=== PATIENT | female | born 1955 | race Caucasian/White ===

== ENCOUNTER → 2017-11-10 12:37 | Outpatient (CLI) | payer BC, SELFPAY ==
[2017-11-10 14:02] LABS: AST(SGOT) 23 U/L (15-37); Alanine Aminotransfer ALT/SGPT 36 U/L (13-56); Albumin, Serum 3.7 g/dL (3.2-5.0); Alkaline Phosphatase 105 U/L (45-117); Bilirubin, Direct 0.11 mg/dL (0.00-0.30); Cholesterol 204 mg/dL (200); High Density Lipoprotein 43 mg/dL; Protein, Total 6.7 g/dL (6.4-8.2); Triglycerides 184 mg/dL; Very Low Density Lipoprotein 37 mg/dL (5-40)
== END ==
PROVIDERS: Family Provider Family Medicine; PCP Family Medicine; Visit Provider Internal Medicine Cardiovascular Disease
DX: E78.5 Hyperlipidemia, unspecified (principal); Z79.899 Other long term (current) drug therapy
CPT/HCPCS: 36415; 80061; 80076

== ENCOUNTER → 2018-06-20 11:03 | Outpatient (CLI) | payer BC, SELFPAY ==
[2018-06-20 12:45] LABS: AST(SGOT) 20 U/L (15-37); Alanine Aminotransfer ALT/SGPT 39 U/L (13-56); Albumin, Serum 4.3 g/dL (3.2-5.0); Alkaline Phosphatase 107 U/L (45-117); Bilirubin, Direct 0.18 mg/dL (0.00-0.30); Cholesterol 190 mg/dL (200); Globulin 3.3 g/dL (2.2-4.2); High Density Lipoprotein 49 mg/dL; Protein, Total 7.6 g/dL (6.4-8.2); Triglycerides 158 mg/dL; Very Low Density Lipoprotein 32 mg/dL (5-40)
== END ==
PROVIDERS: Family Provider Family Medicine; PCP Family Medicine; Referring Provider Internal Medicine Cardiovascular Disease; Visit Provider Internal Medicine Cardiovascular Disease
DX: E78.5 Hyperlipidemia, unspecified (principal); Z79.899 Other long term (current) drug therapy
CPT/HCPCS: 36415; 80061; 80076

== ENCOUNTER → 2018-12-19 10:25 | Outpatient (CLI) | payer BC, SELFPAY ==
[2018-10-27 09:50] VITALS: BMI 36.0
[2018-12-19 11:23] LABS: AST(SGOT) 24 U/L (15-37); Alanine Aminotransfer ALT/SGPT 42 U/L (13-56); Albumin, Serum 3.9 g/dL (3.2-5.0); Alkaline Phosphatase 102 U/L (45-117); Bilirubin, Direct 0.17 mg/dL (0.00-0.30); Cholesterol 206 mg/dL (200); Globulin 3.2 g/dL (2.2-4.2); High Density Lipoprotein 52 mg/dL; Protein, Total 7.1 g/dL (6.4-8.2); Triglycerides 177 mg/dL; Very Low Density Lipoprotein 35 mg/dL (5-40)
== END ==
PROVIDERS: Family Provider Family Medicine; PCP Family Medicine; Referring Provider Physician Assistant Medical; Visit Provider Physician Assistant Medical
DX: E78.5 Hyperlipidemia, unspecified (principal)
CPT/HCPCS: 36415; 80061; 80076

== ENCOUNTER → 2018-12-26 11:20 | Outpatient (CLI) | payer BC, SELFPAY ==
[2018-12-26 10:37] VITALS: BMI 36.3
[2018-12-26 12:03] LABS: Absolute Lymphocyte Count 3.04 X10^3/ul (0.83-4.51); Absolute Neutrophil Count 5.1 X10^3/uL (2.0-7.7); Basophil# 0.05 X10^3/uL; Basophil% 0.6 % (0-1); Eosinophil# 0.24 X10^3/uL; Eosinophils% 2.6 % (0-5); Hemoglobin 14.4 g/dl (12.0-15.0); Lymphocyte # 3.04 X10^3/ul (4.0); Lymphocyte % 33.4 % (19-41); Mean Corp Hgb Conc 32.7 g/gl (32-36); Mean Corpuscular Hgb 30.8 pg (27.0-32.0); Monocyte# 0.61 X10^3/uL; Monocyte% 6.7 % (0-10); Neutrophil # 5.13 X10^3/uL (2.7-7.7); Neutrophil % 56.5 % (47-70); Platelet Count 262 K/mm3 (150-450); RBC Distribution Width SD 47.6 fl (35.1-43.9); Red Blood Count 4.68 M/mm3 (4.2-5.4); White Blood Count 9.1 K/mm3 (4.4-11.0)
[2018-12-26 12:15] LABS: POSITIVE COUNT NO; POSITIVE DIFFERENTIAL NO; POSITIVE MORPHOLOGY NO
[2018-12-26 12:58] LABS: Anion Gap 8 (5-15); BUN 18 mg/dL (7-18); BUN/Creat Ratio 25.9 RATIO (10-20); Calcium,Total 9.6 mg/dL (8.5-10.1); Chloride 104 mmol/L (98-107); EST Glomerular Filtration Rate 90 mL/min (>60); Est Glom Filt Rate - Afr Amer 109 mL/min (>60); Glucose 122 mg/dL (74-106); Potassium 3.7 mmol/L (3.5-5.1); Sodium Level 141 mmol/L (136-145); Thyroid Stim Hormone (TSH) 0.94 uIU/mL (0.358-3.74)
== END ==
PROVIDERS: Family Provider Family Medicine; PCP Family Medicine; Referring Provider Physician Assistant Medical; Visit Provider Physician Assistant Medical
DX: I47.1 Supraventricular tachycardia (principal); I10 Essential (primary) hypertension
CPT/HCPCS: 36415; 80048; 83735; 84443; 85025

== ENCOUNTER → 2019-02-05 08:37 | Outpatient (CLI) | payer BC, SELFPAY ==
[2018-12-26 10:37] VITALS: BMI 36.3
--- NOTE | 2019-02-05 08:40 | BI_ITS ---
MAMMOGRAPHY - BILATERAL SCREENING REASON FOR EXAM: Female, 63 years old. Routine annual screening examination. PERTINENT HISTORY: Aunt with breast cancer. TECHNIQUE: Digital bilateral breast taran (3D mammographic acquisition) in the CC and MLO projections. 2-D mediolateral oblique (MLO) and craniocaudad (CC) views of both breasts were obtained. CAD: Full Field Digital Mammography with Computer Added Detection was performed. COMPARISON: Comparison is made with prior study dated February 03, 2016 and December 03, 2014. FINDINGS: Breast Composition: There are scattered areas of fibroglandular density. There now is evidence of a 1.6 cm x 1.2 cm well-defined nodular density in the central retroareolar areolar region of the right breast. No clustered calcification is seen. No other significant abnormalities are identified. BI/SCREENING MAMM (CAD), BILAT IMPRESSION: New 1.6 cm x 1.2 cm well-defined nodule in the central right or a real region of the right breast as described. Correlation with ultrasound is recommended for further evaluation. ASSESSMENT CATEGORY: BIRADS Category 0: Incomplete. Need additional imaging evaluation. A letter regarding these results will be sent to the patient by the facility within 30 days. Approximately 10% of breast cancers are not detected by mammography. A normal mammogram should not delay biopsy of a clinically suspicious abnormality. [id number] Electronically Signed: Tyler Catalan, at 10:08 EDT , Service support ,
== END ==
PROVIDERS: Family Provider Family Medicine; PCP Family Medicine; Referring Provider Obstetrics & Gynecology; Visit Provider Obstetrics & Gynecology
DX: Z12.31 Encounter for screening mammogram for malignant neoplasm of breast (principal); Z80.3 Family history of malignant neoplasm of breast
CPT/HCPCS: 77063; 77067

== ENCOUNTER → 2019-02-06 15:07 | Outpatient (CLI) | payer BC, SELFPAY ==
[2018-12-26 10:37] VITALS: BMI 36.3
--- NOTE | 2019-02-06 15:10 | US_ITS ---
STUDY: ULTRASOUND BREAST - RIGHT REASON FOR EXAM: Female, 63 years old. Abnormal screening mammogram. TECHNIQUE: Axial and longitudinal images of the RIGHT breast were performed with a high resolution ultrasound transducer. COMPARISON: Comparison is made with prior mammogram dated February 05, 2019. FINDINGS: RIGHT Breast: The mammographic abnormality corresponds to a 1.2 cm x 1.3 cm x 1.1 cm cyst. This is at the 1:00 position of the breast at 1 cm from the nipple. US/Breast Limited Unilateral IMPRESSION: The mammographic abnormality corresponds to a 1.2 cm x 1.3 cm x 1.1 cm cyst. ASSESSMENT CATEGORY: BIRADS Category 2: Benign. A letter regarding these results will be sent to the patient by the facility within 30 days. Electronically Signed: Tyler Catalan, at 15:53 EDT , Service support ,
== END ==
PROVIDERS: Family Provider Family Medicine; PCP Family Medicine; Referring Provider Obstetrics & Gynecology; Visit Provider Obstetrics & Gynecology
DX: N60.01 Solitary cyst of right breast (principal)
CPT/HCPCS: 76642

== ENCOUNTER 2019-03-08 08:55 | Day surgery (SDC) | payer BC, SELFPAY ==
[2018-12-26 10:37] VITALS: BMI 36.3
[2019-02-20 13:43] VITALS: BMI 36.3
--- NOTE | 2019-02-26 20:30 | PCM.HP.STD ---
Problem List (1) Chronic venous insufficiency Status: Chronic (2) Varicose veins with inflammation Status: Chronic (3) Leg swelling Status: Chronic (4) Leg pain Status: Chronic Qualifiers: Laterality: left Qualified Code(s): M79.605 - Pain in left leg (5) History of atrial fibrillation Status: Chronic (6) Hyperlipemia Status: Chronic Qualifiers: (7) HTN (hypertension) Status: Chronic Qualifiers: (8) Obesity Status: Chronic Qualifiers: (9) EMMANUEL (obstructive sleep apnea) Status: Chronic (10) GERD (gastroesophageal reflux disease) Status: Chronic History of Present Illness Date of Admission: 03/08/19 Chief Complaint: Chronic venous insufficiency, varicose veins with inflammation, leg pain, leg swelling?Left lower extremity The patient is a 63 year old F [with a long-standing history of chronic venous insufficiency, varicose veins with inflammation, leg pain, and leg swelling involving her lower extremities. Her left lower extremity is more severely affected. For approximately 10 years, the patient has had pain, aching, discomfort, and heaviness in her lower extremities. Her symptoms have become progressively more severe. This has been associated with lower extremity swelling. The patient denies a history of thrombophlebitis. She is undergone no prior vein procedures in the past. Venous duplex examination has been performed, revealing incompetence of the left great saphenous vein in the left small saphenous vein. The implications of this diagnosis have been discussed with the patient in detail. The options of management have been fully explained. Conservative treatment measures have been implemented, which have included leg elevation, avoidance of idle standing and sitting, graduated compression stockings, weight control measures, active lifestyle, [id number] analgesics, etc. Despite these measures, the patient has remained symptomatic, with symptoms which have adversely affected daily activities, quality of life, and job functions. Patient's medical history is positive for atrial fibrillation, sleep apnea, gastroesophageal reflux disease, hypertension, and hyperlipidemia. Patient's history is negative for myocardial infarction, congestive heart failure, diabetes mellitus, cerebrovascular accident, cancer, renal disease, pulmonary disease, thyroid disease, and peripheral arterial occlusive disease.] Past Medical History Past Medical History (Chronic Problems): Chronic Problems (Last Reviewed 02/20/19 @ 13:41 by Melba Hagen) Chronic venous insufficiency (Chronic) Varicose veins with inflammation (Chronic) Leg swelling (Chronic) Leg pain (Chronic) History of atrial fibrillation (Chronic) SVT (supraventricular tachycardia) (Chronic) slow pathway ablation Paroxysmal atrial fibrillation (Chronic) Abnormal electrocardiogram (Chronic) 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) Hyperlipemia (Chronic) Palpitations (Chronic) HTN (hypertension) (Chronic) Polyarthritis (Chronic) Obesity (Chronic) EMMANUEL (obstructive sleep apnea) (Chronic) IBS (irritable bowel syndrome) (Chronic) Vitamin D deficiency (Chronic) Prediabetes (Chronic) Dermatitis (Chronic) Bradycardia (Chronic) GERD (gastroesophageal reflux disease) (Chronic) Osteoporosis (Chronic) Hammer toe (Chronic) Leg edema (Chronic) Pulmonary HTN (Chronic) Questionable lupus (Chronic) Medical History: Medical History (Last Reviewed 02/20/19 @ 13:41 by Melba Hagen) Cyst of breast, right, solitary (Acute) N60.01 SVT (supraventricular tachycardia) (Chronic) I47.1 slow pathway ablation Hyperlipemia (Chronic) E78.5 Palpitations (Chronic) R00.2 HTN (hypertension) (Chronic) I10 Polyarthritis (Chronic) M13.0 Obesity (Chronic) E66.9 EMMANUEL (obstructive sleep apnea) (Chronic) G47.33 IBS (irritable bowel syndrome) (Chronic) K58.9 Vitamin D deficiency (Chronic) E55.9 Prediabetes (Chronic) R73.03 Gout (Resolved) M10.9 Dermatitis (Chronic) L30.9 Bradycardia (Chronic) R00.1 GERD (gastroesophageal reflux disease) (Chronic) K21.9 Osteoporosis (Chronic) M81.0 Hammer toe (Chronic) M20.40 Leg edema (Chronic) R60.0 Pulmonary HTN (Chronic) I27.20 Constipation (Resolved) K59.00 Hypomagnesemia (Resolved) E83.42 Impingement syndrome of right shoulder (Resolved) M75.41 History of atrial fibrillation (Inactive) Status post ablation Hyperlipidemia (Inactive) Hypertension (Inactive) Allergies No Known Allergies Allergy (Verified 02/20/19 13:42) Home Medications: Ambulatory Orders Medication Instructions Recorded Aspirin [Aspirin, Baby] 81 mg PO DAILY@0800 01/06/15 [place]-3 Fatty Acids [Fish Oil] 1,500 mg PO DAILY 01/06/15 furosemide 40 mg tablet 40 mg PO BID #60 tab 03/27/18 metoprolol succinate ER 50 mg 50 mg PO QDAY #90 tab 05/22/18 tablet,extended release 24 hr lisinopril 20 mg tablet 20 mg PO QDAY #90 tab 06/06/18 pravastatin 20 mg tablet 20 mg PO QHS #90 tab 10/30/18 flecainide 100 mg tablet 100 mg PO BID #180 tab 11/08/18 magnesium 71.5 mg (magnesium 71.5 mg PO DAILY tab 12/26/18 chloride) tablet,delayed release neomycin 3.5 mg/g-polymyxin B 1 applic OPHTHALMIC QHS 12/26/18 10,000 unit/g-dexameth 0.1 % eye oint fluconazole 100 mg tablet 100 mg PO DAILY 02/20/19 Surgical History: Surgical History (Last Reviewed 02/20/19 @ 13:41 by Melba Hagen) History of hysterectomy (Resolved) Z98.890, Z90.710 History of tonsillectomy (Resolved) Z98.890, Z90.89 History of cardiac radiofrequency ablation (RFA) Z98.890 Surgical History: - Psychiatric History: 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: - - The patient is a Ab0 Lives: Spouse/ Significant Other Smoking Status: Never smoker Tobacco Use: Non-smoker Alcohol: None Drugs: None - *Family History Maternal Family History: Family History (Last Reviewed 02/20/19 @ 13:41 by Melba Hagen) Mother CAD (coronary artery disease) Father Aneurysm History Items: No pertinent history Review of Systems Constitutional: Denies: Chills, Fever, Weight Change HEENT: Denies: Head Aches, Sinus Congestion, Sinus Drainage Cardiovascular: Denies: Chest Pain, Palpitations Respiratory: Denies: Cough, Shortness of breath at rest, Sputum production Gastrointestinal: Denies: Abdominal Pain, Nausea, Vomiting Genitourinary: Denies: Dysuria Musculoskeletal: Denies: Joint Pain, Joint Tenderness Skin: Denies: Rash, Wounds Neurological: Denies: Numbness, Tingling, Focal weakness Psychiatric: Denies: Anxiety, Depression, Homicidal Ideations, Suicidal Ideations Hematologic/ Lymphatic: Denies: Easy Bruising, Easy Bleeding VTE Information - Inpt Only VTE Present on Admission: No VTE Mechan Device Prophylaxis: SCD's - Right VTE Pharm Prophylaxis ordered?: Yes - Physical Exam General: Alert, Oriented x3, Cooperative, Well developed, Well nourished HEENT: Atraumatic, PERRLA, EOMI, Normocephalic Oral: Moist Mucosa, No Gingival or Mucosal Lesions/ Ulcerations Neck: Supple, No JVD, Negative Carotid Bruits, No Nodes, No Nuchal Rigidity, Trachea Midline Lungs: Clear to auscultation, Normal air movement, No rhonchi, No wheeze, No rales Cardiovascular: Regular rate, Normal S1, Normal S2, No murmurs Abdomen: Bowel Sounds Present, Soft, Non Tender Extremities: No clubbing, No cyanosis, No edema, Capillary Refill Less than 3 Seconds, No Calf Tenderness, Peripheral Pulses Normal, - - Slight hyperpigmentation is noted in the gaiter areas bilaterally. Peripheral extremities are warm and well-perfused. Scattered varicosities are noted bilaterally. Skin: No rashes, No breakdown Musculoskeletal: No Tenderness to Palpation of Joints or Extremities, No Muscle Wasting Neurological: Cranial nerves II-XII grossly intact, Neuro grossly intact Psych/Mental Status: Normal Affect, Appropriate, Alert and oriented to time, place, person, mood and affect Body Mass Index (BMI) 36.3 Assessment/Plan All Active Problems (Last Reviewed 02/20/19 @ 13:41 by Melba Hagen) Cyst of breast, right, solitary (Acute) History of hysterectomy (Resolved) History of tonsillectomy (Resolved) Gout (Resolved) Constipation (Resolved) Hypomagnesemia (Resolved) Impingement syndrome of right shoulder (Resolved) This is a 63-year-old female with a long-standing history of chronic venous insufficiency, varicose veins with inflammation, leg pain, and leg swelling involving her left lower extremity. Venous duplex examination has revealed incompetence involving the left great saphenous vein in the left small saphenous vein. The implications of this diagnosis have been discussed with the patient in detail. The options of management have been fully explained. Conservative treatment measures have been implemented, which have included leg elevation, avoidance of idle standing and sitting, graduated compression stockings, weight control measures, active lifestyle, pmaw-kyd-yeftuup analgesics, etc. Despite these measures, the patient has remained symptomatic, with symptoms which have adversely affected daily activities, quality of life, and job functions. Indications and risks of endovenous laser ablation of the left great saphenous vein in the left small saphenous vein have been discussed with the patient detail. The indications and risks of the procedure have been thoroughly explained. The proper expectations have been discussed. Patient wishes to proceed. The appropriate preprocedure consent process has been undertaken.
--- NOTE | 2019-02-28 11:27 | EKG12_ITS ---
Test Reason : PRE-OP Blood Pressure : / mmHG Vent. Rate : 060 BPM Atrial Rate : 060 BPM P-R Int : 202 ms QRS Dur : 104 ms QT Int : 452 ms P-R-T Axes : 030 -29 037 degrees QTc Int : 452 ms Normal sinus rhythm Cannot rule out Anterior infarct , age undetermined Abnormal ECG Confirmed by ROBERTH GOMES ([id number]), loan expeditor GRIS STODDARD ([id number]) on 03/02/2019 6:06:32 AM Referred By: Antwan Arambula Confirmed By:ROBERTH GOMES
[2019-02-28 11:49] LABS: Hematocrit 45.8 % (37-47); Hemoglobin 15.3 g/dl (12.0-15.0); Mean Corp Hgb Conc 33.4 g/gl (32-36); Mean Corpuscular Hgb 30.5 pg (27.0-32.0); Mean Corpuscular Volume 91.4 fL (81-99); Mean Platelet Vol. 9.8 fl (6.2-12.0); Platelet Count 273 K/mm3 (150-450); RBC Distribution Width CV 13.8 % (11.6-14.6); RBC Distribution Width SD 45.8 fl (35.1-43.9); Red Blood Count 5.01 M/mm3 (4.2-5.4); White Blood Count 9.2 K/mm3 (4.4-11.0)
[2019-02-28 11:51] LABS: Scan Indicated on CBC? Y/N NO
[2019-02-28 12:46] LABS: Anion Gap 10 (5-15); BUN 15 mg/dL (7-18); BUN/Creat Ratio 19.7 RATIO (10-20); Calcium,Total 9.3 mg/dL (8.5-10.1); Chloride 103 mmol/L (98-107); Creatinine, Serum 0.76 mg/dL (0.55-1.02); EST Glomerular Filtration Rate 81 mL/min (>60); Est Glom Filt Rate - Afr Amer 98 mL/min (>60); Glucose 116 mg/dL (74-106); Potassium 4.1 mmol/L (3.5-5.1); Sodium Level 140 mmol/L (136-145)
[2019-03-08] VITALS (29 sets, daily range): BP systolic 130–160; BP diastolic 57–98; PULSE 57–83; RESP 14–18; TEMP 36.1–37; O2SAT 88–100; BMI 35.5
[2019-03-08] MEDS: Enoxaparin 30 MG/0.3 ML Syringe SC (09:25)
[2019-03-08] MEDS: Cefazolin 2 GM in 0.9% Normal Saline 100 ML IV (10:23)
--- NOTE | 2019-03-08 12:12 | PCM.DCVENO ---
Discharge Diet: No Restrictions Discharge Activity: May Not Drive Weight Bearing Status: Weight bearing as tolerated Lifting Restrictions: 10 pounds Keep extremity elevated above heart level: Left Leg Call your doctor if you observe: Shortness of breath, Fainting spells, Chest pain, Prolonged hiccoughing, Uncontrolled pain Suture Line Care: Avoid Pulling/Pushing Remove Dressing in (days):: 2 - Then rewrap leg daily from base of toes to the upper thigh. Allergies/Adverse Reactions: Allergies No Known Allergies Allergy (Verified 03/01/19 10:27) Medications to take at Discharge Aspirin [Aspirin, Baby] 81 mg PO DAILY@0800 01/06/15 [place]-3 Fatty Acids [Fish Oil] 1,500 mg PO DAILY 01/06/15 furosemide 40 mg tablet 40 mg PO BID #60 tab 03/27/18 metoprolol succinate ER 50 mg tablet,extended release 24 hr 50 mg PO QDAY #90 tab 05/22/18 lisinopril 20 mg tablet 20 mg PO QDAY #90 tab 06/06/18 pravastatin 20 mg tablet 20 mg PO QHS #90 tab 10/30/18 flecainide 100 mg tablet 100 mg PO BID #180 tab 11/08/18 magnesium 71.5 mg (magnesium chloride) tablet,delayed release 71.5 mg PO DAILY tab 12/26/18 neomycin 3.5 mg/g-polymyxin B 10,000 unit/g-dexameth 0.1 % eye oint 1 applic OPHTHALMIC QHS PRN 12/26/18 Primary Care Physician: Awais Kearney DO [Primary Care Provider] - Test Results: Test results from this visit will be discussed in further detail at your follow-up appointment, if applicable. Please Follow Up With: Antwan Arambula MD - Call [phone] to schedule a followup appointment. When: 10-14 days
--- NOTE | 2019-03-08 12:15 | DCINST_ITS ---
Discharge Diet: No Restrictions Discharge Activity: May Not Drive Weight Bearing Status: Weight bearing as tolerated Lifting Restrictions: 10 pounds Keep extremity elevated above heart level: Left Leg Call your doctor if you observe: Shortness of breath, Fainting spells, Chest pain, Prolonged hiccoughing, Uncontrolled pain Suture Line Care: Avoid Pulling/Pushing Remove Dressing in (days):: 2 - Then rewrap leg daily from base of toes to the upper thigh. Allergies/Adverse Reactions: Allergies No Known Allergies Allergy (Verified 03/01/19 10:27) Medications to take at Discharge Aspirin [Aspirin, Baby] 81 mg PO DAILY@0800 01/06/15 [place]-3 Fatty Acids [Fish Oil] 1,500 mg PO DAILY 01/06/15 furosemide 40 mg tablet 40 mg PO BID #60 tab 03/27/18 metoprolol succinate ER 50 mg tablet,extended release 24 hr 50 mg PO QDAY #90 tab 05/22/18 lisinopril 20 mg tablet 20 mg PO QDAY #90 tab 06/06/18 pravastatin 20 mg tablet 20 mg PO QHS #90 tab 10/30/18 flecainide 100 mg tablet 100 mg PO BID #180 tab 11/08/18 magnesium 71.5 mg (magnesium chloride) tablet,delayed release 71.5 mg PO DAILY tab 12/26/18 neomycin 3.5 mg/g-polymyxin B 10,000 unit/g-dexameth 0.1 % eye oint 1 applic OPHTHALMIC QHS PRN 12/26/18 Primary Care Physician: Awais Kearney DO [Primary Care Provider] - Test Results: Test results from this visit will be discussed in further detail at your follow- up appointment, if applicable. Please Follow Up With: Antwan Arambula MD - Call [phone] to schedule a followup appointment. When: 10-14 days
[2019-03-08] MEDS: Ipratropium/Albuterol Sulfate 3 ML AMPUL.NEB INHALATION ×2 (13:09→19:14)
--- NOTE | 2019-03-08 14:45 | RAD_ITS ---
STUDY: X-RAY CHEST REASON FOR EXAM: Female, 63 years old. Postoperative shortness of breath. TECHNIQUE: Single AP portable view of the chest. COMPARISON: Comparison is made with prior study dated January 06, 2015. FINDINGS: EKG electrodes are seen. Stable mild increased markings in the lateral aspect of the left lower lobe with blunting of the left costophrenic angle most likely representing scarring. There is borderline cardiomegaly. Normal mediastinum and polly. Normal visualized pulmonary arteries. There is atherosclerotic calcification of the aortic arch with tortuosity. There are diffuse degenerative changes of the visualized thoracic spine. Normal visualized ribs, clavicles, and shoulders. There is no demonstrated abnormality of the visualized soft tissue structures of the upper abdomen. RAD/Chest 1 View (Portable) IMPRESSION: Findings suggestive of mild scarring at the left lung base with blunting of the left costophrenic angle. Electronically Signed: Tyler Catalan, at 15:19 EDT , Service support ,
--- NOTE | 2019-03-08 17:07 | PN_ITS ---
Subjective: Consult for medical management: 63-year-old female with past medical history of atrial fibrillation status post ablation, history of SVT, SLE, not on medication, IBS, EMMANUEL on CPAP, chronic venous Insufficiency/varicose veins with inflammation, leg pain and swelling. Patient was admitted for elective endovenous laser ablation of the left great saphenous vein as well as the left small saphenous vein. Patient had this procedure successfully in the OR today. In PACU she was found to be hypoxic and saturating in the 80s. She improved to the 90s on nasal cannula oxygen but was unable to be weaned off oxygen. Chest x-ray in PACU showed mild scarring in the left lung base with blunting of the left costophrenic angle. The decision was made to admit the patient overnight, monitor her closely with the hope of weaning the patient off oxygen. Patient denied any pain, denied any shortness of breath or increased work of breathing or chest pain or dizziness or palpitations. 12 point review of systems was negative Vitals/I&O's: Vital Signs Temp Pulse Resp BP Pulse Ox 97.4 F L 64 16 147/98 H 93 03/08/19 16:30 03/08/19 16:30 03/08/19 16:30 03/08/19 16:30 03/08/19 16:30 Oxygen Flow Rate (L/min) 3 Oxygen Delivery Method Nasal Cannula Weight: 93.9 kg Body Mass Index (BMI) 35.5 Intake and Output for Last 24 Hours 03/06/19 03/07/19 03/08/19 23:59 23:59 23:59 Intake Total 1399 / 1400 Balance 1399 / 1399 General: Alert, Oriented x3, Cooperative, No apparent distress, - - On 3 L of oxygen HEENT: Atraumatic, PERRLA, EOMI, Normocephalic Oral: Moist Mucosa Neck: Supple Lungs: Clear to auscultation, Normal air movement Cardiovascular: Regular rate, Regular Rhythm, Normal S1, Normal S2, No murmurs Abdomen: Bowel Sounds Present, Soft, Non Tender, Non-Distended, No Hepato- splenomegaly Extremities: No edema Skin: No rashes, No breakdown Musculoskeletal: No Tenderness to Palpation of Joints or Extremities Lymphatic: No Cervical, Supraclavicular, or Inguinal Adenopathy Neurological: Cranial nerves II-XII grossly intact, Neuro grossly intact Psych/Mental Status: Normal Affect, Appropriate Current Medications Albuterol Sulfate (Ventolin Aerosols) 2.5 mg INHALATION Q2H PRN PRN PRN Reason: SOB &/OR WHEEZING Albuterol/Ipratropium (Duoneb) 3 ml INHALATION Q4HWA.RT CRISTEL Flecainide Acetate (Tambocor) 100 mg PO BID CRISTEL Hydromorphone HCl (Dilaudid Inj) 1 - 2 mg IV Q3H PRN PRN PRN Reason: Pain Lactated Ringer's () 1,000 mls @ 65 mls/hr IV .[id number] CRISTEL Lisinopril (Zestril) 20 mg PO QDAY CRISTEL Metoprolol Succinate (Toprol Xl (Beta Talisha)) 50 mg PO QDAY CRISTEL Non-Formulary Medication (Magnesium Chloride [Slow-Mag]) 71.5 mg PO DAILY CRISTEL Non-Formulary Medication ([place]-3 Fatty Acids) 1,500 mg PO DAILY CRISTEL Oxycodone HCl (Oxyir) 5 - 10 mg PO Q4H PRN PRN PRN Reason: PAIN Pravastatin Sodium (Pravachol) 20 mg PO QHS CRISTEL Medical Necessity - Tobacco Use Smoking Status: Never smoker Tobacco Use: Non-smoker Assessment/Plan All Active Problems (Last Reviewed 02/20/19 @ 13:41 by Melba Hagen) Cyst of breast, right, solitary (Acute) History of hysterectomy (Resolved) History of tonsillectomy (Resolved) Gout (Resolved) Constipation (Resolved) Hypomagnesemia (Resolved) Impingement syndrome of right shoulder (Resolved) 63-year-old female with past medical history of atrial fibrillation status post ablation, history of SVT, SLE, not on medication, IBS, EMMANUEL on CPAP, chronic venous Insufficiency/varicose veins with inflammation, leg pain and swelling. Venous Dopplers exam in the outpatient revealed incompetence of the left great saphenous and small saphenous veins. Patient was managed initially conservatively with no improvement in his symptoms. She was admitted for elective endovenous laser treatment. We are consulted for medical management of hypoxia developed in PACU 1. Acute hypoxia, postoperatively, likely secondary to atelectasis, no history of COPD, History of EMMANUEL, on CPAP, Chest x-ray shows left basilar scarring. Patient is on 3 L of oxygen Plan: Continue on incentive spirometer, continue on oxygen, continue to wean oxygen for SPO2 more than 94%, breathing treatments as needed. 2. POD #0 s/p endovenous laser ablation of the left greater and smaller saphenous veins, pain is fairly controlled, Continue on scheduled Tylenol, as needed oxycodone as well as Dilaudid. 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 History of atrial fibrillation status post ablation, history of SVT, in normal sinus rhythm, on flecainide, metoprolol 3. SLE/IBS not on medication 4. EMMANUEL on CPAP 5. Hypertension, controlled, continue lisinopril, continue to monitor vitals 6. DVT PPx- Heparin SC Code Visit Inpatient E&M: 92064 Init Hosp L3
[2019-03-08] MEDS: Acetaminophen 500 MG Tablet 1000 MG PO (19:06)
[2019-03-08] MEDS: Flecainide 100 MG Tablet PO (21:49)
[2019-03-08] MEDS: Pravastatin 20 MG Tablet PO (21:49)
[2019-03-08] MEDS: Heparin Injection (Vial) 5,000 UNIT/ML VIAL 5000 UNIT SC (21:50)
[2019-03-08] MEDS: oxyCODONE 5 MG Tablet PO (21:50)
[2019-03-08] MEDS: Lactated Ringers 1,000 ML 65 ML IV (21:58)
[2019-03-09] VITALS (9 sets, daily range): BP systolic 110–123; BP diastolic 49–69; PULSE 55–78; RESP 16–20; TEMP 36.9–37.1; O2SAT 92–96
[2019-03-09] MEDS: oxyCODONE 5 MG Tablet PO ×3 (00:24→13:58)
[2019-03-09] MEDS: Acetaminophen 500 MG Tablet 1000 MG PO (05:51)
[2019-03-09] MEDS: Heparin Injection (Vial) 5,000 UNIT/ML VIAL 5000 UNIT SC (05:52)
[2019-03-09 06:43] LABS: Absolute Lymphocyte Count 1.98 X10^3/ul (0.83-4.51); Absolute Neutrophil Count 8.9 X10^3/uL (2.0-7.7); Basophil# 0.01 X10^3/uL; Basophil% 0.1 % (0-1); Eosinophil# 0.01 X10^3/uL; Eosinophils% 0.1 % (0-5); Hematocrit 39.9 % (37-47); Hemoglobin 13.1 g/dl (12.0-15.0); Lymphocyte # 1.98 X10^3/ul (4.0); Lymphocyte % 16.5 % (19-41); Mean Corp Hgb Conc 32.8 g/gl (32-36); Mean Corpuscular Hgb 30.6 pg (27.0-32.0); Mean Corpuscular Volume 93.2 fL (81-99); Monocyte# 1.02 X10^3/uL; Monocyte% 8.5 % (0-10); Neutrophil # 8.92 X10^3/uL (2.7-7.7); Neutrophil % 74.5 % (47-70); Platelet Count 265 K/mm3 (150-450); RBC Distribution Width CV 13.7 % (11.6-14.6); RBC Distribution Width SD 45.6 fl (35.1-43.9); Red Blood Count 4.28 M/mm3 (4.2-5.4)
[2019-03-09 06:54] LABS: Anion Gap 10 (5-15); BUN 24 mg/dL (7-18); Calcium,Total 8.6 mg/dL (8.5-10.1); Chloride 109 mmol/L (98-107); Creatinine, Serum 0.83 mg/dL (0.55-1.02); EST Glomerular Filtration Rate 74 mL/min (>60); Est Glom Filt Rate - Afr Amer 89 mL/min (>60); Estimated Creatinine Clearance 59.13 ml/min; Glucose 154 mg/dL (74-106); Potassium 4.1 mmol/L (3.5-5.1); Sodium Level 143 mmol/L (136-145)
[2019-03-09 06:55] LABS: POSITIVE COUNT NO; POSITIVE DIFFERENTIAL NO; POSITIVE MORPHOLOGY NO
[2019-03-09] MEDS: Ipratropium/Albuterol Sulfate 3 ML AMPUL.NEB INHALATION ×2 (07:06→10:58)
--- NOTE | 2019-03-09 07:55 | OP.PCM_ITS ---
Problem List (1) Chronic venous insufficiency Status: Chronic (2) Varicose veins with inflammation Status: Chronic (3) Leg swelling Status: Chronic (4) Leg pain Status: Chronic Qualifiers: Laterality: left Qualified Code(s): M79.605 - Pain in left leg Report of Operation Date of Procedure: 03/08/19 Pre-Operative Diagnosis: Chronic venous insufficiency, varicose veins with inflamation, leg pain, leg swelling - left lower extremity Post-Operative Diagnosis: Chronic venous insufficiency, varicose veins with inflamation, leg pain, leg swelling - left lower extremity Surgery/Procedure Performed:: 1. Endovenous laser ablation of left great saphenous vein. 2. Endovenous laser ablation of left small saphenous vein Description of Surgical Findings:: As above Type of Anesthesia:: General, Tumescent Anesthesiologist: Jose A Gonzales Specimen's removed: None Drains: None Estimated Blood Loss (mL): Minimal Description of Procedure: This is a 63-year-old female who presented with chronic venous insufficiency, varicose veins with inflammation, leg pain, and leg swelling involving her left lower extremity. Preoperative venous duplex examination revealed valvular incompetence involving the left great saphenous vein and the left small saphenous vein. The implications of this diagnosis were discussed with the patient in detail. The options of management were fully explained. Conservative treatment measures were implemented, which included leg elevation, avoidance of vital standing and sitting, graduated compression stockings, weight control measures, active lifestyle, [id number] analgesics, etc. Despite these measures, the patient remained symptomatic, with symptoms which adversely affect her daily activities and quality of life. The indications and risks of endovenous laser ablation of the left great saphenous vein and the left small saphenous vein were discussed with the patient in detail. The appropriate preprocedure consent process was undertaken. The patient underwent ultrasound marking of the left great saphenous vein and the left small saphenous vein preoperatively. She was then brought to the operating suite, placed supine upon the operating room table, where general anesthesia was administered by the anesthesia staff. The patient's left lower extremity and left groin were prepped and draped in the appropriate sterile manner. The patient was placed in reverse Trendelenburg position. Ultrasonography was used to image the left great saphenous vein in the distal calf. The micropuncture technique was used to access the left great saphenous vein percutaneously in the distal calf. In this manner, a 0.018 inch guidewire was advanced intraluminally into the left great saphenous vein, and was visualized by ultrasonography. A micropuncture sheath was advanced over the guidewire. The 0.018 inch guidewire was exchanged for a 0.035 inch guidewire, which was then advanced intraluminally to a level just distal to the left sapheno?femoral junction, as confirmed by ultrasound imaging. A long 4 Georgian sheath was then advanced over the guidewire, and its tip was positioned approximately 2 cm distal to the left sapheno?femoral junction. Attention was then directed to the incompetent left small saphenous vein. To enhance exposure, the left lower extremity was placed in an externally rotated position with the left knee flexed. Using ultrasound imaging and the micropuncture technique, a micropuncture sheath was introduced intraluminally near the inferior border of the left gastrocnemius muscle, and was left in place, capped, for subsequent access purposes. Attention was then redirected to the long 4 Georgian sheath which had been previously placed intraluminally within the left great saphenous vein. Perivenous tumescent anesthesia was injected from the 4 Georgian sheath exit site up to the tip of the sheath near the left sapheno?femoral junction. This was performed segmentally using ultrasound imaging. The AngioDynamics laser fiber was then introduced into the 4 Georgian sheath and coupled appropriately. Ultrasonography was used to confirm that the tip of the laser fiber was positioned within the left great saphenous vein approximately 2 to 2-1/2 cm distal to the left sapheno?femoral junction. The patient was placed in Trendelenburg position and the laser fiber was activated. The AngioDynamics laser was slowly withdrawn at a constant rate throughout the length of the left great saphenous vein, thereby ablating the left great saphenous vein segmentally. The energy applied was approximately 60 to 80 J/cm. Following the laser ablation, the laser fiber and sheath were removed, and manual pressure was briefly applied to the percutaneous access site to achieve hemostasis. Attention was then directed to the micropuncture sheath which had been previously placed intraluminally within the left small saphenous vein. A 0.035 inch guidewire was introduced intraluminally and its tip was positioned within the proximal portion of the left small saphenous vein. The long 4 Georgian sheath was then advanced over the guidewire and into position intraluminally within the left small saphenous vein. Perivenous tumescent anesthesia was injected from the 4 Georgian sheath exit site up to the tip of the sheath in the proximal portion of the left small saphenous vein. This was performed segmentally using ultrasound imaging. The AngioDynamics laser fiber was then introduced into the 4 Georgian sheath and coupled appropriately. Ultrasonography was used to confirm that the tip of the laser fiber was positioned within the proximal left small saphenous vein, several centimeters distal to its junction with the deep venous system, and remaining within the superficial portion of the left small saphenous vein. The patient was placed into Trendelenburg position, and the laser fiber was activated. The AngioDynamics laser was slowly withdrawn at a constant rate throughout the length of the left small saphenous vein, thereby ablating the left small saphenous vein segmentally. The energy applied was approximately 60 to 80 J/cm. Following the laser ablation, the laser fiber and sheath were removed, and manual pressure was briefly applied to the percutaneous access site to achieve hemostasis. After assuring satisfactory hemostasis, the access sites were approximated using Cavilon and Steri-Strips. Dry sterile gauze dressings were applied over each of the access sites, and the leg was wrapped from the base of the toes to the upper thigh with Kerlix, followed by Dar wrap. The blood loss for the procedure was minimal. The sponge, needle, and instrument counts at the end of the procedure were correct. The patient tolerated the procedure well and was transported from the operating room to the postanesthesia care unit in stable condition. The amount of tumescent anesthesia utilized, number of joules applied, and treatment times were recorded separately. Grafts/Implants Used: None - Complications None - Admit VTE Documentation VTE Present on Admission: No VTE Mechan Device Prophylaxis: SCD's - Right VTE Pharm Prophylaxis ordered?: Yes
--- NOTE | 2019-03-09 09:30 | NURSING ---
Pt standing up in bathroom getting washed up. O2 sats remaining at 93% on RA with activity
[2019-03-09] MEDS: Magnesium Oxide 400 MG Tablet PO (10:13)
[2019-03-09] MEDS: Lisinopril 20 MG Tablet PO (10:13)
[2019-03-09] MEDS: Flecainide 100 MG Tablet PO (10:33)
--- NOTE | 2019-03-09 12:40 | PCM.PROGNOTE ---
<Wilbur Giles - Last Filed: 03/09/19 12:40> Subjective: Pt resting comfortably in chair, off O2. No SOB. Follows Dr. gallego regarding cariology, bradycardia, tikosyn. States her pulse in the 50s is not uncommon for her. No LH/dizziness/Palp - Physical Exam General: Alert, Oriented x3, Cooperative HEENT: Atraumatic, PERRLA, EOMI, Normocephalic Neck: Supple, No JVD, Negative Carotid Bruits Lungs: Clear to auscultation, Normal air movement Cardiovascular: Regular rate, No murmurs Abdomen: Bowel Sounds Present, Soft, Non Tender Extremities: No edema, Capillary Refill Less than 3 Seconds Skin: No rashes, No breakdown Musculoskeletal: No Tenderness to Palpation of Joints or Extremities Neurological: Cranial nerves II-XII grossly intact Psych/Mental Status: Normal Affect, Appropriate, Alert and oriented to time, place, person, mood and affect Vital Signs Temp Pulse Resp BP Pulse Ox 98.8 F 78 16 110/49 L 94 03/09/19 08:00 03/09/19 10:58 03/09/19 10:58 03/09/19 08:00 03/09/19 08:00 Oxygen Flow Rate (L/min) 1 Oxygen Delivery Method Nasal Cannula Weight: 207 lb 0.225 oz Body Mass Index (BMI) 35.5 Intake and Output for Last 24 Hours 03/07/19 03/08/19 03/09/19 23:59 23:59 23:59 Intake Total 1400 / 1400 1385 / 1385 Output Total 750 / 750 Balance 1400 / 1400 635 / 635 Laboratory Tests Past 24 Hrs 03/09/19 03/09/19 06:00 06:00 WBC 12.0 H RBC 4.28 Hgb 13.1 Hct 39.9 MCV 93.2 MCH 30.6 MCHC 32.8 RDW 13.7 RDW Differential 45.6 H Plt Count 265 MPV 10.0 Immature Gran % (Auto) 0.300 Neut % (Auto) 74.5 H Lymph % (Auto) 16.5 L [place] % (Auto) 8.5 Eos % (Auto) 0.1 Baso % (Auto) 0.1 Absolute Neuts (auto) 8.9 H Absolute Lymphs (auto) 1.98 Total Counted Not Reportable Sodium 143 Potassium 4.1 Chloride 109 H Carbon Dioxide 24.0 Anion Gap 10 BUN 24 H Creatinine 0.83 Estim Creat Clear Calc 59.13 Est GFR (MDRD) Af Amer 89 Est GFR (MDRD) Non-Af 74 BUN/Creatinine Ratio 29.0 H Glucose 154 H Calcium 8.6 Medical Necessity - Tobacco Use Smoking Status: Never smoker Tobacco Use: Non-smoker Assessment/Plan All Active Problems (Last Reviewed 02/20/19 @ 13:41 by Melba Hagen) Cyst of breast, right, solitary (Acute) History of hysterectomy (Resolved) History of tonsillectomy (Resolved) Gout (Resolved) Constipation (Resolved) Hypomagnesemia (Resolved) Impingement syndrome of right shoulder (Resolved) 1. Post op hypoxia - resolved. Continue incentive spirometer q hour after DC. 2. Bradycardia - hx Afib. hold metoprolol until tuesday, call Eda's office for follow up and further instructions. Continue tikosyn. 3. Chronic venous insufficiency/varicose veines - care per Dr. Arambula, POD#1 ablation. 4. EMMANUEL - CPAP qhs 5. HTN - stable Patient medically stable for discharge. Thank you for the opportunity to participate in the care of this patient. This patient was seen by Wilbur Giles PA-C under the supervision of Dr. Marques. <Ruben Marques F - Last Filed: 03/09/19 13:08> - Physical Exam Vital Signs Temp Pulse Resp BP Pulse Ox 98.8 F 78 16 110/49 L 94 03/09/19 08:00 03/09/19 10:58 03/09/19 10:58 03/09/19 08:00 03/09/19 08:00 Oxygen Flow Rate (L/min) 1 Oxygen Delivery Method Nasal Cannula Weight: 207 lb 0.225 oz Body Mass Index (BMI) 35.5 Intake and Output for Last 24 Hours 03/07/19 03/08/19 03/09/19 23:59 23:59 23:59 Intake Total 1400 / 1400 1385 / 1385 Output Total 750 / 750 Balance 1400 / 1400 635 / 635 Laboratory Tests Past 24 Hrs 03/09/19 03/09/19 06:00 06:00 WBC 12.0 H RBC 4.28 Hgb 13.1 Hct 39.9 MCV 93.2 MCH 30.6 MCHC 32.8 RDW 13.7 RDW Differential 45.6 H Plt Count 265 MPV 10.0 Immature Gran % (Auto) 0.300 Neut % (Auto) 74.5 H Lymph % (Auto) 16.5 L [place] % (Auto) 8.5 Eos % (Auto) 0.1 Baso % (Auto) 0.1 Absolute Neuts (auto) 8.9 H Absolute Lymphs (auto) 1.98 Total Counted Not Reportable Sodium 143 Potassium 4.1 Chloride 109 H Carbon Dioxide 24.0 Anion Gap 10 BUN 24 H Creatinine 0.83 Estim Creat Clear Calc 59.13 Est GFR (MDRD) Af Amer 89 Est GFR (MDRD) Non-Af 74 BUN/Creatinine Ratio 29.0 H Glucose 154 H Calcium 8.6 Code Visit Addendum: Dr. Marques I personally examined the patient and reviewed the chart. I agree with the above. He is 3-year-old female with history of A. fib status post ablation, history of SVT, SLE, EMMANUEL on CPAP had an endovenous laser ablation of the left great saphenous vein as well as left small saphenous vein. She successfully completed the procedure however she was hypoxic in PACU which is not surprising given her BMI and her obstructive sleep apnea diagnosis with her CPAP. She was admitted overnight and today she is on room air with good oxygen saturation. She is stable from discharge from a respiratory standpoint. Of note her heart rate at times was in the 50s and nursing was nervous about providing her her metoprolol, and therefore since she is currently not allowed to be ambulatory can likely hold until she is allowed to ambulate, or if she notices her heart rate increase over the weekend. From a medical standpoint she is okay to discharge. Inpatient E&M: 82307 Subs Hosp L2
--- NOTE | 2019-03-09 13:16 | PCM.PN.SRG ---
Subjective: The patient is resting comfortably in bed. She is supine, with her left leg elevated above heart level. The patient has no complaints. She denies significant post-procedure discomfort in her left lower extremity. She denies chest pain and shortness of breath. She indicates that she feels as though she is at her baseline in terms of her respiratory status. Objective: Patient appears comfortable. Respirations are unlabored. Oxygen saturations have improved. She is now on room air, with an O2 saturation of 93%. - Physical Exam General: Alert, Oriented x3, Cooperative, No apparent distress, Well developed, Well nourished HEENT: Atraumatic, PERRLA, EOMI, Normocephalic Lungs: Normal air movement Abdomen: Obese Extremities: No Calf Tenderness, - - The left lower extremity remains wrapped with Dar, unchanged from that which was applied postoperatively yesterday following her surgical procedure. The left lower extremity dressings are dry and intact. There is no sign of postoperative bleeding. Neurological: Cranial nerves II-XII grossly intact, Neuro grossly intact Psych/Mental Status: Normal Affect, Appropriate, Alert and oriented to time, place, person, mood and affect Vital Signs Temp Pulse Resp BP Pulse Ox 98.8 F 78 16 110/49 L 94 03/09/19 08:00 03/09/19 10:58 03/09/19 10:58 03/09/19 08:00 03/09/19 08:00 Oxygen Flow Rate (L/min) 1 Oxygen Delivery Method Nasal Cannula Weight: 207 lb 0.225 oz Body Mass Index (BMI) 35.5 Intake and Output for Last 24 Hours 03/07/19 03/08/19 03/09/19 23:59 23:59 23:59 Intake Total 1400 / 1400 1785 / 1785 Output Total 750 / 750 Balance 1400 / 1400 1035 / 1035 Laboratory Tests Past 24 Hrs 03/09/19 03/09/19 06:00 06:00 WBC 12.0 H RBC 4.28 Hgb 13.1 Hct 39.9 MCV 93.2 MCH 30.6 MCHC 32.8 RDW 13.7 RDW Differential 45.6 H Plt Count 265 MPV 10.0 Immature Gran % (Auto) 0.300 Neut % (Auto) 74.5 H Lymph % (Auto) 16.5 L [place] % (Auto) 8.5 Eos % (Auto) 0.1 Baso % (Auto) 0.1 Absolute Neuts (auto) 8.9 H Absolute Lymphs (auto) 1.98 Total Counted Not Reportable Sodium 143 Potassium 4.1 Chloride 109 H Carbon Dioxide 24.0 Anion Gap 10 BUN 24 H Creatinine 0.83 Estim Creat Clear Calc 59.13 Est GFR (MDRD) Af Amer 89 Est GFR (MDRD) Non-Af 74 BUN/Creatinine Ratio 29.0 H Glucose 154 H Calcium 8.6 Medical Necessity - Tobacco Use Smoking Status: Never smoker Tobacco Use: Non-smoker Assessment/Plan All Active Problems (Last Reviewed 02/20/19 @ 13:41 by Melba Hagen) Cyst of breast, right, solitary (Acute) History of hysterectomy (Resolved) History of tonsillectomy (Resolved) Gout (Resolved) Constipation (Resolved) Hypomagnesemia (Resolved) Impingement syndrome of right shoulder (Resolved) The patient appears to be doing well. In terms of her postoperative status, she has no complaints, experiencing very little discomfort in her left lower extremity. Her compression wrap remains intact and undisturbed. The patient's respiratory status appears to be stable. It is felt that her admission, which occurred as a result of hypoxia, was likely due to her chronic obstructive sleep apnea and the somnolent state which was the result of general anesthesia administered for the purpose of surgery yesterday. The patient has now returned to her baseline state, and appears to be doing well, and appropriate for discharge. The patient has been assessed by the Hospitalist service, who has also cleared the patient for discharge. Patient is to follow-up on an outpatient basis and post surgical assessment in approximately 2 weeks. She has been provided the appropriate instructions as to postsurgical care. She is to resume her usual home based treatments and medications as pertains to her medical problems.
== END 2019-03-09 14:41 | disposition home or self-care (01) ==
LOC: SDC 08:55 → AC 08:57 → MS3 16:30
PROVIDERS: Internal Medicine; Family Provider Family Medicine; PCP Family Medicine; Referring Provider Surgery; Visit Provider Family Medicine
PROC: (CPT 36478; principal; 2019-03-08 10:15)
DX: I83.12 Varicose veins of left lower extremity with inflammation (principal); M79.89 Other specified soft tissue disorders; I48.91 Unspecified atrial fibrillation; G47.33 Obstructive sleep apnea (adult) (pediatric); K58.9 Irritable bowel syndrome, unspecified; J98.4 Other disorders of lung; R09.02 Hypoxemia; I10 Essential (primary) hypertension; M32.9 Systemic lupus erythematosus, unspecified; E66.9 Obesity, unspecified; Z68.36 Body mass index [BMI] 36.0-36.9, adult
CPT/HCPCS: 36478; 36479; 36415; 71045; 80048; 85025; 85027; 93005; 93971; 94640; J7040; J7120; J2405

== ENCOUNTER → 2019-04-19 14:31 | Outpatient (CLI) | payer BC, SELFPAY ==
[2019-03-08 17:26] VITALS: BMI 35.5
[2019-04-24 12:59] LABS: HPV Reflexed? NOT INDICATED
== END ==
PROVIDERS: Visit Provider Obstetrics & Gynecology
DX: Z12.4 Encounter for screening for malignant neoplasm of cervix (principal)
CPT/HCPCS: 88175; G0145

== ENCOUNTER → 2019-05-31 08:59 | Outpatient (CLI) | payer BC, SELFPAY ==
[2019-03-08 17:26] VITALS: BMI 35.5
--- NOTE | 2019-05-31 09:00 | VDLE_ITS ---
Reason For Study: pain and swelling RIGHT LEFT GSV is normal. CFV is compressible, spontaneous, phasic, CFV is compressible, spontaneous, phasic, competent, and demonstrates normal competent and demonstrates normal augmentation. augmentation. FV is compressible, spontaneous, phasic, FV is compressible, spontaneous, phasic, competent and demonstrates normal competent and demonstrates normal augmentation. augmentation. POP V is compressible, spontaneous, phasic, POP V is compressible, spontaneous, phasic, competent and demonstrates normal competent and demonstrates normal augmentation. augmentation. T/P Trunk is compressible. T/P Trunk is compressible. PTV is compressible. PTV is compressible. LT PerV is compressible. RT PerV is compressible. GSV and SSV are occluded S/P EVLA. SFJ is competent and measures .81 x 1.01 cm. GSV is competent throughout. GSV proximal thigh measures .43 x .47 cm. GSV at knee measures .37 x .4 cm. SSV proximal calf is competent and measures .18 x .19 cm. ASV at the knee from GSV moving laterally is incompetent for greater than .5 seconds. ASV measures .21 x .25 cm. Second ASV from GSV to SSV is incompetent for greater than .5 seconds. ASV measures .36 x .35 cm. Procedure Exam performed in department. The exam was diagnostic. Interpretation Summary Deep veins of the lower extremities are bilaterally patent and compressible segmentally. There is no evidence of deep vein thrombosis on either side. Valvular competence appears intact within the proximal deep venous systems bilaterally. The right great saphenous vein appears patent and compressible segmentally. The right sapheno-femoral junction is competent . The right great saphenous vein appears segmentally competent. The right small saphenous vein is patent and competent. An incompetent accessory saphenous vein is noted at the level of the right knee. An incompetent accessory saphenous vein from the right great saphenous vein communicates with the small saphenous vein. The left great saphenous vein and small saphenous vein are occluded, consistent with a prior endothermal ablation procedure. Ordering Physician: Antwan Arambula Performed By: Lj Szymanski RVT
== END ==
PROVIDERS: Family Provider Family Medicine; PCP Family Medicine; Referring Provider Surgery; Visit Provider Surgery
DX: M79.89 Other specified soft tissue disorders (principal); M79.605 Pain in left leg; L53.8 Other specified erythematous conditions
CPT/HCPCS: 93970

== ENCOUNTER 2019-06-19 10:00 | Outpatient (RCR) | payer BC, SELFPAY ==
[2019-03-08 17:26] VITALS: BMI 35.5
[2019-06-05 09:51] VITALS: BP 183/84; PULSE 66; RESP 18; TEMP 36.9; BMI 36.0
--- NOTE | 2019-06-05 13:52 | HP.PCM_ITS ---
(1) Cellulitis Status: Acute Current Visit: Yes Qualifiers: Site of cellulitis: extremity Site of cellulitis of extremity: lower extremity Laterality: left Qualified Code(s): L03.116 - Cellulitis of left lower limb Code(s): L03.90 - Cellulitis, unspecified (2) Sleep apnea Status: Chronic Current Visit: No Code(s): G47.30 - Sleep apnea, unspecified (3) Chronic venous insufficiency Status: Chronic Current Visit: Yes Code(s): I87.2 - Venous insufficiency (chronic) (peripheral) (4) Varicose veins with inflammation Status: Chronic Current Visit: Yes Code(s): I83.10 - Varicose veins of unspecified lower extremity with inflammation (5) Leg swelling Status: Chronic Current Visit: Yes Code(s): M79.89 - Other specified soft tissue disorders (6) Leg pain Status: Chronic Current Visit: Yes Qualifiers: Laterality: left Code(s): M79.606 - Pain in leg, unspecified (7) History of atrial fibrillation Status: Chronic Current Visit: No Code(s): Z86.79 - Personal history of other diseases of the circulatory system (8) History of hysterectomy Status: Resolved Current Visit: No Code(s): Z98.890 - Other specified postprocedural states; Z90.710 - Acquired absence of both cervix and uterus (9) History of tonsillectomy Status: Resolved Current Visit: No Code(s): Z98.890 - Other specified postprocedural states; Z90.89 - Acquired absence of other organs (10) HTN (hypertension) Status: Chronic Current Visit: No Qualifiers: Code(s): I10 - Essential (primary) hypertension (11) Obesity Status: Chronic Current Visit: No Qualifiers: Body mass index: BMI 35.0-35.9 Code(s): E66.9 - Obesity, unspecified (12) GERD (gastroesophageal reflux disease) Status: Chronic Current Visit: No Code(s): K21.9 - Gastro-esophageal reflux disease without esophagitis (13) Osteoporosis Status: Chronic Current Visit: No Code(s): M81.0 - Age-related osteoporosis without current pathological fracture (14) Leg edema Status: Chronic Current Visit: Yes Code(s): R60.0 - Localized edema History of Present Illness Date of Service: 06/05/19 Chief Complaint: Cellulitis, left lower extremity, with swelling and edema History of Wound: This is a 63-year-old female with a long-standing history of chronic venous insufficiency, varicose veins with inflammation, and swelling in her lower extremities. On March 08, 2019, the patient underwent endovenous laser ablation of the left great saphenous vein in the left small saphenous vein. The procedure was successful, and the patient recovered uneventfully. However, she presented recently with swelling and edema in her left lower extremity, associated with pain and erythema which was suggestive of cellulitis. The edema in her left lower extremity was pitting. Patient was started on Keflex 500 mg p.o. twice daily, which continues until the current time. Venous duplex examination was obtained, to assure no evidence of unexpected thrombophlebitis. The venous duplex examination performed on May 31, 2019, revealed no evidence of thrombophlebitis in the left lower extremity, and with evidence of successful ablation of the left great and small saphenous veins. The patient was [facility]. She has recently been placed on meloxicam by her orthopedic surgeon, and underwent a cortisone injection in the left knee approximately 2 weeks prior to her current presentation. Incidentally, the patient notes significant improvement in her left lower extremity chronic symptoms as a result of her endothermal ablation procedure. 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) Hyperlipemia (Chronic) Palpitations (Chronic) HTN (hypertension) (Chronic) Polyarthritis (Chronic) Obesity (Chronic) EMMANUEL (obstructive sleep apnea) (Chronic) IBS (irritable bowel syndrome) (Chronic) Vitamin D deficiency (Chronic) Prediabetes (Chronic) Dermatitis (Chronic) Bradycardia (Chronic) GERD (gastroesophageal reflux disease) (Chronic) Osteoporosis (Chronic) Hammer toe (Chronic) Leg edema (Chronic) Pulmonary HTN (Chronic) Questionable lupus (Chronic) Past Medical History: The patient has a history of hypertension, hyperlipidemia, obesity, atrial fibrillation, gastroesophageal reflux disease, and sleep apnea. Her history is negative for myocardial infarction, congestive heart failure, cerebrovascular accident, diabetes mellitus, cancer, renal disease, pulmonary disease, and thyroid disease. Surgical History: hysterectomy, tonsillectomy, - Allergies/Adverse Reactions: Allergies No Known Allergies Allergy (Verified 03/01/19 10:27) Home Medications: Ambulatory Orders Medication Instructions Recorded Aspirin [Aspirin, Baby] 81 mg PO DAILY@0800 01/06/15 [place]-3 Fatty Acids [Fish Oil] 1,500 mg PO DAILY 01/06/15 pravastatin 20 mg tablet 20 mg PO QHS #90 tab 10/30/18 flecainide 100 mg tablet 100 mg PO BID #180 tab 11/08/18 magnesium 71.5 mg (magnesium 71.5 mg PO DAILY tab 12/26/18 chloride) tablet,delayed release neomycin 3.5 mg/g-polymyxin B 1 applic OPHTHALMIC QHS PRN 12/26/18 10,000 unit/g-dexameth 0.1 % eye oint furosemide 40 mg tablet 40 mg PO BID #60 tab 03/08/19 metoprolol succinate ER 50 mg 50 mg PO DAILY #30 tab 05/08/19 tablet,extended release 24 hr lisinopril 20 mg tablet 20 mg PO DAILY #30 tab 05/28/19 Meloxicam 15 mg PO DAILY 06/05/19 - Family History Maternal Family History: Family History (Last Reviewed 02/20/19 @ 13:41 by Melba Hagen) Mother CAD (coronary artery disease) Father Aneurysm No pertinent history Lives: Spouse/ Significant Other Smoking Status: Never smoker Tobacco Use: Non-smoker Alcohol: None Drugs: None Review of Systems Constitutional: Denies: Chills, Fever, Weight Change Eyes: Denies: Pain, Vision Change HEENT: Denies: Difficulty Hearing, Difficulty Swallowing, Sinus Congestion Cardiovascular: Denies: Chest Pain, Palpitations Respiratory: Denies: Cough, Shortness of Breath Gastrointestinal: Denies: Diarrhea, Nausea, Vomiting Genitourinary: Denies: Dysuria, Hematuria Endocrine: Denies: Heat/ Cold Intolerance, Polydipsia, Polyuria Hematologic/ Lymphatic: Denies: Easy Bruising, Easy Bleeding - Physical Exam Vital Signs Temp Pulse Resp BP 98.4 F 66 18 183/84 H 06/05/19 09:51 06/05/19 09:51 06/05/19 09:51 06/05/19 09:51 General: Alert, Oriented x3, Cooperative, No apparent distress, Well developed, Well nourished HEENT: Atraumatic, PERRLA, EOMI, Normocephalic Oral: Moist Mucosa Neck: Supple, No JVD, Negative Carotid Bruits, Negative Hepatojugular Reflux, No Nodes, No Nuchal Rigidity, Trachea Midline Lungs: Clear to auscultation, Normal air movement, No rhonchi, No wheeze, No rales Cardiovascular: Regular rate, Regular Rhythm, Normal S1, Normal S2, No murmurs Abdomen: Soft, Non Tender, Non-Distended, Obese Extremities: No clubbing, No cyanosis, No Calf Tenderness, - - The swelling, edema, and erythema in the left lower extremity, as compared to 1 week ago is markedly improved. The erythema is now nearly resolved. There is still mild pitting edema in the left lower extremity, however. There are no jayy open wounds or ulcerations, though several very small, superficial excoriations on the left anterior tibial surface. Wound Measurements and Assessment WC - Nurse 1 - General Ulcer Measurement Start: 06/05/19 09:51 Freq: Status: Active Protocol: Activity Type Activity Date Activity User E-Sign Co-Sign Detail Recorded Client Recorded Date Recorded By Document 06/05/19 09:51 MW [id number] 06/05/19 10:08 MW 06/05/19 09:51 Wound Center Nurse 1 [Ulcer Assessment] #1 left medial LE cluster -Combined with other wound No -Current Size (cm) - Length 5.0 -Current Size (cm) - Width 4.0 -Current Size (cm) - Depth 0.1 -Total Square Cm 20.00 -Date of Last Picture (Recall this 06/05/19 field) -Photo Taken Yes -Epithelialization None Present -Tunneling No -Undermining/Tunneling No -Circular Undermining No -Exudate Amt Medium -Exudate Type Serosanguineous -Wound Margin Flat & Intact -Granulation Amt Small (1-33%) -Granulation Quality Pale -Slough/Fibrin Yes -Necrosis Amt Small (1-33%) -Necrotic Tissue Type Adherent Slough -Structure Exposed N/A -Texture (Elisha-wound Skin Appearance) Assessed, Localized Edema -Moisture (Elisha-wound Skin Appearance No Abnormality, ) Assessed -Color (Elisha-wound Skin Appearance) Assessed, Hemosiderin Staining -Temperature (Elisha-wound Skin No Abnormality Appearance) (Pt Warm) -Tenderness on Palpation (Elisha-wound No Skin Appearance) -Ulcer Cleansing Rinsed/ Irrigated with Saline -Foul Odor after Cleansing No -Anesthetic Used 5% Lidocaine Gel [Edema Assessment] -Lower Limb Edema Present Yes -Right Calf (cm) 40.0 -Right Ankle (cm) 24.0 -Left Calf (cm) 40.8 -Left Ankle (cm) 24.0 - Nurse 2 - General Ulcer CM Notes Start: 06/05/19 09:51 Freq: Status: Active Protocol: Activity Type Activity Date Activity User E-Sign Co-Sign Detail Recorded Client Recorded Date Recorded By Document 06/05/19 10:34 ANTONIA [id number] 06/05/19 10:55 06/05/19 10:34 Wound Center Nurse 2 [Procedure/Treatment] #1 left medial LE cluster -Time 10:40 -Correct Patient Yes -Correct Side, Site, Position Yes -Correct Procedure Yes -Procedure Performed Yes -Type of Procedure Debridement -Clinical Debridement Subcutaneous -Post Debridement Size (cm) - Length 1.0 -Post Debridement Size (cm) - Width 0.2 -Post Debridement Size (cm) - Depth 0.1 -Total Square Cm 0.20 -Wound/Ulcer Outcome Not Healed -Ulcer Cleansing Rinsed/ Irrigated with Saline -Foul Odor after Cleansing No -Bioengineered Tissue No -Bleeding Controlled with Pressure -Offloading No -Treatment Response Procedure Tolerated Well [See Physician Procedure note for Specifics] Pain Scale: 0-10 Numeric [Pain] -Is Patient Pain Free? Yes Musculoskeletal: No Muscle Wasting Neurological: Cranial nerves II-XII grossly intact, Neuro grossly intact Psych/Mental Status: Normal Affect, Appropriate, Alert and oriented to time, place, person, mood and affect Debridement Note Post-Debridement Measurements/Treatment - Nurse 2 - General Ulcer CM Notes Start: 06/05/19 09:51 Freq: Status: Active Protocol: Activity Type Activity Date Activity User E-Sign Co-Sign Detail Recorded Client Recorded Date Recorded By Document 06/05/19 10:34 [email or web address] [id number] 06/05/19 10:55 06/05/19 10:34 Wound Center Nurse 2 #1 left medial LE cluster -Time 10:40 -Correct Patient Yes -Correct Side, Site, Position Yes -Correct Procedure Yes -Procedure Performed Yes -Type of Procedure Debridement -Clinical Debridement Subcutaneous -Post Debridement Size (cm) - Length 1.0 -Post Debridement Size (cm) - Width 0.2 -Post Debridement Size (cm) - Depth 0.1 -Total Square Cm 0.20 -Wound/Ulcer Outcome Not Healed -Ulcer Cleansing Rinsed/ Irrigated with Saline -Foul Odor after Cleansing No -Bioengineered Tissue No -Bleeding Controlled with Pressure -Offloading No -Treatment Response Procedure Tolerated Well Pain Scale: 0-10 Numeric Is Patient Pain Free? Yes No debridement was completed today - There are no open wounds or ulcerations Assessment/Plan Active Problems (Last Reviewed 02/20/19 @ 13:41 by Melba Hagen) Cellulitis (Acute) Chronic venous insufficiency (Chronic) Varicose veins with inflammation (Chronic) Leg swelling (Chronic) Leg pain (Chronic) Leg edema (Chronic) Assessment: This is a 63-year-old female with a long-standing history of chronic venous insufficiency, varicose veins with inflammation, leg pain, and leg swelling involving her left lower extremity. She underwent endovenous laser ablation of the left great and small saphenous veins in February 2019. The procedure was seen to be successful, and the patient has derived significant symptomatic benefit. However, she presented recently with enhanced swelling and edema in the left lower extremity, associated with erythema in the left lower extremity which was clinically suggestive of cellulitis. She has been treated with oral Keflex, with nearly total resolution of the cellulitis. [facility]. Recommendations were made to elevate the lower extremities, and the patient has been referred to the [facility] for additional resources necessary for her care. Plan: The patient is to elevate her lower extremities as much as possible. The means by which this is to be accomplished have been discussed with the patient thoroughly. Elevation is to be to heart level, or higher. She is to continue sleeping on a flat mattress at night. Avoidance of prolonged idle standing and sitting has been recommended. Activity has been encouraged. Weight loss has been recommended. Compression is to be implemented by means of a 3M 2 layer compression wrap to the left lower extremity, which will be changed twice weekly. Joya is to be applied topically, and will be changed with each change of her compression wraps. Patient is to return in 1 week for reassessment. Patient weighs 210 pounds. She stands 5 feet 4 inches tall. BMI is 36.0. Places her in a class II category. Weight loss has been recommended. Collaboration with her primary care physician in this regard has been advised. Patient is not a smoker. Influenza vaccine was not administered today.
[2019-06-08 08:18] VITALS: BMI 36.0
[2019-06-12 09:33] VITALS: BP 157/81; PULSE 65; RESP 16; TEMP 36.6; BMI 36.0
--- NOTE | 2019-06-12 10:21 | PCM.WC.HP ---
(1) Cellulitis Status: Resolved Current Visit: Yes Qualifiers: Site of cellulitis: extremity Site of cellulitis of extremity: lower extremity Laterality: left Qualified Code(s): L03.116 - Cellulitis of left lower limb Code(s): L03.90 - Cellulitis, unspecified (2) Sleep apnea Status: Chronic Current Visit: No Code(s): G47.30 - Sleep apnea, unspecified (3) Chronic venous insufficiency Status: Chronic Current Visit: Yes Code(s): I87.2 - Venous insufficiency (chronic) (peripheral) (4) Varicose veins with inflammation Status: Chronic Current Visit: Yes Code(s): I83.10 - Varicose veins of unspecified lower extremity with inflammation (5) Leg swelling Status: Chronic Current Visit: Yes Code(s): M79.89 - Other specified soft tissue disorders (6) Leg pain Status: Chronic Current Visit: Yes Qualifiers: Laterality: left Code(s): M79.606 - Pain in leg, unspecified (7) History of atrial fibrillation Status: Chronic Current Visit: No Code(s): Z86.79 - Personal history of other diseases of the circulatory system (8) HTN (hypertension) Status: Chronic Current Visit: No Qualifiers: Code(s): I10 - Essential (primary) hypertension (9) Obesity Status: Chronic Current Visit: No Qualifiers: Body mass index: BMI 35.0-35.9 Code(s): E66.9 - Obesity, unspecified (10) GERD (gastroesophageal reflux disease) Status: Chronic Current Visit: No Code(s): K21.9 - Gastro-esophageal reflux disease without esophagitis (11) Osteoporosis Status: Chronic Current Visit: No Code(s): M81.0 - Age-related osteoporosis without current pathological fracture (12) Leg edema Status: Chronic Current Visit: Yes Code(s): R60.0 - Localized edema History of Present Illness Date of Service: 06/12/19 Chief Complaint: Cellulitis, left lower extremity, with swelling and edema History of Wound: This is a 63-year-old female with a long-standing history of chronic venous insufficiency, varicose veins with inflammation, and swelling in her lower extremities. On March 08, 2019, the patient underwent endovenous laser ablation of the left great saphenous vein in the left small saphenous vein. The procedure was successful, and the patient recovered uneventfully. However, she presented recently with swelling and edema in her left lower extremity, associated with pain and erythema which was suggestive of cellulitis. The edema in her left lower extremity was pitting. Patient was started on Keflex 500 mg p.o. twice daily, which continues until the current time. Venous duplex examination was obtained, to assure no evidence of unexpected thrombophlebitis. The venous duplex examination performed on May 31, 2019, revealed no evidence of thrombophlebitis in the left lower extremity, and with evidence of successful ablation of the left great and small saphenous veins. [facility] She has recently been placed on meloxicam by her orthopedic surgeon, and underwent a cortisone injection in the left knee approximately 2 weeks prior to her current presentation. Incidentally, the patient notes significant improvement in her left lower extremity chronic symptoms as a result of her endothermal ablation procedure. Past Medical History Past Medical History: Chronic Problems (Last Reviewed 02/20/19 @ 13:41 by Melba Hagen) Sleep apnea (Chronic) Chronic venous insufficiency (Chronic) Varicose veins with inflammation (Chronic) Leg swelling (Chronic) Leg pain (Chronic) History of atrial fibrillation (Chronic) SVT (supraventricular tachycardia) (Chronic) slow pathway ablation Paroxysmal atrial fibrillation (Chronic) Abnormal electrocardiogram (Chronic) skilled nursing use of drug (Chronic) Hyperlipemia (Chronic) Palpitations (Chronic) HTN (hypertension) (Chronic) Polyarthritis (Chronic) Obesity (Chronic) EMMANUEL (obstructive sleep apnea) (Chronic) IBS (irritable bowel syndrome) (Chronic) Vitamin D deficiency (Chronic) Prediabetes (Chronic) Dermatitis (Chronic) Bradycardia (Chronic) GERD (gastroesophageal reflux disease) (Chronic) Osteoporosis (Chronic) Hammer toe (Chronic) Leg edema (Chronic) Pulmonary HTN (Chronic) Questionable lupus (Chronic) Surgical History: hysterectomy, tonsillectomy, - Allergies/Adverse Reactions: Allergies No Known Allergies Allergy (Verified 03/01/19 10:27) Home Medications: Ambulatory Orders Medication Instructions Recorded Aspirin [Aspirin, Baby] 81 mg PO DAILY@0800 01/06/15 [place]-3 Fatty Acids [Fish Oil] 1,500 mg PO DAILY 01/06/15 pravastatin 20 mg tablet 20 mg PO QHS #90 tab 10/30/18 flecainide 100 mg tablet 100 mg PO BID #180 tab 11/08/18 magnesium 71.5 mg (magnesium 71.5 mg PO DAILY tab 12/26/18 chloride) tablet,delayed release neomycin 3.5 mg/g-polymyxin B 1 applic OPHTHALMIC QHS PRN 12/26/18 10,000 unit/g-dexameth 0.1 % eye oint furosemide 40 mg tablet 40 mg PO BID #60 tab 03/08/19 metoprolol succinate ER 50 mg 50 mg PO DAILY #30 tab 05/08/19 tablet,extended release 24 hr lisinopril 20 mg tablet 20 mg PO DAILY #30 tab 05/28/19 Meloxicam 15 mg PO DAILY 06/05/19 - Family History Maternal Family History: Family History (Last Reviewed 02/20/19 @ 13:41 by Melba Hagen) Mother CAD (coronary artery disease) Father Aneurysm No pertinent history Lives: Spouse/ Significant Other Smoking Status: Never smoker Tobacco Use: Non-smoker Alcohol: None Drugs: None Review of Systems Constitutional: Denies: Chills, Fever, Weight Change Eyes: Denies: Pain, Vision Change HEENT: Denies: Difficulty Hearing, Difficulty Swallowing, Sinus Congestion Cardiovascular: Denies: Chest Pain, Palpitations Respiratory: Denies: Cough, Shortness of Breath Gastrointestinal: Denies: Diarrhea, Nausea, Vomiting Genitourinary: Denies: Dysuria, Hematuria Endocrine: Denies: Heat/ Cold Intolerance, Polydipsia, Polyuria Hematologic/ Lymphatic: Denies: Easy Bruising, Easy Bleeding - Physical Exam Vital Signs Temp Pulse Resp BP 97.8 F 65 16 157/81 H 06/12/19 09:33 06/12/19 09:33 06/12/19 09:33 06/12/19 09:33 General: Alert, Oriented x3, Cooperative, No apparent distress, Well developed, Well nourished HEENT: Atraumatic, PERRLA, EOMI, Normocephalic Oral: Moist Mucosa Neck: No JVD Lungs: Normal air movement Abdomen: Non-Distended, Obese Extremities: No clubbing, No cyanosis, No edema, No Calf Tenderness, - - There is no swelling or edema in the patient's left lower extremity. The erythema which was previously noted is now completely resolved. There is a small ulceration in the left medial calf. There is no sign of infection or cellulitis. Dimensions are documented elsewhere. Patient of the ulceration is pink and healthy in appearance, with evidence of granulation tissue. There is only a small amount of bioburden. Skin: No rashes Wound Measurements and Assessment WC - Nurse 1 - General Ulcer Measurement Start: 06/05/19 09:51 Freq: Status: Active Protocol: Activity Type Activity Date Activity User E-Sign Co-Sign Detail Recorded Client Recorded Date Recorded By Document 06/12/19 09:33 [facility] [id number] 06/12/19 09:43 BMF 06/12/19 09:33 [facility] Nurse 1 [Ulcer Assessment] #1 left medial LE cluster -Combined with other wound No -Current Size (cm) - Length 0.4 -Current Size (cm) - Width 0.2 -Current Size (cm) - Depth 0.1 -Total Square Cm 0.08 -Photo Taken No -Epithelialization Small 1-33% -Tunneling No -Undermining/Tunneling No -Circular Undermining No -Exudate Amt Small -Exudate Type Serosanguineous -Wound Margin Distinct, Outline Attached -Granulation Amt Medium (34-66%) -Granulation Quality Red -Slough/Fibrin Yes -Necrosis Amt Small (1-33%) -Necrotic Tissue Type Adherent Slough -Texture (Elisha-wound Skin Appearance) Assessed, Scarring -Moisture (Elisha-wound Skin Appearance Assessed,Dry/ ) Scaly -Color (Elisha-wound Skin Appearance) Assessed -Temperature (Elisha-wound Skin No Abnormality Appearance) (Pt Warm) -Tenderness on Palpation (Elisha-wound No Skin Appearance) -Ulcer Cleansing soap and water -Foul Odor after Cleansing No -Anesthetic Used 5% Lidocaine Gel [Edema Assessment] -Lower Limb Edema Present Yes -Left Calf (cm) 36.4 -Left Ankle (cm) 21.9 WC - Nurse 2 - General Ulcer CM Notes Start: 06/05/19 09:51 Freq: Status: Active Protocol: Activity Type Activity Date Activity User E-Sign Co-Sign Detail Recorded Client Recorded Date Recorded By Document 06/12/19 10:17 MW [id number] 06/12/19 10:20 MW 06/12/19 10:17 [facility] Center Nurse 2 [Procedure/Treatment] #1 left medial LE cluster -Time 10:18 -Correct Patient Yes -Correct Side, Site, Position Yes -Correct Procedure Yes -Procedure Performed Yes -Type of Procedure Debridement -Clinical Debridement Subcutaneous -Post Debridement Size (cm) - Length 0.4 -Post Debridement Size (cm) - Width 0.3 -Post Debridement Size (cm) - Depth 0.1 -Total Square Cm 0.12 -Wound/Ulcer Outcome Not Healed -Ulcer Cleansing Rinsed/ Irrigated with Saline -Foul Odor after Cleansing No -Bioengineered Tissue No -Bleeding Controlled with Pressure -Offloading No -Treatment Response Procedure Tolerated Well [See Physician Procedure note for Specifics] Pain Scale: 0-10 Numeric [Pain] -Is Patient Pain Free? Yes Musculoskeletal: No Muscle Wasting Neurological: Cranial nerves II-XII grossly intact, Neuro grossly intact Psych/Mental Status: Normal Affect, Appropriate, Alert and oriented to time, place, person, mood and affect Debridement Note Post-Debridement Measurements/Treatment WC - Nurse 2 - General Ulcer CM Notes Start: 06/05/19 09:51 Freq: Status: Active Protocol: Activity Type Activity Date Activity User E-Sign Co-Sign Detail Recorded Client Recorded Date Recorded By Document 06/05/19 10:34 [id number] 06/05/19 10:55 Document 06/12/19 10:17 [id number] 06/12/19 10:20 MW 06/05/19 06/12/19 10:34 10:17 W[facility] Center Nurse 2 #1 left medial LE cluster -Time 10:40 10:18 -Correct Patient Yes Yes -Correct Side, Site, Position Yes Yes -Correct Procedure Yes Yes -Procedure Performed Yes Yes -Type of Procedure Debridement Debridement -Clinical Debridement Subcutaneous Subcutaneous -Post Debridement Size (cm) - Length 1.0 0.4 -Post Debridement Size (cm) - Width 0.2 0.3 -Post Debridement Size (cm) - Depth 0.1 0.1 -Total Square Cm 0.20 0.12 -Wound/Ulcer Outcome Not Healed Not Healed -Ulcer Cleansing Rinsed/ Rinsed/ Irrigated with Irrigated with Saline Saline -Foul Odor after Cleansing No No -Bioengineered Tissue No No -Bleeding Controlled with Pressure Pressure -Offloading No No -Treatment Response Procedure Procedure Tolerated Well Tolerated Well Pain Scale: 0-10 Numeric Is Patient Pain Free? Yes Yes Laterality: Left - Medial calf Type of Debridement: Excisional debridement Anesthesia Used: 5% Lidocaine Gel Depth: Down to and including healthy tissue, in the subcutaneous layer Percentage of wound debrided: 100 Instrument Used: 3mm curette Tissue Removed: Bioburden and nonviable tissue Severity: Fat Layer Exposed Amount of bleeding with debridement: Mild Bleeding Controlled with: Compression and gauze Patient tolerated procedure well Assessment/Plan Active Problems (Last Reviewed 02/20/19 @ 13:41 by Melba Hagen) Chronic venous insufficiency (Chronic) Varicose veins with inflammation (Chronic) Leg swelling (Chronic) Leg pain (Chronic) Leg edema (Chronic) Assessment: This is a 63-year-old female with a long-standing history of chronic venous insufficiency, varicose veins with inflammation, leg pain, and leg swelling involving her left lower extremity. She underwent endovenous laser ablation of the left great and small saphenous veins in February 2019. The procedure was seen to be successful, and the patient has derived significant symptomatic benefit. However, she presented recently with enhanced swelling and edema in the left lower extremity, associated with erythema in the left lower extremity which was clinically suggestive of cellulitis. She has been treated with oral Keflex, with total resolution of the cellulitis. Recommendations were made to elevate the lower extremities, and compression has been applied to the left lower extremity by means of a 3M, 2 layer compression wrap, applied twice weekly. Joya has been used topically. The patient is doing well, and responding to current measures. Plan: The patient is to elevate her lower extremities as much as possible. The means by which this is to be accomplished have been discussed with the patient thoroughly. Elevation is to be to heart level, or higher. She is to continue sleeping on a flat mattress at night. Avoidance of prolonged idle standing and sitting has been recommended. Activity has been encouraged. Weight loss has been recommended. Compression is to be continued by means of a 3M 2 layer compression wrap to the left lower extremity, which will be changed twice weekly. Joya is to be applied topically, and will be changed with each change of her compression wraps. Patient is to return in 1 week for reassessment. Patient weighs 210 pounds. She stands 5 feet 4 inches tall. BMI is 36.0. Places her in a class II category. Weight loss has been recommended. Collaboration with her primary care physician in this regard has been advised. Patient is not a smoker. Influenza vaccine was not administered today.
[2019-06-15 11:35] VITALS: BP 146/90; PULSE 81; RESP 16; TEMP 37.1; BMI 36.0
[2019-06-19 10:14] VITALS: BP 156/81; PULSE 86; RESP 18; TEMP 36.9; BMI 36.0
--- NOTE | 2019-06-19 10:59 | PCM.WC.HP ---
(1) Cellulitis Status: Resolved Current Visit: Yes Qualifiers: Site of cellulitis: extremity Site of cellulitis of extremity: lower extremity Laterality: left Qualified Code(s): L03.116 - Cellulitis of left lower limb Code(s): L03.90 - Cellulitis, unspecified (2) Sleep apnea Status: Chronic Current Visit: No Code(s): G47.30 - Sleep apnea, unspecified (3) Chronic venous insufficiency Status: Chronic Current Visit: Yes Code(s): I87.2 - Venous insufficiency (chronic) (peripheral) (4) Varicose veins with inflammation Status: Chronic Current Visit: Yes Code(s): I83.10 - Varicose veins of unspecified lower extremity with inflammation (5) Leg swelling Status: Chronic Current Visit: Yes Code(s): M79.89 - Other specified soft tissue disorders (6) Leg pain Status: Chronic Current Visit: Yes Qualifiers: Laterality: left Code(s): M79.606 - Pain in leg, unspecified (7) History of atrial fibrillation Status: Chronic Current Visit: No Code(s): Z86.79 - Personal history of other diseases of the circulatory system (8) HTN (hypertension) Status: Chronic Current Visit: No Qualifiers: Code(s): I10 - Essential (primary) hypertension (9) Obesity Status: Chronic Current Visit: No Qualifiers: Body mass index: BMI 35.0-35.9 Code(s): E66.9 - Obesity, unspecified (10) GERD (gastroesophageal reflux disease) Status: Chronic Current Visit: No Code(s): K21.9 - Gastro-esophageal reflux disease without esophagitis (11) Osteoporosis Status: Chronic Current Visit: No Code(s): M81.0 - Age-related osteoporosis without current pathological fracture (12) Leg edema Status: Chronic Current Visit: Yes Code(s): R60.0 - Localized edema History of Present Illness Date of Service: 06/19/19 Chief Complaint: Cellulitis, left lower extremity, with swelling and edema History of Wound: This is a 63-year-old female with a long-standing history of chronic venous insufficiency, varicose veins with inflammation, and swelling in her lower extremities. On March 08, 2019, the patient underwent endovenous laser ablation of the left great saphenous vein in the left small saphenous vein. The procedure was successful, and the patient recovered uneventfully. However, she presented recently with swelling and edema in her left lower extremity, associated with pain and erythema which was suggestive of cellulitis. The edema in her left lower extremity was pitting. Patient was started on Keflex 500 mg p.o. twice daily, which continues until the current time. Venous duplex examination was obtained, to assure no evidence of unexpected thrombophlebitis. The venous duplex examination performed on May 31, 2019, revealed no evidence of thrombophlebitis in the left lower extremity, and with evidence of successful ablation of the left great and small saphenous veins. The patient [facility] She has recently been placed on meloxicam by her orthopedic surgeon, and underwent a cortisone injection in the left knee approximately 2 weeks prior to her current presentation. Incidentally, the patient notes significant improvement in her left lower extremity chronic symptoms as a result of her endothermal ablation procedure. Past Medical History Past Medical History: Chronic Problems (Last Reviewed 02/20/19 @ 13:41 by Melba Hagen) Sleep apnea (Chronic) Chronic venous insufficiency (Chronic) Varicose veins with inflammation (Chronic) Leg swelling (Chronic) Leg pain (Chronic) History of atrial fibrillation (Chronic) SVT (supraventricular tachycardia) (Chronic) slow pathway ablation Paroxysmal atrial fibrillation (Chronic) Abnormal electrocardiogram (Chronic) penitentiary use of drug (Chronic) Hyperlipemia (Chronic) Palpitations (Chronic) HTN (hypertension) (Chronic) Polyarthritis (Chronic) Obesity (Chronic) EMMANUEL (obstructive sleep apnea) (Chronic) IBS (irritable bowel syndrome) (Chronic) Vitamin D deficiency (Chronic) Prediabetes (Chronic) Dermatitis (Chronic) Bradycardia (Chronic) GERD (gastroesophageal reflux disease) (Chronic) Osteoporosis (Chronic) Hammer toe (Chronic) Leg edema (Chronic) Pulmonary HTN (Chronic) Questionable lupus (Chronic) Surgical History: hysterectomy, tonsillectomy, - Allergies/Adverse Reactions: Allergies No Known Allergies Allergy (Verified 03/01/19 10:27) Home Medications: Ambulatory Orders Medication Instructions Recorded Aspirin [Aspirin, Baby] 81 mg PO DAILY@0800 01/06/15 [place]-3 Fatty Acids [Fish Oil] 1,500 mg PO DAILY 01/06/15 pravastatin 20 mg tablet 20 mg PO QHS #90 tab 10/30/18 flecainide 100 mg tablet 100 mg PO BID #180 tab 11/08/18 magnesium 71.5 mg (magnesium 71.5 mg PO DAILY tab 12/26/18 chloride) tablet,delayed release neomycin 3.5 mg/g-polymyxin B 1 applic OPHTHALMIC QHS PRN 12/26/18 10,000 unit/g-dexameth 0.1 % eye oint furosemide 40 mg tablet 40 mg PO BID #60 tab 03/08/19 metoprolol succinate ER 50 mg 50 mg PO DAILY #30 tab 05/08/19 tablet,extended release 24 hr lisinopril 20 mg tablet 20 mg PO DAILY #30 tab 05/28/19 Meloxicam 15 mg PO DAILY 06/05/19 - Family History Maternal Family History: Family History (Last Reviewed 02/20/19 @ 13:41 by Melba Hagen) Mother CAD (coronary artery disease) Father Aneurysm No pertinent history Lives: Spouse/ Significant Other Smoking Status: Never smoker Tobacco Use: Non-smoker Alcohol: None Drugs: None Review of Systems Constitutional: Denies: Chills, Fever, Weight Change Eyes: Denies: Pain, Vision Change HEENT: Denies: Difficulty Hearing, Difficulty Swallowing, Sinus Congestion Cardiovascular: Denies: Chest Pain, Palpitations Respiratory: Denies: Cough, Shortness of Breath Gastrointestinal: Denies: Diarrhea, Nausea, Vomiting Genitourinary: Denies: Dysuria, Hematuria Endocrine: Denies: Heat/ Cold Intolerance, Polydipsia, Polyuria Hematologic/ Lymphatic: Denies: Easy Bruising, Easy Bleeding - Physical Exam Vital Signs Temp Pulse Resp BP 98.4 F 86 18 156/81 H 06/19/19 10:14 06/19/19 10:14 06/19/19 10:14 06/19/19 10:14 General: Alert, Oriented x3, Cooperative, No apparent distress, Well developed, Well nourished HEENT: Atraumatic, PERRLA, EOMI, Normocephalic Oral: Moist Mucosa Neck: No JVD Lungs: Normal air movement Abdomen: Non-Distended, Obese Extremities: No clubbing, No cyanosis, No edema, No Calf Tenderness, - - The erythema in the left lower extremity is resolved. The wound in the left lower extremity is now completely healed and epithelialized. There is no sign of infection or cellulitis. Chronic changes persist in both lower extremities, namely mild, faint, hyperpigmentation. There are no open wounds or ulcerations. Skin: No breakdown Wound Measurements and Assessment WC - Nurse 1 - General Ulcer Measurement Start: 06/05/19 09:51 Freq: Status: Active Protocol: Activity Type Activity Date Activity User E-Sign Co-Sign Detail Recorded Client Recorded Date Recorded By Document 06/19/19 10:14 [facility] [id number] 06/19/19 10:20 [facility] 06/19/19 10:14 [facility] Nurse 1 [Ulcer Assessment] #1 left medial LE cluster -Combined with other wound No -Current Size (cm) - Length 0.1 -Current Size (cm) - Width 0.1 -Current Size (cm) - Depth 0.1 -Total Square Cm 0.01 -Photo Taken No -Epithelialization Large 67-100% -Tunneling No -Undermining/Tunneling No -Circular Undermining No -Exudate Amt None Present -Slough/Fibrin Yes -Necrosis Amt Small (1-33%) -Necrotic Tissue Type Eschar -Texture (Elisha-wound Skin Appearance) Assessed, Scarring -Moisture (Elisha-wound Skin Appearance Assessed,Dry/ ) Scaly -Color (Elisha-wound Skin Appearance) Assessed, Hemosiderin Staining -Temperature (Elisha-wound Skin No Abnormality Appearance) (Pt Warm) -Tenderness on Palpation (Elisha-wound No Skin Appearance) -Ulcer Cleansing soap and water -Foul Odor after Cleansing No -Anesthetic Used 5% Lidocaine Gel [Edema Assessment] -Lower Limb Edema Present Yes -Left Calf (cm) 36.1 -Left Ankle (cm) 22.7 Musculoskeletal: No Muscle Wasting Neurological: Cranial nerves II-XII grossly intact, Neuro grossly intact Psych/Mental Status: Normal Affect, Appropriate, Alert and oriented to time, place, person, mood and affect Debridement Note Post-Debridement Measurements/Treatment WC - Nurse 2 - General Ulcer CM Notes Start: 06/05/19 09:51 Freq: Status: Active Protocol: Activity Type Activity Date Activity User E-Sign Co-Sign Detail Recorded Client Recorded Date Recorded By Document 06/05/19 10:34 JF [id number] 06/05/19 10:55 JF Document 06/12/19 10:17 MW [id number] 06/12/19 10:20 MW 06/05/19 06/12/19 10:34 10:17 [facility] Nurse 2 #1 left medial LE cluster -Time 10:40 10:18 -Correct Patient Yes Yes -Correct Side, Site, Position Yes Yes -Correct Procedure Yes Yes -Procedure Performed Yes Yes -Type of Procedure Debridement Debridement -Clinical Debridement Subcutaneous Subcutaneous -Post Debridement Size (cm) - Length 1.0 0.4 -Post Debridement Size (cm) - Width 0.2 0.3 -Post Debridement Size (cm) - Depth 0.1 0.1 -Total Square Cm 0.20 0.12 -Wound/Ulcer Outcome Not Healed Not Healed -Ulcer Cleansing Rinsed/ Rinsed/ Irrigated with Irrigated with Saline Saline -Foul Odor after Cleansing No No -Bioengineered Tissue No No -Bleeding Controlled with Pressure Pressure -Offloading No No -Treatment Response Procedure Procedure Tolerated Well Tolerated Well Pain Scale: 0-10 Numeric Is Patient Pain Free? Yes Yes No debridement was completed today - The patient's left lower extremity ulceration is completely healed and epithelialized. Assessment/Plan Active Problems (Last Reviewed 02/20/19 @ 13:41 by Melba Hagen) Chronic venous insufficiency (Chronic) Varicose veins with inflammation (Chronic) Leg swelling (Chronic) Leg pain (Chronic) Leg edema (Chronic) Assessment: This is a 63-year-old female with a long-standing history of chronic venous insufficiency, varicose veins with inflammation, leg pain, and leg swelling involving her left lower extremity. She underwent endovenous laser ablation of the left great and small saphenous veins in February 2019. The procedure was seen to be successful, and the patient has derived significant symptomatic benefit. However, she presented recently with enhanced swelling and edema in the left lower extremity, associated with erythema in the left lower extremity which was clinically suggestive of cellulitis. She had been treated with oral Keflex, with total resolution of the cellulitis. Recommendations were made to elevate the lower extremities, and compression has been applied to the left lower extremity by means of a 3M, 2 layer compression wrap, applied twice weekly. Joya has been used topically. The patient is doing well, responding to current measures, and is now completely healed. Plan: The patient has done well. She presents today now completely healed and epithelialized. The swelling in the left lower extremity has resolved. There is no sign of infection or cellulitis. Erythema has resolved. The patient is doing well. She is to be discharged at this time, with follow-up on an as-needed basis. She has been encouraged to elevate her lower extremities as much as possible. She is to refrain from prolonged idle standing and sitting. Weight loss has been recommended. Active lifestyle has also been advised. She is to continue sleeping on a flat mattress at night. Compression is to be continued by means of graded compression stockings, knee-high length, of 20 to 30 mmHg compression. Patient is to be discharged, with follow-up on an as-needed basis. Patient weighs 210 pounds. She stands 5 feet 4 inches tall. BMI is 36.0. Places her in a class II category. Weight loss has been recommended. Collaboration with her primary care physician in this regard has been advised. Patient is not a smoker. Influenza vaccine was not administered today.
== END 2019-06-25 23:59 ==
LOC: WC 10:00
PROVIDERS: Family Provider Family Medicine; PCP Family Medicine; Visit Provider Surgery
DX: I83.222 Varicose veins of left lower extremity with both ulcer of calf and inflammation (principal); L97.222 Non-pressure chronic ulcer of left calf with fat layer exposed; I83.892 Varicose veins of left lower extremity with other complications; I48.2 Chronic atrial fibrillation; M79.605 Pain in left leg; I10 Essential (primary) hypertension; K21.9 Gastro-esophageal reflux disease without esophagitis; Z68.35 Body mass index [BMI] 35.0-35.9, adult; R60.0 Localized edema; E78.5 Hyperlipidemia, unspecified; G47.33 Obstructive sleep apnea (adult) (pediatric); I48.0 Paroxysmal atrial fibrillation; K58.9 Irritable bowel syndrome, unspecified; I27.20 Pulmonary hypertension, unspecified; Z79.899 Other long term (current) drug therapy; Z79.82 Long term (current) use of aspirin; R73.03 Prediabetes
CPT/HCPCS: 11042; 29581; 99212; G0463

== ENCOUNTER → 2019-08-15 14:07 | Outpatient (CLI) | payer BC, SELFPAY ==
[2019-08-15 14:52] LABS: AST(SGOT) 39 U/L (15-37); Alanine Aminotransfer ALT/SGPT 50 U/L (13-56); Albumin, Serum 3.9 g/dL (3.2-5.0); Alkaline Phosphatase 99 U/L (45-117); Bilirubin, Direct 0.18 mg/dL (0.00-0.30); Cholesterol 223 mg/dL (200); Globulin 2.9 g/dL (2.2-4.2); High Density Lipoprotein 51 mg/dL; Protein, Total 6.8 g/dL (6.4-8.2); Triglycerides 173 mg/dL; Very Low Density Lipoprotein 35 mg/dL (5-40)
== END ==
PROVIDERS: Family Provider Family Medicine; PCP Family Medicine; Referring Provider Physician Assistant Medical; Visit Provider Physician Assistant Medical
DX: E78.5 Hyperlipidemia, unspecified (principal)
CPT/HCPCS: 36415; 80061; 80076

== ENCOUNTER → 2020-06-14 08:13 | Outpatient (CLI) | payer BC, SELFPAY ==
[2019-11-05 14:18] VITALS: BMI 35.5
[2020-06-14 08:50] LABS: Absolute Lymphocyte Count 2.54 X10^3/uL (0.83-4.51); Absolute Neutrophil Count 4.9 X10^3/uL (2.0-7.7); Basophil# 0.07 X10^3/uL; Basophil% 0.8 % (0-1); Eosinophil# 0.29 X10^3/uL; Eosinophils% 3.4 % (0-5); Hematocrit 44.7 % (37-47); Hemoglobin 14.7 g/dL (12.0-15.0); Lymphocyte # 2.54 X10^3/ul (4.0); Lymphocyte % 29.9 % (19-41); Mean Corp Hgb Conc 32.9 g/dL (32-36); Mean Corpuscular Hgb 30.9 pg (27.0-32.0); Mean Corpuscular Volume 94.1 fL (81-99); Mean Platelet Vol. 10.3 fl (6.2-12.0); Monocyte# 0.66 X10^3/uL; Monocyte% 7.8 % (0-10); NRBC Flagged by Analyzer 0 % (0-5); Neutrophil # 4.89 X10^3/uL (2.7-7.7); Neutrophil % 57.6 % (47-70); Platelet Count 259 K/mm3 (150-450); RBC Distribution Width CV 12.9 % (11.6-14.6); RBC Distribution Width SD 44.3 fl (35.1-43.9); Red Blood Count 4.75 M/mm3 (4.2-5.4); White Blood Count 8.5 K/mm3 (4.4-11.0)
[2020-06-14 09:34] LABS: Hemoglobin A1c 11.1 % (3.8-5.6)
[2020-06-14 09:36] LABS: ALB/GLOB Ratio 1.2 RATIO (0.9-2.4); AST(SGOT) 62 U/L (15-37); Alanine Aminotransfer ALT/SGPT 94 U/L (13-56); Albumin, Serum 3.8 g/dL (3.2-5.0); Alkaline Phosphatase 113 U/L (45-117); Anion Gap 10 (5-15); BUN 16 mg/dL (7-18); BUN/Creat Ratio 20.6 RATIO (10-20); Calcium,Total 9.1 mg/dL (8.5-10.1); Chloride 101 mmol/L (98-107); Cholesterol 192 mg/dL (200); Creatinine, Serum 0.78 mg/dL (0.55-1.02); EST Glomerular Filtration Rate 79 mL/min (>60); Est Glom Filt Rate - Afr Amer 96 mL/min (>60); Globulin 3.1 g/dL (2.2-4.2); Glucose 278 mg/dL (74-106); High Density Lipoprotein 38 mg/dL; Potassium 3.9 mmol/L (3.5-5.1); Protein, Total 6.9 g/dL (6.4-8.2); Sodium Level 137 mmol/L (136-145); T4 Free Direct 1.12 ng/dL (0.76-1.46); Thyroid Stim Hormone (TSH) 1.17 uIU/mL (0.358-3.74); Triglycerides 254 mg/dL; Very Low Density Lipoprotein 51 mg/dL (5-40)
[2020-06-16 08:05] LABS: Vitamin D,25 Hydroxy 48.1 ng/mL
== END ==
PROVIDERS: PCP Family Medicine; Referring Provider Family Medicine; Visit Provider Family Medicine
DX: I48.0 Paroxysmal atrial fibrillation (principal); E78.5 Hyperlipidemia, unspecified; I10 Essential (primary) hypertension; E55.9 Vitamin D deficiency, unspecified; R73.01 Impaired fasting glucose; Z51.81 Encounter for therapeutic drug level monitoring
CPT/HCPCS: 36415; 80053; 80061; 82306; 83036; 84439; 84443; 85025

== ENCOUNTER → 2020-07-01 15:50 | Outpatient (CLI) | payer BC, SELFPAY ==
[2019-11-05 14:18] VITALS: BMI 35.5
--- NOTE | 2020-07-01 15:55 | BD_ITS ---
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 COMPARISON: Comparison is made with prior study dated 02/03/2016. FINDINGS: Lumbar Spine (L1-L4): g/cm2 (1.211) / T-score (0.3) / Z-score (1.9) Findings are suggestive of normal bone density with a low fracture risk. Left Femur Total: g/cm2 (0.935) / T-score (-0.6) / Z-score (0.7) Left Femoral Neck: g/cm2 (0.892) / T-score (-1.0) / Z-score (0.5) Right Femur Total: g/cm2 (0.940) / T-score (-0.5) / Z-score (0.7) Right Femoral Neck: g/cm2 (0.748) / T-score (-2.1) / Z-score (-0.6) The T-Scores on the most recent prior examination were: Lumbar Spine (L1-L4): There has been improvement of bone density since the previous examination. Left Femur Total: which represents an improvement of 2.6%. Right Femur Total: which represents a worsening of 3.7%. BD/Dexa Bone Density Study IMPRESSION: The patient is considered osteopenic as outlined below according to World [employer] Organization (WHO) criteria with a moderate fracture risk. There has been improvement of bone density since the previous examination. Reference Information: The T-score is the number of standard deviations above or below the standard which is normal for young adults at their peak bone mineral density. The World Health Organization (WHO) interprets the T-scores as follows: Above -1 Normal bone density Between -1 and -2.5 Osteopenia Equal to / or below -2.5 Osteoporosis As a practical clinical guideline, osteopenia may be graded as follows: Mild -1 through -1.5 Moderate -1.6 through -2.0 Severe -2.1 through -2.4 The Z-score is the number of standard deviations above or below age-matched controls. A Z-score of less than -1.5 would be considered abnormal. References: 1. NIH Osteoporosis and Related Bone Diseases www osteo.org 2. International Society for Clinical Densitometry www iscd.org 3. National Osteoporosis Foundation www nof.org Electronically Signed: Tyler Catalan, at 9:39 EDT , Service support ,
== END ==
PROVIDERS: PCP Family Medicine; Referring Provider Family Medicine; Visit Provider Family Medicine
DX: M85.80 Other specified disorders of bone density and structure, unspecified site (principal); Z13.820 Encounter for screening for osteoporosis
CPT/HCPCS: 77080

== ENCOUNTER → 2020-07-11 08:37 | Outpatient (CLI) | payer BC, SELFPAY ==
[2019-11-05 14:18] VITALS: BMI 35.5
[2020-07-09 11:07] VITALS: BMI 37.5
--- NOTE | 2020-07-11 09:39 | BI_ITS ---
MAMMOGRAPHY - BILATERAL DIAGNOSTIC REASON FOR EXAM: Female, 65 years old. Right breast lump. PERTINENT HISTORY: Aunt with breast cancer. TECHNIQUE: Digital bilateral breast taran (3D mammographic acquisition) in the CC and MLO projections. 2-D mediolateral oblique (MLO) and craniocaudad (CC) views of both breasts were obtained. CAD: Full Field Digital Mammography with Computer Added Detection was performed. COMPARISON: Comparison is made with prior study dated 02/05/2019 and 02/03/2016. FINDINGS: Breast Composition: There are scattered areas of fibroglandular density. Stable 1.4 cm x 1.4 cm well-defined nodular density in the central retroareolar region of the right breast. This was demonstrated to be a small cyst on prior sonogram. No clustered microcalcification or new mass lesion is seen. Stable benign-appearing bilateral axillary lymph nodes. No other significant abnormalities are identified. There has been no significant change since the prior study. BI/DIAG MAMM W/CAD, BILAT IMPRESSION: Stable bilateral diagnostic mammogram. One year follow-up recommended. (A) ASSESSMENT CATEGORY: BIRADS Category 2: Benign. A letter regarding these results will be sent to the patient by the facility within 30 days. Approximately 10% of breast cancers are not detected by mammography. A normal mammogram should not delay biopsy of a clinically suspicious abnormality. Electronically Signed: Tyler Catalan, at 10:47 EDT , Service support ,
--- NOTE | 2020-07-11 09:39 | US_ITS ---
STUDY: ULTRASOUND BREAST - RIGHT REASON FOR EXAM: Female, 65 years old. Palpable lump in the right breast. TECHNIQUE: Axial and longitudinal images of the RIGHT breast were performed with a high resolution ultrasound transducer. # OF IMAGES: 16 COMPARISON: Comparison is made with prior mammogram done earlier in the day as well as prior sonogram of the right breast dated 02/06/2019. FINDINGS: RIGHT Breast: There is a 1.4 cm x 1.2 cm x 1 cm cyst at the 1 o''clock position of the breast at 1 cm from the nipple. This is unchanged. US/Breast Limited Unilateral IMPRESSION: Stable 1.4 cm x 1.2 cm x 1 cm cyst at the 1 o''clock position of the breast at 1 cm from the nipple. ASSESSMENT CATEGORY: BIRADS Category 2: Benign. A letter regarding these results will be sent to the patient by the facility within 30 days. Electronically Signed: Tyler Catalan, at 14:49 EDT , Service support ,
== END ==
PROVIDERS: PCP Family Medicine; Referring Provider Student in an Organized Health Care Education/Training Program; Visit Provider Student in an Organized Health Care Education/Training Program
DX: N63.10 Unspecified lump in the right breast, unspecified quadrant (principal)
CPT/HCPCS: 76642; 77062; 77066; G0279

== ENCOUNTER 2020-07-23 11:30 | Outpatient (RCR) | payer BC, SELFPAY ==
[2019-11-05 14:18] VITALS: BMI 35.5
[2020-07-09 11:07] VITALS: BMI 37.5
== END 2020-07-26 23:59 ==
LOC: DC 11:30
PROVIDERS: PCP Family Medicine; Visit Provider Family Medicine
DX: Z71.3 Dietary counseling and surveillance (principal); E11.9 Type 2 diabetes mellitus without complications
CPT/HCPCS: G0108

== ENCOUNTER 2020-07-31 08:58 | Outpatient (RCR) | payer BC, SELFPAY ==
[2020-07-09 11:07] VITALS: BMI 37.5
== END 2020-07-31 23:59 | disposition home or self-care (01) ==
LOC: DC 08:58
PROVIDERS: PCP Family Medicine; Visit Provider Family Medicine
DX: Z71.3 Dietary counseling and surveillance (principal); E11.9 Type 2 diabetes mellitus without complications
CPT/HCPCS: 97802

== ENCOUNTER → 2020-10-30 11:05 | Outpatient (CLI) | payer BC, SELFPAY ==
[2020-10-23 10:19] VITALS: BMI 35.9
== END ==
PROVIDERS: PCP Family Medicine; Referring Provider Internal Medicine Critical Care Medicine; Visit Provider Internal Medicine Critical Care Medicine
DX: Z46.89 Encounter for fitting and adjustment of other specified devices (principal)
CPT/HCPCS: 98960; G0463

== ENCOUNTER 2020-11-12 12:29 | Emergency (ER) | payer BC, MEDICARE, SELFPAY ==
[2020-10-23 10:19] VITALS: BMI 35.9
[2020-11-12 12:30] VITALS: BP 153/73; PULSE 96; RESP 16; TEMP 35.8; O2SAT 97; BMI 33.3
--- NOTE | 2020-11-12 12:48 | EKG12_ITS ---
Test Reason : Blood Pressure : / mmHG Vent. Rate : 069 BPM Atrial Rate : 069 BPM P-R Int : 184 ms QRS Dur : 112 ms QT Int : 448 ms P-R-T Axes : 033 -44 065 degrees QTc Int : 480 ms Normal sinus rhythm Left axis deviation Abnormal ECG Confirmed by PARMINDER HOLLAND, SHEYLA ([id number]), purchasing expeditor ADEOLA GILBERT ([id number]) on 11/17/2020 10:43:00 AM Referred By: KELLIE Confirmed By:SHEYLA ZURITA MD
--- NOTE | 2020-11-12 12:48 | ED.DCSUM_ITS ---
History of Present Illness Chief Complaint: Nausea/Vomiting/Diarrhea Informant: Patient Onset: Days - 3 days Timing: Waxes and wanes Current Severity: Mild Maximum Severity: Moderate Narrative: Patient presents with nausea, vomiting, and diarrhea for the past 3 days. She states that times developed Tuesday morning including diarrhea and vomiting throughout the day. Yesterday she thought she was slightly better. This morning the diarrhea started again and she became very nauseated. While sitting on the commode today but she became lightheaded and dizzy. She states her ear started ringing and she woke up on the floor next to the commode after passing out. She denies any injury. No fever or chills noted. Patient did eat out the evening before her symptoms started and she is wondering if it may have been something she ate. - Past Medical History (1) Diabetes Status: Chronic (2) GERD (gastroesophageal reflux disease) Status: Chronic (3) Lupus Status: Chronic (4) Chronic venous insufficiency Status: Chronic (5) Essential (primary) hypertension Status: Chronic (6) Hyperlipemia Status: Chronic (7) EMMANUEL (obstructive sleep apnea) Status: Chronic (8) Paroxysmal atrial fibrillation Status: Chronic (9) SVT (supraventricular tachycardia) Status: Chronic Comment: slow pathway ablation 11/20/2010 Past Medical History - Allergies and Home Meds Allergies/Adverse Reactions: Allergies No Known Allergies Allergy (Verified 11/12/20 12:29) elastic wraps Adverse Reaction (Uncoded 11/12/20 12:29) Rash Primary Care Physician: Awais Kearney DO [Primary Care Provider] - Prior records reviewed: Yes Surgical History: hysterectomy, tonsillectomy, - Lives: Spouse/ Significant Other Smoking Status: Never smoker - Family History Maternal Family History: Family History (Last Reviewed 10/23/20 @ 10:20 by Yudy Velasquez) Mother CAD (coronary artery disease) Father Aneurysm Other Heart disease Family History: Reports: No pertinent history Review of Systems General: Denies: Chills, Fever Eyes: Denies: Visual changes - bilaterally ENT: Denies: Bilateral ear pain Cardiovascular: Denies: Chest pain Respiratory: Denies: Dyspnea, Cough Gastrointestinal: Reports: Nausea, Vomiting, Diarrhea Genitourinary: Denies: Dysuria Musculoskeletal: Denies: Swelling, Extremity Pain Skin: Denies: Rash Neurological: Denies: Headache Hematologic: Denies: Easy bruising, Easy bleeding Allergy: Denies: Uticaria Physical Exam Vital Signs/Narrative: Vital Signs Temp Pulse Resp BP Pulse Ox 11/12/20 12:30 96.5 F L 96 16 153/73 H 97 Inital Vital Signs reviewed: Yes General: Well nourished, Well developed Head: Normocephalic ENT: Moist mucous membranes Neck: Supple Cardiovascular: Regular rate, Regular rhythm Respiratory: No distress, CTA bilaterally Abdomen: Soft, Nontender, Hypoactive bowel sounds Extremities: Nontender Skin: Normal color Neurological: Alert, Oriented x3 Psychological: Normal affect Diagnostic/Tx/Re-eval 11/12/20 13:38 Mucosa - Nose SARS-CoV-2 Antigen (Rapid) - Final Laboratory Results 11/12/20 11/12/20 11/12/20 13:12 13:20 13:20 WBC 11.9 H RBC 5.15 Hgb 15.9 H Hct 48.9 H MCV 95.0 MCH 30.9 MCHC 32.5 RDW Std Deviation 46.8 H RDW Coeff of Jana 13.4 Plt Count 304 MPV 9.5 Immature Gran % (Auto) 0.500 Neut % (Auto) 75.5 H Lymph % (Auto) 14.3 L [place] % (Auto) 7.0 Eos % (Auto) 2.4 Baso % (Auto) 0.3 Absolute Neuts (auto) 9.0 H Absolute Lymphs (auto) 1.70 Nucleated RBC % 0 Sodium 139 Potassium 3.5 Chloride 107 Carbon Dioxide 26.0 Anion Gap 6 BUN 20 H Creatinine 0.80 Estim Creat Clear Calc 59.73 Est GFR (MDRD) Af Amer 92 Est GFR (MDRD) Non-Af 76 BUN/Creatinine Ratio 24.9 H Glucose 146 H Calcium 8.9 Total Bilirubin 0.70 Direct Bilirubin 0.14 AST 13 L ALT 27 Alkaline Phosphatase 87 Total Protein 6.7 Albumin 3.4 Globulin 3.3 Urine Color Yellow Urine Clarity Sl. Cloudy Urine pH 6.0 Ur Specific [place] 1.020 Urine Protein 30 H Urine Glucose (UA) Normal Urine Ketones 15 H Urine Occult Blood Negative Urine Nitrite Negative Urine Bilirubin Negative Urine Urobilinogen Normal Ur Leukocyte Esterase Negative Urine RBC 0 SEEN Urine WBC 0 SEEN Ur Squamous Epith Cells 0-5 SEEN Urine Bacteria RARE Urine Mucus 0 SEEN - EKG Initial EKG Interpretation: Sinus Rhythm - Sinus at 69 with no acute ischemia. - Medical Decision Making Patient was given a liter IV fluids along with IV Zofran. On repeat evaluation nausea was improved but not completely resolved. She was given a small dose of Reglan. Blood work is largely unremarkable. White count is minimally elevated and hemoglobin is hemoconcentrated. BUN is slightly elevated. On repeat eval patient still has mild nausea. She is given p.o. Zofran and is able to drink Sprite. She will be discharged with a prescription for Zofran and will follow clear liquid diet tonight and advance as tolerated. Patient's syncopal episode is consistent with vasovagal syncope as she was on the commode with diarrhea and became lightheaded, sweaty, and had ringing in her ears. ED Disposition - Plan for ED Patient: Disposition: Home or Assisted Living Diagnosis: Gastroenteritis, Vasovagal syncope Instructions: ED Food Poison Or Gastroenteritis Prescriptions: Ondansetron [Zofran Odt] 4 mg PO Q8H PRN PRN #10 tab PRN Reason: Nausea Transmission Status: Received by [facility] Referrals: Awais Kearney DO [Primary Care Provider] -
[2020-11-12] MEDS: Ondansetron 4 MG/2 ML Vial IV (13:21)
[2020-11-12] MEDS: 0.9% Normal Saline 1,000 ML 1000 ML IV (13:21)
[2020-11-12 13:34] LABS: Mucous, Urine 0 SEEN /hpf (<or=2+); Red Blood Cells-Urine 0 SEEN /hpf (0-5); White Blood Cells 0 SEEN /hpf (0-5)
[2020-11-12 13:41] LABS: Basophil# 0.03 X10^3/uL; Basophil% 0.3 % (0-1); Eosinophil# 0.29 X10^3/uL; Eosinophils% 2.4 % (0-5); Hematocrit 48.9 % (37-47); Hemoglobin 15.9 g/dL (12.0-15.0); Lymphocyte % 14.3 % (19-41); Mean Corp Hgb Conc 32.5 g/dL (32-36); Mean Corpuscular Hgb 30.9 pg (27.0-32.0); Mean Platelet Vol. 9.5 fl (6.2-12.0); Monocyte# 0.83 X10^3/uL; NRBC Flagged by Analyzer 0 % (0-5); Neutrophil # 8.97 X10^3/uL (2.7-7.7); Neutrophil % 75.5 % (47-70); Platelet Count 304 K/mm3 (150-450); RBC Distribution Width CV 13.4 % (11.6-14.6); RBC Distribution Width SD 46.8 fl (35.1-43.9); Red Blood Count 5.15 M/mm3 (4.2-5.4); White Blood Count 11.9 K/mm3 (4.4-11.0)
[2020-11-12 13:53] LABS: Color, Urine Yellow (Yellow); Glucose, Dipstick Normal (Normal); Ketone-Dipstick 15 mg/dl (Negative); Leukocyte Esterase-Dipstick Negative /ul (Negative); Nitrite-Dipstick Negative (Negative); Occult Blood-Urine Negative /ul (Negative); Protein-Dipstick 30 mg/dl (Negative); Urine Bilirubin Dipstick Negative (Negative); Urine Clarity Sl. Cloudy (Clear); Urine Urobilinogen Normal (Normal)
[2020-11-12 13:59] LABS: AST(SGOT) 13 U/L (15-37); Alanine Aminotransfer ALT/SGPT 27 U/L (13-56); Albumin, Serum 3.4 g/dL (3.2-5.0); Alkaline Phosphatase 87 U/L (45-117); Anion Gap 6 (5-15); BUN 20 mg/dL (7-18); BUN/Creat Ratio 24.9 RATIO (10-20); Bilirubin, Direct 0.14 mg/dL (0.00-0.30); Calcium,Total 8.9 mg/dL (8.5-10.1); Chloride 107 mmol/L (98-107); EST Glomerular Filtration Rate 76 mL/min (>60); Est Glom Filt Rate - Afr Amer 92 mL/min (>60); Estimated Creatinine Clearance 59.73 ml/min; Globulin 3.3 g/dL (2.2-4.2); Glucose 146 mg/dL (74-106); Potassium 3.5 mmol/L (3.5-5.1); Protein, Total 6.7 g/dL (6.4-8.2); Sodium Level 139 mmol/L (136-145)
[2020-11-12 14:08] LABS: Bacteria RARE /hpf (None Seen); Squamous Epithelial Cells - UA 0-5 SEEN /hpf (5-10)
[2020-11-12] MEDS: Metoclopramide 10 MG/2 ML Vial 5 MG IV (14:27)
[2020-11-12] MEDS: Ondansetron ODT 4 MG Tablet PO (15:18)
[2020-11-12 15:27] VITALS: BP 143/71; PULSE 69; RESP 18; O2SAT 96
[2020-11-12 16:10] VITALS: BP 153/63; PULSE 87; RESP 19; O2SAT 96
--- NOTE | 2020-11-12 16:10 | ED.RN ---
IV DC'ED, CATHETER INTACT, SMALL GAUZE DRESSING PLACED. DISCHARGE INSTRUCTIONS GIVEN TO AND REVIEWED WITH PATIENT, PATIENT DENIES QUESTIONS OR CONCERNS AND VOICES UNDERSTANDING OF DISCHARGE INSTRUCTIONS. PT AMBULATES OUT OF ROOM WITHOUT DIFFICULTY.
== END 2020-11-12 16:11 | disposition home or self-care (01) ==
PROVIDERS: Emergency Provider Emergency Medicine; PCP Family Medicine
DX: K52.9 Noninfective gastroenteritis and colitis, unspecified (principal); R55 Syncope and collapse; Z90.710 Acquired absence of both cervix and uterus
CPT/HCPCS: 80048; 80076; 81001; 85025; 87426; 93005; 96361; 96374; 96375; 99285; J7030; A4216; J2405

== ENCOUNTER 2020-11-17 19:18 | Observation (INO) | payer BC, MEDICARE, SELFPAY ==
[2020-11-17 19:19] VITALS: BP 153/62; PULSE 88; RESP 20; TEMP 37; O2SAT 96; BMI 34.7
--- NOTE | 2020-11-17 20:02 | CT_ITS ---
STUDY: CT ABDOMEN AND PELVIS WITH CONTRAST REASON FOR EXAM: Female, 65 years old. N/V/D SINCE LAST WEEK WITH SYNCOPE, S/P ABLATION, HYSTERECTOMY, HEART CATH, VEIN ABLATION, HTN, NE, ABLATION, A-FIB, DIAB, LUPUS RADIATION DOSAGE (If Supplied By Facility): CTDIvol = ( 17.09 ) mGy, DLP = ( 1052.83 ) mGycm TECHNIQUE: Transaxial images were obtained from the dome of the diaphragm to the symphysis pubis without oral contrast. IV 100mL Isovue-300 was administered. Sagittal and coronal images were reconstructed. Individualized dose optimization techniques were used for this CT. COMPARISON: None. FINDINGS: The visualized lung bases are unremarkable. The visualized portions of the heart are within normal limits. Small cyst is noted within the right breast Normal liver. Normal gallbladder and extrahepatic biliary system. Normal spleen. Normal pancreas. Normal bilateral adrenal glands. No evidence for renal obstruction. Tiny cyst in left kidney. There is diffuse gastric distention with air-fluid level. Mild nonspecific ileus pattern. No evidence for small bowel obstruction. No evidence for acute appendicitis Minor atherosclerotic changes of the aorta without evidence for aneurysm.. Normal inferior vena cava. Normal retroperitoneum. Incompletely distended thick-walled bladder likely of no significance. Uterus not visualized secondary to hysterectomy Normal abdominal wall. Lumbar spine demonstrates degenerative change. CT/Abdomen/Pelvis W IV Cont ONLY IMPRESSION: Findings consistent with nonspecific gastritis and diffuse ileus possibly on the basis of gastroenteritis. No evidence for small bowel obstruction or acute appendicitis.. Electronically Signed: Gasper Streeter MD at 21:23 EST , Service support ,
--- NOTE | 2020-11-17 20:03 | EKG12_ITS ---
Test Reason : NAUSA Blood Pressure : / mmHG Vent. Rate : 070 BPM Atrial Rate : 070 BPM P-R Int : 174 ms QRS Dur : 104 ms QT Int : 436 ms P-R-T Axes : 026 -32 057 degrees QTc Int : 470 ms Normal sinus rhythm Left axis deviation Inferior infarct , age undetermined Cannot rule out Anterior infarct , age undetermined Abnormal ECG Confirmed by PARMINDER HOLLAND, SHEYLA ([id number]), assistant production editor ADEOLA GILBERT ([id number]) on 11/19/2020 12:46:44 PM Referred By: GRAHAM Confirmed By:SHEYLA ZURITA MD
[2020-11-17 20:16] LABS: Absolute Lymphocyte Count 1.59 X10^3/uL (0.83-4.51); Absolute Neutrophil Count 11.3 X10^3/uL (2.0-7.7); Basophil# 0.07 X10^3/uL; Basophil% 0.4 % (0-1); Eosinophil# 1.48 X10^3/uL; Eosinophils% 9.4 % (0-5); Hemoglobin 15.9 g/dL (12.0-15.0); Lymphocyte # 1.59 X10^3/ul (4.0); Lymphocyte % 10.1 % (19-41); Mean Corp Hgb Conc 34.6 g/dL (32-36); Mean Corpuscular Hgb 31.2 pg (27.0-32.0); Mean Corpuscular Volume 90.4 fL (81-99); Mean Platelet Vol. 9.9 fl (6.2-12.0); Monocyte# 0.98 X10^3/uL; Monocyte% 6.2 % (0-10); NRBC Flagged by Analyzer 0 % (0-5); Neutrophil # 11.25 X10^3/uL (2.7-7.7); Neutrophil % 71.4 % (47-70); Platelet Count 333 K/mm3 (150-450); RBC Distribution Width CV 13.4 % (11.6-14.6); RBC Distribution Width SD 43.9 fl (35.1-43.9); Red Blood Count 5.09 M/mm3 (4.2-5.4); White Blood Count 15.8 K/mm3 (4.4-11.0)
[2020-11-17] MEDS: Metoclopramide 10 MG/2 ML Vial 5 MG IV ×2 (20:16→23:25)
[2020-11-17] MEDS: 0.9% Normal Saline 1,000 ML 1000 ML IV (20:16)
[2020-11-17 20:32] LABS: AST(SGOT) 14 U/L (15-37); Alanine Aminotransfer ALT/SGPT 25 U/L (13-56); Albumin, Serum 3.2 g/dL (3.2-5.0); Alkaline Phosphatase 81 U/L (45-117); Anion Gap 8 (5-15); BUN 16 mg/dL (7-18); BUN/Creat Ratio 20.9 RATIO (10-20); Bilirubin, Direct 0.19 mg/dL (0.00-0.30); Calcium,Total 8.8 mg/dL (8.5-10.1); Chloride 107 mmol/L (98-107); Creatinine, Serum 0.76 mg/dL (0.55-1.02); EST Glomerular Filtration Rate 80 mL/min (>60); Est Glom Filt Rate - Afr Amer 97 mL/min (>60); Estimated Creatinine Clearance 47.79 ml/min; Globulin 2.9 g/dL (2.2-4.2); Glucose 154 mg/dL (74-106); Lipase 244 U/L (73-393); Protein, Total 6.1 g/dL (6.4-8.2); Sodium Level 142 mmol/L (136-145)
[2020-11-17 20:39] LABS: Bacteria 0 SEEN /hpf (None Seen); Red Blood Cells-Urine 0 SEEN /hpf (0-5)
[2020-11-17 20:50] LABS: Color, Urine Yellow (Yellow); Glucose, Dipstick Normal (Normal); Ketone-Dipstick 15 mg/dl (Negative); Leukocyte Esterase-Dipstick 25 /ul (Negative); Nitrite-Dipstick Negative (Negative); Occult Blood-Urine Negative /ul (Negative); Protein-Dipstick 30 mg/dl (Negative); Urine Clarity Clear (Clear); Urine Urobilinogen 1 mg/dl (Normal)
[2020-11-17 20:52] LABS: Urine Bilirubin Dipstick 1 mg/dL (Negative)
[2020-11-17 21:01] LABS: Mucous, Urine 1+ /hpf (<or=2+); Squamous Epithelial Cells - UA 0-5 SEEN /hpf (5-10)
[2020-11-17 21:02] LABS: White Blood Cells 0-5 SEEN /hpf (0-5)
[2020-11-17 21:24] VITALS: BP 131/61; PULSE 65; RESP 18; O2SAT 89; O2SAT 96
--- NOTE | 2020-11-17 22:47 | ED.VIS.GEN ---
History of Present Illness Chief Complaint: Nausea/Vomiting/Diarrhea Informant: Patient, Family Narrative: Patient is a 65-year-old female with history of SLE (no longer on any medications), atrial fibrillation status post ablation, diabetes mellitus type 2, EMMANUEL and hypertension. She is presenting with recurrent diarrhea, nausea and syncope. Patient was seen 1 week ago for similar symptoms. At a time she was also having vomiting. She was given IV fluids and discharged home with oral Zofran. Patient had improved over the weekend but her symptoms returned today. This morning she started feel nauseous again and she tried to take Zofran at home. She laid down however she then started having diarrhea. She states the diarrhea is quite foul-smelling and has associated mucus. No reported blood in her stool. Patient also had intermittent episodes of vomiting but no blood. Tonight at the dinner table patient felt buzzing in her ears and then had a syncopal episode. Her caught her so she did not injure herself. She went to the bathroom and had another episode of diarrhea. Patient tried to get up, she had a second syncopal episode. EMS was called and patient was then brought to the emergency room. Patient did have a colonoscopy in May which she thinks was normal. She saw Dr. White at that time. Patient know she has a history of sensitive gut. Patient denies any abdominal pain, chest pain or shortness of breath. She denies any history of C. difficile. She denies any recent antibiotics. Past Medical History - Allergies and Home Meds Allergies/Adverse Reactions: Allergies No Known Allergies Allergy (Verified 11/17/20 19:19) elastic wraps Adverse Reaction (Uncoded 11/12/20 12:29) Rash Past Medical History: - - SLE, atrial fibrillation, EMMANUEL, hypertension, DM 2 Surgical History: hysterectomy, tonsillectomy, - Lives: Spouse/ Significant Other Smoking Status: Never smoker - Family History Maternal Family History: Family History (Last Reviewed 10/23/20 @ 10:20 by Yudy Velasquez) Mother CAD (coronary artery disease) Father Aneurysm Other Heart disease Family History: Reports: No pertinent history Review of Systems General: Reports: Malaise, - - lightheaded . Denies: Chills, Fever, Sweats Eyes: Denies: Visual changes - bilaterally, Diplopia ENT: Denies: Rhinorrhea, Sore throat Cardiovascular: Reports: - - syncope . Denies: Chest pain, Palpitations Respiratory: Denies: Dyspnea, Cough, Dyspnea on exertion Gastrointestinal: Reports: Abdominal pain - bloating , Nausea, Vomiting, Diarrhea. Denies: Melena, Hematochezia Genitourinary: Denies: Dysuria, Hematuria, Frequency Musculoskeletal: Denies: Back pain, Extremity Pain Skin: Denies: Rash, Wounds Neurological: Reports: Weakness - generalized . Denies: Headache, Numbness Physical Exam Vital Signs/Narrative: Vital Signs Temp Pulse Resp BP Pulse Ox 11/17/20 21:24 65 18 131/61 H 96 11/17/20 19:19 98.6 F 88 20 H 153/62 H 96 Inital Vital Signs reviewed: Yes General: Well nourished, Well developed, No Acute Distress Head: Normocephalic, Atraumatic Eyes: Perrl, EOMI ENT: Moist mucous membranes, No rhinorrhea Neck: Supple, Nontender Cardiovascular: Regular rate, Regular rhythm, No murmurs Respiratory: No distress, CTA bilaterally, Chest nontender Abdomen: Soft, Nontender, Nondistended, Hyperactive bowel sounds. Negative for: Guarding, Rebound tenderness Back: Nontender, Normal Inspection. Negative for: CVA tenderness Extremities: Nontender, No edema Skin: Normal color, No rash Neurological: Alert, Oriented x3, Cranial nerves II-XII grossly intact, Normal Strength, Normal Sensation Psychological: Normal affect, Normal Mood Diagnostic/Tx/Re-eval Clinical Impression(s) from Imaging Studies Abdomen/Pelvis CT 11/17/20 20:02 IMPRESSION: Findings consistent with nonspecific gastritis and diffuse ileus possibly on the basis of gastroenteritis. No evidence for small bowel obstruction or acute appendicitis.. Electronically Signed: Gasper Streeter MD at 21:23 EST , Service support , Laboratory Data 11/17/20 11/17/20 11/17/20 19:34 19:34 20:30 WBC 15.8 H RBC 5.09 Hgb 15.9 H Hct 46.0 MCV 90.4 MCH 31.2 MCHC 34.6 RDW Std Deviation 43.9 RDW Coeff of Jana 13.4 Plt Count 333 MPV 9.9 Immature Gran % (Auto) 2.500 H Neut % (Auto) 71.4 H Lymph % (Auto) 10.1 L Daniels % (Auto) 6.2 Eos % (Auto) 9.4 H Baso % (Auto) 0.4 Absolute Neuts (auto) 11.3 H Absolute Lymphs (auto) 1.59 Nucleated RBC % 0 Sodium 142 Potassium 3.0 L Chloride 107 Carbon Dioxide 27.0 Anion Gap 8 BUN 16 Creatinine 0.76 Estim Creat Clear Calc 47.79 Est GFR (MDRD) Af Amer 97 Est GFR (MDRD) Non-Af 80 BUN/Creatinine Ratio 20.9 H Glucose 154 H Calcium 8.8 Total Bilirubin 0.60 Direct Bilirubin 0.19 AST 14 L ALT 25 Alkaline Phosphatase 81 Troponin I < 0.015 Total Protein 6.1 L Albumin 3.2 Globulin 2.9 Lipase 244 Urine Color Yellow Urine Clarity Clear Urine pH 6.0 Ur Specific [place] 1.020 Urine Protein 30 H Urine Glucose (UA) Normal Urine Ketones 15 H Urine Occult Blood Negative Urine Nitrite Negative Urine Bilirubin 1 H Urine Urobilinogen 1 H Ur Leukocyte Esterase 25 H Urine RBC 0 SEEN Urine WBC 0-5 SEEN Ur Squamous Epith Cells 0-5 SEEN Urine Bacteria 0 SEEN Urine Mucus 1+ - Rhythm Strip Rhythm Strip: Sinus Rhythm Rate: 70 Ectopy: None - EKG Initial EKG Interpretation: Sinus Rhythm, - - Rate of 70 Normal intervals Left axis deviation Normal ST segments Interpreted by emergency medicine physician - Medical Decision Making Evaluated for 2 episodes of syncope as well as episodes of diarrhea and vomiting. Patient is hemodynamically stable in the ER. She is given IV fluids. She was given Zofran in route but continues to be quite nauseous. Patient is given IV Reglan with improvement of her symptoms. Her abdomen is soft and nontender. I do not suspect an acute surgical abnormalities at this time. Patient does have a new leukocytosis with a left shift. Her glucose is mildly elevated at 154 and her potassium is mildly low at 3.0. She does not have any other significant electrolyte abnormalities. Urinalysis shows some mild ketonuria but is not consistent with infection. CT of the abdomen and pelvis shows nonspecific gastritis with diffuse ileus with no evidence of small bowel obstruction or acute appendicitis. Given her foul-smelling diarrhea and new leukocytosis I did order C. difficile studies for her stool. Patient is initially unable to provide samples but ultimately does. On reevaluation she states she is feeling better and is wanting to drink Sprite. Patient is able to get up to use the bedside commode. Patient will be discharged home with the help of her daughter it is comfortable with this plan. She will be started on Reglan for better symptom control and I did give her a paper prescription for vancomycin and I do have a suspicion that she could have C. difficile. The plan initially was for patient and her daughter to wait till the stool results come back before starting to take the vancomycin. She would follow-up with her PCP. Patient then got up to use the bathroom again and had another episode of near syncope. She was feeling very weak and almost fell again. She did have a significant episode of diarrhea. Because she is so weak and refractory to fluids, patient be admitted for further monitoring and treatment. Patient and daughter are agreeable with this plan. I am concerned that if patient were to go home right now she is to be at increased risk of fall. Patient stable for the general medical floor at time of disposition. ED Disposition - Plan for ED Patient: Disposition: [facility] Diagnosis: Syncope and collapse, Diarrhea, Leukocytosis
[2020-11-17 23:11] VITALS: BP 128/70; PULSE 77; RESP 24; O2SAT 93
--- NOTE | 2020-11-17 23:12 | ED.RN ---
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 PT WITH LARGE AMOUNT OF DIARRHEA. PT BECAME DIAPHORETIC AND DIZZY. REPORTS INCREASED NAUSEA. PT CLEANED WITH WIPES AND ASSISTED INTO WHEELCHAIR. PT ASSISTED BACK INTO ROOM AND INTO BED. COOL CLOTH APPLIED TO FOREHEAD. DR. ROMAN INFORMED OF PT NEAR SYNCOPAL EPISODE. REPORTS SHE WILL SEE PT.
[2020-11-17] MEDS: 0.9% Normal Saline 1,000 ML 999 ML IV (23:25)
[2020-11-17 23:29] VITALS: BP 118/76; PULSE 95; RESP 19; TEMP 37; O2SAT 95
--- NOTE | 2020-11-17 23:44 | HP.PCM_ITS ---
Problem List (1) Diabetes Status: Chronic (2) GERD (gastroesophageal reflux disease) Status: Chronic (3) Lupus Status: Chronic (4) Diarrhea Status: Acute Qualifiers: Diarrhea type: presumed infectious Qualified Code(s): R19.7 - Diarrhea, unspecified (5) Paroxysmal atrial fibrillation Status: Chronic (6) Essential (primary) hypertension Status: Chronic (7) Hyperlipemia Status: Chronic Qualifiers: (8) EMMANUEL (obstructive sleep apnea) Status: Chronic (9) Chronic venous insufficiency Status: Chronic History of Present Illness Date of Admission: 11/17/20 Chief Complaint: diarrhea, lightheaded The patient is a 65 year old patient with a significant past medical history of gastroenteritis over the past week who had partially recovered and then subsequently got worse with significant diarrhea. CT scan shows possible ileus but is negative for obstruction and patient was set to be discharged however upon standing she became lightheaded and nearly passed out. Earlier in the course the patient did respond to hydration therapy. At the time of admission further testing of enteric pathogens including C. difficile are pending. She will be admitted for observation and if deemed necessary treatment for infectious diarrhea. Of note the patient tested negative for COVID-19 on Tuesday. Past Medical History Past Medical History (Chronic Problems): Chronic Problems (Last Reviewed 10/23/20 @ 10:20 by Yudy Velasquez) Diabetes (Chronic) GERD (gastroesophageal reflux disease) (Chronic) Lupus (Chronic) SVT (supraventricular tachycardia) (Chronic) slow pathway ablation 11/20/2010 Paroxysmal atrial fibrillation (Chronic) Essential (primary) hypertension (Chronic) Hyperlipemia (Chronic) EMMANUEL (obstructive sleep apnea) (Chronic) Chronic venous insufficiency (Chronic) Medical History: Medical History (Last Reviewed 10/23/20 @ 10:20 by Yudy Velasquez) SVT (supraventricular tachycardia) (Chronic) I47.1 slow pathway ablation 11/20/2010 Paroxysmal atrial fibrillation (Chronic) I48.0 Essential (primary) hypertension (Chronic) I10 Hyperlipemia (Chronic) E78.5 EMMANUEL (obstructive sleep apnea) (Chronic) G47.33 Chronic venous insufficiency (Chronic) I87.2 Arthritis of left knee M17.12 Cyst of breast, right, solitary N60.01 Dermatitis L30.9 Diabetes E11.9 Difficulty balancing R29.818 GERD (gastroesophageal reflux disease) K21.9 Hammer toe M20.40 Hemorrhoids K64.9 IBS (irritable bowel syndrome) K58.9 Knee pain M25.569 Lupus M32.9 Obesity E66.9 Osteoporosis M81.0 Polyarthritis M13.0 Varicose veins with inflammation I83.10 Vitamin D deficiency E55.9 Constipation (Resolved) K59.00 Gout M10.9 Hypomagnesemia (Resolved) E83.42 Impingement syndrome of right shoulder (Resolved) M75.41 Bradycardia (Inactive) R00.1 Leg edema (Inactive) R60.0 Palpitations (Inactive) R00.2 Allergies No Known Allergies Allergy (Verified 11/17/20 19:19) elastic wraps Adverse Reaction (Uncoded 11/12/20 12:29) Rash Home Medications: Ambulatory Orders Medication Instructions Recorded Aspirin [Aspirin, Baby] 81 mg PO DAILY@0800 01/06/15 [place]-3 Fatty Acids [Fish Oil] 1,500 mg PO DAILY 01/06/15 magnesium chloride 71.5 mg 71.5 mg PO DAILY tab 12/26/18 (magnesium chloride) tablet,delayed release neomycin 3.5 mg/g-polymyxin B 1 applic OPHTHALMIC QHS PRN 12/26/18 10,000 unit/g-dexameth 0.1 % eye oint Meloxicam 15 mg PO DAILY 06/05/19 furosemide 40 mg tablet 40 mg PO BID #180 tab 02/20/20 dulaglutide 0.75 mg/0.5 mL 0.75 mg SC QWEEK 07/09/20 subcutaneous pen injector multivitamin 1 tab PO DAILY 07/09/20 metoprolol succinate 50 mg 50 mg PO DAILY #30 tab 07/16/20 tablet,extended release 24 hr pravastatin 40 mg tablet 40 mg PO QHS #90 tab 07/16/20 flecainide 100 mg tablet 100 mg PO BID #180 tab 08/25/20 lisinopril 20 mg tablet 20 mg PO BID #180 tab 09/12/20 amlodipine 10 mg tablet 10 mg PO DAILY #30 tab 09/29/20 Ondansetron [Zofran Odt] 4 mg PO Q8H PRN PRN #10 tab 11/12/20 Diphenoxylate/Atrop [Lomotil] 2 tab PO 4X/DAY PRN PRN 11/17/20 Metoclopramide [Reglan] 10 mg PO 4X/DAY PRN #20 tab 11/17/20 Vancomycin HCl [Vancocin HCl] 500 mg PO [id number] #40 cap 11/17/20 Surgical History: Surgical History (Last Reviewed 10/23/20 @ 10:20 by Yudy Velasquez) History of cardiac radiofrequency ablation (RFA) Onset Date: 11/20/10 Z98.890 History of hysterectomy Z98.890, Z90.710 History of left heart catheterization Onset Date: 11/20/10 Z98.890 History of tonsillectomy Z98.890, Z90.89 vein ablation Surgical History: hysterectomy, tonsillectomy, - Psychiatric History: No pertinent 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 Denies: Chills, Fever, Weight Change HEENT: Denies: Head Aches, Sinus Congestion, Sinus Drainage Cardiovascular: Denies: Chest Pain, Palpitations Respiratory: Denies: Cough, Shortness of breath at rest, Sputum production Gastrointestinal: Reports: Abdominal Pain, Diarrhea, Nausea, Vomiting. Denies: Hematochezia, Melena Genitourinary: Denies: Dysuria Musculoskeletal: Denies: Joint Pain, Joint Tenderness Skin: Denies: Rash, Wounds Neurological: Denies: Numbness, Tingling, Focal weakness Psychiatric: Denies: Anxiety, Depression, Homicidal Ideations, Suicidal Ideations Hematologic/ Lymphatic: Denies: Easy Bruising, Easy Bleeding VTE Information - Inpt Only VTE Present on Admission: No VTE Mechan Device Prophylaxis: None VTE Pharm Prophylaxis ordered?: Yes Patient Problems: Active and Suspected Problems (Last Reviewed 10/23/20 @ 10:20 by Yudy Velasquez) Syncope and collapse (Acute) Diarrhea (Acute) - Physical Exam Vitals/I&O's: Vital Signs Temp Pulse Resp BP Pulse Ox 98.6 F 95 19 H 118/76 95 11/17/20 23:29 11/17/20 23:29 11/17/20 23:29 11/17/20 23:29 11/17/20 23:29 Oxygen Flow Rate (L/min) 2 Oxygen Delivery Method Room Air Weight: 202 lb 2.622 oz Body Mass Index (BMI) 34.7 Intake and Output for Last 24 Hours 11/15/20 11/16/20 11/17/20 23:59 23:59 23:59 Intake Total 1000 / 1000 Balance 1000 / 1000 General: Alert, Oriented x3, Cooperative HEENT: Atraumatic, Normocephalic Neck: Supple, No JVD, Negative Carotid Bruits Lungs: Clear to auscultation, Normal air movement Cardiovascular: Regular rate, No murmurs Abdomen: Bowel Sounds Present, Soft, Obese, Tender - generalized Extremities: No edema, Capillary Refill Less than 3 Seconds Skin: No rashes Musculoskeletal: No Tenderness to Palpation of Joints or Extremities Neurological: Neuro grossly intact Psych/Mental Status: Normal Affect, Appropriate Microbiology Past 72 Hours 11/17/20 22:00 Stool Stool Lactoferrin - Final Laboratory Results 11/17/20 19:34: WBC 15.8 H, RBC 5.09, Hgb 15.9 H, Hct 46.0, MCV 90.4, MCH 31.2, MCHC 34.6, RDW Std Deviation 43.9, RDW Coeff of Jana 13.4, Plt Count 333, MPV 9.9, Immature Gran % (Auto) 2.500 H, Neut % (Auto) 71.4 H, Lymph % (Auto) 10.1 L , [place] % (Auto) 6.2, Eos % (Auto) 9.4 H, Baso % (Auto) 0.4, Absolute Neuts (auto) 11.3 H, Absolute Lymphs (auto) 1.59, Nucleated RBC % 0 11/17/20 19:34: Sodium 142, Potassium 3.0 L, Chloride 107, Carbon Dioxide 27.0, Anion Gap 8, BUN 16, Creatinine 0.76, Estim Creat Clear Calc 47.79, Est GFR (MDRD) Af Amer 97, Est GFR (MDRD) Non-Af 80, BUN/Creatinine Ratio 20.9 H, Glucose 154 H, Calcium 8.8, Total Bilirubin 0.60, Direct Bilirubin 0.19, AST 14 L, ALT 25, Alkaline Phosphatase 81, Troponin I < 0.015, Total Protein 6.1 L, Albumin 3.2, Globulin 2.9, Lipase 244 11/17/20 20:30: Urine Color Yellow, Urine Clarity Clear, Urine pH 6.0, Ur Specific [place] 1.020, Urine Protein 30 H, Urine Glucose (UA) Normal, Urine Ketones 15 H, Urine Occult Blood Negative, Urine Nitrite Negative, Urine Bilirubin 1 H, Urine Urobilinogen 1 H, Ur Leukocyte Esterase 25 H, Urine RBC 0 SEEN, Urine WBC 0-5 SEEN, Ur Squamous Epith Cells 0-5 SEEN, Urine Bacteria 0 SEEN, Urine Mucus 1+ Current Medications Sodium Chloride () 1,000 mls @ 999 mls/hr IV .Q1H1M ONE Stop: 11/18/20 00:18 Last Admin: 11/17/20 23:25 Dose: 999 mls/hr Documented by: Assessment/Plan All Active Problems (Last Reviewed 10/23/20 @ 10:20 by Yudy Velasquez) Syncope and collapse (Acute) Diarrhea (Acute) Cellulitis (Resolved) Constipation (Resolved) Hypomagnesemia (Resolved) Impingement syndrome of right shoulder (Resolved) Leg pain (Resolved) Leg swelling (Resolved) Chronic Problems (Last Reviewed 10/23/20 @ 10:20 by Yudy Velasquez) Diabetes (Chronic) GERD (gastroesophageal reflux disease) (Chronic) Lupus (Chronic) SVT (supraventricular tachycardia) (Chronic) slow pathway ablation 11/20/2010 Paroxysmal atrial fibrillation (Chronic) Essential (primary) hypertension (Chronic) Hyperlipemia (Chronic) EMMANUEL (obstructive sleep apnea) (Chronic) Chronic venous insufficiency (Chronic) Plan 1. Gastroenteritis/diarrhea?admit patient to medical surgical floor, IV hydration with normal saline, C. difficile and enteric pathogen panel pending, Zofran as needed for nausea, discussed probiotics and potential benefits for diarrhea. BMP in the morning 2. Hypertension?continue home medications 3. Hyperlipidemia?continue statin medication 4. Diabetes?monitor blood sugars continue routine oral medications 5. DVT prophylaxis?low molecular weight heparin if not already anticoagulated OBSV E&M: [id number] Initial observation care L2
[2020-11-18 00:26] VITALS: BP 145/64; PULSE 70; RESP 20; TEMP 37.2; O2SAT 95; BMI 33.4
[2020-11-18] MEDS: 0.9% Normal Saline 1,000 ML 125 ML IV ×3 (01:20→17:12)
[2020-11-18 06:13] LABS: Hematocrit 46.8 % (37-47); Hemoglobin 15.5 g/dL (12.0-15.0); Mean Corp Hgb Conc 33.1 g/dL (32-36); Mean Corpuscular Volume 93.6 fL (81-99); Mean Platelet Vol. 9.8 fl (6.2-12.0); POSITIVE DIFFERENTIAL YES; Platelet Count 339 K/mm3 (150-450); RBC Distribution Width CV 13.8 % (11.6-14.6); White Blood Count 19.5 K/mm3 (4.4-11.0)
[2020-11-18 06:23] VITALS: BP 134/74; PULSE 76; RESP 16; TEMP 36.7; O2SAT 96
[2020-11-18 06:39] LABS: AST(SGOT) 11 U/L (15-37); Alanine Aminotransfer ALT/SGPT 19 U/L (13-56); Albumin, Serum 2.7 g/dL (3.2-5.0); Alkaline Phosphatase 68 U/L (45-117); Anion Gap 7 (5-15); BUN 14 mg/dL (7-18); BUN/Creat Ratio 20.9 RATIO (10-20); Calcium,Total 7.8 mg/dL (8.5-10.1); Chloride 109 mmol/L (98-107); Creatinine, Serum 0.67 mg/dL (0.55-1.02); EST Glomerular Filtration Rate 93 mL/min (>60); Est Glom Filt Rate - Afr Amer 113 mL/min (>60); Estimated Creatinine Clearance 47.79 ml/min; Globulin 2.6 g/dL (2.2-4.2); Glucose 114 mg/dL (74-106); Potassium 2.9 mmol/L (3.5-5.1); Protein, Total 5.3 g/dL (6.4-8.2); Sodium Level 144 mmol/L (136-145)
[2020-11-18 06:49] LABS: Scan Smear per Review Criteria MANUAL DIFF; Total Cells Counted 100 (MANUAL DIFF)
[2020-11-18 06:50] LABS: Differential Indicated MANUAL DIFF
[2020-11-18 06:51] LABS: Platelet Estimate ADEQUATE (ADEQ); Reactive Lymphocyte 1+; Red Cell Morphology NORM C+C NORMAL (NORM C&C); Toxic Granulation 1+
[2020-11-18 09:32] VITALS: BP 152/70; PULSE 61; RESP 18; TEMP 37; O2SAT 95
[2020-11-18 09:34] VITALS: PULSE 61
[2020-11-18] MEDS: amLODIPine 10 MG Tablet PO (09:34)
[2020-11-18] MEDS: Metoprolol(XL)Succ 50 MG Tablet PO (09:34)
[2020-11-18] MEDS: Flecainide 100 MG Tablet PO ×2 (09:34→20:56)
[2020-11-18] MEDS: Potassium Chloride Oral Tablet 20 MEQ 40 MEQ PO (09:34)
[2020-11-18] MEDS: Lisinopril 20 MG Tablet PO ×2 (09:34→20:56)
[2020-11-18] MEDS: Meloxicam 15 MG Tablet PO (09:34)
[2020-11-18] MEDS: Enoxaparin 40 MG/0.4 ML Syringe SC (09:34)
[2020-11-18] MEDS: Multivitamins,Therapeutic Tablet 1 TABLET PO (09:34)
--- NOTE | 2020-11-18 12:05 | NURSING ---
phoned micro- states about an hour or so and enteric panel should be resulting
[2020-11-18] MEDS: 0.9% Saline Lock 10 ML Syringe IV (12:36)
[2020-11-18] MEDS: Metoclopramide 10 MG/2 ML Vial IV (12:36)
--- NOTE | 2020-11-18 13:42 | PCM.PN.HOSP ---
Patient Problems: Active and Suspected Problems (Last Reviewed 10/23/20 @ 10:20 by Yudy Velasquez) Syncope and collapse (Acute) Diarrhea (Acute) Leukocytosis (Acute) Subjective: Patient seen and examined. She was admitted with a complaint of diarrhea and syncope due to dehydration from the diarrhea. She feels better today. She has had 3 episodes of diarrhea today but she is able to taking clear liquid diet so she thinks that all consult pulmonary. She denies any lightheadedness or dizziness and denies any nausea or vomiting. Review of systems otherwise negative. Vitals/I&O's: Vital Signs Temp Pulse Resp BP Pulse Ox 98.6 F 61 18 152/70 H 95 11/18/20 09:32 11/18/20 09:34 11/18/20 09:32 11/18/20 09:32 11/18/20 09:32 Oxygen Flow Rate (L/min) 2 Oxygen Delivery Method Room Air Weight: 194 lb 10.691 oz Body Mass Index (BMI) 33.4 Intake and Output for Last 24 Hours 11/16/20 11/17/20 11/18/20 23:59 23:59 23:59 Intake Total 1000 / 1000 2900 / 2900 Balance 1000 / 1000 2900 / 2900 General: Alert, Oriented x3, Cooperative HEENT: Atraumatic, PERRLA, EOMI, Normocephalic Oral: Moist Mucosa Neck: Supple, No JVD, Negative Carotid Bruits Lungs: Clear to auscultation, Normal air movement Cardiovascular: Regular rate, Regular Rhythm, Normal S1, Normal S2, No murmurs Abdomen: Bowel Sounds Present, Soft, Non Tender Extremities: No edema, Capillary Refill Less than 3 Seconds Skin: No rashes, No breakdown Musculoskeletal: No Tenderness to Palpation of Joints or Extremities Neurological: Cranial nerves II-XII grossly intact Psych/Mental Status: Normal Affect, Appropriate, Alert and oriented to time, place, person, mood and affect Microbiology Past 72 Hours 11/17/20 22:00 Stool Stool Lactoferrin - Final 11/17/20 22:00 Stool Enteric Bacteriology - Final 11/17/20 22:00 Stool C. difficile DNA Amplification - Final 11/17/20 23:40 Mucosa - Nose SARS-CoV-2 Antigen (Rapid) - Final Laboratory Results 11/17/20 19:34: WBC 15.8 H, RBC 5.09, Hgb 15.9 H, Hct 46.0, MCV 90.4, MCH 31.2, MCHC 34.6, RDW Std Deviation 43.9, RDW Coeff of Jana 13.4, Plt Count 333, MPV 9.9, Immature Gran % (Auto) 2.500 H, Neut % (Auto) 71.4 H, Lymph % (Auto) 10.1 L, Owen % (Auto) 6.2, Eos % (Auto) 9.4 H, Baso % (Auto) 0.4, Absolute Neuts (auto) 11.3 H, Absolute Lymphs (auto) 1.59, Nucleated RBC % 0 11/17/20 19:34: Sodium 142, Potassium 3.0 L, Chloride 107, Carbon Dioxide 27.0, Anion Gap 8, BUN 16, Creatinine 0.76, Estim Creat Clear Calc 47.79, Est GFR (MDRD) Af Amer 97, Est GFR (MDRD) Non-Af 80, BUN/Creatinine Ratio 20.9 H, Glucose 154 H, Calcium 8.8, Total Bilirubin 0.60, Direct Bilirubin 0.19, AST 14 L, ALT 25, Alkaline Phosphatase 81, Troponin I < 0.015, Total Protein 6.1 L, Albumin 3.2, Globulin 2.9, Lipase 244 11/17/20 20:30: Urine Color Yellow, Urine Clarity Clear, Urine pH 6.0, Ur Specific [place] 1.020, Urine Protein 30 H, Urine Glucose (UA) Normal, Urine Ketones 15 H, Urine Occult Blood Negative, Urine Nitrite Negative, Urine Bilirubin 1 H, Urine Urobilinogen 1 H, Ur Leukocyte Esterase 25 H, Urine RBC 0 SEEN, Urine WBC 0-5 SEEN, Ur Squamous Epith Cells 0-5 SEEN, Urine Bacteria 0 SEEN, Urine Mucus 1+ 11/18/20 05:38: WBC 19.5 H, RBC 5.00, Hgb 15.5 H, Hct 46.8, MCV 93.6, MCH 31.0, MCHC 33.1, RDW Std Deviation 47.0 H, RDW Coeff of Jana 13.8, Plt Count 339, MPV 9.8, Immature Gran % (Auto) TECHNICAL SPECIALIST CYTOGENETICS, Neut % (Auto) TECHNICAL SPECIALIST CYTOGENET[employer], Lymph % (Auto) TECHNICAL SPECIALIST CYTOGENET[employer], Owen % (Auto) TECHNICAL SPECIALIST CYTOGENETICS, Eos % (Auto) TECHNICAL SPECIALIST CYTOGENETICS, Baso % (Auto) TECHNICAL SPECIALIST CYTOGENET[employer], Absolute Neuts (auto) 14.8 H, Absolute Lymphs (auto) 1.95, Total Counted 100, Neutrophils % (Manual) 72 H, Band Neutrophils % 4, Lymphocytes % (Manual) 10 L, Monocytes % (Manual) 10, Eosinophils % (Manual) 4, Nucleated RBC % TECHNICAL SPECIALIST CYTOGENETICS, Diff Path Review May foll, Reactive Lymphocytes 1+, Toxic Granulation 1+, Platelet Estimate ADEQUATE, RBC Morphology NORM C+C 11/18/20 05:38: Sodium 144, Potassium 2.9 L, Chloride 109 H, Carbon Dioxide 28.0, Anion Gap 7, BUN 14, Creatinine 0.67, Estim Creat Clear Calc 47.79, Est GFR (MDRD) Af Amer 113, Est GFR (MDRD) Non-Af 93, BUN/Creatinine Ratio 20.9 H, Glucose 114 H, Calcium 7.8 L, Total Bilirubin 0.50, AST 11 L, ALT 19, Alkaline Phosphatase 68, Total Protein 5.3 L, Albumin 2.7 L, Globulin 2.6, Albumin/Globulin Ratio 1.0 Current Medications Amlodipine Besylate (Amlodipine 10 Mg Tablet) 10 mg PO DAILY [facility] Last Admin: 11/18/20 09:34 Dose: 10 mg Documented by: Diphenoxylate HCl/Atropine (Diphenoxylate/Atrop 1 Tablet) 1 tablet PO 4X/DAY PRN PRN PRN Reason: Diarrhea Enoxaparin Sodium (Enoxaparin 40 Mg/0.4 Ml Syringe) 40 mg SC DAILY [facility] Last Admin: 11/18/20 09:34 Dose: 40 mg Documented by: Flecainide Acetate (Flecainide 100 Mg Tablet) 100 mg PO BID [facility] Last Admin: 11/18/20 09:34 Dose: 100 mg Documented by: Sodium Chloride () 1,000 mls @ 125 mls/hr IV .Q8H [facility] Last Admin: 11/18/20 09:34 Dose: 125 mls/hr Documented by: Lisinopril (Lisinopril 20 Mg Tablet) 20 mg PO BID [facility] Last Admin: 11/18/20 09:34 Dose: 20 mg Documented by: Meloxicam (Meloxicam 15 Mg Tablet) 15 mg PO DAILY [facility] Last Admin: 11/18/20 09:34 Dose: 15 mg Documented by: Metoclopramide HCl (Metoclopramide 10 Mg/2 Ml Vial) 10 mg IV Q6H PRN PRN PRN Reason: NAUSEA Last Admin: 11/18/20 12:36 Dose: 10 mg Documented by: Metoprolol Succinate (Metoprolol(Xl)Succ 50 Mg Tablet) 50 mg PO DAILY [facility] Last Admin: 11/18/20 09:34 Dose: 50 mg Documented by: Multivitamins ([facility]) [facility] Last Admin: 11/18/20 09:34 Dose: 1 tablet Documented by: Ondansetron HCl (Ondansetron 4 Mg/2 Ml Vial) 4 mg IV Q8H PRN PRN PRN Reason: NAUSEA/VOMITING Pravastatin Sodium (Pravastatin 40 Mg Tablet) 40 mg PO QHS [facility] Sodium Chloride (0.9% Saline Lock 10 Ml Syringe) 10 - 40 ml IV UD PRN PRN Reason: SALINE FLUSH Last Admin: 11/18/20 12:36 Dose: 10 ml Documented by: Medical Necessity - Tobacco Use Smoking Status: Never smoker Assessment/Plan All Active Problems (Last Reviewed 10/23/20 @ 10:20 by Yudy Velasquez) Syncope and collapse (Acute) Diarrhea (Acute) Leukocytosis (Acute) Cellulitis (Resolved) Constipation (Resolved) Hypomagnesemia (Resolved) Impingement syndrome of right shoulder (Resolved) Leg pain (Resolved) Leg swelling (Resolved) #Acute gastroenteritis feels better now on clear liquid diet, advance as tolerated stool for enteric pathogen negative. C. difficile was also negative. Continue gentle hydration with IV fluids. Advance diet as tolerated. on zofran #Hypokalemia: Potassium is 2.9. Will replace aggressively and trend. #Hypertension: On amlodipine and lisinopril as well as metoprolol #Hyperlipidemia: on statins #History of paroxysmal afib: on metoprolol. NOt on beta megan, unclear why #History of SVT s/p ablation: on flecainide #Diabetes mellitus: per previous documentation, is on Dulaglutide 0/75mg sc weekly ISS. ACcuchecks ACHS DVT prophylaxis: lovenox OBSV E&M: [id number] Subsequent observation care L2
[2020-11-18 14:48] VITALS: BP 127/59; PULSE 74; RESP 16; TEMP 36.4; O2SAT 97
[2020-11-18] MEDS: Diphenoxylate/Atrop 1 Tablet PO ×2 (14:50→19:45)
[2020-11-18] MEDS: Potassium Chloride 10mEq/100mL 10 MEQ/100 ML IV.SOLN. 100 MEQ IV BOLUS (14:50)
[2020-11-18] MEDS: Potassium Chloride 10mEq/100mL 10 MEQ/100 ML IV.SOLN. 50 MEQ IV BOLUS ×3 (17:06→21:43)
[2020-11-18 17:15] LABS: Bedside Glucose 95 mg/dL (70-110)
[2020-11-18 20:45] VITALS: BP 130/56; PULSE 60; RESP 18; TEMP 37.2; O2SAT 95
[2020-11-18] MEDS: Pravastatin 40 MG Tablet PO (20:56)
[2020-11-18 21:06] LABS: Bedside Glucose 112 mg/dL (70-110)
[2020-11-19] MEDS: 0.9% Normal Saline 1,000 ML 125 ML IV (00:54)
[2020-11-19] MEDS: Metoclopramide 10 MG/2 ML Vial IV (01:03)
[2020-11-19] MEDS: 0.9% Saline Lock 10 ML Syringe IV ×4 (01:03→15:47)
[2020-11-19 01:16] VITALS: BP 150/69; PULSE 65; RESP 18; TEMP 36.8; O2SAT 96
[2020-11-19] MEDS: Ondansetron 4 MG/2 ML Vial IV (02:31)
[2020-11-19] MEDS: proMETHazine 25 MG/ML Syringe 6.25 MG IV ×2 (03:06→15:47)
[2020-11-19] MEDS: Diphenoxylate/Atrop 1 Tablet PO (03:31)
[2020-11-19 06:15] VITALS: BP 126/58; PULSE 59; RESP 18; TEMP 36.4; O2SAT 95
[2020-11-19 06:31] LABS: Bedside Glucose 102 mg/dL (70-110)
[2020-11-19 06:38] LABS: Hematocrit 44.5 % (37-47); Hemoglobin 14.6 g/dL (12.0-15.0); Mean Corp Hgb Conc 32.8 g/dL (32-36); Mean Corpuscular Hgb 31.3 pg (27.0-32.0); Mean Corpuscular Volume 95.3 fL (81-99); Mean Platelet Vol. 9.3 fl (6.2-12.0); POSITIVE DIFFERENTIAL YES; Platelet Count 297 K/mm3 (150-450); RBC Distribution Width CV 13.9 % (11.6-14.6); RBC Distribution Width SD 48.6 fl (35.1-43.9); Red Blood Count 4.67 M/mm3 (4.2-5.4)
[2020-11-19 06:39] LABS: Differential Indicated MANUAL DIFF; Scan Smear per Review Criteria MANUAL DIFF
[2020-11-19 07:01] LABS: Eosinophil 4 % (0-5); Lymphocyte 14 % (19-41); Monocyte 4 % (0-10); Neutrophil-Band 3 % (0-5); Neutrophil-Segmented 75 % (47-70); Total Cells Counted 100 (MANUAL DIFF)
[2020-11-19 07:02] LABS: Absolute Lymphocyte Count 2.52 X10^3/uL (0.83-4.51); Platelet Estimate ADEQUATE (ADEQ); Red Cell Morphology NORM C+C NORMAL (NORM C&C)
[2020-11-19 07:03] LABS: Anion Gap 6 (5-15); BUN 10 mg/dL (7-18); BUN/Creat Ratio 17.7 RATIO (10-20); Calcium,Total 7.5 mg/dL (8.5-10.1); Chloride 113 mmol/L (98-107); Creatinine, Serum 0.56 mg/dL (0.55-1.02); EST Glomerular Filtration Rate 114 mL/min (>60); Est Glom Filt Rate - Afr Amer 138 mL/min (>60); Estimated Creatinine Clearance 47.79 ml/min; Glucose 114 mg/dL (74-106); Potassium 3.4 mmol/L (3.5-5.1); Sodium Level 142 mmol/L (136-145)
[2020-11-19] MEDS: Potassium Chloride 40 MEQ in 0.9% Normal Saline 1,000 ML 125 MEQ IV ×2 (08:55→17:01)
--- NOTE | 2020-11-19 09:23 | CASEMGMT ---
JAMIE PARDO in to discuss HERNANDEZ form with pt. RN CM explained HERNANDEZ form, pt voiced understanding. Pt signed HERNANDEZ form and filed in chart. Pt provided with copy of signed HERNANDEZ form. Pt had no further questions or concerns at this time.
[2020-11-19 09:34] VITALS: BP 139/70; PULSE 65; RESP 18; TEMP 36.5; O2SAT 99
[2020-11-19 09:38] VITALS: PULSE 65
[2020-11-19] MEDS: Meloxicam 15 MG Tablet PO (09:38)
[2020-11-19] MEDS: Multivitamins,Therapeutic Tablet 1 TABLET PO (09:38)
[2020-11-19] MEDS: Lisinopril 20 MG Tablet PO ×2 (09:38→21:05)
[2020-11-19] MEDS: amLODIPine 10 MG Tablet PO (09:38)
[2020-11-19] MEDS: Metoprolol(XL)Succ 50 MG Tablet PO (09:38)
[2020-11-19] MEDS: Flecainide 100 MG Tablet PO ×2 (09:38→21:05)
[2020-11-19] MEDS: Enoxaparin 40 MG/0.4 ML Syringe SC (09:38)
[2020-11-19 12:00] LABS: Bedside Glucose 128 mg/dL (70-110)
[2020-11-19 12:06] LABS: Lymphocyte 18 % (19-41); Neutrophil-Band 1 % (0-5); Neutrophil-Segmented 54 % (47-70); Promyelocyte 1 (0-0)
[2020-11-19 12:07] LABS: Eosinophil 22 % (0-5); Monocyte 4 % (0-10)
[2020-11-19 12:08] LABS: Absolute Neutrophil Count 10.7 X10^3/uL (2.0-7.7)
[2020-11-19 12:53] LABS: Pathologist Review Reviewed
[2020-11-19 12:57] LABS: Pathologist Review Reviewed
--- NOTE | 2020-11-19 14:39 | PCM.PN.HOSP ---
Patient Problems: Active and Suspected Problems (Last Reviewed 10/23/20 @ 10:20 by Yudy Velasquez) Syncope and collapse (Acute) Diarrhea (Acute) Leukocytosis (Acute) Subjective: Patient seen and examined. She had several bouts of nausea and vomiting as well as diarrhea overnight. She says she was feeling better this morning and was willing to try a full liquid diet. Review of symptoms otherwise negative. She has remained hemodynamically stable. Potassium is 3.4 today. Vitals/I&O's: Vital Signs Temp Pulse Resp BP Pulse Ox 97.7 F L 65 18 139/70 H 99 11/19/20 09:34 11/19/20 09:38 11/19/20 09:34 11/19/20 09:34 11/19/20 09:34 Oxygen Flow Rate (L/min) 2 Oxygen Delivery Method Room Air Weight: 194 lb 10.691 oz Body Mass Index (BMI) 33.4 Intake and Output for Last 24 Hours 11/17/20 11/18/20 11/19/20 23:59 23:59 23:59 Intake Total 1000 / 1000 5154.17 / 5154.17 1962.5 / 1962.5 Output Total 300 / 300 Balance 1000 / 1000 5154.17 / 5154.17 1662.5 / 1662.5 General: Alert, Oriented x3, Cooperative HEENT: Atraumatic, PERRLA, EOMI, Normocephalic Oral: Moist Mucosa Neck: Supple, No JVD, Negative Carotid Bruits Lungs: Clear to auscultation, Normal air movement Cardiovascular: Regular rate, Regular Rhythm, Normal S1, Normal S2, No murmurs Abdomen: Bowel Sounds Present, Soft, Non Tender Extremities: No edema, Capillary Refill Less than 3 Seconds Skin: No rashes, No breakdown Musculoskeletal: No Tenderness to Palpation of Joints or Extremities Neurological: Cranial nerves II-XII grossly intact Psych/Mental Status: Normal Affect, Appropriate, Alert and oriented to time, place, person, mood and affect Microbiology Past 72 Hours 11/17/20 22:00 Stool Stool Lactoferrin - Final 11/17/20 22:00 Stool Enteric Bacteriology - Final 11/17/20 22:00 Stool C. difficile DNA Amplification - Final 11/17/20 23:40 Mucosa - Nose SARS-CoV-2 Antigen (Rapid) - Final Laboratory Results 11/18/20 05:38: Absolute Neuts (auto) 10.7 H, Absolute Lymphs (auto) 3.50, Neutrophils % (Manual) 54, Band Neutrophils % 1, Lymphocytes % (Manual) 18 L, Monocytes % (Manual) 4, Eosinophils % (Manual) 22 H, Promyelocytes % 1 H, Diff Path Review Reviewed 11/18/20 17:10: POC Glucose 95 11/18/20 20:52: POC Glucose 112 H 11/19/20 06:10: WBC 18.0 H, RBC 4.67, Hgb 14.6, Hct 44.5, MCV 95.3, MCH 31.3, MCHC 32.8, RDW Std Deviation 48.6 H, RDW Coeff of Jana 13.9, Plt Count 297, MPV 9.3, Immature Gran % (Auto) DROP WIRE OPERATOR, Neut % (Auto) DROP WIRE OPERATOR, Lymph % (Auto) DROP WIRE OPERATOR, [place] % (Auto) DROP WIRE OPERATOR, Eos % (Auto) DROP WIRE OPERATOR, Baso % (Auto) DROP WIRE OPERATOR, Absolute Neuts (auto) 14.0 H, Absolute Lymphs (auto) 2.52, Total Counted 100, Neutrophils % (Manual) 75 H, Band Neutrophils % 3, Lymphocytes % (Manual) 14 L, Monocytes % (Manual) 4, Eosinophils % (Manual) 4, Nucleated RBC % DROP WIRE OPERATOR, Diff Path Review Reviewed, Platelet Estimate ADEQUATE, RBC Morphology NORM C+C 11/19/20 06:10: Sodium 142, Potassium 3.4 L, Chloride 113 H, Carbon Dioxide 23.0, Anion Gap 6, BUN 10, Creatinine 0.56, Estim Creat Clear Calc 47.79, Est GFR (MDRD) Af Amer 138, Est GFR (MDRD) Non-Af 114, BUN/Creatinine Ratio 17.7, Glucose 114 H, Calcium 7.5 L 11/19/20 06:20: POC Glucose 102 11/19/20 11:34: POC Glucose 128 H Diagnostic Data Abdomen/Pelvis CT 11/17/20 20:02 IMPRESSION: Findings consistent with nonspecific gastritis and diffuse ileus possibly on the basis of gastroenteritis. No evidence for small bowel obstruction or acute appendicitis.. Electronically Signed: Gasper Streeter MD at 21:23 EST , Service support , Current Medications Amlodipine Besylate (Amlodipine 10 Mg Tablet) 10 mg PO DAILY [facility] Last Admin: 11/19/20 09:38 Dose: 10 mg Documented by: Dextrose (Dextrose 50%-Water 25 Gm/50 Ml Disp.Syrin) 0 gm IV X1 PRN; Protocol PRN Reason: Hypoglycemia Diphenoxylate HCl/Atropine (Diphenoxylate/Atrop 1 Tablet) 1 tablet PO 4X/DAY PRN PRN PRN Reason: Diarrhea Last Admin: 11/19/20 03:31 Dose: 1 tablet Documented by: Enoxaparin Sodium (Enoxaparin 40 Mg/0.4 Ml Syringe) 40 mg SC DAILY [facility] Last Admin: 11/19/20 09:38 Dose: 40 mg Documented by: Flecainide Acetate (Flecainide 100 Mg Tablet) 100 mg PO BID [facility] Last Admin: 11/19/20 09:38 Dose: 100 mg Documented by: Glucagon (Glucagon 1 Mg/Ml Syringe) 1 mg IM .X1 PRN PRN Reason: Hypoglycemia Sodium Chloride () 250 mls @ 15 mls/hr IV .[id number] PRN PRN Reason: Saline Flush Sodium Chloride () 250 mls @ 15 mls/hr IV .[id number] PRN PRN Reason: Additional IVPB Infusion Potassium Chloride 40 meq/ (Sodium Chloride) 1,020 mls @ 125 mls/hr IV .Q8H10M [facility] Last Admin: 11/19/20 08:55 Dose: 125 mls/hr Documented by: Insulin Human Lispro (Insulin Lispro 100 Unit/Ml Insuln.Pen) 0 unit SC ACHS [facility]; Protocol Last Admin: 11/19/20 11:53 Dose: Not Given Documented by: Lisinopril (Lisinopril 20 Mg Tablet) 20 mg PO BID [facility] Last Admin: 11/19/20 09:38 Dose: 20 mg Documented by: Meloxicam (Meloxicam 15 Mg Tablet) 15 mg PO DAILY [facility] Last Admin: 11/19/20 09:38 Dose: 15 mg Documented by: Metoclopramide HCl (Metoclopramide 10 Mg/2 Ml Vial) 10 mg IV Q6H PRN PRN PRN Reason: NAUSEA Last Admin: 11/19/20 01:03 Dose: 10 mg Documented by: Metoprolol Succinate (Metoprolol(Xl)Succ 50 Mg Tablet) 50 mg PO DAILY [facility] Last Admin: 11/19/20 09:38 Dose: 50 mg Documented by: Multivitamins ([facility]ivitamins,Therapeutic Tablet) [address] [facility] Last Admin: 11/19/20 09:38 Dose: 1 tablet Documented by: Ondansetron HCl (Ondansetron 4 Mg/2 Ml Vial) 4 mg IV Q8H PRN PRN PRN Reason: NAUSEA/VOMITING Last Admin: 11/19/20 02:31 Dose: 4 mg Documented by: Pravastatin Sodium (Pravastatin 40 Mg Tablet) 40 mg PO QHS [facility] Last Admin: 11/18/20 20:56 Dose: 40 mg Documented by: Promethazine HCl (Promethazine 25 Mg/Ml Syringe) 6.25 mg IV Q4H PRN PRN PRN Reason: NAUSEA/VOMITING Last Admin: 11/19/20 03:06 Dose: 6.25 mg Documented by: Sodium Chloride (0.9% Saline Lock 10 Ml Syringe) 10 - 40 ml IV UD PRN PRN Reason: SALINE FLUSH Last Admin: 11/19/20 03:07 Dose: 10 ml Documented by: Medical Necessity - Tobacco Use Smoking Status: Never smoker Assessment/Plan All Active Problems (Last Reviewed 10/23/20 @ 10:20 by Yudy Velasquez) Syncope and collapse (Acute) Diarrhea (Acute) Leukocytosis (Acute) Cellulitis (Resolved) Constipation (Resolved) Hypomagnesemia (Resolved) Impingement syndrome of right shoulder (Resolved) Leg pain (Resolved) Leg swelling (Resolved) #Acute gastroenteritis did have diarrhea and vomiting again overnight feels better this morning. Will advance to full liquid, and further advance as tolerated stool for enteric pathogen negative. C. difficile was also negative. Continue gentle hydration with IV fluids. on zofran general surgery consulted per family request #Hypokalemia: Potassium is 3.4. Will replace and trend #Hypertension: On amlodipine and lisinopril as well as metoprolol #Hyperlipidemia: on statins #History of paroxysmal afib: on metoprolol. NOt on beta megan, unclear why #History of SVT s/p ablation: on flecainide #Diabetes mellitus: per previous documentation, is on Dulaglutide 0/75mg sc weekly ISS. ACcuchecks ACHS DVT prophylaxis: lovenox OBSV E&M: [id number] Subsequent observation care L2
--- NOTE | 2020-11-19 14:58 | CT_ITS ---
STUDY: CT ABDOMEN AND PELVIS WITH CONTRAST REASON FOR EXAM: Female, 65 years old. Nausea, diarrhea, leukocytosis, + wbc in stool RADIATION DOSAGE (If Supplied By Facility): CTDIvol = ( 18.35 ) mGy, DLP = ( 1249.63 ) mGycm TECHNIQUE: Transaxial images were obtained from the dome of the diaphragm to the symphysis pubis without oral contrast. Oral and IV Gastrografin and 100mL Isovue-370 was administered. Sagittal and coronal images were reconstructed. Individualized dose optimization techniques were used for this CT. COMPARISON: None. FINDINGS: The visualized lung bases are unremarkable. The visualized portions of the heart are within normal limits. Normal liver. Normal gallbladder and extrahepatic biliary system. Normal spleen. Normal pancreas. Normal bilateral adrenal glands. Normal right kidney. Normal left kidney. Mild gastric wall thickening especially at the gastric outlet. Prominent appearance of the proximal small bowel. Normal colon. There is a calcified appendicolith. The appendix is otherwise unremarkable Normal abdominal aorta. Normal inferior vena cava. Normal retroperitoneum. Decompressed urinary bladder. There is absence of the uterus consistent with a prior hysterectomy. Normal abdominal wall. There are diffuse degenerative changes of the visualized lumbar spine. CT/Abdomen/Pelvis WITH Contrast IMPRESSION: Prominent wall thickening at the gastric outlet and proximal small bowel is nonspecific correlate for gastritis/enteritis. Otherwise no acute intra-abdominal process is identified Electronically Signed: Ronaldo Lamb MD at 18:32 EST Tel , Service support ,
--- NOTE | 2020-11-19 15:08 | CON.PCM_ITS ---
Problem List (1) Nausea & vomiting Status: Acute Qualifiers: Vomiting type: unspecified Vomiting Intractability: intractable Qualified Code(s): R11.2 - Nausea with vomiting, unspecified (2) Diarrhea Status: Acute Qualifiers: Diarrhea type: presumed infectious Qualified Code(s): R19.7 - Diarrhea, unspecified Reason for Consult Date of Consultation: 11/19/20 History of Present Illness: The patient is a 65 year old patient with a significant past medical history of gastroenteritis over the past week who had partially recovered and then subsequently got worse with significant diarrhea. CT scan shows possible ileus but is negative for obstruction and patient was set to be discharged however upon standing she became lightheaded and nearly passed out. Earlier in the course the patient did respond to hydration therapy. Patient states she did eat at [employer] and had pork and started to feel ill after this. Of note the patient tested negative for COVID-19 on Tuesday. Her testing for enteric pathogens so far has been negative for C. difficile is also been negative. She however is still having significant nausea and significant diarrhea. The symptoms have been ongoing for better than a week now. She has generalized tenderness without localization. She has not shown any signs of fever and she is not tachycardic. Past Medical History Past Medical History (Chronic Problems): Chronic Problems (Last Reviewed 11/19/20 @ 15:[address] Eduardo Burnham MD) Diabetes (Chronic) GERD (gastroesophageal reflux disease) (Chronic) Lupus (Chronic) SVT (supraventricular tachycardia) (Chronic) slow pathway ablation 11/20/2010 Paroxysmal atrial fibrillation (Chronic) Essential (primary) hypertension (Chronic) Hyperlipemia (Chronic) EMMANUEL (obstructive sleep apnea) (Chronic) Chronic venous insufficiency (Chronic) Medical History: Medical History (Last Reviewed 11/19/20 @ 15:[address] Eduardo Burnham MD) SVT (supraventricular tachycardia) (Chronic) I47.1 slow pathway ablation 11/20/2010 Paroxysmal atrial fibrillation (Chronic) I48.0 Essential (primary) hypertension (Chronic) I10 Hyperlipemia (Chronic) E78.5 EMMANUEL (obstructive sleep apnea) (Chronic) G47.33 Chronic venous insufficiency (Chronic) I87.2 Arthritis of left knee M17.12 Cyst of breast, right, solitary N60.01 Dermatitis L30.9 Diabetes E11.9 Difficulty balancing R29.818 GERD (gastroesophageal reflux disease) K21.9 Hammer toe M20.40 Hemorrhoids K64.9 IBS (irritable bowel syndrome) K58.9 Knee pain M25.569 Lupus M32.9 Obesity E66.9 Osteoporosis M81.0 Polyarthritis M13.0 Varicose veins with inflammation I83.10 Vitamin D deficiency E55.9 Constipation (Resolved) K59.00 Gout M10.9 Hypomagnesemia (Resolved) E83.42 Impingement syndrome of right shoulder (Resolved) M75.41 Bradycardia (Inactive) R00.1 Leg edema (Inactive) R60.0 Palpitations (Inactive) R00.2 Allergies dairy Adverse Reaction (Uncoded 11/18/20 00:30) Diarrhea elastic wraps Adverse Reaction (Uncoded 11/12/20 12:29) Rash Home Medications: Ambulatory Orders Medication Instructions Recorded Aspirin [Aspirin, Baby] 81 mg PO DAILY@0800 01/06/15 [place]-3 Fatty Acids [Fish Oil] 1,500 mg PO DAILY 01/06/15 magnesium chloride 71.5 mg 71.5 mg PO DAILY tab 12/26/18 (magnesium chloride) tablet,delayed release neomycin 3.5 mg/g-polymyxin B 1 applic OPHTHALMIC QHS PRN 12/26/18 10,000 unit/g-dexameth 0.1 % eye oint Meloxicam 15 mg PO DAILY 06/05/19 furosemide 40 mg tablet 40 mg PO BID #180 tab 02/20/20 dulaglutide 0.75 mg/0.5 mL 0.75 mg SC SA 07/09/20 subcutaneous pen injector multivitamin 1 tab PO DAILY 07/09/20 metoprolol succinate 50 mg 50 mg PO DAILY #30 tab 07/16/20 tablet,extended release 24 hr pravastatin 40 mg tablet 40 mg PO QHS #90 tab 07/16/20 flecainide 100 mg tablet 100 mg PO BID #180 tab 08/25/20 lisinopril 20 mg tablet 20 mg PO BID #180 tab 09/12/20 amlodipine 10 mg tablet 10 mg PO DAILY #30 tab 09/29/20 Ondansetron [Zofran Odt] 4 mg PO Q8H PRN PRN #10 tab 11/12/20 Diphenoxylate/Atrop [Lomotil] 2 tab PO 4X/DAY PRN PRN 11/17/20 Potassium Chloride Oral Tablet 20 meq PO DAILY #10 tab 11/20/20 [K-Dur] proMETHazine tablet [Phenergan 25 mg PO Q6H PRN PRN #30 tab 11/20/20 tablet] Surgical History: Surgical History (Last Reviewed 11/19/20 @ 15:[address] 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: - - The patient is a Ab0 Lives: Spouse/ Significant Other Smoking Status: Never smoker - *Family History Maternal Family History: Family History (Last Reviewed 10/23/20 @ 10:20 by Yudy Velasquez) Mother CAD (coronary artery disease) Father Aneurysm Other Heart disease History Items: No pertinent history Review of Systems Constitutional: Reports: Weakness Cardiovascular: Denies: Chest Pain, Chest Pressure, Chest Tightness, Palpitations Respiratory: Denies: Cough, Hemoptysis, Shortness of breath at rest, Shortness of breath upon exertion, Wheezing Gastrointestinal: Reports: Diarrhea, Nausea, Vomiting Patient Problems: Active and Suspected Problems (Last Reviewed 11/19/20 @ 15:[address] Eduardo Burnham MD) Syncope and collapse (Acute) Diarrhea (Acute) Leukocytosis (Acute) Nausea & vomiting (Acute) - Physical Exam Vitals/I&O's: Vital Signs Temp Pulse Resp BP Pulse Ox 97.7 F L 65 18 139/70 H 99 11/19/20 09:34 11/19/20 09:38 11/19/20 09:34 11/19/20 09:34 11/19/20 09:34 Oxygen Flow Rate (L/min) 2 Oxygen Delivery Method Room Air Weight: 194 lb 10.691 oz Body Mass Index (BMI) 33.4 Intake and Output for Last 24 Hours 11/17/20 11/18/20 11/19/20 23:59 23:59 23:59 Intake Total 1000 / 1000 5154.17 / 5154.17 1962.5 / 1962.5 Output Total 300 / 300 Balance 1000 / 1000 5154.17 / 5154.17 1662.5 / 1662.5 General: Alert, Oriented x3 Lungs: Clear to auscultation Cardiovascular: Regular rate, Regular Rhythm, No murmurs Abdomen: Tender - Patient has minimal tenderness and it appears to be more musculoskeletal more likely related to her vomiting. There are no rebound guarding or peritoneal signs identified. And her abdomen is soft. Microbiology Past 72 Hours 11/17/20 22:00 Stool Stool Lactoferrin - Final 11/17/20 22:00 Stool Enteric Bacteriology - Final 11/17/20 22:00 Stool C. difficile DNA Amplification - Final 11/17/20 23:40 Mucosa - Nose SARS-CoV-2 Antigen (Rapid) - Final Laboratory Results 11/18/20 05:38: Absolute Neuts (auto) 10.7 H, Absolute Lymphs (auto) 3.50, Neutrophils % (Manual) 54, Band Neutrophils % 1, Lymphocytes % (Manual) 18 L, Monocytes % (Manual) 4, Eosinophils % (Manual) 22 H, Promyelocytes % 1 H, Diff Path Review Reviewed 11/18/20 17:10: POC Glucose 95 11/18/20 20:52: POC Glucose 112 H 11/19/20 06:10: WBC 18.0 H, RBC 4.67, Hgb 14.6, Hct 44.5, MCV 95.3, MCH 31.3, MCHC 32.8, RDW Std Deviation 48.6 H, RDW Coeff of Jana 13.9, Plt Count 297, MPV 9.3, Immature Gran % (Auto) [employer], Neut % (Auto) [employer], Lymph % (Auto) [employer]ER, [place] % (Auto) [employer]ER, Eos % (Auto) [employer] TE[employer]ER, Baso % (Auto) [employer]ER, Absolute Neuts (auto) 14.0 H, Absolute Lymphs (auto) 2.52, Total Counted 100, Neutrophils % (Manual) 75 H, Band Neutrophils % 3, Lymphocytes % (Manual) 14 L, Monocytes % (Manual) 4, Eosinophils % (Manual) 4, Nucleated RBC % [employer], Diff Path Review Reviewed, Platelet Estimate ADEQUATE, RBC Morphology NORM C+C 11/19/20 06:10: Sodium 142, Potassium 3.4 L, Chloride 113 H, Carbon Dioxide 23.0, Anion Gap 6, BUN 10, Creatinine 0.56, Estim Creat Clear Calc 47.79, Est GFR (MDRD) Af Amer 138, Est GFR (MDRD) Non-Af 114, BUN/Creatinine Ratio 17.7, Glucose 114 H, Calcium 7.5 L 11/19/20 06:20: POC Glucose 102 11/19/20 11:34: POC Glucose 128 H Current Medications Amlodipine Besylate (Amlodipine 10 Mg Tablet) 10 mg PO DAILY [facility] Last Admin: 11/19/20 09:38 Dose: 10 mg Documented by: Dextrose (Dextrose 50%-Water 25 Gm/50 Ml Disp.Syrin) 0 gm IV X1 PRN; Protocol PRN Reason: Hypoglycemia Diphenoxylate HCl/Atropine (Diphenoxylate/Atrop 1 Tablet) 1 tablet PO 4X/DAY PRN PRN PRN Reason: Diarrhea Last Admin: 11/19/20 03:31 Dose: 1 tablet Documented by: Enoxaparin Sodium (Enoxaparin 40 Mg/0.4 Ml Syringe) 40 mg SC DAILY [facility] Last Admin: 11/19/20 09:38 Dose: 40 mg Documented by: Flecainide Acetate (Flecainide 100 Mg Tablet) 100 mg PO BID [facility] Last Admin: 11/19/20 09:38 Dose: 100 mg Documented by: Glucagon (Glucagon 1 Mg/Ml Syringe) 1 mg IM .X1 PRN PRN Reason: Hypoglycemia Sodium Chloride () 250 mls @ 15 mls/hr IV .[id number] PRN PRN Reason: Saline Flush Sodium Chloride () 250 mls @ 15 mls/hr IV .[id number] PRN PRN Reason: Additional IVPB Infusion Potassium Chloride 40 meq/ (Sodium Chloride) 1,020 mls @ 125 mls/hr IV .Q8H10M [facility] Last Admin: 11/19/20 08:55 Dose: 125 mls/hr Documented by: Insulin Human Lispro (Insulin Lispro 100 Unit/Ml Insuln.Pen) 0 unit SC ACHS [facility]; Protocol Last Admin: 11/19/20 11:53 Dose: Not Given Documented by: Lisinopril (Lisinopril 20 Mg Tablet) 20 mg PO BID [facility] Last Admin: 02/24/21 09:38 Dose: 20 mg Documented by: Meloxicam (Meloxicam 15 Mg Tablet) 15 mg PO DAILY [facility] Last Admin: 11/19/20 09:38 Dose: 15 mg Documented by: Metoclopramide HCl (Metoclopramide 10 Mg/2 Ml Vial) 10 mg IV Q6H PRN PRN PRN Reason: NAUSEA Last Admin: 11/19/20 01:03 Dose: 10 mg Documented by: Metoprolol Succinate (Metoprolol(Xl)Succ 50 Mg Tablet) 50 mg PO DAILY [facility] Last Admin: 11/19/20 09:38 Dose: 50 mg Documented by: Multivitamins ([facility]ivit[facility],Therapeutic Tablet) [facility] Last Admin: 11/19/20 09:38 Dose: 1 tablet Documented by: Ondansetron HCl (Ondansetron 4 Mg/2 Ml Vial) 4 mg IV Q8H PRN PRN PRN Reason: NAUSEA/VOMITING Last Admin: 11/19/20 02:31 Dose: 4 mg Documented by: Pravastatin Sodium (Pravastatin 40 Mg Tablet) 40 mg PO QHS [facility] Last Admin: 11/18/20 20:56 Dose: 40 mg Documented by: Promethazine HCl (Promethazine 25 Mg/Ml Syringe) 6.25 mg IV Q4H PRN PRN PRN Reason: NAUSEA/VOMITING Last Admin: 11/19/20 03:06 Dose: 6.25 mg Documented by: Sodium Chloride (0.9% Saline Lock 10 Ml Syringe) 10 - 40 ml IV UD PRN PRN Reason: SALINE FLUSH Last Admin: 11/19/20 03:07 Dose: 10 ml Documented by: Assessment/Plan All Active Problems (Last Reviewed 11/19/20 @ 15:[address] Eduardo Burnham MD) Syncope and collapse (Acute) Diarrhea (Acute) Leukocytosis (Acute) Nausea & vomiting (Acute) Cellulitis (Resolved) Constipation (Resolved) Hypomagnesemia (Resolved) Impingement syndrome of right shoulder (Resolved) Leg pain (Resolved) Leg swelling (Resolved) We are going to repeat some stool studies on her. And also repeat a CAT scan.
[2020-11-19 15:41] VITALS: BP 151/71; PULSE 62; RESP 18; TEMP 36.7; O2SAT 98
[2020-11-19 17:21] LABS: Bedside Glucose 112 mg/dL (70-110)
[2020-11-19 20:57] VITALS: BP 138/67; PULSE 58; RESP 16; TEMP 36.6; O2SAT 97
[2020-11-19] MEDS: Pravastatin 40 MG Tablet PO (21:05)
[2020-11-19 21:11] LABS: Bedside Glucose 98 mg/dL (70-110)
[2020-11-20 02:10] VITALS: BP 108/57; PULSE 55; RESP 16; TEMP 36.3; O2SAT 97
[2020-11-20] MEDS: Potassium Chloride 40 MEQ in 0.9% Normal Saline 1,000 ML 125 MEQ IV (02:18)
[2020-11-20 06:23] LABS: Differential Indicated MANUAL DIFF; Hematocrit 43.6 % (37-47); Hemoglobin 14.5 g/dL (12.0-15.0); Mean Corp Hgb Conc 33.3 g/dL (32-36); Mean Corpuscular Hgb 31.8 pg (27.0-32.0); Mean Corpuscular Volume 95.6 fL (81-99); Mean Platelet Vol. 9.3 fl (6.2-12.0); POSITIVE DIFFERENTIAL YES; Platelet Count 314 K/mm3 (150-450); RBC Distribution Width CV 14.3 % (11.6-14.6); RBC Distribution Width SD 49.9 fl (35.1-43.9); Red Blood Count 4.56 M/mm3 (4.2-5.4); White Blood Count 17.1 K/mm3 (4.4-11.0)
[2020-11-20 06:35] LABS: Bedside Glucose 86 mg/dL (70-110)
[2020-11-20 06:43] LABS: Absolute Neutrophil Count 11.5 X10^3/uL (2.0-7.7); Total Cells Counted 100 (MANUAL DIFF)
[2020-11-20 06:44] LABS: Absolute Lymphocyte Count 3.42 X10^3/uL (0.83-4.51); Platelet Estimate ADEQUATE (ADEQ); Red Cell Morphology NORM C+C NORMAL (NORM C&C)
[2020-11-20 06:48] LABS: Anion Gap 4 (5-15); BUN 7 mg/dL (7-18); BUN/Creat Ratio 11.7 RATIO (10-20); Calcium,Total 8.3 mg/dL (8.5-10.1); Chloride 116 mmol/L (98-107); EST Glomerular Filtration Rate 107 mL/min (>60); Est Glom Filt Rate - Afr Amer 129 mL/min (>60); Estimated Creatinine Clearance 47.79 ml/min; Glucose 91 mg/dL (74-106); Potassium 3.4 mmol/L (3.5-5.1); Sodium Level 142 mmol/L (136-145)
--- NOTE | 2020-11-20 07:00 | NM_ITS ---
STUDY: GASTRIC EMPTYING STUDY REASON FOR EXAM: Female, 65 years old. Nausea, diarrhea, leukocytosis, + wbc in stool RADIATION DOSAGE (If Supplied By Facility): CTDIvol = ( ) mGy, DLP = ( ) mGycm. Individualized dose optimization techniques were used for this CT.? TECHNIQUE: Patient ingested 1.1 mCi of TECHNETIUM 99M sulfur colloid in oatmeal COMPARISON: None. FINDINGS: There is prompt uptake of radiotracer within the stomach after ingestion of the oatmeal. However, the activity remains constant within the stomach without significant emptying into the duodenum or other part of the small bowel. T1/2 emptying time estimated at 335 minutes with percentage emptying of 0.15% per minute This is abnormal and suggestive of gastroparesis. NM/Gastric Emptying Study IMPRESSION: Abnormal study, findings are suggestive of abnormal gastric emptying and likely gastroparesis Electronically Signed: Javan Leyva MD at 11:27 EST , Service support ,
[2020-11-20 08:10] VITALS: BP 136/65; PULSE 56; RESP 16; TEMP 36.5; O2SAT 99
--- NOTE | 2020-11-20 11:01 | PCM.PN.SRG ---
Patient Problems: Active and Suspected Problems (Last Reviewed 11/19/20 @ 15:[address] Eduardo Burnham MD) Syncope and collapse (Acute) Diarrhea (Acute) Leukocytosis (Acute) Nausea & vomiting (Acute) Subjective: Patient had a good p.m. No nausea or vomiting. One small bowel movement. Patient currently is getting her gastric emptying study. Objective: Abdomen is soft nontender - Physical Exam Vitals/I&O's: Vital Signs Temp Pulse Resp BP Pulse Ox 97.7 F L 56 L 16 136/65 H 99 11/20/20 08:10 11/20/20 08:10 11/20/20 08:10 11/20/20 08:10 11/20/20 08:10 Oxygen Flow Rate (L/min) 2 Oxygen Delivery Method Room Air Weight: 194 lb 10.691 oz Body Mass Index (BMI) 33.4 Intake and Output for Last 24 Hours 11/18/20 11/19/20 11/20/20 23:59 23:59 23:59 Intake Total 5154.17 / 5154.17 3164.58 / 3164.58 1236.67 / 1236.67 Output Total 300 / 300 Balance 5154.17 / 5154.17 2864.58 / 2864.58 1236.67 / 1236.67 Microbiology Past 72 Hours 11/19/20 15:22 Stool Enteric Bacteriology - Final 11/19/20 15:22 Stool C. difficile DNA Amplification - Final 11/17/20 22:00 Stool Stool Lactoferrin - Final 11/17/20 22:00 Stool Enteric Bacteriology - Final 11/17/20 22:00 Stool C. difficile DNA Amplification - Final 11/17/20 23:40 Mucosa - Nose SARS-CoV-2 Antigen (Rapid) - Final Laboratory Results 11/18/20 05:38: Absolute Neuts (auto) 10.7 H, Absolute Lymphs (auto) 3.50, Neutrophils % (Manual) 54, Band Neutrophils % 1, Lymphocytes % (Manual) 18 L, Monocytes % (Manual) 4, Eosinophils % (Manual) 22 H, Promyelocytes % 1 H, Diff Path Review Reviewed 11/19/20 06:10: Diff Path Review Reviewed 11/19/20 11:34: POC Glucose 128 H 11/19/20 16:59: POC Glucose 112 H 11/19/20 21:02: POC Glucose 98 11/20/20 06:04: WBC 17.1 H, RBC 4.56, Hgb 14.5, Hct 43.6, MCV 95.6, MCH 31.8, MCHC 33.3, RDW Std Deviation 49.9 H, RDW Coeff of Jana 14.3, Plt Count 314, MPV 9.3, Neut % (Auto) Not Reportable, Absolute Neuts (auto) 11.5 H, Absolute Lymphs (auto) 3.42, Total Counted 100, Neutrophils % (Manual) 64, Band Neutrophils % 3, Lymphocytes % (Manual) 20, Monocytes % (Manual) 8, Eosinophils % (Manual) 4, Diff Path Review January, Platelet Estimate ADEQUATE, RBC Morphology NORM C+C 11/20/20 06:04: Sodium 142, Potassium 3.4 L, Chloride 116 H, Carbon Dioxide 22.0, Anion Gap 4 L, BUN 7, Creatinine 0.60, Estim Creat Clear Calc 47.79, Est GFR (MDRD) Af Amer 129, Est GFR (MDRD) Non-Af 107, BUN/Creatinine Ratio 11.7, Glucose 91, Calcium 8.3 L 11/20/20 06:29: POC Glucose 86 Current Medications Amlodipine Besylate (Amlodipine 10 Mg Tablet) 10 mg PO DAILY [facility] Last Admin: 11/19/20 09:38 Dose: 10 mg Documented by: Dextrose (Dextrose 50%-Water 25 Gm/50 Ml Disp.Syrin) 0 gm IV X1 PRN; Protocol PRN Reason: Hypoglycemia Diphenoxylate HCl/Atropine (Diphenoxylate/Atrop 1 Tablet) 1 tablet PO 4X/DAY PRN PRN PRN Reason: Diarrhea Last Admin: 11/19/20 03:31 Dose: 1 tablet Documented by: Enoxaparin Sodium (Enoxaparin 40 Mg/0.4 Ml Syringe) 40 mg SC DAILY [facility] Last Admin: 11/19/20 09:38 Dose: 40 mg Documented by: Flecainide Acetate (Flecainide 100 Mg Tablet) 100 mg PO BID [facility] Last Admin: 11/19/20 21:05 Dose: 100 mg Documented by: Glucagon (Glucagon 1 Mg/Ml Syringe) 1 mg IM .X1 PRN PRN Reason: Hypoglycemia Sodium Chloride () 250 mls @ 15 mls/hr IV .[id number] PRN PRN Reason: Saline Flush Sodium Chloride () 250 mls @ 15 mls/hr IV .[id number] PRN PRN Reason: Additional IVPB Infusion Potassium Chloride 40 meq/ (Sodium Chloride) 1,020 mls @ 125 mls/hr IV .Q8H10M [facility] Last Admin: 11/20/20 02:18 Dose: 125 mls/hr Documented by: Insulin Human Lispro (Insulin Lispro 100 Unit/Ml Insuln.Pen) [facility]; Protocol Last Admin: 11/20/20 06:45 Dose: Not Given Documented by: Lisinopril (Lisinopril 20 Mg Tablet) 20 mg PO BID [facility] Last Admin: 11/19/20 21:05 Dose: 20 mg Documented by: Meloxicam (Meloxicam 15 Mg Tablet) 15 mg PO DAILY [facility] Last Admin: 11/19/20 09:38 Dose: 15 mg Documented by: Metoclopramide HCl (Metoclopramide 10 Mg/2 Ml Vial) 10 mg IV Q6H PRN PRN PRN Reason: NAUSEA Last Admin: 11/19/20 01:03 Dose: 10 mg Documented by: Metoprolol Succinate (Metoprolol(Xl)Succ 50 Mg Tablet) 50 mg PO DAILY [facility] Last Admin: 11/19/20 09:38 Dose: 50 mg Documented by: Multivitamins ([facility]it[facility],Therapeutic Tablet) [facility] Last Admin: 11/19/20 09:38 Dose: 1 tablet Documented by: Ondansetron HCl (Ondansetron 4 Mg/2 Ml Vial) 4 mg IV Q8H PRN PRN PRN Reason: NAUSEA/VOMITING Last Admin: 11/19/20 02:31 Dose: 4 mg Documented by: Pravastatin Sodium (Pravastatin 40 Mg Tablet) 40 mg PO QHS [facility] Last Admin: 11/19/20 21:05 Dose: 40 mg Documented by: Promethazine HCl (Promethazine 25 Mg/Ml Syringe) 6.25 mg IV Q4H PRN PRN PRN Reason: NAUSEA/VOMITING Last Admin: 11/19/20 15:47 Dose: 6.25 mg Documented by: Sodium Chloride (0.9% Saline Lock 10 Ml Syringe) 10 - 40 ml IV UD PRN PRN Reason: SALINE FLUSH Last Admin: 11/19/20 15:47 Dose: 10 ml Documented by: Medical Necessity - Tobacco Use Smoking Status: Never smoker Assessment/Plan All Active Problems (Last Reviewed 11/19/20 @ 15:[address] Eduardo Burnham MD) Syncope and collapse (Acute) Diarrhea (Acute) Leukocytosis (Acute) Nausea & vomiting (Acute) Cellulitis (Resolved) Constipation (Resolved) Hypomagnesemia (Resolved) Impingement syndrome of right shoulder (Resolved) Leg pain (Resolved) Leg swelling (Resolved) Initial reading does not really show much activity within the stomach and will more likely have significant gastric emptying problems. Attempted to do an upper scope on her however she has been having significant amounts of diarrhea and I think at this point the best thing to do is just keep her on full liquids and allow this virus to pass. At some point she will need to have an EGD. At some point she is going need to have her gastric emptying delay worked up better. But I think once she gets over this initial viral episode she may return to somewhat normal eating and bowel movement habits. I would like to see her in the office early next week and get her scheduled for an EGD probably within 7 to 10 days.
[2020-11-20 11:31] LABS: Bedside Glucose 83 mg/dL (70-110)
[2020-11-20 11:40] VITALS: BP 136/65; PULSE 56
[2020-11-20] MEDS: amLODIPine 10 MG Tablet PO (11:40)
[2020-11-20] MEDS: Multivitamins,Therapeutic Tablet 1 TABLET PO (11:40)
[2020-11-20] MEDS: Flecainide 100 MG Tablet PO (11:40)
[2020-11-20] MEDS: Metoprolol(XL)Succ 50 MG Tablet PO (11:40)
[2020-11-20] MEDS: Potassium Chloride Oral Tablet 20 MEQ 40 MEQ PO (11:41)
[2020-11-20] MEDS: Meloxicam 15 MG Tablet PO (11:41)
[2020-11-20] MEDS: Lisinopril 20 MG Tablet PO (11:41)
--- NOTE | 2020-11-20 11:55 | PCM.DC ---
- Discharge Diagnoses Current Active Problems: Current Active and Chronic Problems (Last Reviewed 11/19/20 @ 15:[address] Eduardo Burnham MD) Diabetes (Chronic) GERD (gastroesophageal reflux disease) (Chronic) Lupus (Chronic) Syncope and collapse (Acute) Diarrhea (Acute) Leukocytosis (Acute) Nausea & vomiting (Acute) Paroxysmal atrial fibrillation (Chronic) Essential (primary) hypertension (Chronic) Hyperlipemia (Chronic) EMMANUEL (obstructive sleep apnea) (Chronic) Chronic venous insufficiency (Chronic) You will use the following diet at home:: Full liquid Your food should be the consistency of: Regular Your liquids should be the consistency of: Regular/Thin Discharge Activity: Return to Normal Activity Weight Bearing Status: Weight bearing as tolerated Call your doctor if you observe: Fever of 101 or Higher, Shortness of breath, Dizziness, Swelling in the ankles, - - diarrhea Instructions: ED Diarrhea, Unknown Cause, ED Diet for Vomiting or Diarrhea Adult, ED Vomiting and Diarrhea ... Allergies/Adverse Reactions: Allergies dairy Adverse Reaction (Uncoded 11/18/20 00:30) Diarrhea elastic wraps Adverse Reaction (Uncoded 11/12/20 12:29) Rash Medications to take at Discharge Aspirin [Aspirin, Baby] 81 mg PO DAILY@0800 01/06/15 [place]-3 Fatty Acids [Fish Oil] 1,500 mg PO DAILY 01/06/15 magnesium chloride 71.5 mg (magnesium chloride) tablet,delayed release 71.5 mg PO DAILY tab 12/26/18 neomycin 3.5 mg/g-polymyxin B 10,000 unit/g-dexameth 0.1 % eye oint 1 applic OPHTHALMIC QHS PRN 12/26/18 Meloxicam 15 mg PO DAILY 06/05/19 furosemide 40 mg tablet 40 mg PO BID #180 tab 02/20/20 dulaglutide 0.75 mg/0.5 mL subcutaneous pen injector 0.75 mg SC SA 07/09/20 multivitamin 1 tab PO DAILY 07/09/20 metoprolol succinate 50 mg tablet,extended release 24 hr 50 mg PO DAILY #30 tab 07/16/20 pravastatin 40 mg tablet 40 mg PO QHS #90 tab 07/16/20 flecainide 100 mg tablet 100 mg PO BID #180 tab 08/25/20 lisinopril 20 mg tablet 20 mg PO BID #180 tab 09/12/20 amlodipine 10 mg tablet 10 mg PO DAILY #30 tab 09/29/20 Ondansetron [Zofran Odt] 4 mg PO Q8H PRN PRN #10 tab 11/12/20 Diphenoxylate/Atrop [Lomotil] 2 tab PO 4X/DAY PRN PRN 11/17/20 Potassium Chloride Oral Tablet [K-Dur] 20 meq PO DAILY #10 tab 11/20/20 The following prescriptions were given: Potassium Chloride Oral Tablet [K-Dur] 20 meq PO DAILY #10 tab Transmission Status: Pending to [facility] Primary Care Physician: Awais Kearney DO [Primary Care Provider] - Please follow up with your Primary Care Physician in: 1-2 weeks Test Results: Test results from this visit will be discussed in further detail at your follow-up appointment, if applicable. Please Follow Up With: Eduardo Burnham MD When: 1 week Proposed Discharge Date: 11/20/20
--- NOTE | 2020-11-20 11:58 | PCM.DC.SUM ---
Discharge Date and Diagnosis - Problem List Patient Problems: Active and Suspected Problems (Last Reviewed 11/19/20 @ 15:[address] Eduardo Burnham MD) Syncope and collapse (Acute) Diarrhea (Acute) Leukocytosis (Acute) Nausea & vomiting (Acute) Date of Admission: 11/17/20 Date of Discharge: 11/20/20 - Primary Discharge Diagnosis Acute Problems: Active Problems (Last Reviewed 11/19/20 @ 15:[address] Eduardo Burnham MD) Syncope and collapse (Acute) Diarrhea (Acute) Leukocytosis (Acute) Nausea & vomiting (Acute) gastroenteritis - Secondary Discharge Diagnosis Chronic Problems: Chronic Problems (Last Reviewed 11/19/20 @ 15:[address] Eduardo Burnham MD) Diabetes (Chronic) GERD (gastroesophageal reflux disease) (Chronic) Lupus (Chronic) SVT (supraventricular tachycardia) (Chronic) slow pathway ablation 11/20/2010 Paroxysmal atrial fibrillation (Chronic) Essential (primary) hypertension (Chronic) Hyperlipemia (Chronic) EMMANUEL (obstructive sleep apnea) (Chronic) Chronic venous insufficiency (Chronic) Hospital Course and Treatment Imaging Results: 11/20/20 07:00 Gastric Emptying Study [NM] Urgent general surgery- Dr Burnham Operations: None Procedures: None Summary of Care Provided: The patient is a 65 year old F with a past medical history as outlined was admitted through the ED on 11/17/2019 with a complaint of recurrent diarrhea and vomiting and syncope. She had been seen a week prior in the ED for similar symptoms and was hydrated with IV fluids and discharged home. However his symptoms recurred so she came into the ED. She had no blood in his stool and also had intermittent vomiting. Was at the dinner table on the day of admission, she felt lightheaded and passed out. Her abdomen however caught her so she did not hit her head and get injured. After going to the bathroom, she had a second syncopal episode so the EMS was called. She was admitted and managed for syncope due to dehydration from gastroenteritis. CT of the abdomen and pelvis done on admission showed nonspecific gastritis and diffuse ileus possibly on the basis of gastroenteritis with no evidence of small bowel obstruction or acute appendicitis. She was hydrated with IV fluids and treated with IV Zofran. Stool enteric pathogen and C. difficile was negative. Blood cultures were also negative. Patient however kept complaining of abdominal pain and the nausea and diarrhea so general surgery was consulted. Surgery had initially planned on doing an upper scope but due to her frequent diarrhea, general surgery just thought it was likely a viral infection and so deferred the EGD to be done on outpatient basis. General surgery requested a gastric emptying study which showed abnormal gastric emptying and likely gastroparesis. Patient symptoms improved and she did well. He was discharged on 11/20/2020 and is to follow-up with general surgery on outpatient basis for EGD to be done as needed. Patient seen and examined prior to discharge. She had no complaints and abdomen able to tolerate an oral diet. Review of systems otherwise negative. Labs and vitals reviewed. Home medication reviewed and reconciled. O/E: Vital Signs Temp Pulse Resp BP Pulse Ox 97.7 F L 56 L 16 136/65 H 99 11/20/20 08:10 11/20/20 11:40 11/20/20 08:10 11/20/20 11:40 11/20/20 08:10 [] General: Alert, Oriented x3, Cooperative HEENT: Atraumatic, PERRLA, EOMI, Normocephalic Oral: Moist Mucosa Neck: Supple, No JVD, Negative Carotid Bruits Lungs: Clear to auscultation, Normal air movement Cardiovascular: Regular rate, Regular Rhythm, Normal S1, Normal S2, No murmurs Abdomen: Bowel Sounds Present, Soft, Non Tender Extremities: No edema, Capillary Refill Less than 3 Seconds Skin: No rashes, No breakdown Musculoskeletal: No Tenderness to Palpation of Joints or Extremities Neurological: Cranial nerves II-XII grossly intact Psych/Mental Status: Normal Affect, Appropriate, Alert and oriented to time, place, person, mood and affect Plan Is for discharge home. Patient Problems: Active and Suspected Problems (Last Reviewed 11/19/20 @ 15:[address] Eduardo Burnham MD) Syncope and collapse (Acute) Diarrhea (Acute) Leukocytosis (Acute) Nausea & vomiting (Acute) - Physical Exam Vitals/I&O's: Vital Signs Temp Pulse Resp BP Pulse Ox 97.7 F L 56 L 16 136/65 H 99 11/20/20 08:10 11/20/20 11:40 11/20/20 08:10 11/20/20 11:40 11/20/20 08:10 Oxygen Flow Rate (L/min) 2 Oxygen Delivery Method Room Air Weight: 194 lb 10.691 oz Body Mass Index (BMI) 33.4 Intake and Output for Last 24 Hours 11/18/20 11/19/20 11/20/20 23:59 23:59 23:59 Intake Total 5154.17 / 5154.17 3164.58 / 3164.58 1236.67 / 1236.67 Output Total 300 / 300 Balance 5154.17 / 5154.17 2864.58 / 2864.58 1236.67 / 1236.67 Microbiology Past 72 Hours 11/19/20 15:22 Stool Enteric Bacteriology - Final 11/19/20 15:22 Stool C. difficile DNA Amplification - Final 11/17/20 22:00 Stool Stool Lactoferrin - Final 11/17/20 22:00 Stool Enteric Bacteriology - Final 11/17/20 22:00 Stool C. difficile DNA Amplification - Final 11/17/20 23:40 Mucosa - Nose SARS-CoV-2 Antigen (Rapid) - Final Laboratory Results 11/18/20 05:38: Absolute Neuts (auto) 10.7 H, Absolute Lymphs (auto) 3.50, Neutrophils % (Manual) 54, Band Neutrophils % 1, Lymphocytes % (Manual) 18 L, Monocytes % (Manual) 4, Eosinophils % (Manual) 22 H, Promyelocytes % 1 H, Diff Path Review Reviewed 11/19/20 06:10: Diff Path Review Reviewed 11/19/20 11:34: POC Glucose 128 H 11/19/20 16:59: POC Glucose 112 H 11/19/20 21:02: POC Glucose 98 11/20/20 06:04: WBC 17.1 H, RBC 4.56, Hgb 14.5, Hct 43.6, MCV 95.6, MCH 31.8, MCHC 33.3, RDW Std Deviation 49.9 H, RDW Coeff of Jana 14.3, Plt Count 314, MPV 9.3, Neut % (Auto) Not Reportable, Absolute Neuts (auto) 11.5 H, Absolute Lymphs (auto) 3.42, Total Counted 100, Neutrophils % (Manual) 64, Band Neutrophils % 3, Lymphocytes % (Manual) 20, Monocytes % (Manual) 8, Eosinophils % (Manual) 4, Diff Path Review May foll, Platelet Estimate ADEQUATE, RBC Morphology NORM C+C 11/20/20 06:04: Sodium 142, Potassium 3.4 L, Chloride 116 H, Carbon Dioxide 22.0, Anion Gap 4 L, BUN 7, Creatinine 0.60, Estim Creat Clear Calc 47.79, Est GFR (MDRD) Af Amer 129, Est GFR (MDRD) Non-Af 107, BUN/Creatinine Ratio 11.7, Glucose 91, Calcium 8.3 L 11/20/20 06:29: POC Glucose 86 11/20/20 11:20: POC Glucose 83 Current Medications Amlodipine Besylate (Amlodipine 10 Mg Tablet) 10 mg PO DAILY [facility] Last Admin: 11/20/20 11:40 Dose: 10 mg Documented by: Dextrose (Dextrose 50%-Water 25 Gm/50 Ml Disp.Syrin) 0 gm IV X1 PRN; Protocol PRN Reason: Hypoglycemia Diphenoxylate HCl/Atropine (Diphenoxylate/Atrop 1 Tablet) 1 tablet PO 4X/DAY PRN PRN PRN Reason: Diarrhea Last Admin: 11/19/20 03:31 Dose: 1 tablet Documented by: Enoxaparin Sodium (Enoxaparin 40 Mg/0.4 Ml Syringe) 40 mg SC DAILY [facility] Last Admin: 11/20/20 11:41 Dose: 40 mg Documented by: Flecainide Acetate (Flecainide 100 Mg Tablet) 100 mg PO BID [facility] Last Admin: 11/20/20 11:40 Dose: 100 mg Documented by: Glucagon (Glucagon 1 Mg/Ml Syringe) 1 mg IM .X1 PRN PRN Reason: Hypoglycemia Sodium Chloride () 250 mls @ 15 mls/hr IV .[id number] PRN PRN Reason: Saline Flush Sodium Chloride () 250 mls @ 15 mls/hr IV .[id number] PRN PRN Reason: Additional IVPB Infusion Potassium Chloride 40 meq/ (Sodium Chloride) 1,020 mls @ 125 mls/hr IV .Q8H10M [facility] Last Admin: 11/20/20 02:18 Dose: 125 mls/hr Documented by: Insulin Human Lispro (Insulin Lispro 100 Unit/Ml Insuln.Pen) 0 unit SC ACHS [facility]; Protocol Last Admin: 11/20/20 11:43 Dose: Not Given Documented by: Lisinopril (Lisinopril 20 Mg Tablet) 20 mg PO BID [facility] Last Admin: 11/20/20 11:41 Dose: 20 mg Documented by: Meloxicam (Meloxicam 15 Mg Tablet) 15 mg PO DAILY [facility] Last Admin: 11/20/20 11:41 Dose: 15 mg Documented by: Metoclopramide HCl (Metoclopramide 10 Mg/2 Ml Vial) 10 mg IV Q6H PRN PRN PRN Reason: NAUSEA Last Admin: 11/19/20 01:03 Dose: 10 mg Documented by: Metoprolol Succinate (Metoprolol(Xl)Succ 50 Mg Tablet) 50 mg PO DAILY [facility] Last Admin: 11/20/20 11:40 Dose: 50 mg Documented by: Multivitamins (Multivitamins,Therapeutic Tablet) 1 tablet PO DAILYCM [facility] Last Admin: 11/20/20 11:40 Dose: 1 tablet Documented by: Ondansetron HCl (Ondansetron 4 Mg/2 Ml Vial) 4 mg IV Q8H PRN PRN PRN Reason: NAUSEA/VOMITING Last Admin: 11/19/20 02:31 Dose: 4 mg Documented by: Pravastatin Sodium (Pravastatin 40 Mg Tablet) 40 mg PO QHS [facility] Last Admin: 11/19/20 21:05 Dose: 40 mg Documented by: Promethazine HCl (Promethazine 25 Mg/Ml Syringe) 6.25 mg IV Q4H PRN PRN PRN Reason: NAUSEA/VOMITING Last Admin: 11/19/20 15:47 Dose: 6.25 mg Documented by: Sodium Chloride (0.9% Saline Lock 10 Ml Syringe) 10 - 40 ml IV UD PRN PRN Reason: SALINE FLUSH Last Admin: 11/19/20 15:47 Dose: 10 ml Documented by: Discharge Activity: Return to Normal Activity Weight Bearing Status: Weight bearing as tolerated Call your doctor if you observe: Fever of 101 or Higher, Shortness of breath, Dizziness, Swelling in the ankles, - - diarrhea Home Medications: Medications to take at Discharge Aspirin [Aspirin, Baby] 81 mg PO DAILY@0800 01/06/15 [place]-3 Fatty Acids [Fish Oil] 1,500 mg PO DAILY 01/06/15 magnesium chloride 71.5 mg (magnesium chloride) tablet,delayed release 71.5 mg PO DAILY tab 12/26/18 neomycin 3.5 mg/g-polymyxin B 10,000 unit/g-dexameth 0.1 % eye oint 1 applic OPHTHALMIC QHS PRN 12/26/18 Meloxicam 15 mg PO DAILY 06/05/19 furosemide 40 mg tablet 40 mg PO BID #180 tab 02/20/20 dulaglutide 0.75 mg/0.5 mL subcutaneous pen injector 0.75 mg SC SA 07/09/20 multivitamin 1 tab PO DAILY 07/09/20 metoprolol succinate 50 mg tablet,extended release 24 hr 50 mg PO DAILY #30 tab 07/16/20 pravastatin 40 mg tablet 40 mg PO QHS #90 tab 07/16/20 flecainide 100 mg tablet 100 mg PO BID #180 tab 08/25/20 lisinopril 20 mg tablet 20 mg PO BID #180 tab 09/12/20 amlodipine 10 mg tablet 10 mg PO DAILY #30 tab 09/29/20 Ondansetron [Zofran Odt] 4 mg PO Q8H PRN PRN #10 tab 11/12/20 Diphenoxylate/Atrop [Lomotil] 2 tab PO 4X/DAY PRN PRN 11/17/20 Potassium Chloride Oral Tablet [K-Dur] 20 meq PO DAILY #10 tab 11/20/20 proMETHazine tablet [Phenergan tablet] 25 mg PO Q6H PRN PRN #30 tab 11/20/20 Following Prescriptions Were Given to Patient: Potassium Chloride Oral Tablet [K-Dur] 20 meq PO DAILY #10 tab Transmission Status: Received by [facility] proMETHazine tablet [Phenergan tablet] 25 mg PO Q6H PRN PRN #30 tab PRN Reason: Nausea/Emesis Transmission Status: Received by [facility] Primary Care Physician: Awais Kearney DO [Primary Care Provider] - Please follow up with your Primary Care Physician in: 1-2 weeks Please Follow Up With: Eduardo Burnham MD When: 1 week Patient Instructions: ED Diarrhea, Unknown Cause, ED Diet for Vomiting or Diarrhea Adult, ED Vomiting and Diarrhea ... Medical Necessity - Tobacco Use Smoking Status: Never smoker Meaningful Use Info Meaningful Use Diagnoses (Choose all that apply): None applicable
[2020-11-20 12:57] LABS: Lymphocyte 27 % (19-41); Monocyte 10 % (0-10); Neutrophil-Band 2 % (0-5); Neutrophil-Segmented 45 % (47-70)
[2020-11-20 12:58] LABS: Basophil 1 % (0-1); Eosinophil 15 % (0-5)
[2020-11-20 13:16] LABS: Pathologist Review Reviewed
--- NOTE | 2020-11-20 13:40 | CASEMGMT ---
RN CM in to discuss dc planning with patient. She denied needs.
--- NOTE | 2020-11-20 16:07 | PHA.DC.MC ---
Pharmacy Service has performed discharge medication reconciliation and counseling for this patient. The patient was counseled on the following discharge medications and changes in medications for homegoing were reviewed. 1. PHENERGAN 2. K-DUR The Reason for Use, instructions for use, and potential side effects were reviewed for all new medications. The patient's questions regarding all of their medications were answered. The patient was able to verbally demonstrate an understanding of their discharge medications. Home Medications Aspirin [Aspirin, Baby] 81 mg PO DAILY@0800 01/06/15 [place]-3 Fatty Acids [Fish Oil] 1,500 mg PO DAILY 01/06/15 magnesium chloride 71.5 mg (magnesium chloride) tablet,delayed release 71.5 mg PO DAILY tab 12/26/18 neomycin 3.5 mg/g-polymyxin B 10,000 unit/g-dexameth 0.1 % eye oint 1 applic OPHTHALMIC QHS PRN 12/26/18 Meloxicam 15 mg PO DAILY 06/05/19 furosemide 40 mg tablet 40 mg PO BID #180 tab 02/20/20 dulaglutide 0.75 mg/0.5 mL subcutaneous pen injector 0.75 mg SC SA 07/09/20 multivitamin 1 tab PO DAILY 07/09/20 metoprolol succinate 50 mg tablet,extended release 24 hr 50 mg PO DAILY #30 tab 07/16/20 pravastatin 40 mg tablet 40 mg PO QHS #90 tab 07/16/20 flecainide 100 mg tablet 100 mg PO BID #180 tab 08/25/20 lisinopril 20 mg tablet 20 mg PO BID #180 tab 09/12/20 amlodipine 10 mg tablet 10 mg PO DAILY #30 tab 09/29/20 Ondansetron [Zofran Odt] 4 mg PO Q8H PRN PRN #10 tab 11/12/20 Diphenoxylate/Atrop [Lomotil] 2 tab PO 4X/DAY PRN PRN 11/17/20 Potassium Chloride Oral Tablet [K-Dur] 20 meq PO DAILY #10 tab 11/20/20 proMETHazine tablet [Phenergan tablet] 25 mg PO Q6H PRN PRN #30 tab 11/20/20 The patient's discharge medication list was reviewed for discrepancies and discrepancies were resolved.
== END 2020-11-20 15:43 | disposition home or self-care (01) ==
LOC: ED 22:52 → MS3 11-18
PROVIDERS: Admitting Provider Family Medicine; Emergency Provider Emergency Medicine; PCP Family Medicine; Visit Provider Student in an Organized Health Care Education/Training Program
DX: R55 Syncope and collapse (principal); E86.0 Dehydration; K52.9 Noninfective gastroenteritis and colitis, unspecified; I48.0 Paroxysmal atrial fibrillation; E11.9 Type 2 diabetes mellitus without complications; G47.33 Obstructive sleep apnea (adult) (pediatric); I10 Essential (primary) hypertension; M32.9 Systemic lupus erythematosus, unspecified; K21.9 Gastro-esophageal reflux disease without esophagitis; E78.5 Hyperlipidemia, unspecified; I87.2 Venous insufficiency (chronic) (peripheral); I47.1 Supraventricular tachycardia; E66.9 Obesity, unspecified; Z79.899 Other long term (current) drug therapy; Z79.82 Long term (current) use of aspirin; E87.6 Hypokalemia
CPT/HCPCS: 36415; 74177; 78264; 80048; 80053; 80076; 81001; 82962; 83630; 83690; 84484; 85025; 87040; 87070; 87205; 87426; 87493; 87506; 93005; 96361; 96372; 96374; 96375; 96376; 97802; 99218; 99285; A9541; J7030; Q9967; A4216; G0378; J2405

== ENCOUNTER 2020-12-02 09:26 | Outpatient (RCR) | payer BC, SELFPAY ==
[2020-11-18 00:26] VITALS: BMI 33.4
[2020-12-02] MEDS: COVID-19 VACC, MRNA(PFIZER)/PF 30 MCG/0.3 ML SYRINGE IM (16:21)
[2020-12-23] MEDS: COVID-19 VACC, MRNA(PFIZER)/PF 30 MCG/0.3 ML SYRINGE IM (16:12)
== END 2021-03-03 23:59 ==
LOC: IMMUN 09:26
PROVIDERS: PCP Family Medicine; Referring Provider Family Medicine; Visit Provider Family Medicine
DX: Z23 Encounter for immunization (principal)
CPT/HCPCS: 0001A; 0002A; 91300

== ENCOUNTER → 2021-06-09 06:50 | Outpatient (CLI) | payer BC, SELFPAY ==
--- NOTE | 2021-06-09 06:57 | CT_ITS ---
STUDY: CT SCAN LOWER EXTREMITY LEFT.[facility] protocol. REASON FOR EXAM: Female, 65 years old. PRE OP -- HAVING CXR WELL RADIATION DOSAGE (If Supplied By Facility): CTDIvol = ( 20.10 ) mGy, DLP = ( 1020.75 ) mGycm. Individualized dose optimization techniques were used for this CT.? TECHNIQUE: Multiple axial tomographic images of the left lower extremity were obtained without intravenous contrast administration. Coronal and sagittal reconstruction was obtained as well. COMPARISON: None. FINDINGS: Imaging of the hip joint was obtained. Minimal joint space narrowing is seen. No bony abnormality is present. Marked degree of joint space narrowing of the medial compartment of knee joint with degenerative spur formation of the medial femoral condyle and the medial tibial plateau. Moderate degree of joint space narrowing of the patellofemoral joint with a degenerative spur formation along the anterior distal portion of the femur. There is a 9.2 mm x 7.8 mm well-corticated bony fragment in the intercondylar notch suggestive of a possible loose body within the joint space. Imaging of the ankle joint was performed. No adenopathy is seen. CT/Extremity Lower without Contra IMPRESSION: Moderate degree of joint space narrowing of the medial compartment of knee joint with degenerative spur formation and small loose intra-articular body. Electronically Signed: Tyler Catalan MD at 10:30 EDT , Service support ,
--- NOTE | 2021-06-09 07:10 | RAD_ITS ---
STUDY: X-RAY CHEST REASON FOR EXAM: Female, 65 years old. PREOP TECHNIQUE: PA and lateral views of the chest. COMPARISON: Comparison is made with prior study of 03/08/2019. FINDINGS: Mild elevation of the right hemidiaphragm. There is no demonstrated pleural abnormality. Normal size heart. Normal mediastinum and polly. Normal visualized pulmonary arteries. There is atherosclerotic calcification of the aortic arch with tortuosity. There are diffuse degenerative changes of the visualized thoracic spine. Increased kyphosis. Normal visualized ribs, clavicles, and shoulders. There is no demonstrated abnormality of the visualized soft tissue structures of the upper abdomen. RAD/Chest PA and Lateral IMPRESSION: No acute abnormality is seen. Electronically Signed: Tyler Catalan MD at 9:01 EDT , Service support ,
== END ==
PROVIDERS: PCP Family Medicine; Referring Provider Orthopaedic Surgery; Visit Provider Orthopaedic Surgery
DX: Z01.818 Encounter for other preprocedural examination (principal)
CPT/HCPCS: 71046; 73700

== ENCOUNTER → 2021-06-09 10:24 | Outpatient (CLI) | payer BC, SELFPAY ==
--- NOTE | 2021-06-09 07:14 | EKG12_ITS ---
Test Reason : PRE OP Blood Pressure : / mmHG Vent. Rate : 070 BPM Atrial Rate : 081 BPM P-R Int : 212 ms QRS Dur : 106 ms QT Int : 444 ms P-R-T Axes : 034 -35 040 degrees QTc Int : 479 ms Sinus rhythm with marked sinus arrhythmia with 1st degree A-V block Left axis deviation Low voltage QRS Poor R wave progression Anterior AK, age undetermined, cannot be excluded Abnormal ECG Confirmed by DERIC HOLLAND, GHAZAL ([id number]), senior editor ADEOLA GILBERT ([id number]) on 06/10/2021 10:41:58 AM Referred By: Aly Pillai Confirmed By:GHAZAL LEOS MD
[2021-06-09 08:16] LABS: Absolute Lymphocyte Count 3.37 X10^3/uL (0.83-4.51); Basophil# 0.07 X10^3/uL; Basophil% 0.7 % (0-1); Eosinophil# 0.29 X10^3/uL; Hematocrit 43.3 % (37-47); Lymphocyte # 3.37 X10^3/ul (0.83-4.51); Mean Corp Hgb Conc 32.3 g/dL (32-36); Mean Corpuscular Hgb 30.9 pg (27.0-32.0); Mean Corpuscular Volume 95.6 fL (81-99); Monocyte# 0.88 X10^3/uL; Monocyte% 9.1 % (0-10); NRBC Flagged by Analyzer 0 % (0-5); Neutrophil # 4.98 X10^3/uL (2.7-7.7); Neutrophil % 51.8 % (47-70); Platelet Count 280 K/mm3 (150-450); RBC Distribution Width CV 13.3 % (11.6-14.6); RBC Distribution Width SD 47.2 fl (35.1-43.9); Red Blood Count 4.53 M/mm3 (4.2-5.4); White Blood Count 9.6 K/mm3 (4.4-11.0)
[2021-06-09 08:35] LABS: Magnesium 2.2 mg/dL (1.6-2.6)
[2021-06-09 08:43] LABS: Anion Gap 11 (5-15); BUN 17 mg/dL (7-18); BUN/Creat Ratio 20.6 RATIO (10-20); Calcium,Total 9.6 mg/dL (8.5-10.1); Chloride 106 mmol/L (98-107); Creatinine, Serum 0.82 mg/dL (0.55-1.02); EST Glomerular Filtration Rate 74 mL/min (>60); Est Glom Filt Rate - Afr Amer 89 mL/min (>60); Glucose 185 mg/dL (74-106); Potassium 3.8 mmol/L (3.5-5.1); Sodium Level 142 mmol/L (136-145)
== END ==
PROVIDERS: Anesthesiology; PCP Family Medicine; Referring Provider Orthopaedic Surgery; Visit Provider Orthopaedic Surgery
DX: Z01.810 Encounter for preprocedural cardiovascular examination (principal); Z01.812 Encounter for preprocedural laboratory examination; R94.31 Abnormal electrocardiogram [ECG] [EKG]; I44.0 Atrioventricular block, first degree
CPT/HCPCS: 36415; 80048; 83036; 83735; 85025; 87081; 93005

== ENCOUNTER → 2021-07-21 14:05 | Outpatient (CLI) | payer BC, SELFPAY ==
--- NOTE | 2021-07-21 14:08 | BI_ITS ---
MAMMOGRAPHY - BILATERAL SCREENING REASON FOR EXAM: Female, 66 years old. Routine annual screening examination. PERTINENT HISTORY: Aunt with breast cancer. TECHNIQUE: Digital bilateral breast eleazar (3D mammographic acquisition) in the CC and MLO projections. 2-D mediolateral oblique (MLO) and craniocaudad (CC) views of both breasts were obtained. CAD: Full Field Digital Mammography with Computer Added Detection was performed. COMPARISON: Comparison is made with prior study dated 07/11/2020 and 02/05/2019. FINDINGS: Breast Composition: There are scattered areas of fibroglandular density. The previously seen 1.4 cm x 1.4 cm well-defined nodule in the central retroareolar region of the rest as decreased in size. It presently measures 1.1 cm. No costophrenic calcification is seen. Stable small benign-appearing bilateral axillary. No other significant abnormalities are identified. BI/SCRN MAMM (CAD)W/ELEAZAR BILAT IMPRESSION: Interval decrease in size of the right breast nodule with a cyst. Yearly follow-up mammogram recommended. (A) ASSESSMENT CATEGORY: BIRADS Category 2: Benign. A letter regarding these results will be sent to the patient by the facility within 30 days. Approximately 10% of breast cancers are not detected by mammography. A normal mammogram should not delay biopsy of a clinically suspicious abnormality. [id number] Electronically Signed: Tyler Catalan MD at 11:13 EDT , Service support ,
== END ==
PROVIDERS: PCP Family Medicine; Referring Provider Student in an Organized Health Care Education/Training Program; Visit Provider Student in an Organized Health Care Education/Training Program
DX: Z12.31 Encounter for screening mammogram for malignant neoplasm of breast (principal)
CPT/HCPCS: 77063; 77067

== ENCOUNTER 2022-01-14 15:00 | Outpatient (RCR) | payer BC, SELFPAY | END 2022-01-23 23:59 | LOC: DC 15:00 | PROVIDERS: PCP Family Medicine; Referring Provider Family Medicine; Visit Provider Family Medicine | DX: E66.9 Obesity, unspecified (principal); Z68.34 Body mass index [BMI] 34.0-34.9, adult; E11.9 Type 2 diabetes mellitus without complications | CPT/HCPCS: 97802; 97803; G0108 ==

== ENCOUNTER 2022-02-15 09:00 | Outpatient (RCR) | payer BC, SELFPAY | END 2022-02-23 23:59 | LOC: DC 09:00 | PROVIDERS: PCP Family Medicine; Referring Provider Family Medicine; Visit Provider Family Medicine | DX: E66.9 Obesity, unspecified (principal); Z68.34 Body mass index [BMI] 34.0-34.9, adult; E11.9 Type 2 diabetes mellitus without complications | CPT/HCPCS: 97803 ==

== ENCOUNTER → 2022-03-09 | Outpatient (CLI) | payer MEDICARE, OTHER, SELFPAY | END | disposition home or self-care (01) | LOC: PSN 11:20 | PROVIDERS: PCP Family Medicine; Referring Provider Physician Assistant; Visit Provider Physician Assistant | DX: Z00.00 Encounter for general adult medical examination without abnormal findings (principal) ==

== ENCOUNTER 2022-03-15 12:44 | Observation (INO) | payer MEDICARE, OTHER, SELFPAY ==
[2022-02-15 13:03] LABS: Absolute Lymphocyte Count 2.84 X10^3/uL (0.83-4.51); Absolute Neutrophil Count 5.9 X10^3/uL (2.0-7.7); Basophil# 0.06 X10^3/uL; Basophil% 0.6 % (0-1); Eosinophil# 0.24 X10^3/uL; Eosinophils% 2.5 % (0-5); Hematocrit 42.7 % (37-47); Hemoglobin 14.4 g/dL (12.0-15.0); Lymphocyte # 2.84 X10^3/ul (0.83-4.51); Lymphocyte % 29.5 % (19-41); Mean Corp Hgb Conc 33.7 g/dL (32-36); Mean Corpuscular Hgb 32.1 pg (27.0-32.0); Mean Corpuscular Volume 95.3 fL (81-99); Mean Platelet Vol. 9.7 fl (6.2-12.0); Monocyte# 0.58 X10^3/uL; NRBC Flagged by Analyzer 0 % (0-5); Neutrophil # 5.87 X10^3/uL (2.7-7.7); Neutrophil % 61.1 % (47-70); Platelet Count 307 K/mm3 (150-450); RBC Distribution Width CV 13.3 % (11.6-14.6); RBC Distribution Width SD 46.5 fl (35.1-43.9); Red Blood Count 4.48 M/mm3 (4.2-5.4); White Blood Count 9.6 K/mm3 (4.4-11.0)
[2022-02-15 13:37] LABS: ALB/GLOB Ratio 1.2 RATIO (0.9-2.4); AST(SGOT) 19 U/L (15-37); Alanine Aminotransfer ALT/SGPT 38 U/L (13-56); Albumin, Serum 3.9 g/dL (3.2-5.0); Alkaline Phosphatase 77 U/L (45-117); Anion Gap 5 (5-15); BUN 24 mg/dL (7-18); BUN/Creat Ratio 27.4 RATIO (10-20); Calcium,Total 9.9 mg/dL (8.5-10.1); Chloride 105 mmol/L (98-107); Creatinine, Serum 0.88 mg/dL (0.55-1.02); EST Glomerular Filtration Rate 68 mL/min (>60); Est Glom Filt Rate - Afr Amer 83 mL/min (>60); Globulin 3.2 g/dL (2.2-4.2); Glucose 128 mg/dL (74-106); Potassium 3.9 mmol/L (3.5-5.1); Protein, Total 7.1 g/dL (6.4-8.2); Sodium Level 141 mmol/L (136-145)
[2022-02-15 13:40] LABS: Hemoglobin A1c 7.3 % (3.8-5.6)
[2022-03-02 11:56] LABS: Magnesium 2.4 mg/dL (1.6-2.6)
--- NOTE | 2022-03-09 11:38 | EKG12_ITS ---
Test Reason : PRE-OP Blood Pressure : / mmHG Vent. Rate : 053 BPM Atrial Rate : 053 BPM P-R Int : 206 ms QRS Dur : 104 ms QT Int : 468 ms P-R-T Axes : 104 -40 027 degrees QTc Int : 439 ms Sinus bradycardia with sinus arrhythmia Left axis deviation Low voltage QRS Poor R wave progression Abnormal ECG Confirmed by DERIC HOLLAND, GHAZAL ([id number]), multimedia editor ADEOLA GILBERT ([id number]) on 03/10/2022 10:02:56 AM Referred By: Aly Pillai Confirmed By:GHAZAL LEOS MD
[2022-03-15] VITALS (13 sets, daily range): BP systolic 127–157; BP diastolic 53–72; PULSE 55–78; RESP 16–18; TEMP 36.1–36.8; O2SAT 90–98; BMI 33.5
[2022-03-15] MEDS: Gabapentin 600 MG Tablet PO (06:17)
[2022-03-15] MEDS: Acetaminophen 500 MG Tablet 1000 MG PO ×3 (06:18→21:12)
[2022-03-15] MEDS: Lactated Ringers 1,000 ML 15 ML IV (06:20)
[2022-03-15 06:35] LABS: Bedside Glucose 90 mg/dL (74-106)
--- NOTE | 2022-03-15 07:30 | KNEE_PTH ---
PATIENT: ARMANDO GONZALEZ LOC: MS3 U#:[id number] AGE/SX: 66/F ROOM: SC315 RE03/15/[address]: Dr. Aly Pillai DO : 1955 BED: 1 DIS: 03/16/2022 SPEC #: [id number] RECD: 03/15/22 11:10 STATUS: JD ADALBERTO #: [id number] JORDEN: 03/15/22 07:[address]: Aly Pillai DEPT: SURGICAL PATHOLOGY RECD BY: Zamzam Mohan ENTERED: 03/15/22 12:13 SP TYPE: TOTAL KNEE OTHR DR: MD Dr. Awais Worrell, DO Tissues: Knee, NOS Procedures: Decalcification bone/plaque Surgery Specimen Level IV HEADER OPERATION: ERAS, total knee replacement robotic arm assist PRE-OP DIAGNOSIS: Primary osteoarthritis left knee TISSUE SUBMITTED: Left knee bone and tissue MICROSCOPIC DIAGNOSIS Bone and soft tissue, left knee, total knee replacement/resection: Pieces of bone with degenerative osteoarthritic changes. KAYLEEN:jenny 03/18/2022 MICROSCOPIC DESCRIPTION Slides are reviewed. GROSS DESCRIPTION Received is one container designated bone and soft tissue left knee. The specimen consists of multiple fragments of fernandes-yellow bone measuring in aggregate 9 x 10 x 4 cm. No soft tissue is identified. A number of bony fragments contain articular surfaces consistent with tibial plateau and femoral condyle and displaying prominent osteophyte formation, eburnation, and bone erosion. Oil Burner Repairer sections are submitted in one cassette after decalcification. / KAYLEEN:jenny 03/15/2022 TC:5 CPT: 83537, 70784
[2022-03-15] MEDS: Cefazolin 2 GM in 0.9% Normal Saline 100 ML IV (07:33)
[2022-03-15] MEDS: TXA 1000mg in NS100 100ml (IVPB at Closure) 660 MG IV (07:43)
[2022-03-15] MEDS: TXA 1000mg in NS100 100ml (IVPB at Incision) 660 MG IV (08:58)
--- NOTE | 2022-03-15 09:07 | OP.PCM_ITS ---
Report of Operation Date of Procedure: 03/15/22 Pre-Operative Diagnosis: OA left knee Post-Operative Diagnosis: same Surgery/Procedure Performed:: Left TKR Description of Surgical Findings:: Report of Operation 03/15/2022 Date of Procedure: Preoperative Diagnosis: [left ] knee primary osteoarthritis Postoperative Diagnosis: [left ] knee primary osteoarthritis Operation: Robotic Assisted Knee Total Arthroplasty, [left ] knee Surgeon: Dr Aly Pillai DO Field Gauger: Arnoldo Jones PA-C Anesthesia: general Anesthesiologist: Claudio Munguia M.D. Findings: Stable knee with good patella tracking Specimen(s): Bony cuts Complications: No intraoperative complications Estimated Blood Loss: 20 cc IV Fluids: 1000 cc crystalloid Implants Used: 1. Freedom Triathlon press-fir size 4 CR femur 2. [employer] Triathlon size 4 tibia 3. 29 mm patella 4. 9 mm CS polyethylene Brief History Operative Indications: [ (66 y/o femal) ] with history of [left ] knee osteoarthrosis with radiographic findings with loss of joint space, osteophyte formation and subchondral sclerosis. Failed conservative measures as mentioned in the H&P. Discussion of total knee arthroplasty as well as risk and benefits were discussed with the patient including but not limited to blood loss, DVTs, PEs, neurovascular damage, general risk of anesthesia including loss of life, and stiffness or instability were also discussed with the patient. Patient demonstrated understanding and was able to sign informed consent. Procedure: On the date of procedure, patient's [left] lower extremity was marked in the preoperative area. The patient was then taken back to the operating room where that patient was placed on the table in the supine position. All bony prominences were identified and well-padded. Anesthesia assumed control of the C-spine and airway throughout the remainder of the procedure. A tourniquet was placed on the [left ] upper thigh and the leg was prepped in a sterile fashion. The surgeon then scrubbed at this time. Upon reentering the room, the [left ] lower extremity was draped in a standard orthopedic fashion. A timeout was then called and everyone agreed upon the side, the site, the proce dure to be performed, patient's identity and antibiotics given. Esmarch bandage was used to exsanguinate the extremity and the tourniquet was placed up to 250 mmHg with the knee in flexion. A midline skin incision was made and a sharp dissection was taken down through skin, subcutaneous tissue and fat. The standard medial parapatellar incision was made and the patella was subluxed laterally. An appropriate deep MCL release was done and the fat pad was resected. Our attention was then directed to the patella. The patella was everted and a flat resection was made. The knee was then flexed up and 2 femoral pins were placed inside the incision and 2 tibial pins were placed outside the incision in the medial tibia bicortically. Once this was completed, the 2 checkpoints in the femur and tibia were placed. Knee was then flexed up and the bony landmarks were registered. Once the was completed, the knee taken through range of motion and manually stressed allowing us to plan for an appropriate tibial cut. The robotic arm was brought into the field sterilely and checkpoint and saw were registered. Based on the patient's deformity, the tibial cut was made in [ 2 degrees varus ]. At this time, the tensioner was then placed in the joint and ligament tension was checked at 90 degrees and full extension. Based on the patient's ligamentous tension, appropriate adjustments were made to the operative plan and ligament releases were done. Once we were happy with our operative plan with balanced flexion and extension gaps, our attention was directed to the femur. The robot was brought into the field sterilely and registered. Posterior condylar cuts, anterior chamfer cuts and anterior cuts were appropriately made for a [size 4 ] femur. When these were completed, the saws were switched out in the distal femoral and posterior chamfer cuts were made. Protecting the soft tissue throughout this time. A [size 4 ] base plate was selected. The knee was flexed to 90 degrees and soft tissues and posterior osteophytes were removed from the joint. 40 cc of the periarticular injection was injected into the posterior medial corner of the joint. The appropriate trials were then placed on the femur and tibia. A trial polyethylene was trialed to ensure proper balancing and stability of the knee. The appropriate tibial internal rotation was then marked with a bovie. Our attention was then directed to the patella. The lug holes were drilled and the patella trial was placed. Patellar tracking was checked and deemed appropriate. Once we were happy, lug holes were drilled for the femur and trial components were removed. The tibia was subluxed and pinned into place and the keel was punched and drilled appropriately. Final components were verified and opened. The wound was copiously irrigated with normal saline. The components were impacted into place with the tibia, femur and finally the patella. The trial poly component was placed and the knee was placed in full extension. The tracking, alignment and balance were verified and a [9 mm CS ] polyethylene component was placed. Once the final components were placed an Irrisept lavage was performed and the wound was copiously irrigated with normal saline solution and the periarticular injection was given. the wound was closed in a layer-russo fashion using #1 vicryl interrupted sutures for the arthrotomy, 2-0 interrupted vicryl suture for the subcuticular layer and mary jane for final skin closure. A sterile compressive dressing was then placed. The patient was then awakened from anesthesia, transferred to the [facility] and transferred to the PACU for recovery. My physician multimedia production assistant was a vital part of this case. He was important in appropriate retraction during the case, and protection of soft tissues during bony cuts. His intimate knowledge of the case and my steps aided in safe and expedient completion of the procedure as well as appropriate position of the leg during the case. He was also vital in assisting with closure under my direct supervision. Due to the complexity of this case, robotic arm was used to assist in the surgery to improve accuracy and clinical outcomes. Post-op Plan: DVT ppx; ASA 81 mg BID, thigh high compression stockings Follow up: in office in 2 weeks for wound check PT: to start POD #0 at hospital, outpatient PT should be arranged. Preoperative antibiotic: Ancef 2 grams IV Aly Pillai DO Surgeon: Aly Pillai automatic steel tie adjuster: Arnoldo Jones Type of Anesthesia: General Anesthesiologist: Claudio Munguia Estimated Blood Loss (mL): 20 cc Fluids Replaced: 1000 cc crystalloid Admit VTE Documentation VTE Present on Admission: No VTE Mechan Device Prophylaxis: SCD's and Thigh High CHERELLE Hose VTE Pharm Prophylaxis ordered?: Yes
[2022-03-15] MEDS: Lactated Ringers 1,000 ML 999 ML IV (09:57)
--- NOTE | 2022-03-15 10:00 | RAD_ITS ---
EXAM: XR LEFT KNEE, 1 OR 2 VIEWS CLINICAL INDICATION: post op -- AP and Lateral xray of operative knee in PACU TECHNIQUE: Frontal and/or lateral views of the left knee. This report was created using [employer] report generation technology. COMPARISON: None. FINDINGS: Knee prosthesis in place in satisfactory position. Soft tissue gas within the joint related to recent surgery. Anterior skin mary jane in place. No soft tissue swelling or gas. No radiopaque foreign body. RAD/Knee 1 or 2 Views IMPRESSION: Satisfactory postoperative changes. Electronically Signed: Luis Mansfield MD at 10:54 EDT ,
[2022-03-15 10:56] LABS: Bedside Glucose 213 mg/dL (74-106)
[2022-03-15] MEDS: Insulin Lispro 100 UNIT/ML INSULN.PEN SC (11:09)
[2022-03-15] MEDS: Lactated Ringers 1,000 ML 125 ML IV (11:55)
[2022-03-15] MEDS: Cefazolin 1 GM/50 ML BAG IV ×2 (15:31→23:12)
[2022-03-15] MEDS: Furosemide 40 MG Tablet PO (17:30)
[2022-03-15] MEDS: Aspirin 81 MG TAB.CHEW PO (17:30)
[2022-03-15] MEDS: Lisinopril 20 MG Tablet PO (21:12)
[2022-03-15] MEDS: Flecainide 100 MG Tablet PO (21:12)
[2022-03-15] MEDS: Pravastatin 40 MG Tablet PO (21:12)
[2022-03-15] MEDS: Senna/Docusate Sodium 1 Tablet 2 TABLET PO (21:12)
[2022-03-15] MEDS: oxyCODONE 5 MG Tablet PO (21:43)
[2022-03-16 03:23] VITALS: BMI 33.5
[2022-03-16 03:56] VITALS: BP 124/56; PULSE 61; RESP 18; TEMP 36.6; O2SAT 97
[2022-03-16] MEDS: Acetaminophen 500 MG Tablet 1000 MG PO ×2 (04:34→13:16)
[2022-03-16] MEDS: oxyCODONE 5 MG Tablet PO ×3 (04:34→13:17)
[2022-03-16 06:13] LABS: Hematocrit 36.8 % (37-47); Mean Corp Hgb Conc 32.6 g/dL (32-36); Mean Corpuscular Hgb 31.3 pg (27.0-32.0); Mean Corpuscular Volume 96.1 fL (81-99); Mean Platelet Vol. 9.8 fl (6.2-12.0); Platelet Count 227 K/mm3 (150-450); RBC Distribution Width CV 13.7 % (11.6-14.6); RBC Distribution Width SD 47.8 fl (35.1-43.9); Red Blood Count 3.83 M/mm3 (4.2-5.4); White Blood Count 11.8 K/mm3 (4.4-11.0)
[2022-03-16 06:42] LABS: Anion Gap 4 (5-15); BUN 16 mg/dL (7-18); BUN/Creat Ratio 21.5 RATIO (10-20); Calcium,Total 8.8 mg/dL (8.5-10.1); Chloride 105 mmol/L (98-107); Creatinine, Serum 0.74 mg/dL (0.55-1.02); EST Glomerular Filtration Rate 82 mL/min (>60); Est Glom Filt Rate - Afr Amer 100 mL/min (>60); Estimated Creatinine Clearance 45.16 ml/min; Glucose 119 mg/dL (74-106); Potassium 3.8 mmol/L (3.5-5.1); Sodium Level 138 mmol/L (136-145)
[2022-03-16 07:30] VITALS: BMI 33.5
--- NOTE | 2022-03-16 07:51 | PCM.PN.ORT ---
Subjective Subjective Patient sitting at bedside, patient reports her pain has been well managed. Patient denies chest pain, shortness of breath, calf pain, nausea vomiting. No other complaints at this time. Patient states she is ready for discharge home today. Objective Data Objective Data Vital Signs: Vital Signs Temp Pulse Resp BP Pulse Ox 98 F 61 18 124/56 H 97 03/16/22 03:56 03/16/22 03:56 03/16/22 03:56 03/16/22 03:56 03/16/22 03:56 Oxygen Flow Rate (L/min) 2 Oxygen Delivery Method Room Air Weight: 85.729 kg Body Mass Index (BMI) 33.5 Intake & Output: Intake and Output for Last 24 Hours 03/14/22 03/15/22 03/16/22 23:59 23:59 23:59 Intake Total 3532 / 3532 Output Total 450 / 450 Balance 3082 / 3082 Lab / Micro Data Result Diagrams: 03/16/22 05:18 03/16/22 05:18 Labs: Laboratory Results - last 24 hr 03/15/22 10:49: POC Glucose 213 H 03/16/22 05:18: WBC 11.8 H, RBC 3.83 L, Hgb 12.0, Hct 36.8 L, MCV 96.1, MCH 31.3, MCHC 32.6, RDW Std Deviation 47.8 H, RDW Coeff of Jana 13.7, Plt Count 227, MPV 9.8 03/16/22 05:18: Sodium 138, Potassium 3.8, Chloride 105, Carbon Dioxide 29.0, Anion Gap 4 L, BUN 16, Creatinine 0.74, Estim Creat Clear Calc 45.16, Est GFR (MDRD) Af Amer 100, Est GFR (MDRD) Non-Af 82, BUN/Creatinine Ratio 21.5 H, Glucose 119 H, Calcium 8.8 Micro: Microbiology 03/02/22 11:02 Swab (Method) Nasal Screen MRSA/MSSA - Final Radiography Diagnostic Testing: Radiology Impression Knee X-Ray 03/15/22 10:00 IMPRESSION: Satisfactory postoperative changes. Electronically Signed: Luis Mansfield MD at 10:54 EDT , Physical Exam Narrative Patient sitting comfortably at bedside. Patient is in no respiratory distress. Patient speaking in full sentences. Patient demotion the upper extremities with good muscle tone and strength. The dressing was clean dry intact. Patient no calf tenderness. Neurovascular is otherwise intact. No signs of DVT. Vital signs and labs are all reviewed and noted in the medical record. Const alert and oriented x3 General Appearance: cooperative HEENT normocephalic Eyes PERRL Resp normal respiratory effort Effort and Inspection: able to speak in complete sentences Extremity normal capillary refill Neuro CN's II-XII intact bilaterally Psych mental status grossly normal Assessment & Plan Assessment/Plan (1) Status post total left knee replacement not using cement: PLAN: 1. Continue all pain medications as prescribed 2. Aspirin 81 mg 1 p.o. every 12 hours x30 days for postop DVT prophylaxis 3. Encourage incentive spirometry 4. Continue ice to knee 30 minutes each hour while awake 5. Continue physical therapy, weight-bear as tolerated with walker 6. DC home today after p.m. therapy 7. Follow-up as scheduled with Arnoldo Jones PA-C
--- NOTE | 2022-03-16 07:55 | DCINST_ITS ---
Discharge Instructions Diet Discharge Diet: No restrictions Activity Discharge Activity: Return to Normal Activity, May Not Drive and May Shower May shower in (days): 3 May resume sexual activity in: No Restrictions Ice area for (Minutes): 30 Weight Bearing Status: Weight bearing as tolerated Keep extremity elevated above heart level: Operative Extremity Dressing / Incision Call your doctor if your incision/area has: Continuous Slow Oozing, Sudden Increased Bleeding, Increased Pain/ Swelling, Increased Redness, Foul Smelling Discharge and Swelling at the incision site Call your doctor if you observe: Fever of 101 or Higher and Coldness, Increased Pain Remove Dressing in: 1 week Cleanse incision/area with: Soap & Water Follow Up Care Please Follow Up With: Arnoldo Jones PA-C When: As scheduled see pink sheet Test Results: Test results from this visit will be discussed in further detail at your follow- up appointment, if applicable. Discharge Plan Admission Admit Date/Time: 03/15/22 12:44 Primary Reason for Your Visit: Left total knee replacement Attending Provider: Aly Pillai Primary Care Provider: Awais Kearney Consulting Providers: Claudio Munguia Discharge Orders/Prescriptions Prescriptions: New acetaminophen 500 mg Tablet 1,000 mg PO Q8 30 Days Qty: 180 0RF aspirin 81 mg Tablet,Chewable 81 mg PO BIDCM 30 Days Qty: 60 0RF oxycodone 5 mg Tablet 5 - 10 mg PO Q4H PRN PRN (Reason: Pain Score 4-10) 7 Days Qty: 84 0RF Continued multivitamin [Daily Multi-Vitamin] Tablet 1 tab PO DAILY Trulicity 0.75 mg/0.5 mL pen injector 3 mg SC SA flecainide 100 mg tablet 100 mg PO BID Qty: 180 3RF Rx Instructions: heart furosemide [Lasix] 40 mg tablet 40 mg PO BID Qty: 180 3RF Rx Instructions: water pill metoprolol succinate 50 mg tablet extended release 24 hr 50 mg PO DAILY Qty: 90 3RF Rx Instructions: bp pravastatin 40 mg tablet 40 mg PO QHS Qty: 90 3RF Rx Instructions: cholesterol omega 9-hth-scl-fish oil 500 MG capsule,delayed release(DR/EC) 1,500 mg PO DAILY Label Comments: supplement meloxicam 15 MG tablet 15 mg PO QHS glipizide 5 mg Tablet 5 mg PO DAILY lisinopril 20 mg tablet 20 mg PO BID Qty: 180 3RF Rx Instructions: BP Discontinued aspirin 81 MG tablet,chewable 81 mg PO DAILY@0800 Label Comments: heart health Referrals / Follow Up: Awais Kearney DO [Primary Care Provider] - Disposition Disposition (needs filled in before D/C Order can be placed): Home, Self Care
[2022-03-16] MEDS: Senna/Docusate Sodium 1 Tablet 2 TABLET PO (09:04)
[2022-03-16] MEDS: Lisinopril 20 MG Tablet PO (09:04)
[2022-03-16] MEDS: Aspirin 81 MG TAB.CHEW PO (09:04)
[2022-03-16] MEDS: Furosemide 40 MG Tablet PO (09:04)
[2022-03-16] MEDS: Multivitamins,Therapeutic Tablet 1 TABLET PO (09:04)
[2022-03-16] MEDS: Flecainide 100 MG Tablet PO (09:04)
[2022-03-16] MEDS: glipiZIDE 5 MG Tablet PO (09:04)
[2022-03-16 09:05] VITALS: PULSE 66
[2022-03-16] MEDS: Metoprolol(XL)Succ 50 MG Tablet PO (09:05)
[2022-03-16 10:00] VITALS: BP 120/64; PULSE 66; RESP 18; TEMP 36.6; O2SAT 95
--- NOTE | 2022-03-16 10:40 | CASEMGMT ---
JAMIE PARDO Face to Face with patient for initial transition planning/care coordination assessment. RN CHAR introduced self and role at [facility]. Patient lying in bed, alert and oriented. Patient willing to participate in assessment and is able to answer all questions appropriately. Care providers, pharmacy, and demographics verified. Patient wishes to discharge home and is setup with [facility] for outpatient therapy. Patient states she has no further needs or concerns at this time. CM to follow for discharge planning needs that may arise. PCP: Christel Specialists: Eda, check cashier; [place]on, clinical support nurse; roselyn Pillai Preferred Pharmacy: [facility] retail Insurance: [employer] Prescription Benefit: yes Living Will/HPOA: yes, Sony Jerez LNOK: , daughter Living Arrangements: Patient with in a 2 story home with bed and bath on first floor, 3 steps to enter the home. Patient states she was independent at home prior to surgery Transportation: DME/HHC: Patient states she has raised toilet, cane, walker, grab bars, cpap, and polar care at home. Patient is scheduled for outpatient therapy at [facility] for Tuesday. Disposition Plan: Patient to discharge home with family support, outpatient therapy, and follow-up plans in place. Radha PRIEST, RN, CM
[2022-03-16 11:23] VITALS: BMI 33.5
[2022-03-16 13:26] VITALS: BP 141/54; PULSE 74; RESP 18; TEMP 37.2; O2SAT 94
== END 2022-03-16 14:43 | disposition home or self-care (01) ==
LOC: SDC 14:50 → MS3 19:40
PROVIDERS: Anesthesiology; Admitting Provider Orthopaedic Surgery; PCP Family Medicine; Referring Provider Orthopaedic Surgery; Visit Provider Orthopaedic Surgery
PROC: 0SRD0JZ Replacement of Left Knee Joint with Synthetic Substitute, Open Approach (ICD-10-PCS; CPT 27447; principal; 2022-03-15 07:00)
DX: M17.12 Unilateral primary osteoarthritis, left knee (principal); M32.9 Systemic lupus erythematosus, unspecified; I48.0 Paroxysmal atrial fibrillation; I47.1 Supraventricular tachycardia; E11.9 Type 2 diabetes mellitus without complications; I10 Essential (primary) hypertension; Z79.899 Other long term (current) drug therapy; Z79.82 Long term (current) use of aspirin; M72.2 Plantar fascial fibromatosis; G47.33 Obstructive sleep apnea (adult) (pediatric); Z79.84 Long term (current) use of oral hypoglycemic drugs; E78.5 Hyperlipidemia, unspecified; K21.9 Gastro-esophageal reflux disease without esophagitis; E66.9 Obesity, unspecified; Z68.33 Body mass index [BMI] 33.0-33.9, adult
CPT/HCPCS: 27447; 01402; S2900; 64447; 36415; 73560; 80048; 80053; 82962; 83036; 83735; 85025; 85027; 87077; 87081; 88305; 88311; 93005; 96361; 96365; 96366; 97110; 97116; 97162; 97166; 97530; 97535; 99218; C1776; J7120; G0378; J2405; J3475

== ENCOUNTER → 2022-07-02 | Outpatient (CLI) | payer MEDICARE, OTHER, SELFPAY ==
--- NOTE | 2022-07-02 17:09 | STRESSREP ---
Stress Test Report Exercise myocardial perfusion stress test. 67-year-old lady with a history of paroxysmal atrial fibrillation. Stress protocol: Resting KG demonstrates normal sinus rhythm with a rate of 62 bpm normal intervals are noted resting blood pressure is 150/72 mmHg. The patient exercised according to the regular Kurtis protocol for total duration of 6 minutes the maximum heart rate attained was 141 bpm which was 92% of max impacted heart rate the maximum workload was 7 metabolic equivalents. At rest there were no ST or T wave changes noted suggest ischemia and at peak exercise upsloping ST changes did not demonstrate any evidence of ischemia. No clinical angina was noted. Myocardial perfusion protocol. 15.0 mCi of technetium 99m sestamibi was injected at rest. The patient exercised according to regular Kurtis protocol and at peak exercise 45.0 mCi of technetium 99m sestamibi was injected stress images were obtained stress and rest images were reconstructed in comparing the short axis vertical long and horizontal long axis. Gated images were also obtained Perfusion SPECT analysis: Review of the stress images demonstrate normal uptake of tracer noted in all areas of the myocardium. The resting images similar demonstrate normal uptake of tracer noted in all areas of the myocardium. No areas of reversibility are noted suggest ischemia and no previous infarct is noted. Gated SPECT analysis: The gated ejection fraction is 69%. Conclusion: Normal exercise myocardial perfusion stress test at a moderate workload. Preserved ejection fraction.
== END | disposition home or self-care (01) ==
PROVIDERS: PCP Family Medicine; Referring Provider Physician Assistant Medical; Visit Provider Physician Assistant Medical
DX: I48.0 Paroxysmal atrial fibrillation (principal); R94.31 Abnormal electrocardiogram [ECG] [EKG]
CPT/HCPCS: 78452; 93017; A9500; A4216

== ENCOUNTER → 2022-10-13 | Outpatient (CLI) | payer MEDICARE, OTHER, SELFPAY ==
[2022-10-13 11:25] LABS: Hemoglobin A1c 6.9 % (3.8-5.6)
== END | disposition home or self-care (01) ==
LOC: LAB 10:30
PROVIDERS: PCP Family Medicine; Visit Provider Family Medicine
DX: E11.9 Type 2 diabetes mellitus without complications (principal)
CPT/HCPCS: 36415; 83036

== ENCOUNTER → 2022-10-21 | Outpatient (CLI) | payer MEDICARE, OTHER, SELFPAY ==
--- NOTE | 2022-10-21 12:01 | BI_ITS ---
MAMMOGRAPHY - BILATERAL SCREENING REASON FOR EXAM: Female, 67 years old. Routine annual screening examination. PERTINENT HISTORY: Aunt with breast cancer. TECHNIQUE: Digital bilateral breast eleazar (3D mammographic acquisition) in the CC and MLO projections. 2-D mediolateral oblique (MLO) and craniocaudad (CC) views of both breasts were obtained. CAD: Full Field Digital Mammography with Computer Added Detection was performed. COMPARISON: Comparison is made with prior study dated 07/21/2021 and 07/11/2020. FINDINGS: Breast Composition: There are scattered areas of fibroglandular density. There are no dominant masses or suspicious calcifications. The previously seen nodule in the central retroareolar region of the right breast has decreased further in size. It presently measures 8.3 mm x 9.5 mm. No other significant abnormalities are identified. There has been no significant change since the prior study. BI/SCRN MAMM (CAD)W/ELEAZAR BILAT IMPRESSION: Stable bilateral screening mammogram. Yearly follow-up mammogram recommended. (A) ASSESSMENT CATEGORY: BIRADS Category 2: Benign. A letter regarding these results will be sent to the patient by the facility within 30 days. Approximately 10% of breast cancers are not detected by mammography. A normal mammogram should not delay biopsy of a clinically suspicious abnormality. [id number] Electronically Signed: Tyler Catalan MD at 13:13 EST ,
== END | disposition home or self-care (01) ==
LOC: OPBI 11:59
PROVIDERS: PCP Family Medicine; Visit Provider Family Medicine
DX: Z12.31 Encounter for screening mammogram for malignant neoplasm of breast (principal)
CPT/HCPCS: 77063; 77067

== ENCOUNTER → 2023-09-05 | Outpatient (CLI) | payer MEDICARE, OTHER, SELFPAY ==
[2023-09-05 10:32] LABS: Absolute Lymphocyte Count 2.88 X10^3/uL (0.83-4.51); Absolute Neutrophil Count 5.5 X10^3/uL (2.0-7.7); Basophil# 0.07 X10^3/uL; Basophil% 0.7 % (0-1); Eosinophil# 0.25 X10^3/uL; Eosinophils% 2.6 % (0-5); Hematocrit 43.9 % (37-47); Hemoglobin 14.1 g/dL (12.0-15.0); Lymphocyte # 2.88 X10^3/ul (0.83-4.51); Lymphocyte % 30.5 % (19-41); Mean Corp Hgb Conc 32.1 g/dL (32-36); Mean Corpuscular Hgb 31.1 pg (27.0-32.0); Mean Corpuscular Volume 96.9 fL (81-99); Mean Platelet Vol. 9.5 fl (6.2-12.0); Monocyte# 0.74 X10^3/uL; Monocyte% 7.8 % (0-10); NRBC Flagged by Analyzer 0 % (0-5); Neutrophil # 5.46 X10^3/uL (2.7-7.7); Platelet Count 279 K/mm3 (150-450); RBC Distribution Width CV 13.7 % (11.6-14.6); RBC Distribution Width SD 48.9 fl (35.1-43.9); Red Blood Count 4.53 M/mm3 (4.2-5.4); White Blood Count 9.4 K/mm3 (4.4-11.0)
[2023-09-05 10:46] LABS: Hemoglobin A1c 6.8 % (3.8-5.6)
[2023-09-05 11:23] LABS: Microalbumin,Random Urine 9.6 mg/L (NO RANGE EST.); Microalbumin:Creatinine Ratio 7.1 mg/g CRE (<30 mg/g CRE)
[2023-09-05 11:28] LABS: ALB/GLOB Ratio 1.2 RATIO (0.9-2.4); AST(SGOT) 19 U/L (15-37); Alanine Aminotransfer ALT/SGPT 42 U/L (13-56); Albumin, Serum 3.7 g/dL (3.2-5.0); Alkaline Phosphatase 88 U/L (45-117); Anion Gap 7 (5-15); BUN 20 mg/dL (7-18); BUN/Creat Ratio 28.6 RATIO (10-20); Bilirubin, Direct 0.13 mg/dL (0.00-0.30); Calcium,Total 9.1 mg/dL (8.5-10.1); Chloride 107 mmol/L (98-107); Cholesterol 207 mg/dL (200); EST Glomerular Filtration Rate 88 mL/min (>60); Est Glom Filt Rate - Afr Amer 107 mL/min (>60); Globulin 3.2 g/dL (2.2-4.2); Glucose 127 mg/dL (74-106); High Density Lipoprotein 49 mg/dL; Protein, Total 6.9 g/dL (6.4-8.2); Sodium Level 141 mmol/L (136-145); Thyroid Stim Hormone (TSH) 1.04 uIU/mL (0.358-3.74); Triglycerides 223 mg/dL; Very Low Density Lipoprotein 45 mg/dL (5-40)
== END | disposition home or self-care (01) ==
LOC: LAB.FUTURE 09:50 → LAB 09:57
PROVIDERS: Internal Medicine Cardiovascular Disease; PCP Family Medicine; Referring Provider Family Medicine; Visit Provider Family Medicine
DX: E11.9 Type 2 diabetes mellitus without complications (principal); I10 Essential (primary) hypertension; E78.5 Hyperlipidemia, unspecified
CPT/HCPCS: 36415; 80053; 80061; 82043; 82248; 82570; 83036; 84443; 85025

== ENCOUNTER → 2024-01-11 | Outpatient (CLI) | payer MEDICARE, OTHER, SELFPAY ==
--- NOTE | 2024-01-11 10:08 | BI_ITS ---
MAMMOGRAPHY - BILATERAL SCREENING REASON FOR EXAM: Female, 68 years old. Routine annual screening examination. PERTINENT HISTORY: Aunt with breast cancer. TECHNIQUE: Digital bilateral breast eleazar (3D mammographic acquisition) in the CC and MLO projections. 2-D mediolateral oblique (MLO) and craniocaudad (CC) views of both breasts were obtained. CAD: Full Field Digital Mammography with Computer Added Detection was performed. COMPARISON: Comparison is made with prior study dated April 20, 2023 and July 21, 2021. FINDINGS: Breast Composition: There are scattered areas of fibroglandular density. There are no dominant masses or suspicious calcifications. Stable 8 mm x 9 mm nodular density in the central retroareolar region of the right breast. Stable well-defined subcentimeter nodules in the upper outer quadrant of the left breast. No other significant abnormalities are identified. There has been no significant change since the prior study. BI/SCRN MAMM (CAD)W/ELEAZAR BILAT IMPRESSION: Stable bilateral screening mammogram. Yearly follow-up mammogram recommended. (A) ASSESSMENT CATEGORY: BIRADS Category 2: Benign. A letter regarding these results will be sent to the patient by the facility within 30 days. Approximately 10% of breast cancers are not detected by mammography. A normal mammogram should not delay biopsy of a clinically suspicious abnormality. [id number] Electronically Signed: Tyler Catalan MD at 12:51 EDT ,
== END | disposition home or self-care (01) ==
LOC: OPBI 10:06
PROVIDERS: PCP Family Medicine; Referring Provider Family Medicine; Visit Provider Family Medicine
DX: Z12.31 Encounter for screening mammogram for malignant neoplasm of breast (principal)
CPT/HCPCS: 77063; 77067

== ENCOUNTER 2024-04-25 17:30 | Outpatient (RCR) | payer SELFPAY | END 2024-04-25 23:59 | LOC: NS 17:30 | PROVIDERS: PCP Family Medicine | DX: Z71.3 Dietary counseling and surveillance (principal) ==

== ENCOUNTER 2024-10-30 00:51 | Emergency (ER) | payer MEDICARE, OTHER, SELFPAY ==
[2024-10-30 00:52] VITALS: BP 189/67; PULSE 71; RESP 16; TEMP 36.9; O2SAT 99; BMI 34.7
[2024-10-30 01:52] VITALS: BP 137/72; PULSE 68; RESP 16; O2SAT 95
[2024-10-30 02:00] VITALS: BP 119/68; PULSE 65; RESP 23; O2SAT 95
--- NOTE | 2024-10-30 02:32 | EKG12_ITS ---
Test Reason : CP Blood Pressure : */* mmHG Vent. Rate : 62 BPM Atrial Rate : 62 BPM P-R Int : 206 ms QRS Dur : 106 ms QT Int : 438 ms P-R-T Axes : 24 -33 45 degrees QTcB Int : 444 ms Sinus rhythm with marked sinus arrhythmia Left axis deviation Low voltage QRS Inferior infarct , age undetermined Cannot rule out Anterior infarct , age undetermined Abnormal ECG Confirmed by PARMINDER HOLLAND, SHEYLA ([id number]), magazine editor ADEOLA GILBERT ([id number]) on 11/01/2024 6:58:26 AM Referred By: ROBERTO Confirmed By: SHEYLA ZURITA MD
[2024-10-30 02:42] LABS: Absolute Lymphocyte Count 4.52 X10^3/uL (0.83-4.51); Absolute Neutrophil Count 6.2 X10^3/uL (2.0-7.7); Basophil% 0.8 % (0-1); Eosinophil# 0.26 X10^3/uL; Eosinophils% 2.1 % (0-5); Hematocrit 44.4 % (37-47); Hemoglobin 14.8 g/dL (12.0-15.0); Lymphocyte # 4.52 X10^3/ul (0.83-4.51); Lymphocyte % 37.2 % (19-41); Mean Corp Hgb Conc 33.3 g/dL (32-36); Mean Corpuscular Hgb 31.2 pg (27.0-32.0); Mean Corpuscular Volume 93.5 fL (81-99); Mean Platelet Vol. 10.9 fl (6.2-12.0); Monocyte% 8.2 % (0-10); NRBC Flagged by Analyzer 0 % (0-5); Neutrophil # 6.17 X10^3/uL (2.7-7.7); Neutrophil % 50.9 % (47-70); Platelet Count 306 K/mm3 (150-450); RBC Distribution Width CV 13.2 % (11.6-14.6); Red Blood Count 4.75 M/mm3 (4.2-5.4); White Blood Count 12.2 K/mm3 (4.4-11.0)
[2024-10-30] MEDS: diazePAM 2 MG Tablet PO (02:43)
[2024-10-30] MEDS: 0.9% Normal Saline (1000mL) 1,000 ML 999 ML IV (02:43)
[2024-10-30 02:44] VITALS: BP 168/62; PULSE 63; RESP 21; O2SAT 94
[2024-10-30 03:06] LABS: Anion Gap 13 (5-15); BUN 27 mg/dL (7-18); BUN/Creat Ratio 23.9 RATIO (10-20); Calcium,Total 9.9 mg/dL (8.5-10.1); Chloride 97 mmol/L (98-107); Creatinine, Serum 1.13 mg/dL (0.55-1.02); EST Glomerular Filtration Rate 51 mL/min (>60); Est Glom Filt Rate - Afr Amer 61 mL/min (>60); Glucose 367 mg/dL (74-106); Magnesium 2.3 mg/dL (1.6-2.6); Potassium 3.5 mmol/L (3.5-5.1); Sodium Level 135 mmol/L (136-145); Troponin-I HS 11 pg/mL (3.0-54.0)
--- NOTE | 2024-10-30 03:58 | EX.ED.DYSGE1 ---
HPI History of Present Illness Chief Complaint: Hypertension Informant: patient and spouse/S.O. Narrative Narrative: Patient is a 69-year-old female with past medical history of hypertension and diabetes as well as remote atrial fibrillation. She states she has been taking her medications as directed but this evening just felt off. She states that she used her home heart monitor and it showed changes concerning for atrial fibrillation. With this she is also had increased to her blood pressure and states she has felt dizzy. She describes the dizziness as a sense of motion and states it seems to improve at rest. She reports nausea associate with the dizziness but denies any recent fevers chills or sick symptoms. However because of concern for return of atrial fibrillation as well as the fact she has been dizzy with elevated blood pressure she presents to the hospital for evaluation [facility] Medical History Wears glasses Post-menopausal Wears dentures Depression Anxiety High cholesterol Dietary restriction Heartburn Non-smoker CPAP (continuous positive airway pressure) dependence Leg cramps History of pain when walking History of edema History of echocardiogram History of stress test Hypertension Cardiology follow-up encounter History of atrial fibrillation History of irregular heartbeat Preop cardiovascular exam Arthritis of left knee Lupus Diabetes Hemorrhoids Essential (primary) hypertension Varicose veins with inflammation Chronic venous insufficiency Cyst of breast, right, solitary SVT (supraventricular tachycardia) Paroxysmal atrial fibrillation Hyperlipemia Palpitations Polyarthritis Impingement syndrome of right shoulder Obesity EMMANUEL (obstructive sleep apnea) Hypomagnesemia IBS (irritable bowel syndrome) Vitamin D deficiency Gout Dermatitis Bradycardia Constipation GERD (gastroesophageal reflux disease) Osteoporosis Hammer toe Leg edema Home Medications ?Medication ?Instructions ?Recorded ?Last Taken ?Type meloxicam 15 mg tablet 15 mg PO QHS inflammation 06/05/19 11/16/20 21:00 History multivitamin (Daily Multi-Vitamin 1 tab PO DAILY supplement 07/09/20 03/01/22 History tablet) glipizide 5 mg tablet 5 mg PO DAILY 03/01/22 Unknown History aspirin 81 mg chewable tablet 81 mg PO BIDCM Postop DVT 03/16/22 Unknown Rx prophylaxis 30 days #60 tabs furosemide 40 mg tablet (Lasix) 40 mg PO BID #180 tabs 09/04/24 Unknown Rx lisinopril 20 mg tablet 20 mg PO BID #180 tabs 09/04/24 Unknown Rx metoprolol succinate 50 mg 50 mg PO DAILY #90 tabs 09/04/24 Unknown Rx tablet,extended release 24 hr pravastatin 40 mg tablet 40 mg PO QHS #90 tabs 09/04/24 Unknown Rx spironolactone 25 mg tablet 25 mg PO DAILY #90 TABLETS 09/04/24 Unknown Rx flecainide 100 mg tablet 100 mg PO BID #180 TABLETS 09/24/24 Unknown Rx blood sugar diagnostic (True 10/30/24 Unknown History Metrix Glucose Test Strip) chlorhexidine gluconate 0.12 % BID 10/30/24 Unknown History mouthwash diazepam 2 mg tablet (Valium) 2 mg PO TID PRN vertigo 5 days #15 10/30/24 Unknown Rx tabs sitagliptin phosphate 100 mg 100 mg PO DAILY 10/30/24 Unknown History tablet (Januvia) sitagliptin phosphate 100 mg 100 mg PO DAILY 10/30/24 Unknown History tablet (Januvia) Allergy/AdvReac Type Severity Reaction Status Date / Time Dressing: Non-Medicated AdvReac Rash Verified 10/30/24 00:54 (wrap) Milk Containing Products AdvReac Diarrhea Verified 10/30/24 00:54 (Dairy) (Milk Containing Products) Family History Mother CAD (coronary artery disease) Father Aneurysm Other Heart disease Surgical History Hx of colonoscopy Status post endovenous radiofrequency ablation of saphenous vein vein ablation History of left heart catheterization (11/20/10) History of cardiac radiofrequency ablation (RFA) (11/20/10) History of hysterectomy History of tonsillectomy Social History Smoking Status: Never smoker alcohol intake: never substance use type: does not use caffeine: Yes Type: carbonated beverages Number of servings: 1 what type of physical activity do you participate in: none seatbelt use: always do you feel safe at home: Yes ROS ROS ED Constitutional Constitutional ED: Denies chills or fever(s) Eyes Eyes: Denies blurry vision or change in vision ENT ENT ED: Denies ear pain or sore throat Cardiovascular Cardiovascular: Reports palpitations and racing heartbeat; Denies chest pain Respiratory/Chest Respiratory/Chest: Denies cough or dyspnea Gastrointestinal Gastrointestinal: Reports nausea; Denies abdominal pain, diarrhea or vomiting Genitourinary Genitourinary ED: Denies dysuria Musculoskeletal Musculoskeletal: Denies myalgias Integumentary Denies rash Neurologic Neurologic: Reports other Details: Positive dizziness ; Denies headache(s) Hematologic/Lymphatic Hematologic/Lymphatic: Denies easy bleeding or easy bruising EXAM Physical Exam Const Vital Signs: 10/30/24 00:52 10/30/24 01:52 10/30/24 02:00 Temperature 98.4 F Temperature Source Oral Pulse Rate 71 68 65 Respiratory Rate 16 16 23 H Blood Pressure 189/67 H 137/72 H 119/68 Blood Pressure Mean 107 93 85 Pulse Ox 99 95 95 Oxygen Delivery Method Room Air Room Air Room Air 10/30/24 02:44 Temperature Temperature Source Pulse Rate 63 Respiratory Rate 21 H Blood Pressure 168/62 H Blood Pressure Mean 97 Pulse Ox 94 Oxygen Delivery Method Room Air Positive well nourished and well developed General Appearance ED: well developed; Negative for pallor HEENT HEENT Narrative: Bilateral TMs are retracted but show no secondary changes to suggest infection Eyes PERRL and EOMs intact bilaterally General Eye ED: Negative for scleral icterus Neck supple Neck Narrative: No nuchal rigidity or meningeal signs Resp normal respiratory effort and clear to auscultation bilaterally Cardio regular rate and regular rhythm Rate: other Other Details: Heart is regular rate and rhythm Radial and carotid pulses are equal and symmetric GI normal to inspection, nondistended, normoactive bowel sounds, non-tender, non-distended and no masses Auscultation: normoactive bowel sounds Palpation: soft Extremity normal to inspection Neuro oriented x3, CN's II-XII intact bilaterally and no sensory deficits noted Neuro Narrative: GCS of 15 Cranial nerves II through XII are grossly intact there are no focal neurologic deficits No pronator drift no dysmetria no truncal ataxia There is horizontal nystagmus noted with positive Hallpike [place] exam on left NIH stroke scale score of 0 Sensorium / Orientation: alert Motor Exam: strength 5/5 throughout Psych Mood & Affect: anxious Skin no rashes or lesions noted General Skin Exam: Negative for jaundice or pallor MDM MDM MDM Narrative Medical decision making narrative: Patient presented to the ER hypertensive but otherwise with stable vitals. She reported potential A-fib at home but monitor and EKG in the ER showed normal sinus rhythm. She reported dizziness but has horizontal nystagmus and a positive Hallpike Am[place] exam on left indicating that this is peripheral vertigo. With hypertension there is concern for endorgan damage such as acute kidney injury or acute coronary syndrome so therefore basic labs will be obtained as well as troponin and EKG. EKG confirms sinus rhythm without ischemic changes and there is no ectopy or dysrhythmia noted while on the cma or lpn. Her troponin is 11 going against ACS. She has no truncal ataxia going against a posterior circulation occlusion and as she does not have headache or change in mental status I have no need for head CT. After receiving value and medication her blood pressure reduced to an acceptable value her neurologic and remain normal her dizziness resolved and therefore there is no need for further workup and she is otherwise safe for discharge History & Record Review Discussion w/independent historian: Patient and Family Lab Data Attestation: I reviewed the patient's lab results. Labs: Laboratory Results - last 24 hr 10/30/24 00:58 WBC 12.2 H RBC 4.75 Hgb 14.8 Hct 44.4 MCV 93.5 MCH 31.2 MCHC 33.3 RDW Std Deviation 45.0 H RDW Coeff of Jana 13.2 Plt Count 306 MPV 10.9 Immature Gran % (Auto) 0.800 Neut % (Auto) 50.9 Lymph % (Auto) 37.2 [place] % (Auto) 8.2 Eos % (Auto) 2.1 Baso % (Auto) 0.8 Absolute Neuts (auto) 6.2 Absolute Lymphs (auto) 4.52 H Nucleated RBC % 0 Sodium 135 L Potassium 3.5 Chloride 97 L Carbon Dioxide 25.0 Anion Gap 13 BUN 27 H Creatinine 1.13 H Estim Creat Clear Calc 49.00 Est GFR (MDRD) Af Amer 61 Est GFR (MDRD) Non-Af 51 L BUN/Creatinine Ratio 23.9 H Glucose 367 H Calcium 9.9 Magnesium 2.3 Troponin I High Sens 11 TSH 3.460 Discharge Plan Triage Chief Complaint: Hypertension Other Complaint: Chest Pain ED Provider: Horace Sotomayor Dx/Rx/DC Orders Clinical Impression: Peripheral vertigo, Hyperglycemia, Viral syndrome, Hypertension Instructions: ED Vertigo, Unspecified, ED Viral Syndrome (Adult) Prescriptions: New diazepam [Valium] 2 mg tablet 2 mg PO TID PRN (Reason: vertigo) 5 Days Qty: 15 0RF No Action multivitamin [Daily Multi-Vitamin] Tablet 1 tab PO DAILY furosemide [Lasix] 40 mg tablet 40 mg PO BID Qty: 180 3RF Rx Instructions: water pill lisinopril 20 mg tablet 20 mg PO BID Qty: 180 3RF Rx Instructions: BP metoprolol succinate 50 mg tablet extended release 24 hr 50 mg PO DAILY Qty: 90 3RF Rx Instructions: bp pravastatin 40 mg tablet 40 mg PO QHS Qty: 90 3RF Rx Instructions: cholesterol spironolactone 25 mg tablet 25 mg PO DAILY Qty: 90 3RF meloxicam 15 MG tablet 15 mg PO QHS glipizide 5 mg Tablet 5 mg PO DAILY aspirin 81 mg Tablet,Chewable 81 mg PO BIDCM 30 Days Qty: 60 0RF Januvia 100 mg tablet 100 mg PO DAILY (DME) True Metrix Glucose Test Strip Strip 1 strip MISCELLANEOUS DAILY chlorhexidine gluconate 0.12 % mouthwash BID Januvia 100 mg tablet 100 mg PO DAILY flecainide 100 mg tablet 100 mg PO BID Qty: 180 3RF Primary Care Provider: Awais Kearney Referrals: Awais Kearney DO [Primary Care Provider] - Print Language: Chadian Disposition Disposition: Home, Self Care Discharge Date/Time: 10/30/24 04:20
[2024-10-30 04:00] VITALS: BP 137/60; PULSE 63; RESP 17; O2SAT 96
[2024-10-30 04:05] VITALS: BP 137/60; PULSE 70; RESP 17; TEMP 36.8; O2SAT 96
== END 2024-10-30 04:20 | disposition home or self-care (01) ==
PROVIDERS: Emergency Provider Emergency Medicine; PCP Family Medicine; Visit Provider Emergency Medicine
DX: H81.392 Other peripheral vertigo, left ear (principal); I48.0 Paroxysmal atrial fibrillation; E11.65 Type 2 diabetes mellitus with hyperglycemia; B34.9 Viral infection, unspecified; I10 Essential (primary) hypertension; F32.A Depression, unspecified; F41.9 Anxiety disorder, unspecified; I87.2 Venous insufficiency (chronic) (peripheral); K21.9 Gastro-esophageal reflux disease without esophagitis; E66.9 Obesity, unspecified; E78.00 Pure hypercholesterolemia, unspecified; M17.12 Unilateral primary osteoarthritis, left knee; M81.0 Age-related osteoporosis without current pathological fracture; G47.33 Obstructive sleep apnea (adult) (pediatric); Z79.84 Long term (current) use of oral hypoglycemic drugs; Z79.82 Long term (current) use of aspirin; Z79.899 Other long term (current) drug therapy
CPT/HCPCS: 80048; 83735; 84443; 84484; 85025; 93005; 96360; 99284; A4216

== ENCOUNTER → 2024-11-13 | Outpatient (CLI) | payer MEDICARE, OTHER, SELFPAY | END | disposition home or self-care (01) | LOC: SL 10:30 | PROVIDERS: Visit Provider Nurse Practitioner Acute Care | DX: Z46.89 Encounter for fitting and adjustment of other specified devices (principal) ==

== ENCOUNTER → 2025-01-28 | Outpatient (CLI) | payer MEDICARE, OTHER, SELFPAY ==
--- NOTE | 2025-01-28 10:50 | BI_ITS ---
EXAM: SCRN MAMM (CAD)W/ELEAZAR BILAT DATE: 01/28/2025 CLINICAL HISTORY: F, Age 69 y/o , SCREENING BREAST CANCER RISK ASSESSMENT: Has not been calculated. TECHNIQUE: Bilateral screening digital breast tomosynthesis with 2D and 3D images. Computer aided detection. COMPARISON: Prior exam(s) dated 01/11/2024 and 10/21/2022. FINDINGS: TISSUE DENSITY: The breast tissue is composed of scattered area of fibroglandular density. Bilateral Breast Mammographic Findings: There are no suspicious masses, suspicious cluster of microcalcifications, architectural distortion or secondary signs of malignancy identified in either breast. The overall breast findings are similar when compared to the prior exam. Benign round calcifications are seen in both breasts. Partially obscured stable isodense masses are seen in the superior outer quadrant of the left breast. The mass seen in the superior slightly medial, middle 3rd aspect of the right breast on the prior study is smaller on today's exam. BI/SCRN MAMM (CAD)W/ELEAZAR BILAT IMPRESSION: OVERALL FINAL ASSESSMENT: BIRADS 2 BENIGN FINDING RECOMMENDATION: Routine annual follow-up in 1 Year A letter with findings and recommendations will be mailed to the patient. Reading Location: [id number]
== END | disposition home or self-care (01) ==
LOC: OPBI 10:49
PROVIDERS: PCP Family Medicine; Referring Provider Family Medicine; Visit Provider Family Medicine
DX: Z12.31 Encounter for screening mammogram for malignant neoplasm of breast (principal)
CPT/HCPCS: 77063; 77067

== ENCOUNTER → 2025-02-19 | Outpatient (CLI) | payer MEDICARE, OTHER, SELFPAY ==
--- NOTE | 2025-02-19 13:51 | VDLE_ITS ---
Reason For Study Reason For Study: PAIN RIGHT LEFT GSV is normal. GSV is normal. CFV is compressible, spontaneous, phasic, competent CFV is compressible, spontaneous, phasic, competent, and demonstrates normal augmentation. and demonstrates normal augmentation. FV is compressible, spontaneous, phasic, competent FV is compressible, spontaneous, phasic, competent and demonstrates normal augmentation. and demonstrates normal augmentation. POP V is compressible, spontaneous, phasic, competent POP V is compressible, spontaneous, phasic, competent and demonstrates normal augmentation. and demonstrates normal augmentation. T/P Trunk is compressible. T/P Trunk is compressible. PTV is compressible. PTV is compressible. RT PerV is compressible. LT PerV is compressible. SFJ is competent and measures 0.96 cm. SFJ is competent and measures 0.83 cm. GSV proximal thigh measures 0.34 x 0.34 cm. GSV EVLA 2019. GSV at knee measures 0.34 x 0.31 cm. SSV mid calf is competent and measures 0.21 x 0.71 GSV is competent throughout. cm. SSV mid calf is competent and measures 0.23 x 0.18 cm. Procedure This is a venous duplex using B-mode, color flow and spectral Doppler. Exam performed in department. Patient was scanned in reverse Trendelenburg position during reflux assessment. VL/Venous Duplex US - Manuel Extrem Interpretation Summary Deep veins of the bilateral lower extremities are patent and compressible segme ntally. There is no evidence of right lower extremity deep vein thrombosis. The right great saphenous vein appears pa tent and compressible segmentally. Negative for reflux bilateral Ordering Physician: Ellen Katz Referring Physician: Awais Kearney Performed By: Adelia Santos, DOMENICOCS, RVT
== END | disposition home or self-care (01) ==
LOC: CVS 13:50
PROVIDERS: PCP Family Medicine; Referring Provider Physician Assistant; Visit Provider Physician Assistant
DX: I87.2 Venous insufficiency (chronic) (peripheral) (principal); L81.8 Other specified disorders of pigmentation; M79.3 Panniculitis, unspecified; R60.9 Edema, unspecified; M79.604 Pain in right leg; M79.605 Pain in left leg
CPT/HCPCS: 93970

== ENCOUNTER 2025-03-22 09:30 | Outpatient (RCR) | payer MEDICARE, OTHER, SELFPAY ==
--- NOTE | 2025-02-19 12:48 | HP.PTEVAL ---
Patient's Visit Information Visit Information Visit Information: ARMANDO GONZALEZ is a 69 year old F referred to Physical Therapy by CELESTE Verduzco with a diagnosis of Imbalance. Date of Evaluation: 02/19/25 Physical Therapist: Kota Arshad DPT Visit Plan Frequency: 2x /Week Duration: 4 Weeks Plan: 1) progress L knee ROM. She had a TKA ~3 years ago and is missing 12deg of TKE. 2) add in calf strengthening (I gave her seated GTB PF at IE) 3) dynamic balance progression. Subjective Subjective: Pt. is here today for her initial evaluation with diagnosis of imbalance and gait disturbance. Pt. reports having a vein ablasion in 2018 and then a L TKA in 2021. Pt. reports she has been noticing a decreased L calf muscle as well as some new imbalance with her gait. She has not fallen. She reports no pain. Pt. is does not use a device with her mobility either. Pt. is to follow back up with her physician in ~1 month. pt. does reports some tingling in her legs. Pt. is diabetic. Pt. is hopeful to improve her balance and strength in order to complete all ADLs and walk without issues. Objective Objective: POSTURE: Pt. has overall fairly normal posture. PALPATION: No pain with palpation of BLEs. Pt. has marked NEURO: Pt. has normal sensation and DTR of BLEs ROM: pt. has slight tightness Pt. has marked hypomobility in her L knee 0-12-91deg. with OP. MMT: Pt. has fairly normal BLE strength, except L PF. Pt. is unable to complete single leg heel raise on L side, but able to complete 10 on R. GAIT: Pt. has marked abnormality with limited L push off with calf. She has marked loss of L knee extension during L stance phase of gait as well. STAIRS: Pt. has decreased stability with descending, marked functional weakness noted. Descending is worse than ascending. Balance/Special Test Scores Functional Gait Assessment Score: 21 % Disability: 30.0000 Lower Extremity Functional Score: 21 Goals Goal 1:: LTG: Pt. to be I with HEP. Goal Time Frame: 4-6 Weeks Goal 2:: STG: Pt. to have increased L knee ROM to 0-5-100deg allowing for improved gait pattern. Goal Time Frame: 2-4 Weeks Goal 3:: LTG: Pt. to be able to complete SL heel raises on LLE x10 indicating improved calf strength. Goal Time Frame: 4-6 Weeks Goal 4:: LTG: Pt. to compelte TUG with time less than 10seconds. Goal 5:: LTG: Pt. to complete FGA with score greater than 24/30. Rehabilitation Potential Physical Therapy Diagnosis: Pt. has signs and symptoms consistent with imbalance. It appears her biggest issue is with her limited L knee ROM resulting in decreased gastroc strength. Pt. would benefit from PT increase L knee ROM exercises and G/S strengthening progressing towards dynamic balance activities Rehabilitation Potential: Good Anticipated Interventions Patient/Client Instruction: Educate patient on: Condition, Plan of Care, Risk Factors and Benefits of Fitness Program For the Purpose of:: To improve decision making, To facilitate caregiver knowledge, To improve self management, To prevent re-injury, To improve ability to perform tasks related to life management and To improve tolerance to ADL's Therapeutic Exercise to Include: Strength training, Power training, Endurance training, Balance training, Postural training and Flexibilty training For the Purpose of:: To decrease pain, To decrease swelling/inflammation, To increase ROM, To improve nutrient delivery to tissue and To increase oxygenation perfusion Text: Thank you for the opportunity to evaluate your patient. For Medicare and Medicare HMO plans, please review the plan of care and approve it. It will need to be FAXED BACK to us at [phone] for Medicare purposes. For Medicare only, by signing this I certify the plan of care. Please let me know if there are questions or concerns regarding this plan of care. Physician Signature: Date:
--- NOTE | 2025-03-22 10:20 | HP.PTREVAL ---
Re-Evaluation Intro: CELESTE Verduzco, It has been my pleasure to treat ARMANDO GONZALEZ over the last 8 visits for Imbalance. Please see the progress note below for an update on the physical therapy plan of care! Subjective Subjective: Pt. reports overall doing slight better. Pt. reports being 50% better. Mostly with her balance, but her ankle strength has not seen much change. Objective Objective/Function: ROM: Pt. is still limited iwth L knee ROM 0-5-98deg with over pressure. She is unable to complete SL heel raise on LLE, but able to do x10 on R side. Overall her balance has improved, but still very limited with L knee ROM and L ankle strength. I feel like her lack of TKE on the L side is effecting her able to complete standing heel raises and her limited PF strength is effecting her balance. Pt. is to follow up with physician to determine best course of action. No recent falls and she is I with LE strengthening HEP at this point in time. I will have Armando on hold with PT until following up with physician. Plan Plan Plan: Pt. to be on hold until meeting with physician next week. Balance/Gait/Functional tests Balance/Special Test Scores Functional Gait Assessment Score: 22 % Disability: 26.6700 Lower Extremity Functional Score: 34 TUG Test Time Seconds: 10.9 Tug Test: <20 sec.=mostly independent Goals Goals Goal 1:: LTG: Pt. to be I with HEP. Goal Time Frame: 4-6 Weeks Goal Progress: Goal Met Goal 2:: STG: Pt. to have increased L knee ROM to 0-5-100deg allowing for improved gait pattern. Goal Time Frame: 2-4 Weeks Goal Progress: Progressing Goal 3:: LTG: Pt. to be able to complete SL heel raises on LLE x10 indicating improved calf strength. Goal Time Frame: 4-6 Weeks Goal Progress: Not Progressing Goal 4:: LTG: Pt. to compelte TUG with time less than 10seconds. Goal Progress: Progressing Goal 5:: LTG: Pt. to complete FGA with score greater than 24/30. Goal Progress: Progressing Anticipated Interventions Anticipated Interventions Patient/Client Instruction: Educate patient on: Condition, Plan of Care, Risk Factors and Benefits of Fitness Program For the Purpose of:: To improve decision making, To facilitate caregiver knowledge, To improve self management, To prevent re-injury, To improve ability to perform tasks related to life management and To improve tolerance to ADL's Therapeutic Exercise to Include: Strength training, Power training, Endurance training, Balance training, Postural training and Flexibilty training For the Purpose of:: To decrease pain, To decrease swelling/inflammation, To increase ROM, To improve nutrient delivery to tissue and To increase oxygenation perfusion Re-Evaluation Ending Re-evaluation ending: Please do not hesitate to contact me at [phone] by phone or if you have questions or concerns regarding this new plan of care! Sincerely, Kota Arshad DPT
== END 2025-03-22 19:00 | disposition home or self-care (01) ==
LOC: PT 09:30
PROVIDERS: PCP Family Medicine; Referring Provider Physician Assistant; Visit Provider Physician Assistant
DX: R26.81 Unsteadiness on feet (principal)
CPT/HCPCS: 97110; 97161; 97530

== ENCOUNTER → 2025-05-17 | Outpatient (CLI) | payer MEDICARE, OTHER, SELFPAY ==
[2025-05-17 11:19] LABS: Hematocrit 41.1 % (37-47); Hemoglobin 14.1 g/dL (12.0-15.0); Immature Granulocytes Count 0.060 X10^3/uL (0.0-0.0); Mean Corp Hgb Conc 34.3 g/dL (32-36); Mean Corpuscular Volume 93.6 fL (81-99); Mean Platelet Vol. 10.0 fl (6.2-12.0); NRBC Flagged by Analyzer 0 % (0-5); Platelet Count 311 K/mm3 (150-450); RBC Distribution Width CV 13.1 % (11.6-14.6); RBC Distribution Width SD 44.7 fl (35.1-43.9); Red Blood Count 4.39 M/mm3 (4.2-5.4); White Blood Count 10.4 K/mm3 (4.4-11.0)
[2025-05-17 11:48] LABS: Creatinine, Urine (random) 19.50 mg/dL (28.00-217.00); Microalbumin,Random Urine < 12.0 mg/L (<20 mg/L)
[2025-05-17 11:51] LABS: AST(SGOT) 31 U/L (<=31); Alanine Aminotransfer ALT/SGPT 43 U/L (<=34); Albumin, Serum 4.5 g/dL (3.4-4.8); Alkaline Phosphatase 83 U/L (35-104); Anion Gap 16 (5-15); BUN 19 mg/dL (4-19); BUN/Creat Ratio 22.5 RATIO (10-20); Calcium,Total 10.1 mg/dL (7.6-11.0); Carbon Dioxide 23.9 mmol/L (21.0-32.0); Chloride 96 mmol/L (98-108); Cholesterol 192 mg/dL (<=200); Globulin 2.7 g/dL (2.2-4.2); Glucose 288 mg/dL (70-99); Low Density Lipoprotein Calc. 101 mg/dL; Potassium 4.8 mmol/L (3.3-5.1); Triglycerides 219 mg/dL; Very Low Density Lipoprotein 44 mg/dL (5-40); cholesterol:hdl ratio screen 4.10
== END | disposition home or self-care (01) ==
PROVIDERS: PCP Family Medicine; Referring Provider Family Medicine; Visit Provider Family Medicine
DX: I10 Essential (primary) hypertension (principal); E11.9 Type 2 diabetes mellitus without complications; E78.5 Hyperlipidemia, unspecified
CPT/HCPCS: 36415; 80053; 80061; 82043; 82570; 83036; 85025

== ENCOUNTER → 2025-07-09 | Outpatient (CLI) | payer MEDICARE, OTHER, SELFPAY ==
--- NOTE | 2025-07-09 10:00 | PET_ITS ---
PROCEDURE: PET/CT TUMOR BASE -THIGH INIT 07/09/2025 REASON FOR EXAM: 70 y/o F with ABNORMAL FINDING OF LUNG FIELD TECHNIQUE: Procedure Code: [id number] Modality: PT Procedure: PET/CT TUMOR BASE -THIGH INIT After intravenous injection of 12.3 millicuries of FDG and a standard uptake period, a noncontrast CT scan, followed by a PET scan were acquired along the length of the body from the base of the skull to the mid thighs. The noncontrast helical CT imaging was performed without breath hold, for attenuation correction of PET images and anatomic correlation, but not for primary interpretation, as it is not of the standard diagnostic quality. Images were reviewed in the axial, coronal and sagittal planes. RADIATION DOSE SUMMARY: Effective Dose: Approximately 7 mSv for a standard whole-body PET scan Organ Doses: Varies by organ, with higher doses typically to the bladder, liver, and brain CTDI: 10.2 mGy. DLP: 946.74 mGy cm COMPARISON: COMPARISON FROM CT, PET OR OTHER PERTINENT EXAMS: Limited CT cardiac only, 06/15/2025. FINDINGS: Physiologic uptake: There may be expected metabolic uptake within the brain, tongue and floor of the mouth and larynx/vocal cords, heart, polly (many normal individuals have hilar uptake in less than 3 nodes with mildly avid hilar nodes less than 2.7 SUV), liver and spleen, system, and GI tract and symmetric muscle uptake. FDG AVID AND NON-AVID LESIONS. Reported avid SUV values (g/mL) are maximum SUV. Head and neck: There is a normal distribution of FDG activity in the visualized brain parenchyma. There is normal uptake within the soft tissues of the neck and glandular structures. There is no hypermetabolic lymphadenopathy. Chest: There is a 1.9 x 1.5 cm nodule in the upper-outer quadrant of the right breast, demonstrating hypermetabolic activity, max SUV 9.8. There is a 2nd nodule, extending inferiorly, just lateral to the nipple, measuring 3.7 x 1.8 cm, max SUV 10.2. There is a 1.6 x 1.6 cm right axillary lymph node demonstrating hypermetabolic activity, max SUV 12.8. There is a 5 x 5 mm right axillary lymph node demonstrating hypermetabolic activity, max SUV 4.3. There is no abnormal FDG activity in the pulmonary parenchyma. There are no pleural effusions. The heart size is normal. There is calcific vascular disease of the thoracic aorta and coronary arteries. Abdomen and pelvis: There is cholelithiasis. There is calcific vascular disease of the abdominal aorta. Status post bladder tack procedure. There is a normal distribution of FDG activity within the gastrointestinal and genitourinary tract. There is no hypermetabolic lymphadenopathy identified. Musculoskeletal: There are no suspicious hypermetabolic osteolytic or osteosclerotic lesions. Uptake time: 60 minutes. Mediastinal blood pool: Max SUV, 3.0 Blood glucose: 196 BMI: 32.3 PET/PET/CT Tumor Base -Thigh Init IMPRESSION: 1. There are 2 hypermetabolic nodules in the upper-outer quadrant of the right breast consistent with primary breast carcinoma. The nodules are by a thin band of non FDG avid tissue, and may in fac t be a single neoplasm. 2. There are 2 hypermetabolic lymph nodes in the right axilla consistent with metastatic disease. 3. Other findings as noted. Reading Location: [place] [id number]
== END | disposition home or self-care (01) ==
PROVIDERS: PCP Family Medicine; Referring Provider Family Medicine; Visit Provider Family Medicine
DX: R91.8 Other nonspecific abnormal finding of lung field (principal); R59.0 Localized enlarged lymph nodes; R93.89 Abnormal findings on diagnostic imaging of other specified body structures
CPT/HCPCS: 78815; A9552

== ENCOUNTER → 2025-07-17 | Outpatient (CLI) | payer MEDICARE, OTHER, SELFPAY ==
--- NOTE | 2025-07-17 08:59 | US_ITS ---
PROCEDURE: BREAST LIMITED UNILATERAL 07/17/2025 REASON FOR EXAM: F, Age 70 y/o , MASS Abnormal mammogram. COMPARISON: Prior mammogram dated January 28, 2025.. TECHNIQUE: Procedure Code: USBRSTLIMIT Modality: US Procedure: BREAST LIMITED UNILATERAL FINDINGS: There is a 4.3 cm 2.3 cm 1.1 cm irregular hypoechoic solid mass at the 10 o'clock to 12 o'clock position of the breast at 4 cm from the nipple. Biopsy recommended. A similar-appearing hypoechoic nodule measuring 6 mm x 8 mm x 6 mm is seen in the retroareolar region. Incidental note is made of 2 irregular right axillary lymph nodes. US/Breast Limited Unilateral IMPRESSION: 4.3 cm x 2.3 cm 1.1 cm irregular hypoechoic nodule at the 10 to 12 o'clock posi tion of the breast at 4 cm from the nipple. There is also evidence of a 6 mm x 8 mm x 6 mm hypoechoic nodule in the retroareolar region of the breast. Biopsy recommended. Incidental note is made of right axillary lymph nodes. BI-RADS 4: SUSPICIOUS RECOMMENDATION: Biopsy Recommended Reading Location: [place] [id number]
--- NOTE | 2025-07-17 09:38 | BI_ITS ---
EXAM: DIAG MAMM W/CAD, UNILAT 07/17/2025 CLINICAL HISTORY: F, Age 70 y/o , RT ABNORMAL PET. Abnormal breast ultrasound of the right breast. TECHNIQUE: Procedure Code: [id number] Modality: MG Procedure: DIAG MAMM W/CAD, UNILAT. COMPARISON: Prior exam) dated January 28, 2025.. FINDINGS: TISSUE DENSITY: There are scattered areas of fibroglandular density. Bilateral Breast Mammographic Findings: There is evidence of 2, adjacent spiculated nodules in the retroareolar region of the right breast measuring 1.7 cm x 1.5 cm. The ultrasound demonstrated this to be mass. Biopsy recommended. BI/DIAG MAMM W/CAD, UNILAT IMPRESSION: Suspicious masses in the retroareolar region of the right breast as described. This correlates with the sonographic findings. Biopsy recommended. OVERALL FINAL ASSESSMENT BI-RADS 5: HIGHLY SUGGESTIVE OF MALIGNANCY. RECOMMENDATION: Biopsy Recommended Additional Recommendation none A letter with findings and recommendations will be mailed to the patient. Reading Location: [place] [id number]
== END | disposition home or self-care (01) ==
LOC: OPUS 08:57
PROVIDERS: PCP Family Medicine; Referring Provider Family Medicine; Visit Provider Family Medicine
DX: N63.11 Unspecified lump in the right breast, upper outer quadrant (principal)
CPT/HCPCS: 76642; 77062; 77065; G0279

== ENCOUNTER → 2025-07-23 | Outpatient (CLI) | payer MEDICARE, OTHER, SELFPAY ==
--- NOTE | 2025-07-23 10:00 | BRBX_PTH ---
PATIENT: ARMANDO GONZALEZ LOC: [facility] U#:[id number] AGE/SX: 70/F ROOM: RE07/23/[address]: Dr. Carol Medina MD : [id number] BED: DIS: 07/23/2025 SPEC #: [id number] RECD: 07/23/25 11:16 STATUS: JD REQ #: [id number] JORDEN: 07/23/25 10:[address]: Carol Medina DEPT: SURGICAL PATHOLOGY RECD BY: Jose Hanna ENTERED: 07/23/25 13:21 SP TYPE: BREAST BX OTHR DR: Dr. Awais Kearney, Tissues: A - Right breast, NOS B - Axillary lymph node, NOS Procedures: Immunohistochemical Stains Surgery Specimen Level IV IHC Stain ADDITIONAL HEADER OPERATION: Right breast biopsy and lymph node biopsy PRE-OP DIAGNOSIS: Likely cancer, + on PET scan TISSUE SUBMITTED: A- Breast mass tissue , 11o'clock, 4cm from nipple, B- Right axillary lymph node MICROSCOPIC DIAGNOSIS A. 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 Right axillary lymph node, core biopsy: * Metastatic ductal carcinoma. MICROSCOPIC DESCRIPTION Slides are reviewed. All matched controls reacted appropriately. These tests were developed and their performance characteristics determined by [facility]. They may not have been cleared or approved by the U.S. Food and Drug Administration. The FDA has determined that such clearance or approval is not necessary. The above immunohistochemical markers and/or special?stains have been reviewed by the Pathologist. GROSS DESCRIPTION Received in 2 formalin containers labeled with the patient's name and date of . Designated as: A. R breast tissue are 3 fernandes-pink to yellow tissue cores, 0.8 cm and 1.7 cm in length by 0.2 cm in diameter. Entirely submitted in 1 cassette. Cold ischemic time: <1-minuteFormalin fixation time: 9 hours, 30 minutes B. R axillary tissue is a 1.2 x 0.6 x 0.1 cm aggregate of fernandes-yellow to red tissue core fragments. Entirely submitted in 1 cassette. MN 07/23/2025PT:[id number]
== END | disposition home or self-care (01) ==
LOC: LABSPEC 11:28
PROVIDERS: PCP Family Medicine; Referring Provider Surgery; Visit Provider Surgery
DX: C50.911 Malignant neoplasm of unspecified site of right female breast (principal)
CPT/HCPCS: 88305; 88341; 88342

== ENCOUNTER → 2025-08-01 | Outpatient (CLI) | payer MEDICARE, OTHER, SELFPAY ==
--- NOTE | 2025-08-01 09:49 | ECHOCSONC_ITS ---
Reason For Study Reason For Study: Chemotherapy Procedure This was a 2D Doppler, Color Flow transthoracic echocardiogram. Myocardial strain analysis was performed in this exam to aid in the assessment of cardiac function. The study was technically difficult. Contrast injection was performed. Exam performed in department. Left Ventricle Normal LV size. Mild assymetric septal hypertrophy. The global longitudinal strain = -17.4 % (normal). Left ventricular systolic function is normal. The left ventricular ejection fraction is 60 %. No regional wall motion abnormalities noted. Right Ventricle Normal RV size. Normal systolic function. Atria Normal left atrium. Normal right atrium. Mitral Valve Normal mitral valve. Tricuspid Valve Normal tricuspid valve. Trivial tricuspid valve insufficiency. Unable to estimate RV systolic pressure due to insufficient tricuspid regurgitant envelope. Aortic Valve Trisinus/trileaflet aortic valve. Mild focal aortic valve calcification. Aortic sclerosis, no stenosis. Trivial aortic valve insufficiency. Pulmonic Valve Normal pulmonic valve. Mild (1+) pulmonic valve insufficiency. Great Vessels Normal sized aortic root. The pulmonary artery is normal size. The inferior vena cava is not dilated. and collapses. Pericardium/Pleural No pericardial effusion. Medication 22 gauge I.V. with prn adaptor inserted into left arm. Diluted definity 1ml given slow IV push to enhance endocardial definition. MMode/2D Measurements & Calculations LVIDd: 4.3 cm IVSd: 1.1 cm Ao root diam: 3.0 cm LVIDs: 3.0 cm LVPWd: 0.99 cm RVDd: 3.6 cm FS: 30.6 % LAV(MOD-bp): 35.2 ml LVAd ap4: 31.9 cm2 LVAd ap2: 31.0 cm2 LAV(MOD-bp) Indexed: 18.8 ml/m2 LVLd ap4: 8.2 cm LVLd ap2: 7.6 cm LAV(MOD-sp2): 26.1 ml EDV(MOD-sp4): 100.9 ml EDV(MOD-sp2): 106.9 ml LAV(MOD-sp4): 43.0 ml EDV(sp4-el): 104.9 ml EDV(sp2-el): 107.2 ml LVAs ap4: 19.5 cm2 LVAs ap2: 19.8 cm2 LVLs ap4: 6.6 cm LVLs ap2: 6.6 cm ESV(MOD-sp4): 47.8 ml ESV(MOD-sp2): 48.2 ml ESV(sp4-el): 48.5 ml ESV(sp2-el): 50.2 ml EF(MOD-sp4): 52.6 % EF(MOD-sp2): 54.9 % EF(sp4-el): 53.8 % SV(MOD-sp4): 53.1 ml SV(MOD-sp2): 58.7 ml SV(sp4-el): 56.4 ml SI(MOD-sp4): 28.4 ml/m2 SI(MOD-sp2): 31.4 ml/m2 LA A4 area: 15.8 cm2 LA dimension(2D): 3.8 cm RA A4 area: 12.8 cm2 TAPSE: 2.5 cm Time Measurements MV dec time: 0.21 sec Doppler Measurements & Calculations MV E max jose: 77.3 cm/sec Lat Peak E' Jose: 7.0 cm/sec Med Peak E' Jose: 11.2 cm/sec MV A max jose: 77.3 cm/sec E/E' lat: 11.0 E/E' med: 6.9 MV E/A: 1.00 MV V2 max: 90.9 cm/sec MV P1/2t max jose: 85.5 cm/sec Ao V2 max: 152.7 cm/sec MV max P.3 mmHg MV P1/2t: 67.4 msec Ao max P.3 mmHg MV V2 mean: 44.3 cm/sec MV dec slope: 371.5 cm/sec2 Ao V2 mean: 105.0 cm/sec MV mean P.99 mmHg MVA(P1/2t): 3.3 cm2 Ao mean P.0 mmHg MV V2 VTI: 32.4 cm Ao V2 VTI: 33.6 cm AV (velocity ratio): 0.77 LV V1 max: 123.1 cm/sec PA V2 max: 97.3 cm/sec LV V1 max P.1 mmHg PA V2 mean: 65.4 cm/sec LV V1 mean P.3 mmHg LV V1 mean: 86.3 cm/sec LV V1 VTI: 25.7 cm ECHO/ONC Echo Complete W/ Contrast Interpretation Summary The left ventricular ejection fraction is 60 %. Normal LV size. Left ventricular systolic function is normal. The global longitudinal strain = -17.4 % (normal). Mild focal aortic valve calcification. Contrast injection was performed. Ordering Physician: Ciro Gaytan Referring Physician: Ciro Gaytan Performed By: Arsh Aldridge [facility]
== END | disposition home or self-care (01) ==
LOC: CVS 09:49
PROVIDERS: PCP Family Medicine; Referring Provider Internal Medicine Hematology & Oncology; Visit Provider Internal Medicine Hematology & Oncology
DX: C50.919 Malignant neoplasm of unspecified site of unspecified female breast (principal); C77.9 Secondary and unspecified malignant neoplasm of lymph node, unspecified; Z79.899 Other long term (current) drug therapy
CPT/HCPCS: 93306; 93356; Q9957; A4216; C8929

== ENCOUNTER 2025-08-08 05:51 | Day surgery (SDC) | payer MEDICARE, OTHER, SELFPAY ==
--- NOTE | 2025-08-02 22:36 | PAT.ANESEVAL ---
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 When Was Last Pacemaker Check QUESTION #4 FULL TEXT: You/Your Family Experience fever (hyperthermia) with Anesthesia Last Oral Intake Last Oral intake: Last Oral Intake NPO since Meds taken in AM with sips of water? Meds patient instructed to take am of surgery PONV PONV - transit police officer: PONV - transit police officer Female Yes 08/02/25 08:16 HX of Motion Sickness Yes 08/02/25 08:16 HX of N/V After Surgery No 08/02/25 08:16 Non-Smoker Yes 08/02/25 08:16 Duration of Surgery greater No 08/02/25 08:16 than 60 minutes Number of Risk Factors 3 08/02/25 08:16 PONV Score Moderate Risk 08/02/25 08:16 Height & Weight Height & Weight: Anesthesia: Height & Weight Height 5 ft 3 in 07/30/25 13:16 Respiratory Assessment Respiratory Assessment - transit police officer: Respiratory Tract Infection Hx - transit police officer Hx Respiratory Tract Infection No 08/02/25 08:16 STOP Sleep Apnea STOP Sleep Apnea - transit police officer: STOP Sleep Apnea - transit police officer Hx Hypertension Yes: CONTROLLED WITH MEDS 08/02/25 08:16 Hx Sleep Apnea Yes 08/02/25 08:16 CPAP Yes 08/02/25 08:16 BIPAP No 08/02/25 08:16 Do you snore loudly (louder than talking or can be heard Do you often feel tired/ fatigued/ sleepy during daytime? Has anyone observed you stop breathing during sleep? STOP Results Positive 08/02/25 08:16 QUESTION #5 FULL TEXT : Do you snore loudly (louder than talking or can be heard through closed doors)? 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 Specify any problems Hx of Preganancy in last 3 No 08/02/25 08:16 Months Nurse Filling Out Transfusion DSCHRIBER 08/02/25 08:16 & Questions: Date: 08/02/25 08/02/25 08:16 Time: 08:18 08/02/25 08:16 Patient unable to answer at this time (ie. confused, unrespo /Reproduction History /Reproductive History - transit police officer: /Reproductive Hx- transit police officer Hx Now No 08/02/25 08:16 Gestational Age (in weeks): EDC: Hx Hx Para Hx Section SAB No 08/02/25 08:16 Does the father of the baby or his family experience fever w Father of the baby Malignant Hypertension history comment PFSH Medical History (Updated 08/02/25 @ 08:24 by Nikole Sánchez) Wears contact lenses Cancer Encounter for education Regional lymph node metastasis present Breast cancer Wears glasses Post-menopausal Wears dentures Depression Anxiety High cholesterol Dietary restriction Non-smoker CPAP (continuous positive airway pressure) dependence Leg cramps History of pain when walking History of edema History of echocardiogram History of stress test Hypertension Cardiology follow-up encounter History of atrial fibrillation Preop cardiovascular exam Arthritis of left knee Lupus Diabetes Hemorrhoids Essential (primary) hypertension Varicose veins with inflammation Chronic venous insufficiency Cyst of breast, right, solitary SVT (supraventricular tachycardia) Paroxysmal atrial fibrillation Hyperlipemia Palpitations Polyarthritis Impingement syndrome of right shoulder Obesity EMMANUEL (obstructive sleep apnea) Hypomagnesemia IBS (irritable bowel syndrome) Vitamin D deficiency Gout Dermatitis Bradycardia Constipation Osteoporosis Leg edema Home Medications Medication Instructions Recorded Last Taken Type multivitamin (Daily Multi-Vitamin 1 tab PO DAILY supplement 07/09/20 03/01/22 History tablet) furosemide 40 mg tablet (Lasix) 40 mg PO BID #180 tabs 09/04/24 Unknown Rx lisinopril 20 mg tablet 20 mg PO BID #180 tabs 09/04/24 Unknown Rx metoprolol succinate 50 mg 50 mg PO DAILY #90 tabs 09/04/24 Unknown Rx tablet,extended release 24 hr pravastatin 40 mg tablet 40 mg PO QHS #90 tabs 09/04/24 Unknown Rx spironolactone 25 mg tablet 25 mg PO DAILY #90 TABLETS 09/04/24 Unknown Rx flecainide 100 mg tablet 100 mg PO BID #180 TABLETS 09/24/24 Unknown Rx glipizide 10 mg tablet, extended 10 mg PO QDAY 11/13/24 Unknown History release 24 hr diosmin complex no.1 630 mg tablet 1 tab PO QDAY #90 tabs 07/01/25 Unknown Rx (Vasculera) dulaglutide 0.75 mg/0.5 mL 4.5 mg subcut MO 07/23/25 07/29/25 History subcutaneous pen injector (Trulicity) lidocaine-prilocaine 2.5 %-2.5 % 1 applic topical ONCE PRN port 08/01/25 Unknown Rx topical cream access 30 days #30 grams ondansetron 8 mg disintegrating 8 mg PO Q8H PRN nausea and 08/01/25 Unknown Rx tablet vomiting #30 tabs prochlorperazine maleate 10 mg 10 mg PO Q6H PRN nausea and 08/01/25 Unknown Rx tablet vomiting #30 tabs aspirin 81 mg chewable tablet 81 mg PO DAILY Postop DVT 08/02/25 07/30/25 History prophylaxis Allergy/AdvReac Type Severity Reaction Status Date / Time Dressing: Non-Medicated AdvReac Rash Verified 08/02/25 08:12 (wrap) Milk Containing Products AdvReac Diarrhea Verified 08/02/25 08:12 (Dairy) (Milk Containing Products) Family History Mother CAD (coronary artery disease) Diabetes Father Aneurysm Aunt Breast cancer Other Heart disease Surgical History (Updated 08/02/25 @ 08:24 by Nikole Sánchez) History of left knee replacement Hx of colonoscopy Status post endovenous radiofrequency ablation of saphenous vein vein ablation History of left heart catheterization (11/20/10) History of cardiac radiofrequency ablation (RFA) (11/20/10) History of hysterectomy History of tonsillectomy Social History Smoking Status: Never smoker alcohol intake: never substance use type: does not use caffeine: Yes Type: carbonated beverages Number of servings: 1 what type of physical activity do you participate in: none seatbelt use: always do you feel safe at home: Yes Audit: Pertinent Findings Pertinent Findings EKG Perinent findings: 10/30/2024. Sinus rhythm with marked sinus arrhythmia. LAD. Inferior infarct, age undetermined. Cannot rule out anterior infarct, age undetermined. Stress test pertinent findings: 07/02/2022. EF is 69%. No areas of reversibility are noted to suggest ischemia and no previous infarct. Consult pertinent findings: 09/04/2024. Salomon ROCK. 1. Paroxysmal atrial fibrillation-not symptomatic. Continue flecainide and metoprolol. 2. SVT-status post ablation 11/20/2010. No symptomatic recurrence since ablation. 3. Hypertension–controlled. 4. Hyperlipidemia–controlled. Continue to monitor intensity statin. 5. Edema- encouraged continued compression stocking and spironolactone use. Additional pertinent findings: 30-day event monitor. 08/10/2020. Baseline rhythm was sinus arrhythmia. 0 critical, 0 serious, and 7 stable events that occurred. One of the stable events was a episode of atrial flutter. Recommendation Anesthesia Recommendation Anesthesia recommendation: OPTIMIZED for anesthesia
[2025-08-08] VITALS (9 sets, daily range): BP systolic 103–124; BP diastolic 48–60; PULSE 55–68; RESP 16; TEMP 36.2–36.3; O2SAT 95–99; BMI 32.8
--- OUTSIDE RECORDS SUMMARY | 2025-08-08 05:53 | XMS RPT_ITS | CCD ---
Author Organization [facility] Care Team Providers Care General Scrap Worker Name Role Phone Usha Hidalgo Unavailable Dianna AYALA, Evon No Unavailable Unavailable Usha Hidalgo Unavailable Usha Hidalgo Unavailable Mirna Fatima Unavailable Unavailable MD Veras Cyril S Unavailable Silvia HOLLAND, Fabián Corrales Unavailable [phone] JAMIE Tamayo, Ramona Carpenter Unavailable Unavailabl e Jus Reynoso Primary Care Provider Dr. Awais Kearney Primary Care Provider [phone] Dr. Awais Kearney Referring Provider [phone] Kurtis Chowdhury Attending Provider Dr. Awais Kearney Primary Care Provider [phone] Dr. Fabián Vega Attending Provider [phone] Dr. Aly Pillai Referring Provider Dr. Awais Kearney Primary Care Provider [phone] Dr. Awais Kearney Referring Provider [phone] CELESTE Johnson Attending Provider CELESTE Johnson Referring Provider CELESTE Johnson Other Provider [phone] Dr. Christian Veras Attending Provider [phone] Awais Kearney Primary Care Provider [phone] CELESTE Johnson Referring Provider CELESTE Johnson Other Provider [phone] Dr. Christian Veras Attending Provider [phone] Awais Kearney Referring Provider Dr. Kurtis Chowdhury Attending Provider Dr. Awais Kearney Primary Care Provider Dr. Awais Kearney Primary Care Provider Dr. Awais Kearney Referring Provider Brittni ENRIQUEZ, FOOD SERVICES COORDINATOR-C Leah Attending Provider Dr. Awais Kearney DO Primary Care Provider Dr. Horace Sotomayor DO Attending Provider Dr. Horace Sotomayor DO Emergency Provider Dr. Awais Kearney DO Referring Provider Brittni ENRIQUEZ-CLeah Attending Provider Dr. Awais Kearney DO Attending Provider Ellen Mccray Attending Provider [phone] Ellen Mccray Referring Provider [phone] Willem HOLLAND, Dr. Naranjo Attending Provider Dr. Awais Kearney DO Primary Care Provider Dr. Awais Kearney DO Referring Provider Ellen Mccray Referring Provider [phone] Unavailable Primary Care Provider Unavailabl GASPER Linda Attending Unavailable Awais Kearney Primary Care Unavailable Katz, Ellen Referring Unavailable Katz, Ellen Attending Unavailable ChristelAwais gutierrez Primary Care Unavailable Katz, Ellen Referring Unavailable Katz, Ellen Attending Unavailable Awais Kearney Primary Care Unavailable Awais Kearney Referring Unavailable Carol Medina Attending Unavailable Awais Kearney Referring Unavailable Awais Kearney Primary Care Unavailable Awais Kearney Attending Unavailable Christel, Awais Primary Care Unavailable Christel, Awais Referring Unavailable Christel, Awais Attending Unavailable Isckarus, Mansour Attending Unavailable Isckarus, Mansour Referring Unavailable Christel, Awais Primary Care Unavailable Robotham, Carol Attending Unavailable Robotham, Carol Referring Unavailable Christel, Awais Primary Care Unavailable Christel, Awais Primary Care Unavailable Christel, Awais Referring Unavailable Christel, Awais Attending Unavailable Robotham, Carol Attending Unavailable Christel, Awais Primary Care Unavailable Christel, Awais Referring Unavailable Brittni FOOD SERVICES COORDINATOR, Leah Attending Unavailable Isckarus, Mansour Attending Unavailable Isckarus, Mansour Referring Unavailable Christel, Awais Primary Care Unavailable Christel, Awais Referring Unavailable Christel, Awais Primary Care Unavailable Katz, Ellen Attending Unavailable Christel, Awais Referring Unavailable Christel, Awais Primary Care Unavailable Katz, Ellen Attending Unavailable Robotham, Carol Referring Unavailable Christel, Awais Primary Care Unavailable Isckarus, Mansour Attending Unavailable Christel, Awais Primary Care Unavailable Christel, Awais Referring Unavailable Salomon ALONSO, Marci Carpenter Attending Unavail able Jose A Bangura Attending Unavailable Christel, Awais Primary Care Unavailable Katz, Ellen Referring Unavailable Christel, Awais Primary Care Unavailable Christel, Awais Referring Unavailable Brittni FOOD SERVICES COORDINATOR, Leah Attending Unavailable Christel, Awais Primary Care Unavailable Christel, Awais Referring Unavailable Carmella FOOD SERVICES COORDINATOR, Odalis Attending Unavailable Christel, Awais Primary Care Unavailable Christel, Awais Referring Unavailable Christel, Awais Attending Unavailable Christel, Awais Primary Care Unavailable Horace Sotomayor Attending Unavailable Robotham, Carol Referring Unavailable Robotham, Carol Attending Unavailable Christel, Awais Primary Care Unavailable Christel, Awais Primary Care Unavailable Christel, Awais Referring Unavailable Christel, Awais Attending Unavailable Allergies Allergy Classification Reported Allergen(s) Allergy Type Date of Onset Reaction(s) Facility (20 sources) NKDA; Translations: [NKDA] drug allergy 3 NONE [facility] Work Phone: (3 sources) dairy Propensity to adverse reactions 2 Diarrhea [facility] Work Phone: (6 sources) elastic wraps Propensity to adverse reactions 2 Rash [facility] (10 sources) Milk Containing Products Propensity to adverse reactions 2 Diarrhea [facility] Comment on above: DAIRY (8 sources) Dressing: Non-Medicated; Translations: [Dressing: Non-Medicated] Propensity to adverse reactions 3 Rash [facility] (1 source) Milk Containing Products (Dairy) Drug allergy (disorder) 5 [facility] Repository NEGATED: Highlighted row has been ruled out! (4 sources) Observed no known allergies at [facility] No Known Allergies 7 propensity to adverse reactions [facility] Work Phone: Medications Current Medications Medication Drug Class(es) Dates Sig (Normalized) Sig (Original) aspirin 81 mg chewable tablet (20 sources) Nonsteroidal Anti-inflammatory Drug Start: 03-16-2022 take 1 tablet by mouth twice daily at mealtime Aspirin 81 mg Tablet,Chewable Active 81 mg PO TWICE DAILY WITH MEALS 60 30 0 March 16, 2022 12:00am Postop DVT prophylaxis Start: 01-06-2015 End: 03-16-2022 take 1 tablet by mouth once daily Aspirin 81 MG tablet,chewable Discontinued 81 mg PO DAILY@0800 January 06, 2015 12:00am March 16, 2022 7:57am blood thinner Start: 03-12-2011 take 1 tablet by pablito th once daily ASPIRIN 81 MG TABS One tablet by mouth daily ASPIRIN [id number] Ratna Mayer Start: 03-12-2011 take 1 tablet by pablito th once daily ASPIRIN 81 MG TABS One tablet by mouth daily ASPIRIN [id number] Ratna Mayer chlorhexidine gluconate 1.2 mg/ml mouthwash (5 sources) Start: 10-30-2024 Chlorhexidine Gluconate 0.12 % mouthwash Active TWICE A DAY October 30, 2024 1:00am Diosmin Complex No.1 (Vascul era) 630 mg tablet (4 sources) Start: 04-17-2025 Diosmin Comple x No.1 (Vasculera) 630 mg tablet Active 1 {tbl} PO daily 30 2 April 17, 2025 1:10pm Start: 02-07-2025 End: 04-17-2025 Diosmin Complex No.1 (Vascul era) 630 mg tablet Discontinued 1 {tbl} PO daily 30 2 May 15th, 2025 12:00am April 17, 2025 1:10pm Start: 02-07-2025 Diosmin Comple x No.1 (Vasculera) 630 mg tablet Active 1 {tbl} PO daily February 07, 2025 12:00am 0.5 ml dulaglutide 1.5 mg/ml auto-injector (20 sources) GLP-1 Receptor Agonist Start: 11-13-2024 Dulaglutide (Trulicity) 0.75 mg/0.5 mL pen injector Active 0.75 mg SC EVERY WEEK November 13, 2024 1:00am Start: 09-04-2024 End: 10-30-2024 Dulaglutide (Trulicity) 0.75 mg/0.5 mL pen injector Discontinued 0.75 mg SC September 04, 2024 2:39pm October 30, 2024 3:45am diabetes Start: 10-21-2021 End: 09-04-2024 Dulaglutide (Trulicity) 0.75 mg/0.5 mL pen injector Discontinued 3 mg SC October 21, 2021 11:17am September 04, 2024 2:39pm diabetes Start: 10-21-2021 Dulaglutide (T rulicity) 0.75 mg/0.5 mL pen injector Active 1.5 MG SC October 21, 2021 11:17am Start: 07-09-2020 End: 10-21-2021 Dulaglutide (Trulicity) 0.75 mg/0.5 mL pen injector Discontinued 0.75 mg SC July 09, 2020 12:00am October 21, 2021 11:18am diabetes glipiZIDE er 10 mg 24 hr extended release oral tablet (17 sources) Sulfonylurea Start: 11-13-2024 take 1 tablet by mouth once daily Glipizide 10 mg tablet extended release 24hr Active 10 mg PO daily November 13, 2024 1:00am Start: 03-01-2022 End: 11-13-2024 take 1 tablet by mouth once daily Glipizide 5 mg Tablet Discontinued 5 mg PO DAILY March 01, 2022 12:00am November 13, 2024 9:53am meloxicam 15 mg oral tablet (20 sources) Nonsteroidal Anti-inflammatory Drug Start: 06-05-2019 take 1 tablet by mouth at bedtime Meloxicam 15 MG tablet Active 15 mg PO AT BEDTIME June 05, 2019 12:00am inflammation Start: 04-11-2012 End: 08-13-2014 take 1 tablet by mouth once daily MELOXICAM 15 MG TABS One tablet by mouth daily MELOXICAM [id number] Awais Kearney DO Start: 08-23-2011 MELOXICAM 15 M G TABS 1/2 tab once a day MELOXICAM [id number] Vladimir Alcantar MD Multivitamin (Daily Multi-Vitamin) tablet (13 sources) Start: 07-09-2020 take 1 tablet by mouth once daily Multivitamin (Daily Multi-Vitamin) tablet Active 1 TABLET PO DAILY July 09, 2020 11:09am Start: 07-09-2020 Multivitamin ( Daily Multi-Vitamin) tablet Active 1 {tbl} PO DAILY July 09, 2020 12:00am supplement Start: 07-09-2020 Multivitamin ( Daily Multi-Vitamin) tablet Active 1 {tbl} PO DAILY July 09, 2020 12:00am Start: 07-09-2020 take 1 tablet by pablito th once daily Multivitamin (Daily Multi-Vitamin) tablet Active 1 TABLET PO DAILY July 08, 2020 11:00pm Start: 07-09-2020 take 1 tablet by pablito th once daily Multivitamin (Daily Multi-Vitamin) tablet Active 1 TABLET PO DAILY July 09, 2020 12:00am Atkinson 5-Hey-Awh-Fish Oil (8 sources) Start: 01-06-2015 take 1500 mg by mouth once daily Atkinson 8-Kil-Lsm-Fish Oil Active 1500 MG PO DAILY January 06, 2015 5:59am Start: 01-06-2015 End: 09-13-2023 take 1500 mg by mouth once daily Atkinson 7-Xwt-Kez-Fish Oil Discontinued 1500 MG PO DAILY January 06, 2015 12:00am September 13, 2023 2:32pm Start: 01-06-2015 take 1500 mg by mout h once daily Atkinson 0-Maw-Zrt-Fish Oil Active 1500 MG PO DAILY January 05, 2015 11:00pm Start: 01-06-2015 take 1500 mg by mout h once daily Atkinson 3-Xyt-Uhi-Fish Oil Active 1500 MG PO DAILY January 06, 2015 12:00am Completed/Discontinued Medications Medication Drug Class(es) Dates Sig (Normalized) Sig (Original) acetaminophen 500 mg oral tablet (11 sources) Start: 03-16-2022 End: 09-13-2023 take 2 tablets by mouth every eight hours Acetaminophen 500 mg Tablet Discontinued 1000 mg PO EVERY 8 HOURS 180 30 0 March 16, 2022 12:00am September 13, 2023 2:32pm Start: 03-16-2022 End: 09-13-2023 take 1000 mg by mouth every eight hours Acetaminophen Discontinued 1000 MG PO EVERY 8 HOURS 180 30 March 16, 2022 12:00am September 13, 2023 2:32pm [id number] 200 actuat albuterol 0.09 mg/actuat metered dose inhaler (13 sources) beta2-Adrenergic Agonist Start: 10-26-2019 End: 10-26-2019 Albuterol Sulfate (Ventolin Hfa) 90 mcg/actuation HFA aerosol inhaler Discontinued 2 NMA INHALATION EVERY 6 HOURS as needed for shortness of breath or wheezing 6.7 3 October 26, 2019 1:00am October 26, 2019 12:12pm Start: 10-26-2019 End: 10-26-2019 take 1 puff(s) by inhalation every six hours Albuterol Sulfate (Ventolin Hfa) 90 mcg/actuation HFA aerosol inhaler Discontinued 2 PUFF INHALATION EVERY 6 HOURS 6.7 October 26, 2019 1:00am October 26, 2019 12:12pm amLODIPine 10 mg oral tablet (20 sources) Dihydropyridine Calcium Channel Talisha Start: 09-29-2020 End: 04-23-2021 take 1 tablet by mouth once daily Amlodipine 10 mg tablet Discontinued 10 mg PO DAILY 25 08September 29, 2020 1:56pm April 23, 2021 4:07pm BP Start: 08-01-2020 End: 09-29-2020 take 1 tablet by mouth once daily Amlodipine 5 mg tablet Discontinued 5 mg PO DAILY 25 08August 01, 2020 1:58pm September 29, 2020 2:09pm Start: 07-09-2020 End: 08-01-2020 take 1 tablet by mouth once daily Amlodipine 2.5 mg tablet Discontinued 2.5 mg PO DAILY 25 08July 09, 2020 12:00am August 01, 2020 1:59pm Start: 10-17-2012 End: 04-12-2013 take 1 tablet by mouth twice daily NORVASC 2.5 MG TABS one tablet by mouth twice daily AMLODIPINE BESYLATE [id number] Christian Veras MD atropine sulfate 0.025 mg / diphenoxylate hydrochloride 2.5 mg oral tablet (13 sources) Anticholinergic, Cholinergic Muscarinic Antagonist, Antidiarrheal Start: 11-17-2020 End: 02-26-2021 Diphenoxylate-Atropine 1 TABLET tablet Discontinued 2 {tbl} PO 4 TIMES DAILY NEEDED as needed for Diarrhea November 17, 2020 1:00am February 26, 2021 11:47am Start: 11-17-2020 End: 02-26-2021 take 2 tablets by mouth four times daily as needed Diphenoxylate-Atropine Discontinued 2 TABLET PO 4 TIMES DAILY NEEDED November 17, 2020 1:00am February 26, 2021 11:47am MAGNESIUM CL-CALCIUM CARBONATE (20 sources) Start: 05-27-2015 take 1 tablet by mouth twice daily SLOW-MAG 71.5-119 MG TBEC One tablet by mouth twice daily MAGNESIUM CL-CALCIUM CARBONATE [id number] Awais Sepulvedautzman Start: 05-27-2015 take 1 tablet by pablito th twice daily SLOW-MAG 71.5-119 MG TBEC One tablet by mouth twice daily MAGNESIUM CL-CALCIUM CARBONATE [id number] Awais Marybel SepulvedaChristel Start: 08-21-2014 End: 02-11-2015 SLOW-MAG 71.5-119 MG TBEC On e tablet twice daily for low magnesium MAGNESIUM CL-CALCIUM CARBONATE [id number] Christian Veras MD Start: 08-21-2014 SLOW-MAG 71.5- 119 MG TBEC One tablet twice daily for low magnesium MAGNESIUM CL-CALCIUM CARBONATE [id number] Awais Marybel SepulvedaChristelmatt LEBLANC Start: 08-21-2014 End: 02-11-2015 SLOW-MAG 71.5-119 MG TBEC On e tablet twice daily for low magnesium MAGNESIUM CL-CALCIUM CARBONATE [id number] Christian Veras MD celecoxib 200 mg oral capsule (20 sources) Nonsteroidal Anti-inflammatory Drug Start: 10-03-2014 End: 02-11-2015 CELEBREX 200 MG CAPS as needed CELECOXIB [id number] Christian Veras MD End: 09-11-2014 CELEBREX 200 MG CAPS Q 12 Ho urs PRN RX by Dr. Caba CELECOXIB [id number] Awais Kearney DO cholecalciferol 5000 unt oral capsule (20 sources) Vitamin D Start: 12-11-2014 End: 06-03-2017 take 1 tablet by mouth once daily VITAMIN D3 5000 UNIT CAPS One tablet by mouth daily for vitamin d deficiency CHOLECALCIFEROL [id number] Christian Veras MD Start: 08-21-2014 End: 12-11-2014 VITAMIN D3 76770 UNIT CAPS O ne tablet per WEEK for vitamin d deficiency CHOLECALCIFEROL [id number] Awais Kearney DO GLUCOSAMINE-CHONDROITIN CAPS (16 sources) Start: 03-12-2011 End: 04-11-2012 take 1 tablet by mouth once daily GLUCOSAMINE-CHONDROITIN CAPS One tablet by mouth daily GLUCOSAMINE-CHONDROITIN CAPS [id number] Vladimir Alcantar MD Start: 03-12-2011 take 1 tablet by pablito th once daily GLUCOSAMINE-CHONDROITIN CAPS One tablet by mouth daily GLUCOSAMINE-CHONDROITIN CAPS [id number] Ratna Mayer Start: 03-12-2011 End: 04-11-2012 take 1 tablet by mouth once daily GLUCOSAMINE-CHONDROITIN CAPS One tablet by mouth daily GLUCOSAMINE-CHONDROITIN CAPS [id number] Vladimir Alcantar MD Start: 03-12-2011 take 1 tablet by pablito th once daily GLUCOSAMINE-CHONDROITIN CAPS One tablet by mouth daily GLUCOSAMINE-CHONDROITIN CAPS [id number] Ratna Mayer coenzyme q10 10 mg oral capsule (16 sources) Start: 03-12-2011 End: 04-12-2013 take 1 tablet by mouth once daily COENZYME Q10 10 MG CAPS One tablet by mouth daily COENZYME Q10 [id number] Ratna M Mayer diazePAM 2 mg oral tablet (5 sources) Benzodiazepine Start: 10-30-2024 End: 11-13-2024 take 1 tablet by mouth three times daily as needed Diazepam (Valium) 2 mg tablet Discontinued 2 mg PO THREE TIMES A DAY as needed for vertigo 15 5 0 October 30, 2024 1:00am November 13, 2024 9:54am Peripheral vertigo Other peripheral vertigo, unspecified ear ergocalciferol 1.25 mg oral capsule (13 sources) Provitamin D2 Compound Start: 01-06-2015 End: 12-02-2017 Ergocalciferol (Vitamin D2) 50,000 UNIT capsule Discontinued 1 {tbl} PO EVERY WEEK January 06, 2015 12:00am December 02, 2017 1:02pm Start: 01-06-2015 End: 12-02-2017 take 1 tablet by mouth every week Ergocalciferol (Vitamin D2) Discontinued 1 TABLET PO EVERY WEEK January 06, 2015 12:00am December 02, 2017 1:02pm fish oil (8 sources) Start: 03-12-2011 take 1 tablet by mouth once daily FISH OIL CAPS One tablet by mouth daily OMEGA-3 FATTY ACIDS CAPS [id number] Ratnasuzan Mayer Flaxseed extract (2 sources) Non-Standardized Food Allergenic Extract, Non-Standardized Plant Allergenic Extract take 1 capsule by mouth once daily EQL FLAX SEED OIL CAPS PO QD FLAXSEED (LINSEED) CAPS [id number] Awais No [facility] End: 10-03-2014 take 1 capsule by mouth once daily EQL FLAX SEED OIL CAPS PO QD FLAXSEED (LINSEED) CAPS [id number] Christian Veras MD flecainide acetate 100 mg oral tablet (20 sources) Antiarrhythmic Start: 03-12-2011 End: 09-24-2024 take 1 tablet by mouth twice daily Flecainide 100 mg tablet Discontinued 100 mg PO TWICE A DAY 180 3 October 04, 2022 5:31pm September 13, 2023 2:36pm heart Fluticasone-Umecl idin-Vilanter (13 sources) Anticholinergic, Corticosteroid, beta2-Adrenergic Agonist Start: 10-26-2019 End: 10-26-2019 Fluticasone-Umecli din-Vilanter (Trelegy Ellipta) 100-62.5-25 mcg blister with device Discontinued 1 INH INHALATION DAILY 60 October 26, 2019 11:43am October 26, 2019 12:11pm Start: 10-26-2019 End: 10-26-2019 Yhebitfeike-Rpmvufkjg-Iaabpo er (Trelegy Ellipta) 100-62.5-25 mcg blister with device Discontinued 1 NMA INHALATION DAILY 60 3 October 26, 2019 1:00am October 26, 2019 12:11pm Start: 10-26-2019 End: 10-26-2019 Upqwlvkwctu-Zhnelmgdm-Fznhmm er (Trelegy Ellipta) 100-62.5-25 mcg blister with device Discontinued 1 NMA INHALATION DAILY 60 October 26, 2019 1:00am October 26, 2019 12:11pm Start: 10-26-2019 End: 10-26-2019 Jyrfoniudjt-Ljipwspac-Sjpoex er (Trelegy Ellipta) 100-62.5-25 mcg blister with device Discontinued 1 INH INHALATION DAILY 60 October 26, 2019 12:00am October 26, 2019 11:11am Start: 10-26-2019 End: 10-26-2019 Owtcrxpujpf-Naksfbpge-Gkxlui er (Trelegy Ellipta) 100-62.5-25 mcg blister with device Discontinued 1 INH INHALATION DAILY 60 October 26, 2019 1:00am October 26, 2019 12:11pm furosemide 40 mg oral tablet (20 sources) Loop Diuretic Start: 11-04-2016 End: 09-04-2024 take 1 tablet by mouth twice daily Furosemide (Lasix) 40 mg tablet Discontinued 40 mg PO TWICE A DAY 180 November 29, 2022 5:19pm September 13, 2023 2:36pm water pill Start: 11-04-2016 take 1 tablet by pablito th once daily LASIX 40 MG TABS One tablet by mouth daily FUROSEMIDE [id number] Marci Latif PA-C Start: 01-13-2016 End: 04-06-2016 FUROSEMIDE 20 MG TABS 1 tab daily for 3 days FUROSEMIDE [id number] Leah Elkins CNP Start: 03-12-2011 End: 04-11-2012 take 1 tablet by mouth once daily FUROSEMIDE 20 MG TABS One tablet by mouth daily X 7 days FUROSEMIDE [id number] Vladimir Alcantar MD [id number] TABS (14 sources) Start: 08-13-2014 End: 02-11-2015 CARTIVISC TABS PO daily RX b y Dr. Caba [id number] TABS [id number] Christian Veras MD Start: 08-13-2014 CARTIVISC TABS PO daily RX by Dr. Caba [id number] TABS [id number] Awais Kearney DO [id number] TABS (2 sources) Start: 08-13-2014 CARTIVISC TABS PO daily RX b y Dr. Caba [id number] TABS [id number] Awais Kearney DO Start: 08-13-2014 End: 02-11-2015 CARTIVISC TABS PO daily RX b y Dr. Caba [id number] TABS [id number] Christian Veras MD hydroCHLOROthiazide 25 mg / lisinopril 20 mg oral tablet (20 sources) Thiazide Diuretic, Angiotensin Converting Enzyme Inhibitor Start: 05-18-2011 take 1 tablet by mouth twice daily LISINOPRIL-HYDROCHLOROTHIAZIDE 20-25 MG TABS One tablet by mouth twice daily LISINOPRIL-HYDROCHLOROTHIAZIDE [id number] Marci Latif PA-C Start: 05-18-2011 End: 11-04-2016 take 1 tablet by mouth once daily LISINOPRIL-HYDROCHLOROTHIAZIDE 20-25 MG TABS One tablet by mouth daily LISINOPRIL-HYDROCHLOROTHIAZIDE [id number] Myrna Villa RN lisinopril 20 mg oral tablet (20 sources) Angiotensin Converting Enzyme Inhibitor Start: 10-26-2019 End: 09-04-2024 take 1 tablet by mouth twice daily Lisinopril 20 mg tablet Discontinued 20 mg PO TWICE A DAY 180 3 October 28, 2022 12:41pm September 13, 2023 2:36pm BP Start: 11-17-2017 End: 10-26-2019 take 1 tablet by mouth once daily Lisinopril 20 mg tablet Discontinued 20 mg PO DAILY 25 08May 28, 2019 4:00pm October 26, 2019 2:17pm Start: 11-04-2016 take 1 tablet by pablito th once daily LISINOPRIL 20 MG TABS One tablet by mouth daily LISINOPRIL [id number] Christian Veras MD Start: 03-12-2011 End: 11-17-2017 take 1 tablet by mouth twice daily Lisinopril 20 MG tablet Discontinued 20 mg PO TWICE A DAY January 06, 2015 12:00am November 17, 2017 5:18pm magnesium chloride 535 mg delayed release oral tablet (13 sources) Start: 01-06-2015 End: 06-29-2018 take 1 tablet by mouth twice daily Magnesium Chloride 71.5 MG tablet,delayed release (DR/EC) Discontinued 71.5 mg PO TWICE A DAY January 06, 2015 12:00am June 29, 2018 10:54am methylPREDNISolone 4 mg oral tablet (13 sources) Corticosteroid Start: 11-05-2019 End: 11-10-2019 take 1 tablet by mouth once Methylprednisolone (Medrol (Martell)) 4 mg tablets,dose pack Discontinued 4 mg PO per package directions 21 5 0 November 05, 2019 1:00am November 09, 2019 1:00am November 10, 2019 1:09am Unilateral primary osteoarthritis, left knee 24 hr metoprolol succinate 50 mg extended release oral tablet (20 sources) beta-Adrenergic Talisha Start: 01-15-2015 take 1 tablet by mouth twice daily METOPROLOL SUCCINATE ER 25 MG [id number] 1 tab by mouth twice daily if pulse is over 60 in the evening. METOPROLOL SUCCINATE [id number] Awais Kearney DO Start: 01-15-2015 take 1 tablet by pablito th once daily TOPROL XL 50 MG [id number] (ER) One tablet by mouth daily METOPROLOL SUCCINATE [id number] Christian Veras MD Start: 01-15-2015 take 1 tablet by pablito th once daily TOPROL XL 50 MG [id number] (ER) One tablet by mouth daily METOPROLOL SUCCINATE [id number] Christian Veras MD Start: 01-15-2015 take 1 tablet by pablito th once daily TOPROL XL 50 MG [id number] (ER) One tablet by mouth daily METOPROLOL SUCCINATE [id number] Fabián Vega MD Start: 01-07-2015 End: 12-02-2017 take 1 tablet by mouth twice daily Metoprolol Tartrate 25 MG tablet Discontinued 25 mg PO TWICE A DAY 60 2 January 07, 2015 12:00am December 02, 2017 1:01pm Start: 01-06-2015 End: 01-07-2015 take 1 tablet by mouth twice daily Metoprolol Tartrate 50 MG tablet Discontinued 50 mg PO TWICE A DAY January 06, 2015 12:00am January 07, 2015 10:08am Start: 08-23-2011 End: 01-08-2015 METOPROLOL SUCCINATE ER 50 M G [id number] One tablet twice a day METOPROLOL SUCCINATE [id number] Rina Portillo DO Start: 03-12-2011 End: 09-04-2024 take 1 tablet by mouth once daily Metoprolol Succinate 50 mg tablet extended release 24 hr Discontinued 50 mg PO DAILY 90 October 10, 2023 10:01am September 04, 2024 3:05pm bp metroNIDAZOLE 500 mg oral tablet (16 sources) Nitroimidazole Antimicrobial Start: 04-11-2012 End: 10-17-2012 take 1 tablet by mouth twice daily FLAGYL 500 MG TABS One tablet by mouth twice daily METRONIDAZOLE [id number] Vladimir Alcantar MD neomycin / polymyxin b / pramoxine (14 sources) Aminoglycoside Antibacterial, Polymyxin-class Antibacterial End: 10-03-2014 take 1 capsule by mouth once daily EQL FLAX SEED OIL CAPS PO QD FLAXSEED (LINSEED) CAPS [id number] Christian Veras MD take 1 capsule by mouth once elaina ly EQL FLAX SEED OIL CAPS PO QD FLAXSEED (LINSEED) CAPS [id number] Awais Kearney DO Atkinson 2-Hnj-Pmo-Fish Oil 500 MG capsule,delayed release(DR/EC) (5 sources) Start: 01-06-2015 End: 09-13-2023 Atkinson 4-Vxn-Aym-Fish Oil 500 MG capsule,delayed release(DR/EC) Discontinued 1500 mg PO DAILY January 06, 2015 12:00am September 13, 2023 2:32pm supplement Start: 01-06-2015 End: 09-13-2023 Atkinson 9-Gcd-Qaa-Fish Oil 500 MG capsule,delayed release(DR/EC) Discontinued 1500 mg PO DAILY January 06, 2015 12:00am September 13, 2023 2:32pm ondansetron 4 mg disintegrating oral tablet (13 sources) Serotonin-3 Receptor Antagonist Start: 11-12-2020 End: 02-26-2021 take 1 tablet by mouth every eight hours as needed for nausea Ondansetron 4 MG tablet Discontinued 4 mg PO EVERY 8 HOURS NEEDED as needed for Nausea November 12, 2020 1:00am February 26, 2021 11:48am oxyCODONE hydrochloride 5 mg oral tablet (11 sources) Opioid Agonist Start: 03-16-2022 End: 06-22-2022 take 5-10 mg by mouth every four hours as needed for pain Oxycodone 5 mg Tablet Discontinued 5 - 10 mg PO EVERY 4 HOURS NEEDED as needed for Pain Score 4-10 84 7 0 March 16, 2022 June 22, 2022 10:10am Status post total left knee replacement not using cement Presence of left artificial knee joint pantoprazole 40 mg delayed release oral tablet (13 sources) Proton Pump Inhibitor Start: 01-07-2015 End: 06-29-2018 take 1 tablet by mouth once daily Pantoprazole 40 MG tablet Discontinued 40 mg PO DAILY 30 0 January 07, 2015 12:00am June 29, 2018 10:54am microencapsulated potassium chloride 20 meq extended release oral tablet (20 sources) Start: 11-20-2020 End: 02-26-2021 take 1 tablet by mouth once daily Potassium Chloride 20 MEQ tablet Discontinued 20 meq PO DAILY 10 0 November 20, 2020 1:00am February 26, 2021 11:48am Start: 05-27-2015 take 2 tablets by [facility] twice daily KLOR-CON 10 10 MEQ CR-TABS Two tablets by mouth twice daily POTASSIUM CHLORIDE [id number] Awais Kearney DO Start: 05-27-2015 End: 11-14-2015 take 2 tablets by mouth twice daily KLOR-CON 10 10 MEQ CR-TABS Two tablets by mouth twice daily POTASSIUM CHLORIDE [id number] Awais Kearney DO Start: 05-27-2015 take 2 tablets by mo uth twice daily KLOR-CON 10 10 MEQ CR-TABS Two tablets by mouth twice daily POTASSIUM CHLORIDE [id number] Awais Kearney DO Start: 05-27-2015 End: 11-14-2015 take 2 tablets by mouth twice daily KLOR-CON 10 10 MEQ CR-TABS Two tablets by mouth twice daily POTASSIUM CHLORIDE [id number] Awais Kearney DO Start: 05-18-2011 End: 12-02-2017 take 1 tablet by mouth twice daily Potassium Chloride 10 MEQ tablet extended release Discontinued 10 meq PO TWICE A DAY January 06, 2015 12:00am December 02, 2017 1:02pm Start: 05-18-2011 End: 02-11-2015 take 2 tablets by mouth twice daily, then take 10 tablets by mouth KLOR-CON M10 10 MEQ CR-TABS Two tablets by mouth twice daily POTASSIUM CHLORIDE JOHN CR [id number] Christian Veras MD Start: 05-18-2011 take 2 tablets by mo uth twice daily, then take 10 tablets by mouth KLOR-CON M10 10 MEQ CR-TABS Two tablets by mouth twice daily POTASSIUM CHLORIDE JOHN CR [id number] Vladimir Alcantar MD Start: 05-18-2011 take 2 tablets by mo uth twice daily, then take 10 tablets by mouth KLOR-CON M10 10 MEQ CR-TABS Two tablets by mouth twice daily POTASSIUM CHLORIDE JOHN DASILVA [id number] Vladimir Alcantar MD Start: 05-18-2011 End: 02-11-2015 take 2 tablets by mouth twice daily, then take 10 tablets by mouth KLOR-CON M10 10 MEQ CR-TABS Two tablets by mouth twice daily POTASSIUM CHLORIDE JOHN DASILVA [id number] Christian Veras MD pravastatin sodium 40 mg oral tablet (20 sources) HMG-CoA Reductase Inhibitor Start: 08-17-2019 End: 09-04-2024 take 1 tablet by mouth at bedtime Pravastatin 40 mg tablet Discontinued 40 mg PO AT BEDTIME 90 3 November 01, 2022 5:17pm September 13, 2023 2:36pm cholesterol Start: 04-30-2015 End: 08-17-2019 take 1 tablet by mouth at bedtime Pravastatin 20 mg tablet Discontinued 20 mg PO AT BEDTIME 90 3 October 30, 2018 10:50am August 17, 2019 11:18am promethazine hydrochloride 25 mg oral tablet (13 sources) Phenothiazine Start: 11-20-2020 End: 02-26-2021 take 1 tablet by mouth every six hours as needed for nausea Promethazine 25 MG tablet Discontinued 25 mg PO EVERY 6 HOURS NEEDED as needed for Nausea/Emesis 30 0 November 20, 2020 1:00am February 26, 2021 11:48am rosuvastatin calcium 5 mg oral tablet (20 sources) HMG-CoA Reductase Inhibitor Start: 11-02-2013 End: 11-17-2017 take 1 tablet by mouth at bedtime Rosuvastatin 5 MG tablet Discontinued 5 mg PO AT BEDTIME January 06, 2015 12:00am November 17, 2017 5:19pm Start: 08-23-2011 End: 02-18-2015 take 1 tablet by mouth once daily CRESTOR 5 MG TABS One tablet by mouth daily ROSUVASTATIN CALCIUM [id number] Christian Veras MD Start: 03-12-2011 take 1 tablet by pablito th at bedtime CRESTOR 20 MG TABS One tablet by mouth at bedtime. HOLD ROSUVASTATIN CALCIUM [id number] Ratna Mayer SITagliptin 100 mg oral tablet (10 sources) Dipeptidyl Peptidase 4 Inhibitor Start: 10-30-2024 End: 11-13-2024 take 1 tablet by mouth once daily Sitagliptin Phosphate (Januvia) 100 mg tablet Discontinued 100 mg PO DAILY October 30, 2024 1:00am November 13, 2024 9:54am spironolactone 25 mg oral tablet (16 sources) Aldosterone Antagonist Start: 09-13-2023 End: 09-04-2024 take 1 tablet by mouth once daily Spironolactone 25 mg tablet Discontinued 25 mg PO DAILY 90 3 August 22, 2024 1:09pm September 04, 2024 3:05pm triamcinolone acetonide 0.001 mg/mg topical ointment (16 sources) Corticosteroid Start: 12-11-2014 End: 02-11-2015 TRIAMCINOLONE ACETONIDE 0.1 % OINT Apply to affected areas once daily, 15 gram tube TRIAMCINOLONE ACETONIDE [id number] Christian Veras MD Problems Active Problems Problem Classification Problem Date Documented Da te Episodic/Chronic Acquired foot deformities (8 sources) Hammer toe; Translations: [Other hammer toe(s) (acquired), unspecified foot] Onset: 5 05-27-2015 Chronic Administrative/social admission (1 source) Counseling, unspecified; Translations: [Counseling, unspecified] Onset: 5 Episodic Cancer of breast (3 sources) Malignant neoplasm of unspecified site of unspecified female breast; Translations: [Malignant neoplasm of unspecified site of right female breast] Onset: 5 Chronic Cardiac dysrhythmias (20 sources) Atrial fibrillation; Translations: [Permanent atrial fibrillation ] Onset: 1 03-12-2011 Chronic Comment on above: slow pathway ablatio n 11/20/2010 Cardiac dysrhythmias (20 sources) Palpitations; Translations: [Palpitations] Onset: 1 03-12-2011 Episodic Diabetes mellitus without complication (20 sources) Type 2 diabetes mellitus; Translations: [Diabetes mellitus] Onset: 4 Resolved: 5 08-13-2014 Chronic Diabetes mellitus without complication (13 sources) Impaired glucose tolerance; Translations: [Hyperglycemia] Onset: 5 12-11-2014 Episodic Diseases of white blood cells (13 sources) Leukocytosis; Translations: [Elevated white blood cell count, unspecified] 11-18-2020 Chronic Disorders of lipid metabolism (20 sources) Hyperlipidemia; Translations: [Hyperlipidemia, unspecified] Onset: 1 03-12-2011 Chronic Esophageal disorders (20 sources) Gastroesophageal reflux disease; Translations: [Gastro-esophageal reflux disease without esophagitis] Onset: 5 01-19-2015 Chronic Essential hypertension (20 sources) Hypertensive disorder; Translations: [Essential hypertension] Onset: 3 10-31-2012 Chronic Gout and other crystal arthropathies (8 sources) Gout; Translations: [Gout, unspecified] Onset: 5 12-11-2014 Chronic Lymphadenitis (1 source) Localized enlarged lymph nodes; Translations: [Localized enlarged lymph nodes] Onset: Episodic Nausea and vomiting (13 sources) Nausea and vomiting; Translations: [Nausea with vomiting, unspecified] 11-19-2020 Episodic Noninfectious gastroenteritis (13 sources) Gastroenteritis; Translations: [Noninfective gastroenteritis and colitis, unspecified] 11-13-2020 Episodic Nonmalignant breast conditions (1 source) Unspecified lump in the right breast, upper outer quadrant; Translations: [Unspecified lump in the right breast, upper outer quadrant] Onset: Episodic Nutritional deficiencies (8 sources) Vitamin D deficiency; Translations: [Vitamin D deficiency, unspecified] Onset: 4 08-21-2014 Chronic Osteoarthritis (8 sources) Osteoarthritis of knee; Translations: [Osteoarthritis of knee, unspecified] Onset: 4 08-13-2014 Chronic Osteoporosis (16 sources) Osteoporosis; Translations: [Age-related osteoporosis without current pathological fracture] Onset: 5 05-27-2015 Chronic Other aftercare (9 sources) Other custodial (current) drug therapy; Translations: [Other terminal clerk (current) drug therapy] Onset: 1 03-12-2011 Episodic Other circulatory disease (20 sources) Electrocardiogram abnormal; Translations: [Abnormal electrocardiogram [ECG] [EKG]] Onset: 1 03-12-2011 Episodic Other connective tissue disease (11 sources) History of total knee arthroplasty; Translations: [Presence of left artificial knee joint] 03-16-2022 Chronic Other connective tissue disease (2 sources) Presence of left artificial knee joint; Translations: [Knee joint replacement] Chronic Other connective tissue disease (13 sources) Pain in lower limb; Translations: [Pain in leg, unspecified] 11-12-2020 Episodic Other connective tissue disease (13 sources) Swelling of lower limb; Translations: [Other specified soft tissue disorders] 11-12-2020 Episodic Other connective tissue disease (7 sources) Lipodermatosclerosis; Translations: [Panniculitis, unspecified] 02-07-2025 Episodic Other diseases of veins and lymphatics (17 sources) Peripheral venous insufficiency; Translations: [Venous insufficiency (chronic) (peripheral)] 11-17-2020 Episodic Other gastrointestinal disorders (8 sources) Irritable bowel syndrome; Translations: [Irritable bowel syndrome without diarrhea] Onset: 4 08-13-2014 Chronic Other gastrointestinal disorders (20 sources) Constipation; Translations: [Constipation, unspecified] Onset: 5 01-15-2015 Episodic Other gastrointestinal disorders (13 sources) Diarrhea; Translations: [Diarrhea, unspecified] 11-17-2020 Episodic Other nervous system disorders (3 sources) Impairment of balance Episodic Other nervous system disorders (3 sources) Unsteadiness on feet Episodic Other nervous system disorders (7 sources) Unsteady when standing; Translations: [Unsteadiness on feet] 02-07-2025 Episodic Other non-traumatic joint disorders (20 sources) Impingement syndrome of shoulder region; Translations: [Multiple joint pain] Onset: 4 08-13-2014 Episodic Other nutritional; endocrine; and metabolic disorders (20 sources) Body mass index (BMI) 33.0-33.9, adult; Translations: [Hypomagnesemia] Onset: 4 Resolved: 6 11-03-2016 Chronic Other nutritional; endocrine; and metabolic disorders (14 sources) Hypomagnesemia; Translations: [Hypomagnesemia] Onset: 4 08-13-2014 Chronic Other nutritional; endocrine; and metabolic disorders (2 sources) Body mass index 30+ - obesity; Translations: [Obesity, unspecified] Onset: 6 Resolved: 6 05-04-2016 Chronic Other nutritional; endocrine; and metabolic disorders (10 sources) Obesity; Translations: [Obesity, unspecified] Onset: 4 08-13-2014 Chronic Other nutritional; endocrine; and metabolic disorders (1 source) Obesity, unspecified; Translations: [Obesity, unspecified] 10-04-2023 Chronic Other screening for suspected conditions (not mental disorders or infectious disease) (2 sources) Encounter for screening for cardiovascular disorders; Translations: [Encounter for screening mammogram for malignant neoplasm of breast] Onset: 5 Episodic Other skin disorders (7 sources) Hemosiderin pigmentation of skin; Translations: [Other specified disorders of pigmentation] 02-07-2025 Episodic Pulmonary heart disease (8 sources) Pulmonary hypertension; Translations: [Other secondary pulmonary hypertension] Onset: 6 04-06-2016 Chronic Rehabilitation care; fitting of prostheses; and adjustment of devices (1 source) Encounter for fitting and adjustment of other specified devices; Translations: [Encounter for fitting and adjustment of other specified devices] Onset: 5 Chronic Residual codes; unclassified (4 sources) Obstructive sleep apnea (adult) (pediatric); Translations: [Obstructive sleep apnea (adult)(pediatric)] Chronic Residual codes; unclassified (9 sources) Edema; Translations: [Edema, unspecified] 09-04-2024 Episodic Secondary malignancies (2 sources) Secondary and unspecified malignant neoplasm of lymph node, unspecified; Translations: [Secondary and unspecified malignant neoplasm of lymph node, unspecified] Onset: 5 Chronic Skin and subcutaneous tissue infections (13 sources) Cellulitis; Translations: [Cellulitis, unspecified] 11-12-2020 Episodic Sprains and strains (3 sources) Chronic rupture of Achilles tendon; Translations: [Strain of unspecified Achilles tendon, initial encounter] Onset: 5 05-03-2025 Episodic Syncope (20 sources) Vasovagal syncope; Translations: [Syncope and collapse] 11-13-2020 Episodic Systemic lupus erythematosus and connective tissue disorders (13 sources) Lupus erythematosus; Translations: [Systemic lupus erythematosus, unspecified] 11-17-2020 Chronic Unclassified (20 sources) Obstructive sleep apnea syndrome; Translations: [Obstructive sleep apnea (adult) (pediatric)] Onset: 4 08-13-2014 Chronic Unclassified (20 sources) Edema of lower extremity; Translations: [Localized edema] Onset: 6 01-13-2016 Episodic Unclassified (7 sources) Screening for malignant neoplasm of cervix ; Translations: [Encounter for screening for malignant neoplasm of cervix] Onset: 5 11-19-2014 Unclassified (1 source) Long-term drug therapy; Translations: [Other custodial (current) drug therapy] Onset: 1 03-12-2011 Unclassified (4 sources) R26.89 - Other abnormalities of gait and mobility,R26.81 - Unsteadiness on feet Viral infection (5 sources) Viral disease; Translations: [Viral infection, unspecified] 11-07-2024 Episodic Past or Other Problems Problem Classification Problem Date Documented Date Episodic/Chronic Allergic reactions (8 sources) Dermatitis; Translations: [Dermatitis, unspecified] Onset: 12-11-2014 12-11-2014 Episodic Conditions associated with dizziness or vertigo (6 sources) Peripheral vertigo; Translations: [Other peripheral vertigo, unspecified ear] Onset: 11-16-2024 11-07-2024 Episodic Fluid and electrolyte disorders (8 sources) Hypokalemia; Translations: [Hypokalemia] Onset: 11-14-2015 Resolved: 11-19-2015 11-14-2015 Episodic Malaise and fatigue (16 sources) Fatigue; Translations: [Other fatigue] Onset: 08-13-2014 Resolved: 12-11-2014 12-11-2014 Episodic Other connective tissue disease (20 sources) Muscle pain; Translations: [Muscle weakness] Onset: 03-12-2011 Resolved: 12-11-2014 08-13-2014 Episodic Other connective tissue disease (2 sources) Muscle weakness; Translations: [Muscle weakness (generalized)] Onset: 03-12-2011 Resolved: 12-11-2014 12-11-2014 Episodic Other connective tissue disease (1 source) Foot pain; Translations: [Pain in left foot] Onset: 10-31-2014 Resolved: 11-07-2014 11-04-2014 Episodic Other diseases of veins and lymphatics (1 source) Venous insufficiency (chronic) (peripheral); Translations: [Venous insufficiency (chronic) (peripheral)] Onset: 02-23-2025 Episodic Other non-traumatic joint disorders (1 source) Multiple joint pain; Translations: [Pain in unspecified joint] Onset: 08-13-2014 08-13-2014 Episodic Systemic lupus erythematosus and connective tissue disorders (13 sources) Systemic lupus erythematosus and connective tissue disorders 09-25-2019 Results Test Name Value Interpretation Reference Range Facility /Leanne 08-02-2025 MR/PAT.[facility] Medical Records Department [address] [place] [address] PAT - Anesthesia 08/02/25 2236 MR#: [id number] Acct: [id number] Name: ARMANDO JEREZ Rep #: [id number] : 1955 70 From: Marc Schneider MD PCP: Dr. Awais Kearney, DO Status:PRE SDC Y Race: C Location: [facility] [place] Pre-Assessment Diagnosis/Proposed Procedure Planned Operative Procedure(s): INSERTION VASCULAR PORT LEFT POSS RIGHT Anesthesia History Anesthesia History - renewable energy consultant: Anesthesia History - renewable energy consultant Hx Hospitalization No 08/02/25 08:16 Any Problems With Anesthesia Yes: SLOW TO AWAKEN 08/02/25 08:16 Cholinesterase deficiency No 08/02/25 08:16 You/Your Family Experience No 08/02/25 08:16 fever (hyperthermia) with Relationship Recent Exposure to Contagious No 03/15/22 06:21 Disease Does patient have nerve No 08/02/25 08:16 stimulator Patient instructed to have device shut off --Does patient have Pacemaker or ICD? When Was Last Pacemaker Check QUESTION #4 FULL TEXT: You/Your Family Experience fever (hyperthermia) with Anesthesia Last Oral Intake Last Oral intake: Last Oral Intake NPO since Meds taken in AM with sips of water? Meds patient instructed to take am of surgery PONV PONV - renewable energy consultant: PONV - renewable energy consultant Female Yes 08/02/25 08:16 HX of Motion Sickness Yes 08/02/25 08:16 HX of N/V After Surgery No 08/02/25 08:16 Non-Smoker Yes 08/02/25 08:16 Duration of Surgery greater No 08/02/25 08:16 than 60 minutes Number of Risk Factors 3 08/02/25 08:16 PONV Score Moderate Risk 08/02/25 08:16 Height Weight Height Weight: Anesthesia: Height Weight Height 5 ft 3 in 07/30/25 13:16 Respiratory Assessment Respiratory Assessment - renewable energy consultant: Respiratory Tract Infection Hx - renewable energy consultant Hx Respiratory Tract Infection No 08/02/25 08:16 STOP Sleep Apnea STOP Sleep Apnea - renewable energy consultant: STOP Sleep Apnea - renewable energy consultant Hx Hypertension Yes: CONTROLLED WITH MEDS 08/02/25 08:16 Hx Sleep Apnea Yes 08/02/25 08:16 CPAP Yes 08/02/25 08:16 BIPAP No 08/02/25 08:16 Do you snore loudly (louder than talking or can be heard Do you often feel tired/ fatigued/ sleepy during daytime? Has anyone observed you stop breathing during sleep? STOP Results Positive 08/02/25 08:16 QUESTION #5 FULL TEXT : Do you snore loudly (louder than talking or can be heard through closed doors)? 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 Specify any problems Hx of Preganancy in last 3 No 08/02/25 08:16 Months Nurse Filling Out Transfusion DSCHRIBER 08/02/25 08:16 Questions: Date: 08/02/25 08/02/25 08:16 Time: 08:18 08/02/25 08:16 Patient unable to answer at this time (ie. confused, unrespo /Reproducti on History /Reproducti ve History - renewable energy consultant: /Reproducti ve Hx- renewable energy consultant Hx Now No 08/02/25 08:16 Gestational Age (in weeks): EDC: Hx Hx Para Hx Section SAB No 08/02/25 08:16 Does the father of the baby or his family experience fever w Father of the baby Malignant Hypertension history comment [facility] Medical History (Updated 08/02/25 @ 08:24 by Nikole Sánchez) Wears contact lenses Cancer Encounter for education Regional lymph node metastasis present Breast cancer Wears glasses Post-menopausal Wears dentures Depression Anxiety High cholesterol Dietary restriction Non-smoker CPAP (continuous positive airway pressure) dependence Leg cramps History of pain when walking History of edema History of echocardiogram History of stress test Hypertension Cardiology follow-up encounter History of atrial fibrillation Preop cardiovascular exam Arthritis of left knee Lupus Diabetes Hemorrhoids Essential (primary) hypertension Varicose veins with inflammation Chronic venous insufficiency Cyst of breast, right, solitary SVT (supraventricular tachycardia) Paroxys (more content not included)... Normal [facility] Oncology Visit Reporton 11 Oncology Visit Report [facility] [address] [address] OFFICE VISIT Date of Service: 07/31/25 1038 MR#: [id number] Acct: [id number] Name: ARMANDO JEREZ Rep #: [id number] : 1955 From: Odalis Martinez Age/Sex: 70/F [place] [facility] Status: Signed HPI Subjective Date of Service 07/31/25 Chief Complaint breast cancer History of Present Illness 70-year-old female who despite having a negative screening mammogram in January 2025 was incidental found to have asymmetry in the right breast and right axillary lymph nodes on cardiac CT in May 2025 which prompted further workup. July 09, 2025 PET/CT: IMPRESSION: 1. There are 2 hypermetabolic nodules in the upper-outer quadrant of the right breast consistent with primary breast carcinoma. The nodules are by a thin band of non FDG avid tissue, and may in fact be a single neoplasm. 2. There are 2 hypermetabolic lymph nodes in the right axilla consistent with metastatic disease. July 17, 2025 breast ultrasound: IMPRESSION: 4.3 cm x 2.3 cm 1.1 cm irregular hypoechoic nodule at the 10 to 12 o'clock position of the breast at 4 cm from the nipple. There is also evidence of a 6 mm x 8 mm x 6 mm hypoechoic nodule in the retroareolar region of the breast. Biopsy recommended. Incidental note is made of right axillary lymph nodes. July 17, 2025 right breast diagnostic mammogram: IMPRESSION: Suspicious masses in the retroareolar region of the right breast as described. This correlates with the sonographic findings. July 23, 2025 MICROSCOPIC DIAGNOSIS A. 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 Right axillary lymph node, core biopsy: - Metastatic ductal carcinoma. Interval History The patient is presenting to clinic accompanied by spouse, Sony for an education visit to discuss TCHP. [facility] Medical History (Updated 07/31/25 @ 13:03 by Odalis Weir FOOD SERVICES COORDINATOR, FOOD SERVICES COORDINATOR-C) Encounter for education Regional lymph node metastasis present Breast cancer Wears glasses Post-menopausal Wears dentures Depression Anxiety High cholesterol Dietary restriction Heartburn Non-smoker CPAP (continuous positive airway pressure) dependence Leg cramps History of pain when walking History of edema History of echocardiogram History of stress test Hypertension Cardiology follow-up encounter History of atrial fibrillation History of irregular heartbeat Preop cardiovascular exam Arthritis of left knee Lupus Diabetes Hemorrhoids Essential (primary) hypertension Varicose veins with inflammation Chronic venous insufficiency Cyst of breast, right, solitary SVT (supraventricular tachycardia) Paroxysmal atrial fibrillation Hyperlipemia Palpitations Polyarthritis Impingement syndrome of right shoulder Obesity EMMANUEL (obstructive sleep apnea) Hypomagnesemia IBS (irritable bowel syndrome) Vitamin D deficiency Gout Dermatitis Bradycardia Constipation GERD (gastroesophageal reflux disease) Osteoporosis Hammer toe Leg edema Surgical History History of left knee replacement Hx of colonoscopy Status post endovenous radiofrequency ablation of saphenous vein vein ablation History of left heart catheterization (11/20/10) History of cardiac radiofrequency ablation (RFA) (11/20/10) History of hysterectomy History of tonsillectomy Family History Mother CAD (coronary artery disease) Diabetes Father Aneurysm Aunt Breast cancer Other Heart disease Social History Smoking Status: Never smoker alcohol intake: never substance use type: does not use caffeine: Yes Type: carbonated beverages Number of servings: 1 what type of physical activity do you participate in: none seatbelt use: always do you feel safe at home: Yes ROS ROS Narrative Negative except as documented in the interval HPI Intake Vital Signs 07/30/25 13:16 07/31/25 10:40 Height 5 ft 3 in 5 ft 3 in Weight: 184 lb 4 oz 184 lb 3.986 oz BMI 32.6 32.6 BP 115/63 136/68 H Blood Pressure Location Lt brachial Lt brachial Position Sitting Sitting Respiration 16 16 Pulse 69 62 Pulse Source Monitor Monitor Temp 97.7 F L 97.8 F Temperature Source Temporal Artery Temporal Artery Pulse Oximetry (%) 96 97 Oxygen Delivery Method room air room air Intake Is patient in pain?: No Allergies Dressing: Non-Medicated (wrap) Adverse Reaction (Verified 07/31/25 10: (more content not included)... Normal [facility] Surgery Visit Reporton 07-31 Surgery Visit Report [facility] [address] [place] [address] OFFICE VISIT Date of Service: 07/31/25 MR#: [id number] Acct: [id number] Name: ARMANDO EJREZ Rep #: [id number] 4 : 1955 Provider: Dr. Carol ornelas MD Age/Sex: 70/F Location: [facility] Status: Signed Intake Vital Signs 07/23/25 09:28 07/31/25 10:40 07/31/25 13:39 Height 5 ft 3 in 5 ft 3 in 5 ft 3 in Weight: 184 lb BMI 32.5 BP 124/69 H Blood Pressure Location Lt brachial Position Sitting Respiration 17 Pulse 68 Pulse Source Monitor Temp 97.2 F L Temp Source Temporal Pulse Oximetry (%) 98 Oxygen Delivery Method room air Intake Visit Reasons: DISCUSS PATH PORT Chief Complaint: discuss path and port Is patient in pain?: No Allergies Dressing: Non-Medicated (wrap) Adverse Reaction (Verified 08/02/25 08:12) Rash Milk Containing Products (Dairy) (Milk Containing Products) Adverse Reaction (Verified 08/02/25 08:12) Diarrhea Medications ???Medication ???Instructions ???Recorded ???Confirmed ???Type multivitamin (Daily Multi-Vitamin 1 tab PO DAILY supplement 0 08/02/25 History tablet) furosemide 40 mg tablet (Lasix) 40 mg PO BID #180 tabs 09/04/24 Rx lisinopril 20 mg tablet 20 mg PO BID #180 tabs 09/04/24 Rx metoprolol succinate 50 mg 50 mg PO DAILY #90 tabs 09/04/24 1 10/02/24 Rx tablet,extended release 24 hr pravastatin 40 mg tablet 40 mg PO QHS #90 tabs 09/04/2404/19 Rx spironolactone 25 mg tablet 25 mg PO DAILY #90 TABLETS 4 08/02/25 Rx flecainide 100 mg tablet 100 mg PO BID #180 TABLETS 4 08/02/25 Rx glipizide 10 mg tablet, extended 10 mg PO QDAY 11/13/24 08/02/25 Hi story release 24 hr diosmin complex no.1 630 mg tablet 1 tab PO QDAY #90 tabs 07/01/25 08/02/25 Rx (Vasculera) dulaglutide 0.75 mg/0.5 mL 4.5 mg subcut MO 07/23/25 08/02/25 History subcutaneous pen injector (Trulicity) lidocaine-prilocaine 2.5 %-2.5 % 1 applic topical ONCE PRN port 03/2008/02/25 Rx topical cream access 30 days #30 grams ondansetron 8 mg disintegrating 8 mg PO Q8H PRN nausea and 5 08/02/25 Rx tablet vomiting #30 tabs prochlorperazine maleate 10 mg 10 mg PO Q6H PRN nausea and 08/02/25 Rx tablet vomiting #30 tabs aspirin 81 mg chewable tablet 81 mg PO DAILY Postop DVT 08/02/25 08/02/25 History prophylaxis Have you fallen in the past year?: No PFSH Medical History (Updated 08/04/25 @ 17:[address] Carol Medina MD) Wears contact lenses Cancer Encounter for education Regional lymph node metastasis present Breast cancer Wears glasses Post-menopausal Wears dentures Depression Anxiety High cholesterol Dietary restriction Non-smoker CPAP (continuous positive airway pressure) dependence Leg cramps History of pain when walking History of edema History of echocardiogram History of stress test Hypertension Cardiology follow-up encounter History of atrial fibrillation Preop cardiovascular exam Arthritis of left knee Lupus Diabetes Hemorrhoids Essential (primary) hypertension Varicose veins with inflammation Chronic venous insufficiency Cyst of breast, right, solitary SVT (supraventricular tachycardia) Paroxysmal atrial fibrillation Hyperlipemia Palpitations Polyarthritis Impingement syndrome of right shoulder Obesity EMMANUEL (obstructive sleep apnea) Hypomagnesemia IBS (irritable bowel syndrome) Vitamin D deficiency Gout Dermatitis Bradycardia Constipation Osteoporosis Leg edema Surgical History (Updated 08/02/25 @ 08:24 by Nikole Sánchez) History of left knee replacement Hx of colonoscopy Status post endovenous radiofrequency ablation of saphenous vein vein ablation History of left heart catheterization (11/20/10) History of cardiac radiofrequency ablation (RFA) (11/20/10) History of hysterectomy History of tonsillectomy Family History Mother CAD (coronary artery disease) Diabetes Father Aneurysm Aunt Breast cancer Other Heart disease Social History Smoking Status: Never smoker alcohol intake: never substance use type: does not use caffeine: Yes Type: carbonated beverages Number of servings: 1 what type of physical activity do you participate in: none seatbelt use: always do you feel safe at home: Yes HPI HPI HPI: 70-year-old female recently diagnosed with 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 Patient will be starting chemotherapy in a couple weeks. Patient here to discuss port placement. ROS General General: Yes fatigue; No weight ernst (more content not included)... Normal [facility] CBC W/Diff, Automatedon 11-0 Absolute Lymph 3.53 X10 3/uL Normal 0.83-4.51 [facility] Comment on above: Performed By: #### L 100.0100, L500.4050 ####[facility] [address] [place], [address] Absolute Neut 6.3 X10 3/uL Normal 2.0-7.7 [facility] Comment on above: Performed By: #### L 100.0100, L500.4050 ####[facility] [address] [place], [address] Basophils/100 WBC (Bld) 1.0 % Normal 0-1 [facility] Comment on above: Performed By: #### L 100.0100, L500.4050 ####[facility] [address] [place], [address] Eosinophils/100 WBC (Bld) 3.7 % Normal 0-5 [facility] Comment on above: Performed By: #### L 100.0100, L500.4050 ####[facility] [address] [place], [address] Erythrocyte distribution width (RBC) [Ratio] 13.2 % Normal 11.6-14.6 [facility] Comment on above: Performed By: #### L 100.0100, L500.4050 ####[facility] [address] [place], [address] Hematocrit (Bld) [Volume fraction] 41.5 % Normal 37-47 [facility] Comment on above: Performed By: #### L 100.0100, L500.4050 ####[facility] [address] [place], [address] Hemoglobin (Bld) [Mass/Vol] 13.9 g/dL Normal 12.0-15.0 [facility] Comment on above: Performed By: #### L 100.0100, L500.4050 ####[facility] [address] [place], [address] IG% 0.500 Normal 0.0-0.9 [facility] Comment on above: Result Comment: IG% - Immature Granulocytes (promyelocytes, myelocytes and metamyelocytes) > 1% indicates that a LEFT SHIFT is Present. Performed By: #### L 100.0100, L500.4050 ####[facility] [address] [place], [address] Lymphocytes/100 WBC (Bld) 31.4 % Normal 19-41 [facility] Comment on above: Performed By: #### L 100.0100, L500.4050 ####[facility] [address] [place], [address] MCH (RBC) [Entitic mass] 31.4 pg Normal 27.0-32.0 [facility] Comment on above: Performed By: #### L 100.0100, L500.4050 ####[facility] [address] [place], [address] MCHC (RBC) [Mass/Vol] 33.5 g/dL Normal 32-36 [facility] Comment on above: Performed By: #### L 100.0100, L500.4050 ####[facility] [address] [place], [address] MCV (RBC) [Entitic vol] 93.7 fL Normal 81-99 [facility] Comment on above: Performed By: #### L 100.0100, L500.4050 ####[facility] [address] [place], [address] Monocytes/100 WBC (Bld) 6.9 % Normal 0-10 [facility] Comment on above: Performed By: #### L 100.0100, L500.4050 ####[facility] [address] [place], [address] Neutrophils/100 WBC (Bld) 56.5 % Normal 47-70 [facility] Comment on above: Performed By: #### L 100.0100, L500.4050 ####[facility] [address] [place], [address] Nucleated RBC (Bld) [#/Vol] 0 10*3/uL Normal 0-5 [facility] Comment on above: Performed By: #### L 100.0100, L500.4050 ####[facility] [address] [place], [address] Platelet mean volume (Bld) [Entitic vol] 9.6 fL Normal 6.2-12.0 [facility] Comment on above: Performed By: #### L 100.0100, L500.4050 ####[facility] [address] [place], [address] Platelets (Bld) [#/Vol] 341 10*3/uL Normal 150-450 [facility] Comment on above: Performed By: #### L 100.0100, L500.4050 ####[facility] [address] [place], [address] RBC (Bld) [#/Vol] 4.43 10*6/uL Normal 4.2-5.4 [facility] Comment on above: Performed By: #### L 100.0100, L500.4050 ####[facility] [address] [place], [address] RDW SD 45.2 fl High 35.1-43.9 [facility] Comment on above: Performed By: #### L 100.0100, L500.4050 ####[facility] [address] [place], [address] WBC (Bld) [#/Vol] 11.2 10*3/uL High 4.4-11.0 [facility] Comment on above: Performed By: #### L 100.0100, L500.4050 ####[facility] [address] [place], [address] Comprehensive Metabolic Prof ilon 07-30-2025 Albumin [Mass/Vol] 4.4 g/dL Normal 3.4-4.8 [facility] Comment on above: Performed By: #### L 100.0100, L500.4050 ####[facility] [address] [place], [address] Albumin/Globulin [Mass ratio] 1.8 {ratio} Normal 0.9-2.4 [facility] Comment on above: Performed By: #### L 100.0100, L500.4050 ####[facility] [address] [place], [address] ALK PHOS 78 U/L Normal 35-104 [facility] Comment on above: Performed By: #### L 100.0100, L500.4050 ####[facility] [address] [place], [address] ALT [Catalytic activity/Vol] 33 U/L Normal <=34 [facility] Comment on above: Performed By: #### L 100.0100, L500.4050 ####[facility] [address] [place], [address] AST [Catalytic activity/Vol] 21 U/L Normal <=31 [facility] Comment on above: Performed By: #### L 100.0100, L500.4050 ####[facility] [address] [place], [address] Bilirubin [Mass/Vol] 0.49 mg/dL Normal 0.00-1.30 [facility] Comment on above: Performed By: #### L 100.0100, L500.4050 ####[facility] [address] [place], [address] BUN/CRE 29.1 RATIO High 10-20 [facility] Comment on above: Performed By: #### L 100.0100, L500.4050 ####[facility] [address] [place], [address] Calcium [Mass/Vol] 10.5 mg/dL Normal 7.6-11.0 [facility] Comment on above: Performed By: #### L 100.0100, L500.4050 ####[facility] [address] [place], [address] Chloride [Moles/Vol] 103 mmol/L Normal 98-108 [facility] Comment on above: Performed By: #### L 100.0100, L500.4050 ####[facility] [address] [place], [address] CO2 [Moles/Vol] 25.3 mmol/L Normal 21.0-32.0 [facility] Comment on above: Performed By: #### L 100.0100, L500.4050 ####[facility] [address] [place], [address] Creatinine [Mass/Vol] 0.87 mg/dL Normal 0.70-1.20 [facility] Comment on above: Performed By: #### L 100.0100, L500.4050 ####[facility] [address] [place], [address] GAP 13 Normal 5-15 [facility] Comment on above: Performed By: #### L 100.0100, L500.4050 ####[facility] [address] [place], [address] GFR/1.73 sq M.predicted among non-blacks MDRD (S/P/Bld) [Vol rate/Area] 72 mL/min/{1.73_m2} Normal >60 [facility] Comment on above: Result Comment: mL/m in/1.73m2 CKD-EPI Creatinine Equation (2020) Performed By: #### L 100.0100, L500.4050 ####[facility] [address] [place], [address] Globulin (S) [Mass/Vol] 2.5 g/dL Normal 2.2-4.2 [facility] Comment on above: Performed By: #### L 100.0100, L500.4050 ####[facility] [address] [place], [address] Glucose [Mass/Vol] 179 mg/dL High 70-99 [facility] Comment on above: Performed By: #### L 100.0100, L500.4050 ####[facility] [address] [place], [address] Potassium [Moles/Vol] 4.4 mmol/L Normal 3.3-5.1 [facility] Comment on above: Performed By: #### L 100.0100, L500.4050 ####[facility] [address] [place], [address] Sodium [Moles/Vol] 141 mmol/L Normal 133-145 [facility] Comment on above: Performed By: #### L 100.0100, L500.4050 ####[facility] [address] [place], [address] T PROT 7.0 g/dL Normal 5.9-8.4 [facility] Comment on above: Performed By: #### L 100.0100, L500.4050 ####[facility] [address] [place], [address] Urea nitrogen [Mass/Vol] 25 mg/dL High 4-19 [facility] Comment on above: Performed By: #### L 100.0100, L500.4050 ####[facility] [address] [place], [address] Oncology Visit Reporton Oncology Visit Report [facility] [address] [place] [address] OFFICE VISIT Date of Service: 07/30/25 1305 MR#: [id number] Acct: [id number] Name: ARMANDO JEREZ Rep #: [id number] : 1955 From: Ciro Gaytan MD Age/Sex: 70/F [place] [facility] [place] Status: Signed HPI Subjective Date of Service 07/30/25 Chief Complaint breast cancer History of Present Illness 70-year-old female who despite having a negative screening mammogram in January 2025 was incidental found to have asymmetry in the right breast and right axillary lymph nodes on cardiac CT in May 2025 which prompted further workup. July 09, 2025 PET/CT: IMPRESSION: 1. There are 2 hypermetabolic nodules in the upper-outer quadrant of the right breast consistent with primary breast carcinoma. The nodules are by a thin band of non FDG avid tissue, and may in fact be a single neoplasm. 2. There are 2 hypermetabolic lymph nodes in the right axilla consistent with metastatic disease. July 17, 2025 breast ultrasound: IMPRESSION: 4.3 cm x 2.3 cm 1.1 cm irregular hypoechoic nodule at the 10 to 12 o'clock position of the breast at 4 cm from the nipple. There is also evidence of a 6 mm x 8 mm x 6 mm hypoechoic nodule in the retroareolar region of the breast. Biopsy recommended. Incidental note is made of right axillary lymph nodes. July 17, 2025 right breast diagnostic mammogram: IMPRESSION: Suspicious masses in the retroareolar region of the right breast as described. This correlates with the sonographic findings. July 23, 2025 MICROSCOPIC DIAGNOSIS A. Right breast, 11:00, 4 CMFN, core biopsy: - Invasive ductal carcinoma, Grade 2, at least 1.0 cm - Tubule 2, nuclear 2, mitosis 2 - ER: positive (95% intermediate to strong intensity) - ME: positive (10% strong intensity) - [id number]: positive (score 3+) - Ki67: 80-90% B. Right axillary lymph node, core biopsy: - Metastatic ductal carcinoma. [facility] Medical History Regional lymph node metastasis present Breast cancer Wears glasses Post-menopausal Wears dentures Depression Anxiety High cholesterol Dietary restriction Heartburn Non-smoker CPAP (continuous positive airway pressure) dependence Leg cramps History of pain when walking History of edema History of echocardiogram History of stress test Hypertension Cardiology follow-up encounter History of atrial fibrillation History of irregular heartbeat Preop cardiovascular exam Arthritis of left knee Lupus Diabetes Hemorrhoids Essential (primary) hypertension Varicose veins with inflammation Chronic venous insufficiency Cyst of breast, right, solitary SVT (supraventricular tachycardia) Paroxysmal atrial fibrillation Hyperlipemia Palpitations Polyarthritis Impingement syndrome of right shoulder Obesity EMMANUEL (obstructive sleep apnea) Hypomagnesemia IBS (irritable bowel syndrome) Vitamin D deficiency Gout Dermatitis Bradycardia Constipation GERD (gastroesophageal reflux disease) Osteoporosis Hammer toe Leg edema Surgical History (Updated 07/30/25 @ 13:14 by Yaneli Snyder) History of left knee replacement Hx of colonoscopy Status post endovenous radiofrequency ablation of saphenous vein vein ablation History of left heart catheterization (11/20/10) History of cardiac radiofrequency ablation (RFA) (11/20/10) History of hysterectomy History of tonsillectomy Family History (Updated 07/30/25 @ 13:12 by Yaneli Snyder) Mother CAD (coronary artery disease) Diabetes Father Aneurysm Aunt Breast cancer Other Heart disease Social History Smoking Status: Never smoker alcohol intake: never substance use type: does not use caffeine: Yes Type: carbonated beverages Number of servings: 1 what type of physical activity do you participate in: none seatbelt use: always do you feel safe at home: Yes ROS Constitutional Constitutional: Reports systems reviewed and no addt'l complaints, except as documented; Denies fatigue, fever(s) or weight loss Eyes Eyes: Reports systems reviewed and no addt'l complaints, except as documented ENT HEENT: Reports systems reviewed and no addt'l complaints, except as documented; Denies mouth lesions Cardiovascular Cardiovascular: Reports systems reviewed and no addt'l complaints, except as documented and edema; Denies chest pain with activity Respiratory/Chest Respiratory/Chest: Reports systems reviewed and no addt'l complaints, except as documented; Denies cough, dyspnea on exertion or breast mass Gastrointestinal Gastrointestinal: Reports systems reviewed and no addt'l complaints, except as documented, diarrhea, heartburn and other Details: Has IBS ; Denies change in bowel contreras (more content not included)... [facility] Immunohistochemical Stainson 07-23-2025 Immunohistochemical Stains Patient Age/Sex Location Account Attending Physician ARMANDO JEREZ 70/F [facility] [id number] Dr. Carol Medina MD Specimen: [id number] Received: 07/23/25 Status: JD Joe Num: [id number] Spec Type: BREAST BX Subm Dr: Dr. Carol Medina MD HEADER OPERATION: Right breast biopsy and lymph node biopsy PRE-OP DIAGNOSIS: Likely cancer, + on PET scan TISSUE SUBMITTED: A- Breast mass tissue , 11o'clock, 4cm from nipple, B- Right axillary lymph node MICROSCOPIC DIAGNOSIS A. Right breast, 11:00, 4 CMFN, core biopsy: * Invasive ductal carcinoma, Grade 2, at least 1.0 cm * Tubule 2, nuclear 2, mitosis 2 * ER: positive (95% intermediate to strong intensity) * ME: positive (10% strong intensity) * [id number]: positive (score 3+) * Ki67: 80-90% B. Right axillary lymph node, core biopsy: * Metastatic ductal carcinoma. MICROSCOPIC DESCRIPTION Slides are reviewed. All matched controls reacted appropriately. These tests were developed and their performance characteristics determined by [facility]. They may not have been cleared or approved by the U.S. Food and Drug Administration. The FDA has determined that such clearance or approval is not necessary. The above immunohistochemical markers and/or special???stains have been reviewed by the Pathologist. GROSS DESCRIPTION Received in 2 formalin containers labeled with the patient's name and date of . Designated as: A. "R breast tissue" are 3 fernandes-pink to yellow tissue cores, 0.8 cm and 1.7 cm in length by 0.2 cm in diameter. Entirely submitted in 1 cassette. Cold ischemic time: <1-minuteFormalin fixation time: 9 hours, 30 minutes B. "R axillary tissue" is a 1.2 x 0.6 x 0.1 cm aggregate of fernandes-yellow to red tissue core fragments. Entirely submitted in 1 cassette. MA 07/23/2025PT:[id number] Patient Age/Sex Location Account Attending Physician ARMANDO JEREZ 70/F [facility] [id number] Dr. Carol Medina MD Signed (signature on file) Dr. Dinorah Pena MD 07/25/25 1202 Normal [facility] Comment on above: Performed By: #### P [facility] ####[facility] [address] [place], [place], [address] Surgery Visit Reporton 07-23 Surgery Visit Report [facility] [address] [place] [address] OFFICE VISIT Date of Service: 07/23/25 MR#: [id number] Acct: [id number] Name: ARMANDO JEREZ Rep #: [id number] : 1955 Provider: Dr. Carol ornelas MD Age/Sex: 70/F Location: [facility] Status: Signed Intake Vital Signs 11/13/24 07:55 07/23/25 09:28 Height 5 ft 3 in 5 ft 3 in Weight: 185 lb BMI 32.8 BP 167/80 H Blood Pressure Location Rt brachial Respiration 16 Intake Visit Reasons: BREAST CONSULT Chief Complaint: breast consult Neonatal Intensive Care Nurse Required: No Is patient in pain?: No Allergies Dressing: Non-Medicated (wrap) Adverse Reaction (Verified 07/23/25 09:29) Rash Milk Containing Products (Dairy) (Milk Containing Products) Adverse Reaction (Verified 07/23/25 09:29) Diarrhea Medications ???Medication ???Instructions ???Recorded ???Confirmed ???Type multivitamin (Daily Multi-Vitamin 1 tab PO DAILY supplement 0 07/23/25 History tablet) aspirin 81 mg chewable tablet 81 mg PO BIDCM Postop DVT 03/16/22 07/23/25 Rx prophylaxis 30 days #60 tabs furosemide 40 mg tablet (Lasix) 40 mg PO BID #180 tabs 09/04/24 Rx lisinopril 20 mg tablet 20 mg PO BID #180 tabs 09/04/24 Rx metoprolol succinate 50 mg 50 mg PO DAILY #90 tabs 09/04/24 1 Rx tablet,extended release 24 hr pravastatin 40 mg tablet 40 mg PO QHS #90 tabs 09/04/24 Rx spironolactone 25 mg tablet 25 mg PO DAILY #90 TABLETS 4 07/23/25 Rx flecainide 100 mg tablet 100 mg PO BID #180 TABLETS 4 07/23/25 Rx blood sugar diagnostic (True 10/30/24 07/23/25 History Metrix Glucose Test Strip) chlorhexidine gluconate 0.12 % BID 10/30/24 07/23/25 History mouthwash glipizide 10 mg tablet, extended 10 mg PO QDAY 11/13/24 07/23/25 Hi story release 24 hr diosmin complex no.1 630 mg tablet 1 tab PO QDAY #90 tabs 07/01/25 07/23/25 Rx (Vasculera) dulaglutide 0.75 mg/0.5 mL 4.5 mg subcut QWEEK 07/23/2507/23 History subcutaneous pen injector (Trulicity) Have you fallen in the past year?: No PFSH Medical History Wears glasses Post-menopausal Wears dentures Depression Anxiety High cholesterol Dietary restriction Heartburn Non-smoker CPAP (continuous positive airway pressure) dependence Leg cramps History of pain when walking History of edema History of echocardiogram History of stress test Hypertension Cardiology follow-up encounter History of atrial fibrillation History of irregular heartbeat Preop cardiovascular exam Arthritis of left knee Lupus Diabetes Hemorrhoids Essential (primary) hypertension Varicose veins with inflammation Chronic venous insufficiency Cyst of breast, right, solitary SVT (supraventricular tachycardia) Paroxysmal atrial fibrillation Hyperlipemia Palpitations Polyarthritis Impingement syndrome of right shoulder Obesity EMMANUEL (obstructive sleep apnea) Hypomagnesemia IBS (irritable bowel syndrome) Vitamin D deficiency Gout Dermatitis Bradycardia Constipation GERD (gastroesophageal reflux disease) Osteoporosis Hammer toe Leg edema Surgical History Hx of colonoscopy Status post endovenous radiofrequency ablation of saphenous vein vein ablation History of left heart catheterization (11/20/10) History of cardiac radiofrequency ablation (RFA) (11/20/10) History of hysterectomy History of tonsillectomy Family History Mother CAD (coronary artery disease) Father Aneurysm Other Heart disease Social History Smoking Status: Never smoker alcohol intake: never substance use type: does not use caffeine: Yes Type: carbonated beverages Number of servings: 1 what type of physical activity do you participate in: none seatbelt use: always do you feel safe at home: Yes HPI HPI HPI: 70-year-old female presents with her daughter and her due to abnormal breast imaging. Initially was found on calcium score then a PET scan showed mass in the right breast along with 2 lymph nodes that enhanced. Patient mammogram and ultrasound. Ultrasound results are below. Patient does have a mass about 4 x 2 cm irregular hypoechoic spanning from 10-12 o'clock about 4 cm from the nipple. Also saw hypoechoic nodule 6 x 8 mm in the retroareolar region. And 2 right axillary lymph nodes with lymphadenopathy. Patient denies noticing any lumps or anything prior. Patient did have her mammogram earlier this year which was given BI-RADS 2 benign. Patient denies any breast pain or changes overlying skin. Age at (more content not included)... Normal [facility] Breast Limited Unilateralon 07-17-2025 Breast Limited Unilateral [facility] Services [address] [place] [address] Breast Limited Unilateral MR#: [id number] Acct: [id number] Name: ARMANDO JEREZ Rep #: [id number] : 1955 F 70 From: Tyler borrego MD PCP: Dr. Awais Kearney DO Status: REG CLI Study: Breast Limited Unilateral Date of Exam: Exam# [id number] Ordering Dr: Awais Kearney DO PROCEDURE: BREAST LIMITED UNILATERAL 07/17/2025 REASON FOR EXAM: F, Age 70 y/o , MASS Abnormal mammogram. COMPARISON: Prior mammogram dated January 28, 2025.. TECHNIQUE: Procedure Code: USBRSTLIMIT Modality: US Procedure: BREAST LIMITED UNILATERAL FINDINGS: There is a 4.3 cm 2.3 cm 1.1 cm irregular hypoechoic solid mass at the 10 o'clock to 12 o'clock position of the breast at 4 cm from the nipple. Biopsy recommended. A similar-appearing hypoechoic nodule measuring 6 mm x 8 mm x 6 mm is seen in the retroareolar region. Incidental note is made of 2 irregular right axillary lymph nodes. US/Breast Limited Unilateral IMPRESSION: 4.3 cm x 2.3 cm 1.1 cm irregular hypoechoic nodule at the 10 to 12 o'clock position of the breast at 4 cm from the nipple. There is also evidence of a 6 mm x 8 mm x 6 mm hypoechoic nodule in the retroareolar region of the breast. Biopsy recommended. Incidental note is made of right axillary lymph nodes. BI-RADS 4: SUSPICIOUS RECOMMENDATION: Biopsy Recommended Reading Location: [place] [address] CC: Dr. Awais Kearney DO Captain'S Assistant: Signed Normal [facility] DIAG MAMM W/CAD, UNILATon DIAG MAMM W/CAD, UNILAT [facility] Imaging Services [address] [place], [place] [id number] DIAG MAMM W/CAD, UNILAT MR#: [id number] Acct: [id number] Name: ARMANDO JEREZ Rep #: [id number] : 1955 F 70 From: Tyler borrego MD PCP: Dr. Awais Kearney, Status: REG CLI Study: DIAG MAMM W/CAD, UNILAT Date of Exam: 07/17/25 Exam# [id number] Ordering Dr: Awais Kearney DO EXAM: DIAG MAMM W/CAD, UNILAT 07/17/2025 CLINICAL HISTORY: F, Age 70 y/o , RT ABNORMAL PET. Abnormal breast ultrasound of the right breast. TECHNIQUE: Procedure Code: BIDMWCADU Modality: MG Procedure: DIAG MAMM W/CAD, UNILAT. COMPARISON: Prior exam) dated January 28, 2025.. FINDINGS: TISSUE DENSITY: There are scattered areas of fibroglandular density. Bilateral Breast Mammographic Findings: There is evidence of 2, adjacent spiculated nodules in the retroareolar region of the right breast measuring 1.7 cm x 1.5 cm. The ultrasound demonstrated this to be mass. Biopsy recommended. BI/DIAG MAMM W/CAD, UNILAT IMPRESSION: Suspicious masses in the retroareolar region of the right breast as described. This correlates with the sonographic findings. Biopsy recommended. OVERALL FINAL ASSESSMENT BI-RADS 5: HIGHLY SUGGESTIVE OF MALIGNANCY. RECOMMENDATION: Biopsy Recommended Additional Recommendation none A letter with findings and recommendations will be mailed to the patient. Reading Location: [place] [address] CC: Dr. Awais Kearney DO Captain'S Assistant: Signed Normal [facility] PET/CT Tumor Base -Thigh Ini ton 07-09-2025 PET/CT Tumor Base -Thigh Init [facility] Imaging Services [address] [place] [address] PET/CT Tumor Base -Thigh Init MR#: [id number] Acct: [id number] Name: ARMANDO JEREZ Rep #: [id number] : 1955 F 70 From: German Wheeler MD PCP: Dr. Awais Kearney DO Status: REG CLI Study: PET/CT Tumor Base -Thigh Init Date of Exam: Exam# [id number] Ordering Dr: Awais Kearney DO PROCEDURE: PET/CT TUMOR BASE -THIGH INIT 07/09/2025 REASON FOR EXAM: 70 y/o F with ABNORMAL FINDING OF LUNG FIELD TECHNIQUE: Procedure Code: PETPTCTINIT Modality: PT Procedure: PET/CT TUMOR BASE -THIGH INIT After intravenous injection of 12.3 millicuries of FDG and a standard uptake period, a noncontrast CT scan, followed by a PET scan were acquired along the length of the body from the base of the skull to the mid thighs. The noncontrast helical CT imaging was performed without breath hold, for attenuation correction of PET images and anatomic correlation, but not for primary interpretation, as it is not of the standard diagnostic quality. Images were reviewed in the axial, coronal and sagittal planes. RADIATION DOSE SUMMARY: Effective Dose: Approximately 7 mSv for a standard whole-body PET scan Organ Doses: Varies by organ, with higher doses typically to the bladder, liver, and brain CTDI: 10.2 mGy. DLP: 946.74 mGy cm COMPARISON: COMPARISON FROM CT, PET OR OTHER PERTINENT EXAMS: Limited CT cardiac only, 06/15/2025. FINDINGS: Physiologic uptake: There may be expected metabolic uptake within the brain, tongue and floor of the mouth and larynx/vocal cords, heart, polly (many normal individuals have hilar uptake in less than 3 nodes with mildly avid hilar nodes less than 2.7 SUV), liver and spleen, system, and GI tract and symmetric muscle uptake. FDG AVID AND NON-AVID LESIONS. Reported avid SUV values (g/mL) are maximum SUV. Head and neck: There is a normal distribution of FDG activity in the visualized brain parenchyma. There is normal uptake within the soft tissues of the neck and glandular structures. There is no hypermetabolic lymphadenopathy. Chest: There is a 1.9 x 1.5 cm nodule in the upper-outer quadrant of the right breast, demonstrating hypermetabolic activity, max SUV 9.8. There is a 2nd nodule, extending inferiorly, just lateral to the nipple, measuring 3.7 x 1.8 cm, max SUV 10.2. There is a 1.6 x 1.6 cm right axillary lymph node demonstrating hypermetabolic activity, max SUV 12.8. There is a 5 x 5 mm right axillary lymph node demonstrating hypermetabolic activity, max SUV 4.3. There is no abnormal FDG activity in the pulmonary parenchyma. There are no pleural effusions. The heart size is normal. There is calcific vascular disease of the thoracic aorta and coronary arteries. Abdomen and pelvis: There is cholelithiasis. There is calcific vascular disease of the abdominal aorta. Status post bladder tack procedure. There is a normal distribution of FDG activity within the gastrointestinal and genitourinary tract. There is no hypermetabolic lymphadenopathy identified. Musculoskeletal: There are no suspicious hypermetabolic osteolytic or osteosclerotic lesions. Uptake time: 60 minutes. Mediastinal blood pool: Max SUV, 3.0 Blood glucose: 196 BMI: 32.3 PET/PET/CT Tumor Base -Thigh Init IMPRESSION: 1. There are 2 hypermetabolic nodules in the upper-outer quadrant of the right breast consistent with primary breast carcinoma. The nodules are by a thin band of non FDG avid tissue, and may in fact be a single neoplasm. 2. There are 2 hypermetabolic lymph nodes in the right axilla consistent with metastatic disease. 3. Other findings as noted. Reading Location: [place] [address] CC: Dr. Awais Kearney DO Captain'S Assistant: Signed Normal [facility] Coronary Angiography CTon Coronary Angiography CT [facility] Imaging Services [address] [place] [address] 06/20/25 0626 MR#: [id number] Acct: [id number] Name: ARMANDO JEREZ Rep #: [id number] : 1955 70 From: Christian Veras MD PCP: Dr. Awais Kearney DO Status:REG REF Y Location: CT Calcium Scoring Date of Study:: 06/19/25 Indications Indications: Strong family history Coronary Calcium Scoring: High-resolution Computed Tomographic imaging of the chest was performed on [06/19/2025], with particular attention paid to the coronary arteries. Images from the examination were analyzed for the presence and extent of coronary artery calcification , using coronary calcium quantification software. The patient tolerated the procedure well and there were no complications. The results of the coronary calcification analysis are provided below. Findings Coronary Artery Left Main (LM): 0 Left Anterior Descending (LAD): 37.8 Left Circumflex (LCX): 19.9 Right Coronary Artery (RCA): 0 Total Agatston Score: 57.7 Percentile Rankin-75 Calcium Scoring Interpretation: Different methods to categorize the overall amount of coronary plaque. Overall amount CAC SIS Visual of coronary plaque P1 Mild -100 <2 1-2 vessels with mild amount of plaque P2 Moderate 101-300 3-4 1-2 vessels with moderate amount, 3 vessels with mild amount of plaque P3 Severe 301-999 5-7 3 vessels with moderate amount, 1 vessel with severe amount of plaque P4 Extensive >1000 >8 2-3 vessels with severe amount of plaque Calcium Score: Mild: 1-2 vessels w/mild amount of plaque Conclusion: Mild two-vessel plaque disease 06/20/25626 Date Christian Veras MD Cosigner Signature (if applicable): Date CC: Dr. Christian Veras MD; Dr. Awais Kearney DO Signed Normal [facility] Limited Chest CT Cardiac Onl yon 06-19-[address] Cardiac Only [facility] Imaging Services [address] [place] [address] Cardiac Only MR#: [id number] Acct: [id number] Name: ARMANDO JEREZ Rep #: [id number] : 1955 F 69 From: Rafal Bonilla PCP: Dr. Awais Kearney DO Status: REG REF Study: Limited Chest CT Cardiac Only Date of Exam: Exam# [id number] Ordering Dr: Awais Kearney DO PROCEDURE: LIMITED CHEST CT CARDIAC ONLY 06/19/2025 REASON FOR EXAM: SCREEN Diabetes mellitus, hypertension, high cholesterol. Maternal and paternal history heart disease. TECHNIQUE: Procedure Code: CTCCTACHLIM Modality: CT Procedure: LIMITED CHEST CT CARDIAC ONLY One or more dose reduction techniques were used (e.g., Automated exposure control, adjustment of the mA and/or kV according to patient size, use of iterative reconstruction technique). RADIATION DOSE SUMMARY: CTDlvol: 24.38 mGy DLP: 341.31 mGycm COMPARISON: Chest x-ray of 06/09/2021 and mammogram of 01/28/2025. CT/Limited Chest CT Cardiac Only IMPRESSION: Asymmetric posterior right breast lymph nodes are seen, in addition to asymmetric right breast densities. Cannot exclude the presence of malignancy. Consider further evaluation at this time, possibly with FDG PET-CT or other preferred technique. Mild aortic calcification is seen. Limited imaging of the lungs demonstrates no acute process. No pleural effusion or pneumothorax is seen in visualized areas. No adenopathy is noted. The visualized upper abdomen demonstrates no significant abnormality. Reading Location: [address] CC: Dr. Awais Kearney DO Captain'S Assistant: Signed Normal [facility] 36on 05-31-2025 36 Oly from [email or web address] called and requested that the record request that she had faxed over on 05/15/25 to be faxed back to her. Informed her that it had been faxed back, document in Media dated 05/21/25. Refaxed the paperwork over to her. Phone number [phone] Normal [facility] Absolute lymphocyte countOrd ered By: Awais Kearney on 05-17-2025 Lymphocytes Auto (Unsp spec) [#/Vol] 3.00 10*3/uL 0.83-4.51 [facility] Absolute neutrophil countOrd ered By: Awais Kearney on 05-17-2025 Neutrophils (Bld) [#/Vol] 6.1 10*3/uL 2.0-7.7 [facility] Anion gap in Serum or Plasma Ordered By: Awais Kearney on 05-17-2025 Anion gap [Moles/Vol] 16 mmol/L High 5-15 [facility] Automated lymphocyte count a s percentage of total leukocytesOrdered By: Awais Kearney on 05-17-2025 Lymphocytes/100 WBC Auto (Unsp spec) 28.9 % 19-41 [facility] BUN/creatinine ratioOrdered By: Awais Kearney on 05-17-2025 Urea nitrogen/Creatinine [Mass ratio] 22.5 mg/mg High 10-20 [facility] Basophil percentageOrdered B y: Awais Kearney on 05-17-2025 Basophils/100 WBC (Bld) 0.7 % 0-1 [facility] Bilirubin, totalOrdered By: Awais Kearney on 05-17-2025 Bilirubin [Mass/Vol] 0.48 mg/dL 0.00-1.30 [facility] CBC W/Diff, Automatedon 04-27 Absolute Lymph 3.00 X10 3/uL Normal 0.83-4.51 [facility] Comment on above: Performed By: #### L 500.4100, L500.4050, L501.9985, L502.0250, L100.0100 #### [facility] [address] [place], [address] Absolute Neut 6.1 X10 3/uL Normal 2.0-7.7 [facility] Comment on above: Performed By: #### L 500.4100, L500.4050, L501.9985, L502.0250, L100.0100 #### [facility] [address] [place], [address] Basophils/100 WBC (Bld) 0.7 % Normal 0-1 [facility] Comment on above: Performed By: #### L 500.4100, L500.4050, L501.9985, L502.0250, L100.0100 #### [facility] [address] [place], [address] Eosinophils/100 WBC (Bld) 2.0 % Normal 0-5 [facility] Comment on above: Performed By: #### L 500.4100, L500.4050, L501.9985, L502.0250, L100.0100 #### [facility] [address] [place], [address] Erythrocyte distribution width (RBC) [Ratio] 13.1 % Normal 11.6-14.6 [facility] Comment on above: Performed By: #### L 500.4100, L500.4050, L501.9985, L502.0250, L100.0100 #### [facility] [address] [place], [address] Hematocrit (Bld) [Volume fraction] 41.1 % Normal 37-47 [facility] Comment on above: Performed By: #### L 500.4100, L500.4050, L501.9985, L502.0250, L100.0100 #### [facility] [address] [place], [address] Hemoglobin (Bld) [Mass/Vol] 14.1 g/dL Normal 12.0-15.0 [facility] Comment on above: Performed By: #### L 500.4100, L500.4050, L501.9985, L502.0250, L100.0100 #### [facility] [address] [place], [address] IG% 0.600 Normal 0.0-0.9 [facility] Comment on above: Result Comment: IG% - Immature Granulocytes (promyelocytes, myelocytes and metamyelocytes) > 1% indicates that a LEFT SHIFT is Present. Performed By: #### L 500.4100, L500.4050, L501.9985, L502.0250, L100.0100 #### [facility] [address] [place], [address] Lymphocytes/100 WBC (Bld) 28.9 % Normal 19-41 [facility] Comment on above: Performed By: #### L 500.4100, L500.4050, L501.9985, L502.0250, L100.0100 #### [facility] [address] [place], [address] MCH (RBC) [Entitic mass] 32.1 pg High 27.0-32.0 [facility] Comment on above: Performed By: #### L 500.4100, L500.4050, L501.9985, L502.0250, L100.0100 #### [facility] [address] [place], [address] MCHC (RBC) [Mass/Vol] 34.3 g/dL Normal 32-36 [facility] Comment on above: Performed By: #### L 500.4100, L500.4050, L501.9985, L502.0250, L100.0100 #### [facility] [address] [place], [address] MCV (RBC) [Entitic vol] 93.6 fL Normal 81-99 [facility] Comment on above: Performed By: #### L 500.4100, L500.4050, L501.9985, L502.0250, L100.0100 #### [facility] [address] [place], [address] Monocytes/100 WBC (Bld) 9.3 % Normal 0-10 [facility] Comment on above: Performed By: #### L 500.4100, L500.4050, L501.9985, L502.0250, L100.0100 #### [facility] [address] [place], [address] Neutrophils/100 WBC (Bld) 58.5 % Normal 47-70 [facility] Comment on above: Performed By: #### L 500.4100, L500.4050, L501.9985, L502.0250, L100.0100 #### [facility] [address] [place], [address] Nucleated RBC (Bld) [#/Vol] 0 10*3/uL Normal 0-5 [facility] Comment on above: Performed By: #### L 500.4100, L500.4050, L501.9985, L502.0250, L100.0100 #### [facility] [address] [place], [address] Platelet mean volume (Bld) [Entitic vol] 10.0 fL Normal 6.2-12.0 [facility] Comment on above: Performed By: #### L 500.4100, L500.4050, L501.9985, L502.0250, L100.0100 #### [facility] [address] [place], [address] Platelets (Bld) [#/Vol] 311 10*3/uL Normal 150-450 [facility] Comment on above: Performed By: #### L 500.4100, L500.4050, L501.9985, L502.0250, L100.0100 #### [facility] [address] [place], [address] RBC (Bld) [#/Vol] 4.39 10*6/uL Normal 4.2-5.4 [facility] Comment on above: Performed By: #### L 500.4100, L500.4050, L501.9985, L502.0250, L100.0100 #### [facility] [address] [place], [address] RDW SD 44.7 fl High 35.1-43.9 [facility] Comment on above: Performed By: #### L 500.4100, L500.4050, L501.9985, L502.0250, L100.0100 #### [facility] [address] [place], [address] WBC (Bld) [#/Vol] 10.4 10*3/uL Normal 4.4-11.0 [facility] Comment on above: Performed By: #### L 500.4100, L500.4050, L501.9985, L502.0250, L100.0100 #### [facility] [address] [place], [address] Calculated very low density lipoprotein (VLDL) cholesterol measurementOrdered By: Awais Kearney on 05-17-2025 Calculated very low density lipoprotein (VLDL) cholesterol measurement 44 mg/dL High 5-40 [facility] Carbon dioxide, total [Moles /volume] in Central venous bloodOrdered By: Awais Kearney on 05-17-2025 CO2 [Moles/Vol] 23.9 mmol/L 21.0-32.0 [facility] Chloride assayOrdered By: Lynne Kearney on 05-17-2025 Chloride [Moles/Vol] 96 mmol/L Low 98-108 [facility] Comprehensive Metabolic Prof ilon 05-17-2025 Albumin [Mass/Vol] 4.5 g/dL Normal 3.4-4.8 [facility] Comment on above: Performed By: #### L 500.4100, L500.4050, L501.9985, L502.0250, L100.0100 ####[facility] [address] [place], [address] Albumin/Globulin [Mass ratio] 1.7 {ratio} Normal 0.9-2.4 [facility] Comment on above: Performed By: #### L 500.4100, L500.4050, L501.9985, L502.0250, L100.0100 ####[facility] [address] [place], [address] ALK PHOS 83 U/L Normal 35-104 [facility] Comment on above: Performed By: #### L 500.4100, L500.4050, L501.9985, L502.0250, L100.0100 ####[facility] [address] [place], [address] ALT [Catalytic activity/Vol] 43 U/L High <=34 [facility] Comment on above: Performed By: #### L 500.4100, L500.4050, L501.9985, L502.0250, L100.0100 ####[facility] [address] [place], [address] AST [Catalytic activity/Vol] 31 U/L Normal <=31 [facility] Comment on above: Performed By: #### L 500.4100, L500.4050, L501.9985, L502.0250, L100.0100 ####[facility] [address] [place], [address] Bilirubin [Mass/Vol] 0.48 mg/dL Normal 0.00-1.30 [facility] Comment on above: Performed By: #### L 500.4100, L500.4050, L501.9985, L502.0250, L100.0100 ####[facility] [address] [place], [address] BUN/CRE 22.5 RATIO High 10-20 [facility] Comment on above: Performed By: #### L 500.4100, L500.4050, L501.9985, L502.0250, L100.0100 ####[facility] [address] [place], [address] Calcium [Mass/Vol] 10.1 mg/dL Normal 7.6-11.0 [facility] Comment on above: Performed By: #### L 500.4100, L500.4050, L501.9985, L502.0250, L100.0100 ####[facility] [address] [place], [address] Chloride [Moles/Vol] 96 mmol/L Low 98-108 [facility] Comment on above: Performed By: #### L 500.4100, L500.4050, L501.9985, L502.0250, L100.0100 ####[facility] [address] [place], [address] CO2 [Moles/Vol] 23.9 mmol/L Normal 21.0-32.0 [facility] Comment on above: Performed By: #### L 500.4100, L500.4050, L501.9985, L502.0250, L100.0100 ####[facility] [address] [place], [address] Creatinine [Mass/Vol] 0.86 mg/dL Normal 0.70-1.20 [facility] Comment on above: Performed By: #### L 500.4100, L500.4050, L501.9985, L502.0250, L100.0100 ####[facility] [address] [place], [address] GAP 16 High 5-15 [facility] Comment on above: Performed By: #### L 500.4100, L500.4050, L501.9985, L502.0250, L100.0100 ####[facility] [address] [place], [address] GFR/1.73 sq M.predicted among non-blacks MDRD (S/P/Bld) [Vol rate/Area] 73 mL/min/{1.73_m2} Normal >60 [facility] Comment on above: Result Comment: mL/m in/1.73m2 CKD-EPI Creatinine Equation (2020) Performed By: #### L 500.4100, L500.4050, L501.9985, L502.0250, L100.0100 ####[facility] [address] [place], [address] Globulin (S) [Mass/Vol] 2.7 g/dL Normal 2.2-4.2 [facility] Comment on above: Performed By: #### L 500.4100, L500.4050, L501.9985, L502.0250, L100.0100 ####[facility] [address] [place], [address] Glucose [Mass/Vol] 288 mg/dL High 70-99 [facility] Comment on above: Performed By: #### L 500.4100, L500.4050, L501.9985, L502.0250, L100.0100 ####[facility] [address] [place], [address] Potassium [Moles/Vol] 4.8 mmol/L Normal 3.3-5.1 [facility] Comment on above: Performed By: #### L 500.4100, L500.4050, L501.9985, L502.0250, L100.0100 ####[facility] [address] [place], [address] Sodium [Moles/Vol] 135 mmol/L Normal 133-145 [facility] Comment on above: Performed By: #### L 500.4100, L500.4050, L501.9985, L502.0250, L100.0100 ####[facility] [address] [place], [address] T PROT 7.1 g/dL Normal 5.9-8.4 [facility] Comment on above: Performed By: #### L 500.4100, L500.4050, L501.9985, L502.0250, L100.0100 ####[facility] [address] [place], [address] Urea nitrogen [Mass/Vol] 19 mg/dL Normal 4-19 [facility] Comment on above: Performed By: #### L 500.4100, L500.4050, L501.9985, L502.0250, L100.0100 ####[facility] [address] [place], [address] Eosinophil percentageOrdered By: Awais Kearney on 05-17-2025 Eosinophils/100 WBC (Bld) 2.0 % 0-5 [facility] Erythrocyte distribution wid th ratioOrdered By: Awais Kearney on 05-17-2025 Erythrocyte distribution width (RBC) [Ratio] 13.1 % 11.6-14.6 [facility] Erythrocyte distribution wid th standard deviationOrdered By: Awais Kearney on 05-17-2025 Erythrocyte distribution width (RBC) [Ratio] 44.7 fl High 35.1-43.9 [facility] Glomerular filtration rate ( GFR) estimation/1.73 sq m using serum, plasma, or whole bOrdered By: Awais Kearney on 05-17-2025 GFR/1.73 sq M.predicted among non-blacks MDRD (S/P/Bld) [Vol rate/Area] 73 mL/min/{1.73_m2} >60 [facility] Comment on above: mL/min/1.73m2 CKD-EP I Creatinine Equation (2020) Hematocrit Auto (Bld) [Volum e fraction]Ordered By: Awais Kearney on 05-17-2025 Hematocrit (Bld) [Volume fraction] 41.1 % 37-47 [facility] [facility] Hemoglobin A1con 05-17-2025 HbA1c (Bld) [Mass fraction] 11.0 % High <=5.6 [facility] Comment on above: Result Comment: Norm al < 5.7 % Prediabetic 5.7 - 6.4 % Diabetic >or= 6.5 % Please note range changes. Performed By: #### L 500.4100, L500.4050, L501.9985, L502.0250, L100.0100 ####[facility] [address] [place], [place], [id number] Hemoglobin A1c percentageOrd ered By: Awais Kearney on 05-17-2025 HbA1c (Bld) [Mass fraction] 11.0 % High <5.7 [facility] Comment on above: Normal < 5.7 % Predi abetic 5.7 - 6.4 % Diabetic >or= 6.5 % Please note range changes. Hemoglobin measurementOrdere d By: Awais Kearney on 05-17-2025 Hemoglobin (Bld) [Mass/Vol] 14.1 g/dL 12.0-15.0 [facility] Immature granulocytes/100 WB C Auto (Bld)Ordered By: Awais Kearney on 05-17-2025 Immature granulocytes/100 WBC (Bld) 0.600 % 0.0-0.9 [facility] Comment on above: IG% - Immature Granu locytes (promyelocytes, myelocytes and metamyelocytes) > 1% indicates that a LEFT SHIFT is Present. LDL calc ser/plasOrdered By: Awais Kearney on 05-17-2025 Cholesterol in LDL [Mass/Vol] 101 mg/dL [facility] Comment on above: Tjlnjwkzfq=716-930 m g/dL & Higher Miow=685 mg/dL or greaterFriedwald Equation for LDL-C Laboratory - Chemistry and C hemistry - challengeOrdered By: Awais Kearney on 05-17-2025 AST [Catalytic activity/Vol] 31 U/L <32 [facility] Lipid Profileon 05-17-2025 CHOL:HDL 4.10 Normal [facility] Comment on above: Performed By: #### L 500.4100, L500.4050, L501.9985, L502.0250, L100.0100 ####[facility] [address] [place], [address] Cholesterol [Mass/Vol] 192 mg/dL Normal <=200 [facility] Comment on above: Result Comment: Chol esterol level, Desirable <200 mg/dL Borderline high cholesterol 200-239 mg/dL High cholesterol >=240 mg/dL Recommendations of the NCEP Adult Treatment Panel for the following risk-cutoff thresholds for the [place] population. Performed By: #### L 500.4100, L500.4050, L501.9985, L502.0250, L100.0100 ####[facility] [address] [place], [address] Cholesterol in HDL [Mass/Vol] 47 mg/dL Normal [facility] Comment on above: Result Comment: Annamaria onal Cholesterol Education Program (NCEP) guidelines: <40 mg/dL: Low HDL-cholesterol (major risk factor for CHD) >= 60 mg/dL: High HDL-cholesterol (negative risk factor for CHD) HDL-cholesterol is affected by a number of factors, e.g. smoking, exercise, hormones, sex and age. Performed By: #### L 500.4100, L500.4050, L501.9985, L502.0250, L100.0100 ####[facility] [address] [place], [address] Cholesterol in LDL [Mass/Vol] 101 mg/dL Normal [facility] Comment on above: Result Comment: Bord xaedmq=423-945 mg/dL Higher Ivrp=284 mg/dL or greater Friedwald Equation for LDL-C Performed By: #### L 500.4100, L500.4050, L501.9985, L502.0250, L100.0100 ####[facility] [address] [place], [address] Cholesterol in VLDL [Mass/Vol] 44 mg/dL High 5-40 [facility] Comment on above: Performed By: #### L 500.4100, L500.4050, L501.9985, L502.0250, L100.0100 ####[facility] [address] [place], [address] Triglyceride [Mass/Vol] 219 mg/dL High [facility] Comment on above: Result Comment: The drugs N-Acetylcysteine and Metamizole may falsely depress this assay. Normal range: <150 mg/dL Borderline High: 150-199 mg/dL High: 200-499 mg/dL Very High: >500 mg/dL Performed By: #### L 500.4100, L500.4050, L501.9985, L502.0250, L100.0100 ####[facility] [address] [place], [address] MCV (mean corpuscular volume ) determinationOrdered By: Awais Kearney on 05-17-2025 MCV (RBC) [Entitic vol] 93.6 fL 81-99 [facility] Mean corpuscular hemoglobin (MCH) determinationOrdered By: Awais Kearney on 05-17-2025 MCH (RBC) [Entitic mass] 32.1 pg High 27.0-32.0 [facility] Mean corpuscular hemoglobin concentration (MCHC) determinationOrdered By: Awais Kearney on 05-17-2025 MCHC (RBC) [Mass/Vol] 34.3 g/dL 32-36 [facility] Mean platelet volume determi nationOrdered By: Awais Kearney on 05-17-2025 Platelet mean volume (Bld) [Entitic vol] 10.0 fL 6.2-12.0 [facility] Microalb:Creat Ratio,Random URon 05-17-2025 Creatinine [Mass/Vol] 19.50 mg/dL Low 28.00-217.00 [facility] Comment on above: Performed By: #### L 500.4100, L500.4050, L501.9985, L502.0250, L100.0100 ####[facility] [address] [place], [place], [id number] MALB:CREAT UNABLE TO CALCULATE Normal <30 mg/g CRE [facility] Comment on above: Performed By: #### L 500.4100, L500.4050, L501.9985, L502.0250, L100.0100 ####[facility] [address] [place], [place], [id number] MICROALBUMIN,UR < 12.0 Normal <20 mg/L [facility] Comment on above: Performed By: #### L 500.4100, L500.4050, L501.9985, L502.0250, L100.0100 ####[facility] [address] [place], [address] Microalbumin/creat ratio urO rdered By: Awais Kearney on 05-17-2025 Urine microalbumin/creatinine ratio measurement UNABLE TO CALCULATE mg/g CRE <30 [facility] Monocyte percentageOrdered B y: Awais Kearney on 05-17-2025 Monocytes/100 WBC (Bld) 9.3 % 0-10 [facility] Neutrophil percentageOrdered By: Awais Kearney on 05-17-2025 Neutrophils/100 WBC (Bld) 58.5 % 47-70 [facility] Nucleated red blood cell per centageOrdered By: Awais Kearney on 05-17-2025 Nucleated RBC/100 WBC (Bld) [Ratio] 0 % 0-5 [facility] Platelet countOrdered By: Lynne Kearney on 05-17-2025 Platelets (Bld) [#/Vol] 311 10*3/uL 150-450 [facility] Potassium measurement (mass/ volume)Ordered By: Awais Kearney on 05-17-2025 Potassium (Unsp spec) [Mass/Vol] 4.8 mmol/L 3.3-5.1 [facility] RBC Auto (Bld) [#/Vol]Ordere d By: Awais Kearney on 05-17-2025 RBC (Bld) [#/Vol] 4.39 10*6/uL 4.2-5.4 [facility] Random urine creatinine christa urement (mass/volume)Ordered By: Awais Kearney on 05-17-2025 Creatinine Unsp time (U) [Mass/Vol] 19.50 mg/dL Low 28.00-217.00 [facility] Screening total cholesterol/ high density lipoprotein (HDL) cholesterol ratioOrdered By: Awais Kearney on 05-17-2025 Cholesterol.total/Choles terol in HDL [Mass ratio] 4.10 {ratio} [facility] Serum creatinine measurement (mass/volume)Ordered By: Awais Kearney on 05-17-2025 Creatinine [Mass/Vol] 0.86 mg/dL 0.70-1.20 [facility] Serum globulin measurementOr dered By: Awais Kearney on 05-17-2025 Globulin (S) [Mass/Vol] 2.7 g/dL 2.2-4.2 [facility] Serum glucose measurement (m ass/volume)Ordered By: Awais Kearney on 05-17-2025 Glucose [Mass/Vol] 288 mg/dL High 70-99 [facility] Serum or plasma alanine boston otransferase (ALT) measurementOrdered By: Awais Kearney on 05-17-2025 ALT [Catalytic activity/Vol] 43 U/L High <35 [facility] Serum or plasma albumin christa urement (mass/volume)Ordered By: Awais Kearney on 05-17-2025 Albumin [Mass/Vol] 4.5 g/dL 3.4-4.8 [facility] Serum or plasma albumin/glob ulin mass ratioOrdered By: Awais Kearney on 05-17-2025 Albumin/Globulin [Mass ratio] 1.7 {ratio} 0.9-2.4 [facility] Serum or plasma alkaline ariana sphatase measurementOrdered By: Awais Kearney on 05-17-2025 ALP [Catalytic activity/Vol] 83 U/L 35-104 [facility] Serum or plasma calcium christa urement (mass/volume)Ordered By: Awais Kearney on 05-17-2025 Calcium [Mass/Vol] 10.1 mg/dL 7.6-11.0 [facility] Serum or plasma cholesterol in HDL measurement (mass/volume)Ordered By: Awais Kearney on 05-17-2025 Cholesterol in HDL [Mass/Vol] 47 mg/dL >40 [facility] Comment on above: National Cholesterol Education Program (NCEP) guidelines:<40 mg/dL: Low HDL-cholesterol (major risk factor for CHD)>= 60 mg/dL: High HDL-cholesterol (negative risk factor for CHD)HDL-cholesterol is affected by a number of factors, e.g. smoking, exercise, hormones, sex and age. Serum or plasma cholesterol measurement (mass/volume)Ordered By: Awais Kearney on 05-17-2025 Cholesterol [Mass/Vol] 192 mg/dL <201 [facility] Comment on above: Cholesterol level, D esirable <200 mg/dLBorderline high cholesterol 200-239 mg/dLHigh cholesterol >=240 mg/dLRecommendations of the NCEP Adult Treatment Panel for the following risk-cutoff thresholds for the [place] population. Serum or plasma urea nitroge n measurement (mass/volume)Ordered By: Awais Kearney on 05-17-2025 Urea nitrogen [Mass/Vol] 19 mg/dL 4-19 [facility] Sodium levelOrdered By: Awais Kearney on 05-17-2025 Sodium [Moles/Vol] 135 mmol/L 133-145 [facility] Total proteinOrdered By: Zahra Keareny on 05-17-2025 Protein [Mass/Vol] 7.1 g/dL 5.9-8.4 [facility] Triglycerides measurementOrd ered By: Awais Kearney on 05-17-2025 Triglyceride [Mass/Vol] 219 mg/dL High <199 [facility] Comment on above: The drugs N-Acetylcy steine and Metamizole may falsely depress this assay. Normal range: <150 mg/dLBorderline High: 150-199 mg/dLHigh: 200-499 mg/dLVery High: >500 mg/dL Urine albumin measurement [facility] detection limit of 20 mg/L or less (mass/volume)Ordered By: Awais Kearney on 05-17-2025 Albumin DL <= 20 mg/L (U) [Mass/Vol] < 12.0 mg/L <20 mg/L [facility] White blood cell (WBC) count Ordered By: Awais Kearney on 05-17-2025 WBC (Bld) [#/Vol] 10.4 10*3/uL 4.4-11.0 [facility] Office Visiton 05-03-2025 Follow-up visit [id number] Amy Jerezlyn 1955 F Date Provider Department Center 05/03/2025 [id number] FRANKEL [facility] KIM None No family history on file Level of Service:84730 ME OFFICE/OUTPATIENT NEW MODERATE MDM 45 MINUTES Reason for Visit and Comments: New Patient [542] - Left achilles Normal [facility] Progress Noteon 05-03-2025 Progress Note [facility] [place] [address] [facility] [address] Dept: [phone] Dept Armando Jerez 1955 [id number] 05/03/2025 HISTORY OF PRESENT ILLNESS: Armando is a 69 y.o. female here today for evaluation of her left ankle/ achilles. She was sent to the office by [facility]- Dr. Madison Cardoza states the problem has been present for 8 months Armando states the problem started 2023, she felt the pop carrying the turkey. She had pain initially and then it subsided. Noticed gait changes affecting her ipsilateral knee replacement and contralateral hip. Saw her vascular doctor for follow up venous ablation appointment who ordered physical therapy. She had improvement in her knee and hip with therapy but not in the ankle itself. Then followed up with [facility] for continued gait problems who ordered MRI and showed Achilles tendon rupture Armando has tried or has been treated with the following: physical therapy x 6 weeks, Tylenol Review of Systems Surgical Risk Factors: Allergies to Metals or Latex: NO Have you been treated for a blood clot: NO Have you had a history of bleeding disorder: NO Have you had a history of Anesthetic problems: NO Do you have tendency to bruise easily: NO Do you experience prolonged or excessive bleeding from cuts or after surgery: NO General/Constitution al: General: no Cancer: NO Acute/Chronic Infections: NO HEENT/Neck: Problems with theThroat: NO Problems with the Eyes: NO Problems with the Ears: NO Problems with the Nose and Sinuses: NO Endocrine: Problems with Diabetes: NO Problems with Thyroid Disorder: NO Thorax: Problems with the Heart: NO Problems with the Lung: no Cardiovascular: Problems with Circulation: NO Problems with High Blood pressure: NO Gastrointestinal: Problems with Ulcers: NO Problems with the Liver: no Problems with Bowel Habits: NO Genitourinary: Problems with the Genitals: NO Urinary problems: NO Kidney disease or stones: NO Skin: Any general problems: NO Neurologic: Dizziness, blurred vision, headaches, problems with balance : NO Seizures or Stroke: NO Psychiatric: Emotional or Psychological disorders: NO Depression or Anxiety: no PAST MEDICAL HISTORY: Medical History[1] Allergies[2] PHYSICAL EXAM: Ht 1.6 m (5' 3") Wt 86.2 kg (190 lb) BMI 33.66 kg/m? This is an age appropriate appearing female who is alert and oriented x 3. The patient appears well nourished. Psychiatric: The patient is able to verbalize normally and seems to have a good understanding of her situation. left lower extremity examination Lymphatic System: No areas of swelling are seen Vascular: Dorsalis pedis pulse: 2+ Posterior tibial pulse: 2+ Capillary refill is less than 3 seconds Skin/nails: Normal appearance, warm and dry Hair growth present on foot and toes Neurologic: Sensation intact to light touch throughout the foot and the ankle Musculoskeletal: The calf is nontender to palpation. ROM: Full ROM of the foot and ankle Muscle strength testing: Anterior tibialis: 5/5 Posterior tibialis: 5/5 Peroneus brevis: 5/5 Peroneus longus: 5/5 Gastrocsoleus: 4/5 Unable to go up on toes of Left foot Can plantarflex against resistance Achilles Tendon Evaluation: Tenderness overlying tendon: Yes, mild tenderness to calf Palpable defect: Yes Notable calf atrophy as compared contralaterally Gait and Station: Armando is able to ambulate with a normal gait Armando is able to stand unassisted and maintains balance RADIOGRAPHIC INTERPRETATION: The following outside studies that were ordered by another care provider were reviewed and my interpretation of the these studies follows and these include: MRI of Left ankle chronic rupture of the Achilles tendon is noted. The tear is approximately 4 cm proximal to the insertion site with a gap that appears to be 4 cm. No other abnormalities are seen. REVIEW OF RELATED PREVIOUS DOCUMENTATION: Documents from Dr. Wallace, [facility] were reviewed. LABORATORY RESULT INTERPRETATION: No labs were reviewed/No labs available for review DIAGNOSIS: Diagnosis Plan 1. Chronic rupture of Achilles tendon General supply request: ankle toe off brace - left 2. Type 2 diabetes mellitus without complication, unspecified whether custodial insulin use (HCC) General supply request: ankle toe off brace - left MEDICAL DECISION MAKING: I had a discussion with Armando to make sure she has a good understanding of the diagnoses/issues that I think are present today and understands the plan moving forward. I discussed with Armando that she has a chronic rupture of the Achilles tendon. I explained that if we had seen her acutely after the injury we would have had the option to surgically repair the tendon which generally yields ve (more content not included)... Normal [facility] Re-Evaluation - PT (1)on Re-Evaluation - PT (1) [facility] Physical [facility] [address] [place] [address]. [address] [place] [address] / REEVALUATION / MEDICARE RECERTIFICATION PHYSICAL THERAPY MR#: [id number] Acct: [id number] Name: ARMANDO JEREZ Rep #: [id number] : 1955 69 From: Kota Arshad DPT Referring Dr.: CELESTE Verduzco Status:REG RCR Insurance: MEDICARE PART A B [facility] Re-Evaluation Intro: CELESTE Verduzco, It has been my pleasure to treat ARMANDO JEREZ over the last 8 visits for Imbalance. Please see the progress note below for an update on the physical therapy plan of care! Subjective Subjective: Pt. reports overall doing slight better. Pt. reports being 50% better. Mostly with her balance, but her ankle strength has not seen much change. Objective Objective/Function: ROM: Pt. is still limited iwth L knee ROM 0-5-98deg with over pressure. She is unable to complete SL heel raise on LLE, but able to do x10 on R side. Overall her balance has improved, but still very limited with L knee ROM and L ankle strength. I feel like her lack of TKE on the L side is effecting her able to complete standing heel raises and her limited PF strength is effecting her balance. Pt. is to follow up with physician to determine best course of action. No recent falls and she is I with LE strengthening HEP at this point in time. I will have Armando on hold with PT until following up with physician. Plan Plan Plan: Pt. to be on hold until meeting with physician next week. Balance/Gait/Functio nal tests Balance/Special Test Scores Functional Gait Assessment Score: 22 % Disability: 26.6700 Lower Extremity Functional Score: 34 TUG Test Time Seconds: 10.9 Tug Test: <20 sec.=mostly independent Goals Goals Goal 1:: LTG: Pt. to be I with HEP. Goal Time Frame: 4-6 Weeks Goal Progress: Goal Met Goal 2:: STG: Pt. to have increased L knee ROM to 0-5-100deg allowing for improved gait pattern. Goal Time Frame: 2-4 Weeks Goal Progress: Progressing Goal 3:: LTG: Pt. to be able to complete SL heel raises on LLE x10 indicating improved calf strength. Goal Time Frame: 4-6 Weeks Goal Progress: Not Progressing Goal 4:: LTG: Pt. to compelte TUG with time less than 10seconds. Goal Progress: Progressing Goal 5:: LTG: Pt. to complete FGA with score greater than 24/30. Goal Progress: Progressing Anticipated Interventions Anticipated Interventions Patient/Client Instruction: Educate patient on: Condition, Plan of Care, Risk Factors and Benefits of Fitness Program For the Purpose of:: To improve decision making, To facilitate caregiver knowledge, To improve self management, To prevent re-injury, To improve ability to perform tasks related to life management and To improve tolerance to ADL's Therapeutic Exercise to Include: Strength training, Power training, Endurance training, Balance training, Postural training and Flexibilty training For the Purpose of:: To decrease pain, To decrease swelling/inflammatio n, To increase ROM, To improve nutrient delivery to tissue and To increase oxygenation perfusion Re-Evaluation Ending Re-evaluation ending: Please do not hesitate to contact me at [phone] by phone or if you have questions or concerns regarding this new plan of care! Sincerely, JL HouserT 03/22/25 1021 CC: CELESTE Verduzco; Dr. Awais Kearney, CLS Signed For Medicare only, by signing this I certify the plan of care. Physicians Signature Date Normal [facility] Re-Evaluation - PT (1) [facility] Physical Therapy [address] [place] [address] / REEVALUATION / MEDICARE RECERTIFICATION PHYSICAL THERAPY MR#: [id number] Acct: [id number] Name: ARMANDO JEREZ Rep #: [id number] : 1955 69 From: Kota Arshad DPT Referring Dr.: CELESTE Verduzco Status:REG RCR Insurance: MEDICARE PART A B [employer] Re-Evaluation Intro: CEELSTE Verduzco, It has been my pleasure to treat ARMANDO JEREZ over the last 8 visits for Imbalance. Please see the progress note below for an update on the physical therapy plan of care! Subjective Subjective: Pt. reports overall doing slight better. Pt. reports being 50% better. Mostly with her balance, but her ankle strength has not seen much change. Objective Objective/Function: ROM: Pt. is still limited iwth L knee ROM 0-5-98deg with over pressure. She is unable to complete SL heel raise on LLE, but able to do x10 on R side. Overall her balance has improved, but still very limited with L knee ROM and L ankle strength. I feel like her lack of TKE on the L side is effecting her able to complete standing heel raises and her limited PF strength is effecting her balance. Pt. is to follow up with physician to determine best course of action. No recent falls and she is I with LE strengthening HEP at this point in time. I will have Armando on hold with PT until following up with physician. Plan Plan Plan: Pt. to be on hold until meeting with physician next week. Balance/Gait/Functio nal tests Balance/Special Test Scores Functional Gait Assessment Score: 22 % Disability: 26.6700 Lower Extremity Functional Score: 34 TUG Test Time Seconds: 10.9 Tug Test: <20 sec.=mostly independent Goals Goals Goal 1:: LTG: Pt. to be I with HEP. Goal Time Frame: 4-6 Weeks Goal Progress: Goal Met Goal 2:: STG: Pt. to have increased L knee ROM to 0-5-100deg allowing for improved gait pattern. Goal Time Frame: 2-4 Weeks Goal Progress: Progressing Goal 3:: LTG: Pt. to be able to complete SL heel raises on LLE x10 indicating improved calf strength. Goal Time Frame: 4-6 Weeks Goal Progress: Not Progressing Goal 4:: LTG: Pt. to compelte TUG with time less than 10seconds. Goal Progress: Progressing Goal 5:: LTG: Pt. to complete FGA with score greater than 24/30. Goal Progress: Progressing Anticipated Interventions Anticipated Interventions Patient/Client Instruction: Educate patient on: Condition, Plan of Care, Risk Factors and Benefits of Fitness Program For the Purpose of:: To improve decision making, To facilitate caregiver knowledge, To improve self management, To prevent re-injury, To improve ability to perform tasks related to life management and To improve tolerance to ADL's Therapeutic Exercise to Include: Strength training, Power training, Endurance training, Balance training, Postural training and Flexibilty training For the Purpose of:: To decrease pain, To decrease swelling/inflammatio n, To increase ROM, To improve nutrient delivery to tissue and To increase oxygenation perfusion Re-Evaluation Ending Re-evaluation ending: Please do not hesitate to contact me at [phone] by phone or if you have questions or concerns regarding this new plan of care! Sincerely, Kota Arshad, DPT 03/22/25 1020 CC: CELESTE Verduzco; Dr. Awais Kearney, DO CLS Signed For Medicare only, by signing this I certify the plan of care. Physicians Signature Date Normal [facility] MR/BMS.BVSon 03-21-2025 MR/BMS.BVS [facility] [address] [place] [address] OFFICE VISIT Date of Service: 03/21/25 MR#: [id number] Acct: [id number] Name: ARMANDO JEREZ Rep #: [id number] : 1955 Provider: CELESTE Verduzco Age/Sex: 69/F Location: [facility] Status: Signed Intake Vital Signs 11/13/24 07:55 03/21/25 11:14 Height 5 ft 3 in Weight: 195 lb BP 131/67 H Blood Pressure Location Lt brachial Position Sitting Respiration 16 Pulse 73 Pulse Source Monitor Temp 97.8 F Temp Source Temporal Pulse Oximetry (%) 96 Oxygen Delivery Method room air Intake Visit Reasons: 6 WK FU Is patient in pain?: No Allergies Dressing: Non-Medicated (wrap) Adverse Reaction (Verified 03/21/25 11:15) Rash Milk Containing Products (Dairy) (Milk Containing Products) Adverse Reaction (Verified 03/21/25 11:15) Diarrhea Medications ???Medication ???Instructions ???Recorded ???Confirmed ???Type meloxicam 15 mg tablet 15 mg PO QHS inflammation 06/05/19 03/21/25 History multivitamin (Daily Multi-Vitamin 1 tab PO DAILY supplement 0 03/21/25 History tablet) aspirin 81 mg chewable tablet 81 mg PO BIDCM Postop DVT 03/16/22 03/21/25 Rx prophylaxis 30 days #60 tabs furosemide 40 mg tablet (Lasix) 40 mg PO BID #180 tabs 09/04/24 Rx lisinopril 20 mg tablet 20 mg PO BID #180 tabs 09/04/24 Rx metoprolol succinate 50 mg 50 mg PO DAILY #90 tabs 09/04/24 0 03/21/25 Rx tablet,extended release 24 hr pravastatin 40 mg tablet 40 mg PO QHS #90 tabs 09/04/24 Rx spironolactone 25 mg tablet 25 mg PO DAILY #90 TABLETS 4 03/21/25 Rx flecainide 100 mg tablet 100 mg PO BID #180 TABLETS 4 03/21/25 Rx blood sugar diagnostic (True 10/30/24 03/21/25 History Metrix Glucose Test Strip) chlorhexidine gluconate 0.12 % BID 10/30/24 03/21/25 History mouthwash dulaglutide 0.75 mg/0.5 mL 0.75 mg subcut QWEEK 11/13/2402/25 History subcutaneous pen injector (Trulicity) glipizide 10 mg tablet, extended 10 mg PO QDAY 11/13/24 03/21/25 Hi story release 24 hr diosmin complex no.1 630 mg tablet 1 tab PO QDAY #30 tabs 02/07/25 03/21/25 Rx (Vasculera) Is last menstrual period known: No Post menopausal: Yes Patient : No Have you fallen in the past year?: No PFSH Medical History Wears glasses Post-menopausal Wears dentures Depression Anxiety High cholesterol Dietary restriction Heartburn Non-smoker CPAP (continuous positive airway pressure) dependence Leg cramps History of pain when walking History of edema History of echocardiogram History of stress test Hypertension Cardiology follow-up encounter History of atrial fibrillation History of irregular heartbeat Preop cardiovascular exam Arthritis of left knee Lupus Diabetes Hemorrhoids Essential (primary) hypertension Varicose veins with inflammation Chronic venous insufficiency Cyst of breast, right, solitary SVT (supraventricular tachycardia) Paroxysmal atrial fibrillation Hyperlipemia Palpitations Polyarthritis Impingement syndrome of right shoulder Obesity EMMANUEL (obstructive sleep apnea) Hypomagnesemia IBS (irritable bowel syndrome) Vitamin D deficiency Gout Dermatitis Bradycardia Constipation GERD (gastroesophageal reflux disease) Osteoporosis Hammer toe Leg edema Surgical History Hx of colonoscopy Status post endovenous radiofrequency ablation of saphenous vein vein ablation History of left heart catheterization (11/20/10) History of cardiac radiofrequency ablation (RFA) (11/20/10) History of hysterectomy History of tonsillectomy Family History Mother CAD (coronary artery disease) Father Aneurysm Other Heart disease Social History Smoking Status: Never smoker alcohol intake: never substance use type: does not use caffeine: Yes Type: carbonated beverages Number of servings: 1 what type of physical activity do you participate in: none seatbelt use: always do you feel safe at home: Yes HPI HPI HPI: ARMANDO JEREZ, is a 69 F who presents to the office today to discuss updated venous reflux study and to reassess her symptoms after optimization of conservative management measures. Her venous reflux study 02/19/25 did not demonstrate any reflux; showed prior L GSV EVLA. She has been taking Vasculera as prescribed and does feel that it has offered improvement in the achiness in her legs; she has not had any adverse effects. She has been participating in PT and found this helped her balance (more content not included)... Normal [facility] Inital Evaluation (1) - PTon 02-19-2025 Inital Evaluation (1) - PT [facility] Physical Therapy [facility] [address] [place] [address]. [address] [place] [address] / REHABILITATION SERVICES INITIAL EVALUATION MR#: [id number] Acct: [id number] Name: ARMANDO JEREZ Rep #: [id number] : 1955 69 From: Kota Arshad DPT Referring Dr.: CELESTE Verduzco Status: REG RCR Insurance: MEDICARE PART A B [facility] Patient's Visit Information Visit Information Visit Information: ARMANDO JEREZ is a 69 year old F referred to Physical Therapy by CELESTE Verduzco with a diagnosis of Imbalance. Date of Evaluation: 02/19/25 Physical Therapist: Kota Arshad DPT Visit Plan Frequency: 2x /Week Duration: 4 Weeks Plan: 1) progress L knee ROM. She had a TKA 3 years ago and is missing 12deg of TKE. 2) add in calf strengthening (I gave her seated GTB PF at IE) 3) dynamic balance progression. Subjective Subjective: Pt. is here today for her initial evaluation with diagnosis of imbalance and gait disturbance. Pt. reports having a vein ablasion in 2017 and then a L TKA in 2021. Pt. reports she has been noticing a decreased L calf muscle as well as some new imbalance with her gait. She has not fallen. She reports no pain. Pt. is does not use a device with her mobility either. Pt. is to follow back up with her physician in 1 month. pt. does reports some tingling in her legs. Pt. is diabetic. Pt. is hopeful to improve her balance and strength in order to complete all ADLs and walk without issues. Objective Objective: POSTURE: Pt. has overall fairly normal posture. PALPATION: No pain with palpation of BLEs. Pt. has marked NEURO: Pt. has normal sensation and DTR of BLEs ROM: pt. has slight tightness Pt. has marked hypomobility in her L knee 0-12-91deg. with OP. MMT: Pt. has fairly normal BLE strength, except L PF. Pt. is unable to complete single leg heel raise on L side, but able to complete 10 on R. GAIT: Pt. has marked abnormality with limited L push off with calf. She has marked loss of L knee extension during L stance phase of gait as well. STAIRS: Pt. has decreased stability with descending, marked functional weakness noted. Descending is worse than ascending. Balance/Special Test Scores Functional Gait Assessment Score: 21 % Disability: 30.0000 Lower Extremity Functional Score: 21 Goals Goal 1:: LTG: Pt. to be I with HEP. Goal Time Frame: 4-6 Weeks Goal 2:: STG: Pt. to have increased L knee ROM to 0-5-100deg allowing for improved gait pattern. Goal Time Frame: 2-4 Weeks Goal 3:: LTG: Pt. to be able to complete SL heel raises on LLE x10 indicating improved calf strength. Goal Time Frame: 4-6 Weeks Goal 4:: LTG: Pt. to compelte TUG with time less than 10seconds. Goal 5:: LTG: Pt. to complete FGA with score greater than 24/30. Rehabilitation Potential Physical Therapy Diagnosis: Pt. has signs and symptoms consistent with imbalance. It appears her biggest issue is with her limited L knee ROM resulting in decreased gastroc strength. Pt. would benefit from PT increase L knee ROM exercises and G/S strengthening progressing towards dynamic balance activities Rehabilitation Potential: Good Anticipated Interventions Patient/Client Instruction: Educate patient on: Condition, Plan of Care, Risk Factors and Benefits of Fitness Program For the Purpose of:: To improve decision making, To facilitate caregiver knowledge, To improve self management, To prevent re-injury, To improve ability to perform tasks related to life management and To improve tolerance to ADL's Therapeutic Exercise to Include: Strength training, Power training, Endurance training, Balance training, Postural training and Flexibilty training For the Purpose of:: To decrease pain, To decrease swelling/inflammatio n, To increase ROM, To improve nutrient delivery to tissue and To increase oxygenation perfusion Text: Thank you for the opportunity to evaluate your patient. For Medicare and Medicare HMO plans, please review the plan of care and approve it. It will need to be FAXED BACK to us at [phone] for Medicare purposes. For Medicare only, by signing this I certify the plan of care. Please let me know if there are questions or concerns regarding this plan of care. Physician Signature: D ate: 02/19/25 1249 CC: CELESTE Verduzco; Dr. Awais Kearney DO CLS Signed Normal [facility] Venous Duplex US - Manuel Extre [facility] 02-19-2025 Venous Duplex US - Manuel Extrem [facility] Cardiovascular Services [address] [place] [address] Venous Duplex US - Manuel Extrem 02/19/25 1403 MR#: [id number] Acct: [id number] Name: ARMANDO JEREZ Rep #: [id number] : 1955 69 From: Jose A Bangura MD Attending Dr: CELESTE Verduzco Status: REG CLI Ordering Dr: Ellen Katz Date: 02/19/25 Location: [facility] Sex: F C Admitted: Reason For Study Reason For Study: PAIN RIGHT LEFT GSV is normal. GSV is normal. CFV is compressible, spontaneous, phasic, competent CFV is compressible, spontaneous, phasic, competent, and demonstrates normal augmentation. and demonstrates normal augmentation. FV is compressible, spontaneous, phasic, competent FV is compressible, spontaneous, phasic, competent and demonstrates normal augmentation. and demonstrates normal augmentation. POP V is compressible, spontaneous, phasic, competent POP V is compressible, spontaneous, phasic, competent and demonstrates normal augmentation. and demonstrates normal augmentation. T/P Trunk is compressible. T/P Trunk is compressible. PTV is compressible. PTV is compressible. RT PerV is compressible. LT PerV is compressible. SFJ is competent and measures 0.96 cm. SFJ is competent and measures 0.83 cm. GSV proximal thigh measures 0.34 x 0.34 cm. GSV EVLA 2019. GSV at knee measures 0.34 x 0.31 cm. SSV mid calf is competent and measures 0.21 x 0.71 GSV is competent throughout. cm. SSV mid calf is competent and measures 0.23 x 0.18 cm. Procedure This is a venous duplex using B-mode, color flow and spectral Doppler. Exam performed in department. Patient was scanned in reverse Trendelenburg position during reflux assessment. VL/Venous Duplex US - Manuel Extrem Interpretation Summary Deep veins of the bilateral lower extremities are patent and compressible segmentally. There is no evidence of right lower extremity deep vein thrombosis. The right great saphenous vein appears patent and compressible segmentally. Negative for reflux bilateral Ordering Physician: Ellen Katz Referring Physician: Awais Kearney Performed By: Adelia Santos, RDCS, RVT 02/19/257 Date Jose A Bangura MD CC: CELESTE Verduzco; Dr. Awais Kearney, Date Dictated: 02/19/25 140 Date Transcribed: 02/19/251646 Captain'S Assistant: Signed Normal [facility] Venous duplex ultrasound rep ortOrdered By: Jose A Bangura on 02-19-2025 US Vein [facility] Cardiovascular Services [address] [place] [address] Venous Duplex US - Manuel Extrem 02/19/25 140 MR#: [id number] Acct: [id number] Name: ARMANDO JEREZ Rep #:[id number] : 1955 69 From: oJse A Bonilla Attending Dr: CELESTE Verduzco Stat us: REG CLI Ordering Dr: Ellen Katz Date: Location: CVS Sex: F C Admitted: Reason For Study Reason For Study: PAIN RIGHT LEFT GSV is normal. GSV is normal. CFV is compressible, spontaneous, phasic, competent CFV is compressible, spontaneous, phasic, competent, and demonstrates normal augmentation. and demonstrates normal augmentation. FV is compressible, spontaneous, phasic, competent FV is compressible, spontaneous, phasic, competent and demonstrates normal augmentation. and demonstrates normal augmentation. POP V is compressible, spontaneous, phasic, competent POP V is compressible, spontaneous, phasic, competent and demonstrates normal augmentation. and demonstrates normal augmentation. T/P Trunk is compressible. T/P Trunk is compressible. PTV is compressible. PTV is compressible. RT PerV is compressible. LT PerV is compressible. SFJ is competent and measures 0.96 cm. SFJ is competent and measures 0.83 cm. GSV proximal thigh measures 0.34 x 0.34 cm. GSV EVLA 2019. GSV at knee measures 0.34 x 0.31 cm. SSV mid calf is competent and measures 0.21 x 0.71 GSV is competent throughout. cm. SSV mid calf is competent and measures 0.23 x 0.18 cm. Procedure This is a venous duplex using B-mode, color flow and spectral Doppler. Exam performed in department. Patient was scanned in reverse Trendelenburg position during reflux assessment. VL/Venous Duplex US - Manuel Extrem Interpretation Summary Deep veins of the bilateral lower extremities are patent and compressible segmentally. There is no evidence of right lower extremity deep vein thrombosis. The right great saphenous vein appears patent and compressible segmentally. Negative for reflux bilateral Ordering Physician: Ellen Katz Referring Physician: Awais Kearney Performed By: Adelia Santos, RDCS, RVT 02/19/25 7655 Date _ Jose A Bangura MD CC: CELESTE Verduzco; Dr. Awais Kearney, ~ Date Dictated: 02/19/25 1403 Date Transcribed: 05/27/25 1647 Captain'S Assistant: Signed [facility] Work Phone: MR/BMS.DONSon 02-07-2025 MR/BMS.BVS [facility] Vascular Surgery [address] [place] [address] OFFICE VISIT Date of Service: 02/07/25 MR#: [id number] Acct: [id number] Name: ARMANDO JEREZ Rep #: [id number] : 1955 Provider: CELESTE Verduzco Age/Sex: 69/F Location: [facility] Status: Signed Intake Vital Signs 11/13/24 07:55 02/07/25 11:00 Height 5 ft 3 in Weight: 195 lb BP 137/67 H Blood Pressure Location Lt brachial Position Sitting Respiration 16 Pulse 69 Pulse Source Monitor Temp 97.3 F L Temp Source Temporal Pulse Oximetry (%) 96 Oxygen Delivery Method room air Intake Visit Reasons: B/L leg discoloration Is patient in pain?: Yes Allergies Dressing: Non-Medicated (wrap) Adverse Reaction (Verified 02/07/25 11:02) Rash Milk Containing Products (Dairy) (Milk Containing Products) Adverse Reaction (Verified 02/07/25 11:02) Diarrhea Medications ???Medication ???Instructions ???Recorded ???Confirmed ???Type meloxicam 15 mg tablet 15 mg PO QHS inflammation 06/05/19 02/07/25 History multivitamin (Daily Multi-Vitamin 1 tab PO DAILY supplement 0 02/07/25 History tablet) aspirin 81 mg chewable tablet 81 mg PO BIDCM Postop DVT 03/16/22 02/07/25 Rx prophylaxis 30 days #60 tabs furosemide 40 mg tablet (Lasix) 40 mg PO BID #180 tabs 09/04/24 Rx lisinopril 20 mg tablet 20 mg PO BID #180 tabs 09/04/24 Rx metoprolol succinate 50 mg 50 mg PO DAILY #90 tabs 09/04/24 0 02/07/25 Rx tablet,extended release 24 hr pravastatin 40 mg tablet 40 mg PO QHS #90 tabs 09/04/24 Rx spironolactone 25 mg tablet 25 mg PO DAILY #90 TABLETS 4 02/07/25 Rx flecainide 100 mg tablet 100 mg PO BID #180 TABLETS 4 02/07/25 Rx blood sugar diagnostic (True 10/30/24 02/07/25 History Metrix Glucose Test Strip) chlorhexidine gluconate 0.12 % BID 10/30/24 02/07/25 History mouthwash dulaglutide 0.75 mg/0.5 mL 0.75 mg subcut QWEEK 11/13/24 05/02/17 History subcutaneous pen injector (Trulicity) glipizide 10 mg tablet, extended 10 mg PO QDAY 11/13/24 02/07/25 Hi story release 24 hr diosmin complex no.1 630 mg tablet 1 tab PO QDAY #30 tabs 02/07/25 02/07/25 Rx (Vasculera) Is last menstrual period known: No Post menopausal: Yes Patient : No Have you fallen in the past year?: No PFSH Medical History Wears glasses Post-menopausal Wears dentures Depression Anxiety High cholesterol Dietary restriction Heartburn Non-smoker CPAP (continuous positive airway pressure) dependence Leg cramps History of pain when walking History of edema History of echocardiogram History of stress test Hypertension Cardiology follow-up encounter History of atrial fibrillation History of irregular heartbeat Preop cardiovascular exam Arthritis of left knee Lupus Diabetes Hemorrhoids Essential (primary) hypertension Varicose veins with inflammation Chronic venous insufficiency Cyst of breast, right, solitary SVT (supraventricular tachycardia) Paroxysmal atrial fibrillation Hyperlipemia Palpitations Polyarthritis Impingement syndrome of right shoulder Obesity EMMANUEL (obstructive sleep apnea) Hypomagnesemia IBS (irritable bowel syndrome) Vitamin D deficiency Gout Dermatitis Bradycardia Constipation GERD (gastroesophageal reflux disease) Osteoporosis Hammer toe Leg edema Surgical History Hx of colonoscopy Status post endovenous radiofrequency ablation of saphenous vein vein ablation History of left heart catheterization (11/20/10) History of cardiac radiofrequency ablation (RFA) (11/20/10) History of hysterectomy History of tonsillectomy Family History Mother CAD (coronary artery disease) Father Aneurysm Other Heart disease Social History Smoking Status: Never smoker alcohol intake: never substance use type: does not use caffeine: Yes Type: carbonated beverages Number of servings: 1 what type of physical activity do you participate in: none seatbelt use: always do you feel safe at home: Yes HPI HPI HPI: ARMANDO JEREZ, is a 69 F who presents to the office today for symptomatic chronic venous insufficiency. She has had known CVI for years. She previously had significant LLE aching/burning pain around the ankles. She had prior LLE venous ablation by Dr. Arambula in 2019 which offered much improvement in these symptoms. Unfortunately, she has developed progressive burning pain bilaterally but particularly at the L ankle again in addition to bilateral lower extremity aching, h (more content not included)... Normal [facility] Breast imaging reportOrdered By: Haylie Graham on 01-28-2025 Study report [facility] Imaging Services [address] [place], [place] [address] SCRN MAMM (CAD)W/ELEAZAR BILAT MR#: [id number] Acct: [id number] Name: ARMANDO JEREZ Rep #: [id number] : 1955 F 69 From: Eric Graham DO PCP: Dr. Awais Kearney, Status: REG CLI Study:SCRN MAMM (CAD)W/ELEAZAR BILAT Date of Exa m: 01/28/25 Exam# [id number] Ordering Dr: Awais Kearney DO EXAM: SCRN MAMM (CAD)W/ELEAZAR BILAT DATE: 01/28/2025 CLINICAL HISTORY: F, Age 69 y/o , SCREENING BREAST CANCER RISK ASSESSMENT: Has not been calculated. TECHNIQUE: Bilateral screening digital breast tomosynthesis with 2D and 3D images. Computeraided detection. COMPARISON: Prior exam(s) dated 01/11/2024 and 10/21/2022. FINDINGS: TISSUE DENSITY: The breast tissue is composed of scattered area of fibroglandular density. Bilateral Breast Mammographic Findings: There are no suspicious masses, suspicious cluster of microcalcifications, architectural distortion or secondary signs of malignancy identified in either breast. The overall breast findings are similarwhen compared to the prior exam. Benign round calcifications are seen in both breasts. Partially obscured stable isodense masses are seen in the superior outer quadrant of the left breast. The mass seen in the superior slightly medial, middle 3rd aspect of the right breast on the prior study is smaller on today's exam. BI/SCRN MAMM (CAD)W/ELEAZAR BILAT IMPRESSION: OVERALL FINAL ASSESSMENT: BIRADS 2 BENIGN FINDING RECOMMENDATION: Routine annual follow-up in 1 Year A letter with findings and recommendations will be mailed to the patient. Reading Location: [id number] CC: Dr. Awais Kearney DO ~ Captain'S Assistant: Signed [facility] SCRN MAMM (CAD)W/ELEAZAR BILATo n 01-28-2025 SCRN MAMM (CAD)W/ELEAZAR BILAT [facility] Imaging Services [address] [place] [address] SCRN MAMM (CAD)W/ELEAZAR BILAT MR#: [id number] Acct: [id number] Name: ARMANDO JEREZ Rep #: [id number] : 1955 F 69 From: Haylie Doll PCP: Dr. Awais Kearney DO Status: REG CLI Study: SCRN MAMM (CAD)W/ELEAZAR BILAT Date of Exam: 02/17 Exam# [id number] Ordering Dr: Awais Kearney DO EXAM: SCRN MAMM (CAD)W/ELEAZAR BILAT DATE: 01/28/2025 CLINICAL HISTORY: F, Age 69 y/o , SCREENING BREAST CANCER RISK ASSESSMENT: Has not been calculated. TECHNIQUE: Bilateral screening digital breast tomosynthesis with 2D and 3D images. Computer aided detection. COMPARISON: Prior exam(s) dated 01/11/2024 and 10/21/2022. FINDINGS: TISSUE DENSITY: The breast tissue is composed of scattered area of fibroglandular density. Bilateral Breast Mammographic Findings: There are no suspicious masses, suspicious cluster of microcalcifications, architectural distortion or secondary signs of malignancy identified in either breast. The overall breast findings are similar when compared to the prior exam. Benign round calcifications are seen in both breasts. Partially obscured stable isodense masses are seen in the superior outer quadrant of the left breast. The mass seen in the superior slightly medial, middle 3rd aspect of the right breast on the prior study is smaller on today's exam. BI/SCRN MAMM (CAD)W/ELEAZAR BILAT IMPRESSION: OVERALL FINAL ASSESSMENT: BIRADS 2 BENIGN FINDING RECOMMENDATION: Routine annual follow-up in 1 Year A letter with findings and recommendations will be mailed to the patient. Reading Location: [id number] CC: Dr. Awais Kearney DO Captain'S Assistant: Signed Normal [facility] Pulmonary Visit Reporton Pulmonary Visit Report [facility] of [address] [place] [address] OFFICE VISIT Date of Service: 11/13/24 MR#: [id number] Acct: [id number] Name: ARMANDO JEREZ Rep #: [id number] : 1955 Provider: RENA lEkins Age/Sex: 69/F Location: [facility] Status: Signed Assessment and Plan Assessment and Plan (1) EMMANUEL (obstructive sleep apnea): Status: Chronic (2) Obesity: Status: Chronic Qualifiers: Obesity type: due to excess calories Obesity classification: adult class 2 (BMI 35 - 39.9) Serious obesity comorbidity presence: with serious comorbidity Body mass index: BMI 35.0-35.9 Qualified Code(s): E66.01 - Morbid (severe) obesity due to excess calories; Z68.35 - Body mass index [BMI] 35.0-35.9, adult Plan She is using and benefiting from Pap therapy. No indication for titration study at this time, however she may benefit from a larger interface. Continue to encourage weight loss. Contact the office for any new or worsening symptoms in the meantime. Follow-up in 1 year. Plan Details Follow Up: 1 Year ([facility]) HPI 1 Y FU Chief Complaint: routine follow up HPI Comments Details: This patient presents to the office today for 1 year follow-up of her obstructive sleep apnea. She is ambulatory and currently on room air. She has not recently been seen in the ED or urgent care for any respiratory illness. She has not required any antibiotics or prednisone for any breathing problems. She has shortness of breath on exertion. She denies any cough, sputum production or hemoptysis. She has not had any wheezing, chest tightness, chest pain or palpitations. She also denies any fever, chills or body aches. She feels rested and refreshed. She is experiencing difficulty with mask leaks, and her sometimes complains about the leaks. She is using a small full face mask. She denies any difficulty with nocturia. She is not requiring naps. She is not nodding off to sleep unintentionally. She notices some dry mouth in the morning. Compliance report for the past 30 days shows 100% compliance with average use of 5 hours and 58 minutes per night. Current setting is CPAP 12 cm of water with a residual AHI of 1.3 events per hour. Leaks do appear to be problematic. Intake Vital Signs 10/04/23 08:05 11/13/24 07:55 Height 5 ft 3 in 5 ft 3 in Weight: 194 lb BMI 34.3 BP 125/66 H Blood Pressure Location Lt brachial Position Sitting Respiration 18 Pulse 66 Pulse Source Monitor Temp 97.4 F L Temperature Source Temporal Artery Pulse Oximetry (%) 98 Oxygen Delivery Method room air Intake Visit Reasons: 1 Y FU Chief Complaint: left knee Neonatal Intensive Care Nurse Required: No DME Vendor: Brandon Accompanied by: Self Allergies Dressing: Non-Medicated (wrap) Adverse Reaction (Verified 11/13/24 08:52) Rash Milk Containing Products (Dairy) (Milk Containing Products) Adverse Reaction (Verified 11/13/24 08:52) Diarrhea Medications ???Medication ???Instructions ???Recorded ???Confirmed ???Type meloxicam 15 mg tablet 15 mg PO QHS inflammation 06/05/19 11/13/24 History multivitamin (Daily Multi-Vitamin 1 tab PO DAILY supplement 0 11/13/24 History tablet) aspirin 81 mg chewable tablet 81 mg PO BIDCM Postop DVT 03/16/22 11/13/24 Rx prophylaxis 30 days #60 tabs furosemide 40 mg tablet (Lasix) 40 mg PO BID #180 tabs 09/04/24 Rx lisinopril 20 mg tablet 20 mg PO BID #180 tabs 09/04/24 Rx metoprolol succinate 50 mg 50 mg PO DAILY #90 tabs 09/04/24 0 11/13/24 Rx tablet,extended release 24 hr pravastatin 40 mg tablet 40 mg PO QHS #90 tabs 09/04/24 Rx spironolactone 25 mg tablet 25 mg PO DAILY #90 TABLETS 4 11/13/24 Rx flecainide 100 mg tablet 100 mg PO BID #180 TABLETS 4 11/13/24 Rx blood sugar diagnostic (True 10/30/24 11/13/24 History Metrix Glucose Test Strip) chlorhexidine gluconate 0.12 % BID 10/30/24 11/13/24 History mouthwash dulaglutide 0.75 mg/0.5 mL 0.75 mg subcut QWEEK 11/13/2410/27 History subcutaneous pen injector (Trulicity) glipizide 10 mg tablet, extended 10 mg PO QDAY 11/13/24 11/13/24 Hi story release 24 hr Have you fallen in the past year?: No PFSH Medical History (Reviewed 11/13/24 @ 09:05 by Leah Elkins FOOD SERVICES COORDINATOR, FOOD SERVICES COORDINATOR-C) Wears glasses Post-menopausal Wears dentures Depression Anxiety High cholesterol Dietary restriction Heartburn Non-smoker CPAP (continuous positive airway pressure) dependence Leg cramps History of pain when walking History of edema History of echocardiogram History of stress test Hypertension Cardiology follow-up encounter History of atrial fibrillation History of irregular heartbeat Preop cardiovascular exam Arthritis of (more content not included)... Normal [facility] 12 Lead EKGon 10-30-2024 12 Lead EKG [facility] [address] [place] [address] 12 Lead EKG 10/30/24 0054 MR#: [id number] Acct: [id number] Name: ARMANDO JEREZ Rep #: [id number] : 1955 69 From: Christian Veras MD Attending Dr: Status: DEP ER Ordering Dr: Horace Sotomayor DO Date: 10/30/24 Location: ED Sex: F C Admitted: Test Reason : CP Blood Pressure : */* mmHG Vent. Rate : 62 BPM Atrial Rate : 62 BPM P-R Int : 206 ms QRS Dur : 106 ms QT Int : 438 ms P-R-T Axes : 24 -33 45 degrees QTcB Int : 444 ms Sinus rhythm with marked sinus arrhythmia Left axis deviation Low voltage QRS Inferior infarct , age undetermined Cannot rule out Anterior infarct , age undetermined Abnormal ECG Confirmed by CHRISTIAN VERAS MD ([id number]), make up editor ADEOLA GILBERT ([id number]) on 11/01/2024 6:58:26 AM Referred By: ROBERTO Confirmed By: CHRISTIAN VERAS MD 11/01/24 0658 Date Christian Veras MD CC: Dr. Awais Kearney DO; Horace Sotomayor DO Signed Normal [facility] Absolute lymphocyte countOrd ered By: Horace Sotomayor on 10-30-2024 Lymphocytes Auto (Unsp spec) [#/Vol] 4.52 10*3/uL High 0.83-4.51 [facility] Absolute neutrophil countOrd ered By: Horace Sotomayor on 10-30-2024 Neutrophils (Bld) [#/Vol] 6.2 10*3/uL 2.0-7.7 [facility] Automated lymphocyte count a s percentage of total leukocytesOrdered By: Horace Sotomayor on 10-30-2024 Lymphocytes/100 WBC Auto (Unsp spec) 37.2 % 19-41 [facility] Basic Metabolic Profile (BMP )on 10-30-2024 BUN/CRE 23.9 RATIO High 10-20 [facility] Comment on above: Order Comment: 'TROP ' Serial specimen #1, #2 or #3: 1 Performed By: #### L 501.9520, L100.0100, L500.2500, L501.4020, L501.5200 ####[facility] [address] [place], [address] CA,Total 9.9 mg/dL Normal 8.5-10.1 [facility] Comment on above: Order Comment: 'TROP ' Serial specimen #1, #2 or #3: 1 Performed By: #### L 501.9520, L100.0100, L500.2500, L501.4020, L501.5200 ####[facility] [address] [place], [address] Chloride [Moles/Vol] 97 mmol/L Low 98-107 [facility] Comment on above: Order Comment: 'TROP ' Serial specimen #1, #2 or #3: 1 Performed By: #### L 501.9520, L100.0100, L500.2500, L501.4020, L501.5200 ####[facility] [address] [place], [address] CO2 [Moles/Vol] 25.0 mmol/L Normal 21.0-32.0 [facility] Comment on above: Order Comment: 'TROP ' Serial specimen #1, #2 or #3: 1 Performed By: #### L 501.9520, L100.0100, L500.2500, L501.4020, L501.5200 ####[facility] [address] [place], [address] Creatinine [Mass/Vol] 1.13 mg/dL High 0.55-1.02 [facility] Comment on above: Order Comment: 'TROP ' Serial specimen #1, #2 or #3: 1 Result Comment: The validity of the calculated GFR GFRAA in patients over 70 years has not been determined. Clinical correlation is essential. Performed By: #### L 501.9520, L100.0100, L500.2500, L501.4020, L501.5200 ####[facility] [address] [place], [address] ECRCL 49.00 ml/min Normal [facility] Comment on above: Order Comment: 'TROP ' Serial specimen #1, #2 or #3: 1 Performed By: #### L 501.9520, L100.0100, L500.2500, L501.4020, L501.5200 ####[facility] [address] [place], [address] EST GFR - AA 61 mL/min Normal >60 [facility] Comment on above: Order Comment: 'TROP ' Serial specimen #1, #2 or #3: 1 Result Comment: Afri can Cambodian GFR Calc Performed By: #### L 501.9520, L100.0100, L500.2500, L501.4020, L501.5200 ####[facility] [address] [place], [address] GAP 13 Normal 5-15 [facility] Comment on above: Order Comment: 'TROP ' Serial specimen #1, #2 or #3: 1 Performed By: #### L 501.9520, L100.0100, L500.2500, L501.4020, L501.5200 ####[facility] [address] [place], [address] GFR/1.73 sq M.predicted among non-blacks MDRD (S/P/Bld) [Vol rate/Area] 51 mL/min/{1.73_m2} Low >60 [facility] Comment on above: Order Comment: 'TROP ' Serial specimen #1, #2 or #3: 1 Result Comment: Non- GFR Calc Performed By: #### L 501.9520, L100.0100, L500.2500, L501.4020, L501.5200 ####[facility] [address] [place], [address] Glucose [Mass/Vol] 367 mg/dL High 74-106 [facility] Comment on above: Order Comment: 'TROP ' Serial specimen #1, #2 or #3: 1 Result Comment: Gluc ose result greater than or equal to 200 mg/dL suggests DIABETES MELLITUS per A.D.A. criteria. Performed By: #### L 501.9520, L100.0100, L500.2500, L501.4020, L501.5200 ####[facility] [address] [place], [address] Potassium [Moles/Vol] 3.5 mmol/L Normal 3.5-5.1 [facility] Comment on above: Order Comment: 'TROP ' Serial specimen #1, #2 or #3: 1 Performed By: #### L 501.9520, L100.0100, L500.2500, L501.4020, L501.5200 ####[facility] [address] [place], [address] Sodium [Moles/Vol] 135 mmol/L Low 136-145 [facility] Comment on above: Order Comment: 'TROP ' Serial specimen #1, #2 or #3: 1 Performed By: #### L 501.9520, L100.0100, L500.2500, L501.4020, L501.5200 ####[facility] [address] [place], [address] Urea nitrogen [Mass/Vol] 27 mg/dL High 7-18 [facility] Comment on above: Order Comment: 'TROP ' Serial specimen #1, #2 or #3: 1 Performed By: #### L 501.9520, L100.0100, L500.2500, L501.4020, L501.5200 ####[facility] [address] [place], [address] Basophil percentageOrdered B y: Horace Sotomayor on 10-30-2024 Basophils/100 WBC (Bld) 0.8 % 0-1 [facility] Blood urea nitrogen (BUN)/cr eatinine ratioOrdered By: Horace Sotomayor on 10-30-2024 Urea nitrogen/Creatinine [Mass ratio] 23.9 mg/mg High 10-20 [facility] CBC W/Diff, Automatedon 02-0 Absolute Lymph 4.52 X10 3/uL High 0.83-4.51 [facility] Comment on above: Performed By: #### L 501.9520, L100.0100, L500.2500, L501.4020, L501.5200 ####[facility] [address] [place], [address] Absolute Neut 6.2 X10 3/uL Normal 2.0-7.7 [facility] Comment on above: Performed By: #### L 501.9520, L100.0100, L500.2500, L501.4020, L501.5200 ####[facility] [address] [place], [address] Basophils/100 WBC (Bld) 0.8 % Normal 0-1 [facility] Comment on above: Performed By: #### L 501.9520, L100.0100, L500.2500, L501.4020, L501.5200 ####[facility] [address] [place], [address] Eosinophils/100 WBC (Bld) 2.1 % Normal 0-5 [facility] Comment on above: Performed By: #### L 501.9520, L100.0100, L500.2500, L501.4020, L501.5200 ####[facility] [address] [place], [address] Erythrocyte distribution width (RBC) [Ratio] 13.2 % Normal 11.6-14.6 [facility] Comment on above: Performed By: #### L 501.9520, L100.0100, L500.2500, L501.4020, L501.5200 ####[facility] [address] [place], [address] Hematocrit (Bld) [Volume fraction] 44.4 % Normal 37-47 [facility] Comment on above: Performed By: #### L 501.9520, L100.0100, L500.2500, L501.4020, L501.5200 ####[facility] [address] [place], [address] Hemoglobin (Bld) [Mass/Vol] 14.8 g/dL Normal 12.0-15.0 [facility] Comment on above: Performed By: #### L 501.9520, L100.0100, L500.2500, L501.4020, L501.5200 ####[facility] [address] [place], [address] IG% 0.800 Normal 0.0-0.9 [facility] Comment on above: Result Comment: IG% - Immature Granulocytes (promyelocytes, myelocytes and metamyelocytes) > 1% indicates that a LEFT SHIFT is Present. Performed By: #### L 501.9520, L100.0100, L500.2500, L501.4020, L501.5200 ####[facility] [address] [place], [address] Lymphocytes/100 WBC (Bld) 37.2 % Normal 19-41 [facility] Comment on above: Performed By: #### L 501.9520, L100.0100, L500.2500, L501.4020, L501.5200 ####[facility] [address] [place], [address] MCH (RBC) [Entitic mass] 31.2 pg Normal 27.0-32.0 [facility] Comment on above: Performed By: #### L 501.9520, L100.0100, L500.2500, L501.4020, L501.5200 ####[facility] [address] [place], [address] MCHC (RBC) [Mass/Vol] 33.3 g/dL Normal 32-36 [facility] Comment on above: Performed By: #### L 501.9520, L100.0100, L500.2500, L501.4020, L501.5200 ####[facility] [address] [place], [address] MCV (RBC) [Entitic vol] 93.5 fL Normal 81-99 [facility] Comment on above: Performed By: #### L 501.9520, L100.0100, L500.2500, L501.4020, L501.5200 ####[facility] [address] [place], [address] Monocytes/100 WBC (Bld) 8.2 % Normal 0-10 [facility] Comment on above: Performed By: #### L 501.9520, L100.0100, L500.2500, L501.4020, L501.5200 ####[facility] [address] [place], [address] Neutrophils/100 WBC (Bld) 50.9 % Normal 47-70 [facility] Comment on above: Performed By: #### L 501.9520, L100.0100, L500.2500, L501.4020, L501.5200 ####[facility] [address] [place], [address] Nucleated RBC (Bld) [#/Vol] 0 10*3/uL Normal 0-5 [facility] Comment on above: Performed By: #### L 501.9520, L100.0100, L500.2500, L501.4020, L501.5200 ####[facility] [address] [place], [address] Platelet mean volume (Bld) [Entitic vol] 10.9 fL Normal 6.2-12.0 [facility] Comment on above: Performed By: #### L 501.9520, L100.0100, L500.2500, L501.4020, L501.5200 ####[facility] [address] [place], [address] Platelets (Bld) [#/Vol] 306 10*3/uL Normal 150-450 [facility] Comment on above: Performed By: #### L 501.9520, L100.0100, L500.2500, L501.4020, L501.5200 ####[facility] [address] [place], [address] RBC (Bld) [#/Vol] 4.75 10*6/uL Normal 4.2-5.4 [facility] Comment on above: Performed By: #### L 501.9520, L100.0100, L500.2500, L501.4020, L501.5200 ####[facility] [address] [place], [address] RDW SD 45.0 fl High 35.1-43.9 [facility] Comment on above: Performed By: #### L 501.9520, L100.0100, L500.2500, L501.4020, L501.5200 ####[facility] [address] [place], [address] WBC (Bld) [#/Vol] 12.2 10*3/uL High 4.4-11.0 [facility] Comment on above: Performed By: #### L 501.9520, L100.0100, L500.2500, L501.4020, L501.5200 ####[facility] [address] [place], [address] Carbon dioxide measurementOr dered By: Horace Sotomayor on 10-30-2024 CO2 [Moles/Vol] 25.0 mmol/L 21.0-32.0 [facility] Chloride measurementOrdered By: Horace Sotomayor on 10-30-2024 Chloride [Moles/Vol] 97 mmol/L Low 98-107 [facility] Emergency Department Summary on 10-30-2024 Emergency Department Summary [facility] Medical Records Department [address] [place] [address] Emergency Department Summary 10/30/24 MR#: [id number] Acct: [id number] Name: ARMANDO JEREZ Rep #: [id number] : 1955 69 From: Horace Sotomayor DO PCP: Dr. Awais Kearney, DO Status:DEP ER Location: ED HPI History of Present Illness Chief Complaint: Hypertension Informant: patient and spouse/S.O. Narrative Narrative: Patient is a 69-year-old female with past medical history of hypertension and diabetes as well as remote atrial fibrillation. She states she has been taking her medications as directed but this evening just felt "off". She states that she used her home heart monitor and it showed changes concerning for atrial fibrillation. With this she is also had increased to her blood pressure and states she has felt "dizzy". She describes the dizziness as a sense of motion and states it seems to improve at rest. She reports nausea associate with the dizziness but denies any recent fevers chills or sick symptoms. However because of concern for return of atrial fibrillation as well as the fact she has been dizzy with elevated blood pressure she presents to the hospital for evaluation [facility] Medical History Wears glasses Post-menopausal Wears dentures Depression Anxiety High cholesterol Dietary restriction Heartburn Non-smoker CPAP (continuous positive airway pressure) dependence Leg cramps History of pain when walking History of edema History of echocardiogram History of stress test Hypertension Cardiology follow-up encounter History of atrial fibrillation History of irregular heartbeat Preop cardiovascular exam Arthritis of left knee Lupus Diabetes Hemorrhoids Essential (primary) hypertension Varicose veins with inflammation Chronic venous insufficiency Cyst of breast, right, solitary SVT (supraventricular tachycardia) Paroxysmal atrial fibrillation Hyperlipemia Palpitations Polyarthritis Impingement syndrome of right shoulder Obesity EMMANUEL (obstructive sleep apnea) Hypomagnesemia IBS (irritable bowel syndrome) Vitamin D deficiency Gout Dermatitis Bradycardia Constipation GERD (gastroesophageal reflux disease) Osteoporosis Hammer toe Leg edema Home Medications ???Medication ???Instructions ???Recorded ???Last Taken ???Type meloxicam 15 mg tablet 15 mg PO QHS inflammation 06/05/19 11/16/20 21:00 History multivitamin (Daily Multi-Vitamin 1 tab PO DAILY supplement 0 03/01/22 History tablet) glipizide 5 mg tablet 5 mg PO DAILY 03/01/22 Unknown His tory aspirin 81 mg chewable tablet 81 mg PO BIDCM Postop DVT 03/16/22 Unknown Rx prophylaxis 30 days #60 tabs furosemide 40 mg tablet (Lasix) 40 mg PO BID #180 tabs 09/04/24 Un known Rx lisinopril 20 mg tablet 20 mg PO BID #180 tabs 09/04/24 Un known Rx metoprolol succinate 50 mg 50 mg PO DAILY #90 tabs 09/04/24 U nknown Rx tablet,extended release 24 hr pravastatin 40 mg tablet 40 mg PO QHS #90 tabs 09/04/24 Unk nown Rx spironolactone 25 mg tablet 25 mg PO DAILY #90 TABLETS 4 Unknown Rx flecainide 100 mg tablet 100 mg PO BID #180 TABLETS 4 Unknown Rx blood sugar diagnostic (True 10/30/24 Unknown History Metrix Glucose Test Strip) chlorhexidine gluconate 0.12 % BID 10/30/24 Unknown History mouthwash diazepam 2 mg tablet (Valium) 2 mg PO TID PRN vertigo 5 days #15 10/30/24 Unknown Rx tabs sitagliptin phosphate 100 mg 100 mg PO DAILY 10/30/24 Unknown H istory tablet (Januvia) sitagliptin phosphate 100 mg 100 mg PO DAILY 10/30/24 Unknown H istory tablet (Januvia) Allergy/AdvReac Type Severity Reaction Status Date / Time Dressing: Non-Medicated AdvReac Rash Verified 10/30/24 00:54 (wrap) Milk Containing Products AdvReac Diarrhea Verified 10/30/24 00:54 (Dairy) (Milk Containing Products) Family History Mother CAD (coronary artery disease) Father Aneurysm Other Heart disease Surgical History Hx of colonoscopy Status post endovenous radiofrequency ablation of saphenous vein vein ablation History of left heart catheterization (11/20/10) History of cardiac radiofrequency ablation (RFA) (11/20/10) History of hysterectomy History of tonsillectomy Social History Smoking Status: Never smoker alcohol intake: never substance use type: does not use caffeine: Yes Type: carbonated beverages Number of servings: 1 what type of physical activity do you participate in: none seatbelt use: always do you feel safe at home: Yes ROS ROS ED (more content not included)... Normal [facility] Eosinophil percentageOrdered By: Horace Sotomayor on 10-30-2024 Eosinophils/100 WBC (Bld) 2.1 % 0-5 [facility] Erythrocyte distribution wid th ratioOrdered By: Horace Sotomayor on 10-30-2024 Erythrocyte distribution width (RBC) [Ratio] 13.2 % 11.6-14.6 [facility] Erythrocyte distribution wid th standard deviationOrdered By: Horace Sotomayor on 10-30-2024 Erythrocyte distribution width (RBC) [Ratio] 45.0 fl High 35.1-43.9 [facility] Glomerular filtration rate ( GFR) estimationOrdered By: Horace Sotomayor on 10-30-2024 GFR/1.73 sq M.predicted among non-blacks MDRD (S/P/Bld) [Vol rate/Area] 51 mL/min/{1.73_m2} Low >60 [facility] Comment on above: Non- GFR Calc Glucose measurementOrdered B y: Horace Sotomayor on 10-30-2024 Glucose [Mass/Vol] 367 mg/dL High 74-106 [facility] Comment on above: Glucose result great er than or equal to 200 mg/dLsuggests DIABETES MELLITUS per A.D.A. criteria. Hematocrit Auto (Bld) [Volum e fraction]Ordered By: Horace Sotomayor on 10-30-2024 Hematocrit (Bld) [Volume fraction] 44.4 % 37-47 [facility] Hemoglobin measurementOrdere d By: Hroace Sotomayor on 10-30-2024 Hemoglobin (Bld) [Mass/Vol] 14.8 g/dL 12.0-15.0 [facility] Immature granulocytes/100 WB C Auto (Bld)Ordered By: Horace Sotomayor on 10-30-2024 Immature granulocytes/100 WBC (Bld) 0.800 % 0.0-0.9 [facility] Comment on above: IG% - Immature Granu locytes (promyelocytes, myelocytes and metamyelocytes) > 1% indicates that a LEFT SHIFT is Present. L501.4020on 10-30-2024 TROPONIN-I HS 11 pg/mL Normal 3.0-54.0 [facility] Comment on above: Order Comment: 'TROP ' Serial specimen #1, #2 or #3: 1 Result Comment: Plea Note: New Test Units and Gender Specific Reference Ranges. For more information see Policy Stat Procedure [place] High Sensitivity Troponin (TNIH) and attachments. Performed By: #### L 501.9520, L100.0100, L500.2500, L501.4020, L501.5200 ####[facility] [address] [place], [address] MCV (mean corpuscular volume ) determinationOrdered By: Horace Sotomayor on 10-30-2024 MCV (RBC) [Entitic vol] 93.5 fL 81-99 [facility] Magnesiumon 10-30-2024 Magnesium [Mass/Vol] 2.3 mg/dL Normal 1.6-2.6 [facility] Comment on above: Order Comment: 'TROP ' Serial specimen #1, #2 or #3: 1 Performed By: #### L 501.9520, L100.0100, L500.2500, L501.4020, L501.5200 ####[facility] [address] [place], [place], [address] Magnesium measurementOrdered By: Horace Sotomayor on 10-30-2024 Magnesium [Mass/Vol] 2.3 mg/dL 1.6-2.6 [facility] Mean corpuscular hemoglobin (MCH) determinationOrdered By: Horace Sotomayor on 10-30-2024 MCH (RBC) [Entitic mass] 31.2 pg 27.0-32.0 [facility] Mean corpuscular hemoglobin concentration (MCHC) determinationOrdered By: Horace Sotomayor on 10-30-2024 MCHC (RBC) [Mass/Vol] 33.3 g/dL 32-36 [facility] Mean platelet volume determi nationOrdered By: Horace Sotomayor on 10-30-2024 Platelet mean volume (Bld) [Entitic vol] 10.9 fL 6.2-12.0 [facility] Monocyte percentageOrdered B y: Horace Sotomayor on 10-30-2024 Monocytes/100 WBC (Bld) 8.2 % 0-10 [facility] Neutrophil percentageOrdered By: Horace Sotomayor on 10-30-2024 Neutrophils/100 WBC (Bld) 50.9 % 47-70 [facility] Nucleated red blood cell per centageOrdered By: Horace Sotomayor on 10-30-2024 Nucleated RBC/100 WBC (Bld) [Ratio] 0 % 0-5 [facility] Platelet countOrdered By: Shirlene Sotomayor on 10-30-2024 Platelets (Bld) [#/Vol] 306 10*3/uL 150-450 [facility] Potassium measurementOrdered By: Horace Sotomayor on 10-30-2024 Potassium [Moles/Vol] 3.5 mmol/L 3.5-5.1 [facility] RBC Auto (Bld) [#/Vol]Ordere d By: Horace Sotomayor on 10-30-2024 RBC (Bld) [#/Vol] 4.75 10*6/uL 4.2-5.4 [facility] Serum anion gap measurementO rdered By: Horace Sotomayor on 10-30-2024 Anion gap [Moles/Vol] 13 mmol/L 5-15 [facility] Serum or plasma calcium christa urement (mass/volume)Ordered By: Horace Sotomayor on 10-30-2024 Calcium [Mass/Vol] 9.9 mg/dL 8.5-10.1 [facility] Serum or plasma creatinine m easurement (mass/volume)Ordered By: Horace Sotomayor on 10-30-2024 Creatinine [Mass/Vol] 1.13 mg/dL High 0.55-1.02 [facility] Comment on above: The validity of the calculated GFR & GFRAA in patients over 70 years has not been determined. Clinical correlation is essential. Serum or plasma thyroid stim ulating hormone (TSH) measurement (units/volume)Ordered By: Horace Sotomayor on 10-30-2024 TSH Qn 3.460 uIU/mL 0.358-3.740 [facility] Serum or plasma urea nitroge n measurement (mass/volume)Ordered By: Horace Sotomayor on 10-30-2024 Urea nitrogen [Mass/Vol] 27 mg/dL High 7-18 [facility] Sodium levelOrdered By: Jerry Sotomayor on 10-30-2024 Sodium [Moles/Vol] 135 mmol/L Low 136-145 [facility] Thyroid Stim Hormone (TSH)on 10-30-2024 TSH 3.460 uIU/mL Normal 0.358-3.740 [facility] Comment on above: Order Comment: 'TROP ' Serial specimen #1, #2 or #3: 1 Performed By: #### L 501.9520, L100.0100, L500.2500, L501.4020, L501.5200 ####[facility] [address] [place], [address] Troponin IOrdered By: Horace Sotomayor on 10-30-2024 Troponin I 11 pg/mL 3.0-54.0 [facility] Comment on above: Please Note: New Annalisa t Units and Gender Specific Reference Ranges. For more information see Policy Stat Procedure [place] High Sensitivity Troponin (TNIH) and attachments. White blood cell (WBC) count Ordered By: Horace Sotomayor on 10-30-2024 WBC (Bld) [#/Vol] 12.2 10*3/uL High 4.4-11.0 [facility] 12 Lead EKG performed [place] [facility] [place] 09-04-2024 12 Lead EKG performed by [facility] [address] [place] [address] 12 Lead EKG performed by [facility] 09/04/24 1338 MR#: [id number] Acct: [id number] Name: ARMANDO JEREZ Rep #: [id number] : 1955 69 From: Marci No Attending Dr: Marci Latif PA Status: DEP AMB Ordering Dr: Marci Latif Date: 08/26 [place] Sex: F C Admitted: BMS/12 Lead EKG performed by [facility] ECG Report Interpretation ------Sinus Rhythm -First degree A-V block -With rate variation Jenn = 228 cv = 16.Low voltage in precordial leads. -Old inferior infarct -Old anterior infarct. ABNORMAL Electronically signed on 09/11/2024 at 08:36 by Christian [employer] Version [id number] 09/11/24 0839 Date Marci ALONSO CC: Dr. Awais Kearney, Date Dictated: 09/04/241337 Date Transcribed: 09/04/241337 Captain'S Assistant: NIDIA Signed Normal [facility] Cardiology Visit Reporton Cardiology Visit Report [facility] [address] [place], [place] [address] OFFICE VISIT Date of Service: 09/04/24 MR#: [id number] Acct: [id number] Name: ARMANDO JEREZ Rep #: [id number] : 1955 Provider: CELESTE Gutierres Age/Sex: 69/F Location: [facility] Status: Signed HPI HPI History of Present Illness Details: ARMANDO JEREZ, is a 68 F who presents to the office today for a cardiovascular follow-up. She does have a history of paroxysmal atrial fibrillation, hypertension, hyperlipidemia. She also had a history of supraventricular tachyarrhythmia for which she had an ablation of an accessory pathway. Pts main concerns are swelling in her lower extremities. She does use compression stockings. She also notes that she has some lightheadedness. Sometimes it can last for a day. She has checked her VS during these times and they are normal. She does not have any chest discomfort/heaviness /tightness. Her exercise tolerance is stable for her age. She does not have any worsening symptoms of shortness of breath. She does not have any orthopnea. She denies PND. She does not have any symptoms of congestive heart failure. She does not have any palpitations that she is aware of. EKG today demonstrates sinus rhythm with a heart rate of 63 with first-degree AV block. Intake Vital Signs 09/13/23 13:30 10/04/23 08:05 09/04/24 13:34 Height 5 ft 3 in 5 ft 3 in 5 ft 3 in Weight: 202 lb 195 lb BMI 35.7 34.5 BP 136/73 H 143/71 H Blood Pressure Location Rt brachial Lt brachial Position Sitting Sitting Respiration 18 18 Pulse 77 62 Pulse Source Monitor Monitor Temp 97 F L Temperature Source Temporal Artery Pulse Oximetry (%) 97 95 Oxygen Delivery Method room air Intake Visit Reasons: 1 Y FU Neonatal Intensive Care Nurse Required: No Is patient in pain?: No Allergies Dressing: Non-Medicated (wrap) Adverse Reaction (Verified 09/04/24 13:35) Rash Milk Containing Products (Dairy) (Milk Containing Products) Adverse Reaction (Verified 09/04/24 13:35) Diarrhea Medications ???Medication ???Instructions ???Recorded ???Confirmed ???Type meloxicam 15 mg tablet 15 mg PO QHS inflammation 06/05/19 09/04/24 History multivitamin (Daily Multi-Vitamin 1 tab PO DAILY supplement 07/09/20 09/04/24 History tablet) glipizide 5 mg tablet 5 mg PO DAILY 03/01/22 09/04/24 History aspirin 81 mg chewable tablet 81 mg PO BIDCM Postop DVT 03/16/22 10/04/23 Rx prophylaxis 30 days #60 tabs dulaglutide 0.75 mg/0.5 mL 0.75 mg subcut SA diabetes 09/04/24 09/04/24 History subcutaneous pen injector (Trulicity) flecainide 100 mg tablet 100 mg PO BID #180 tabs 09/04/24 09/04/24 Rx furosemide 40 mg tablet (Lasix) 40 mg PO BID #180 tabs 09/04/24 09/04/24 Rx lisinopril 20 mg tablet 20 mg PO BID #180 tabs 09/04/24 09/04/24 Rx metoprolol succinate 50 mg 50 mg PO DAILY #90 tabs 09/04/24 09/04/24 Rx tablet,extended release 24 hr pravastatin 40 mg tablet 40 mg PO QHS #90 tabs 09/04/24 09/04/24 Rx spironolactone 25 mg tablet 25 mg PO DAILY #90 TABLETS 09/04/24 09/04/24 Rx Have you fallen in the past year?: No PFSH Medical History Wears glasses Post-menopausal Wears dentures Depression Anxiety High cholesterol Dietary restriction Heartburn Non-smoker CPAP (continuous positive airway pressure) dependence Leg cramps History of pain when walking History of edema History of echocardiogram History of stress test Hypertension Cardiology follow-up encounter History of atrial fibrillation History of irregular heartbeat Preop cardiovascular exam Arthritis of left knee Lupus Diabetes Hemorrhoids Essential (primary) hypertension Varicose veins with inflammation Chronic venous insufficiency Cyst of breast, right, solitary SVT (supraventricular tachycardia) Paroxysmal atrial fibrillation Hyperlipemia Palpitations Polyarthritis Impingement syndrome of right shoulder Obesity EMMANUEL (obstructive sleep apnea) Hypomagnesemia IBS (irritable bowel syndrome) Vitamin D deficiency Gout Dermatitis Bradycardia Constipation GERD (gastroesophageal reflux disease) Osteoporosis Hammer toe Leg edema Surgical History Hx of colonoscopy Status post endovenous radiofrequency ablation of saphenous vein vein ablation History of left heart catheterization (11/20/10) History of cardiac radiofrequency ablation (RFA) (11/20/10) History of hysterectomy History of tonsillectomy Family History Mother CAD (coronary artery disease) Father Aneurysm Other Heart disease Social History ... Normal [facility] Absolute lymphocyte countOrd ered By: Christian Veras on 09-05-2023 Lymphocytes Auto (Unsp spec) [#/Vol] 2.88 10*3/uL 0.83-4.51 [facility] Basophil percentageOrdered B y: Christian Versa on 09-05-2023 Basophils/100 WBC (Bld) 0.7 % 0-1 [facility] Eosinophils/100 WBC (Bld) 2.6 % 0-5 [facility] Neutrophils (Bld) [#/Vol] 5.5 10*3/uL 2.0-7.7 [facility] Neutrophils/100 WBC (Bld) 58.0 % 47-70 [facility] WBC (Bld) [#/Vol] 9.4 10*3/uL 4.4-11.0 [facility] Bilirubin [Mass/Vol] 0.60 mg/dL 0.20-1.00 [facility] Comment on above: For patients on eltr ombopag therapy, use of Dimension [place] TBIL is not recommended. Chloride [Moles/Vol] 107 mmol/L 98-107 [facility] Cholesterol [Mass/Vol] 207 mg/dL <200 [facility] Comment on above: <200 mg/dL Desirable 200-240 mg/dL Borderline >240 mg/dL High Risk Glucose [Mass/Vol] 127 mg/dL 74-106 [facility] Comment on above: Fasting Glucose resu lt greater than or equal to 126 mg/dL suggests DIABETES MELLITUS per A.D.A. criteria. Potassium [Moles/Vol] 4.0 mmol/L 3.5-5.1 [facility] Protein [Mass/Vol] 6.9 g/dL 6.4-8.2 [facility] Sodium [Moles/Vol] 141 mmol/L 136-145 [facility] Triglyceride [Mass/Vol] 223 mg/dL <199 [facility] Comment on above: The drugs N-Acetylcy steine and Metamizole may falsely depress this assay.Serum Triglycerides Reference Interval Normal <150 mg/dL Borderline high 150 - 199 mg/dL High 200 - 499 mg/dL Very High > or = 500 mg/dL Blood erythrocytes count (nu mber/volume)Ordered By: Mittie Eda on 09-05-2023 RBC (Bld) [#/Vol] 4.53 10*6/uL 4.2-5.4 [facility] Blood hemoglobin measurement (mass/volume)Ordered By: Mittie Eda on 09-05-2023 Hemoglobin (Bld) [Mass/Vol] 14.1 g/dL 12.0-15.0 [facility] Blood lymphocytes/100 leukoc ytesOrdered By: Christian Veras on 09-05-2023 Lymphocytes/100 WBC (Bld) 30.5 % 19-41 [facility] Blood monocytes/100 leukocyt esOrdered By: Christian Veras on 09-05-2023 Monocytes/100 WBC (Bld) 7.8 % 0-10 [facility] Blood platelet mean volumeOr dered By: Christian Veras on 09-05-2023 Platelet mean volume (Bld) [Entitic vol] 9.5 fL 6.2-12.0 [facility] Determination of erythrocyte mean corpuscular volume (MCV)Ordered By: Christian Veras on 09-05-2023 MCV (RBC) [Entitic vol] 96.9 fL 81-99 [facility] Direct bilirubinOrdered By: Christian Veras on 09-05-2023 Bilirubin.direct [Mass/Vol] 0.13 mg/dL 0.00-0.30 [facility] Hematocrit Auto (Bld) [Volum e fraction]Ordered By: Christian Veras on 09-05-2023 Hematocrit (Bld) [Volume fraction] 43.9 % 37-47 [facility] Laboratory - Chemistry and C hemistry - challengeOrdered By: Christian Veras on 09-05-2023 ALP [Catalytic activity/Vol] 88 U/L 45-117 [facility] ALT [Catalytic activity/Vol] 42 U/L 13-56 [facility] CO2 [Moles/Vol] 27.0 mmol/L 21.0-32.0 [facility] Globulin (S) [Mass/Vol] 3.2 g/dL 2.2-4.2 [facility] Urea nitrogen/Creatinine [Mass ratio] 28.6 mg/mg 10-20 [facility] Laboratory - Hematology and Cell countsOrdered By: Christian Veras on 09-05-2023 Erythrocyte distribution width (RBC) [Entitic vol] 48.9 fL 35.1-43.9 [facility] Erythrocyte distribution width (RBC) [Ratio] 13.7 % 11.6-14.6 [facility] Immature granulocytes/100 WBC (Bld) 0.400 % 0.0-0.9 [facility] Comment on above: IG% - Immature Granu locytes (promyelocytes, myelocytes and metamyelocytes) > 1% indicates that a LEFT SHIFT is Present. MCH (RBC) [Entitic mass] 31.1 pg 27.0-32.0 [facility] Nucleated RBC/100 WBC (Bld) [Ratio] 0 % 0-5 [facility] MCHC Auto (RBC) [Mass/Vol]Or dered By: Christian Veras on 09-05-2023 MCHC (RBC) [Mass/Vol] 32.1 g/dL 32-36 [facility] No Panel InformationOrdered By: Christian Veras on 09-05-2023 Urine Microalbumin/Creatinine Ratio 7.1 mg/g CRE <30 [facility] Estimated GFR (MDRD) Amer 107 mL/min >60 [facility] Comment on above: GFR Calc Estimated GFR (MDRD) Non-Af Amer 88 mL/min >60 [facility] Comment on above: Non- GFR Calc Thyroid Stimulating Hormone (TSH) 1.04 uIU/mL 0.358-3.74 [facility] Platelets bldOrdered By: Spencer Veras on 09-05-2023 Platelets (Bld) [#/Vol] 279 10*3/uL 150-450 [facility] Serum or plasma albumin christa urement (mass/volume)Ordered By: Christian Veras on 09-05-2023 Albumin [Mass/Vol] 3.7 g/dL 3.2-5.0 [facility] Serum or plasma albumin/glob ulin mass ratioOrdered By: Christian Veras on 09-05-2023 Albumin/Globulin [Mass ratio] 1.2 {ratio} 0.9-2.4 [facility] Serum or plasma calcium christa urement (mass/volume)Ordered By: Chrsitian Veras on 09-05-2023 Calcium [Mass/Vol] 9.1 mg/dL 8.5-10.1 [facility] Serum or plasma cholesterol in HDL measurement (mass/volume)Ordered By: Christian Veras on 09-05-2023 Cholesterol in HDL [Mass/Vol] 49 mg/dL >40 [facility] Comment on above: The drugs N-Acetylcy steine and Metamizole may falsely depress this assay. Reference Range HDL <40 mg/dL Low HDL Cholesterol HDL >or= 60 mg/dL High HDL Cholesterol Serum or plasma cholesterol in VLDL measurement (mass/volume)Ordered By: Christian Veras on 09-05-2023 Cholesterol in VLDL [Mass/Vol] 45 mg/dL 5-40 [facility] Serum or plasma creatinine m easurement (mass/volume)Ordered By: Christian Veras on 09-05-2023 Creatinine [Mass/Vol] 0.70 mg/dL 0.55-1.02 [facility] Comment on above: The validity of the calculated GFR & GFRAA in patients over 70 years has not been determined. Clinical correlation is essential. Serum or plasma low density lipoprotein (LDL) cholesterol measurement (mass/volume)Ordered By: Christian Veras on 09-05-2023 Cholesterol in LDL [Mass/Vol] 113 mg/dL 0-130 [facility] Serum or plasma urea nitroge n measurement (mass/volume)Ordered By: Christian Veras on 09-05-2023 Urea nitrogen [Mass/Vol] 20 mg/dL 7-18 [facility] Thin prep Papanicolaou smear with manual screeningOrdered By: Christian Veras on 09-05-2023 Thin prep Papanicolaou smear with manual screening 9.6 mg/L NO RANGE EST. [facility] Thin prep Papanicolaou smear with manual screening 19 U/L 15-37 [facility] Thin prep Papanicolaou smear with manual screening 7 5-15 [facility] Urine creatinine measurement (mass/volume)Ordered By: Christian Veras on 09-05-2023 Creatinine (U) [Mass/Vol] 136.00 mg/dL NO RANGE EST. [facility] Whole blood hemoglobin A1c/t otal hemoglobin ratio (mass fraction)Ordered By: Christian Veras on 09-05-2023 HbA1c (Bld) [Mass fraction] 6.8 % 3.8-5.6 [facility] Comment on above: Normal < 5.7 % Predi abetic 5.7 - 6.4 % Diabetic >or= 6.5 % Please note range changes. Whole blood hemoglobin A1c/t otal hemoglobin ratio (mass fraction)Ordered By: Dr. Kearney on 10-13-2022 HbA1c (Bld) [Mass fraction] 6.9 % 3.8-5.6 [facility] Comment on above: Normal < 5.7 % Predi abetic 5.7 - 6.4 % Diabetic >or= 6.5 % Please note range changes. Basophil percentageon 2021 Chloride [Moles/Vol] 105 mmol/L 98-107 [facility] Work Phone: [phone] Glucose [Mass/Vol] 119 mg/dL 74-106 [facility] Work Phone: [phone] Comment on above: Fasting Glucose resu lt from 100 to 125 mg/dL suggests IMPAIRED HOMEOSTASIS per A.D.A. criteria. Potassium [Moles/Vol] 3.8 mmol/L 3.5-5.1 [facility] Work Phone: [phone] Sodium [Moles/Vol] 138 mmol/L 136-145 [facility] Work Phone: [phone] WBC (Bld) [#/Vol] 11.8 10*3/uL 4.4-11.0 [facility] Work Phone: [phone] Blood erythrocytes count (nu mber/volume)on 03-16-2022 RBC (Bld) [#/Vol] 3.83 10*6/uL 4.2-5.4 [facility] Work Phone: [phone] Blood hemoglobin measurement (mass/volume)on 03-16-2022 Hemoglobin (Bld) [Mass/Vol] 12.0 g/dL 12.0-15.0 [facility] Work Phone: [phone] Blood platelet mean volumeon 03-16-2022 Platelet mean volume (Bld) [Entitic vol] 9.8 fL 6.2-12.0 [facility] Work Phone: [phone] Determination of erythrocyte mean corpuscular volume (MCV)on 03-16-2022 MCV (RBC) [Entitic vol] 96.1 fL 81-99 [facility] Work Phone: [phone] Hematocrit Auto (Bld) [Volum e fraction]on 03-16-2022 Hematocrit (Bld) [Volume fraction] 36.8 % 37-47 [facility] Work Phone: [phone] Laboratory - Chemistry and C hemistry - challengeon 03-16-2022 CO2 [Moles/Vol] 29.0 mmol/L 21.0-32.0 [facility] Work Phone: [phone] Urea nitrogen/Creatinine [Mass ratio] 21.5 mg/mg 10-20 [facility] Work Phone: [phone] Laboratory - Hematology and Cell countson 03-16-2022 Erythrocyte distribution width (RBC) [Entitic vol] 47.8 fL 35.1-43.9 [facility] Work Phone: [phone] Erythrocyte distribution width (RBC) [Ratio] 13.7 % 11.6-14.6 [facility] Work Phone: [phone] MCH (RBC) [Entitic mass] 31.3 pg 27.0-32.0 [facility] Work Phone: [phone] MCHC Auto (RBC) [Mass/Vol]on 03-16-2022 MCHC (RBC) [Mass/Vol] 32.6 g/dL 32-36 [facility] Work Phone: No Panel Informationon 03-16 Estimated Creatinine Clearance Calc 45.16 ml/min [facility] Work Phone: [phone] Estimated GFR (MDRD) Amer 100 mL/min >60 [facility] Work Phone: [phone] Comment on above: GFR Calc Estimated GFR (MDRD) Non-Af Amer 82 mL/min >60 [facility] Work Phone: [phone] Comment on above: Non- GFR Calc Platelets bldon 03-16-2022 Platelets (Bld) [#/Vol] 227 10*3/uL 150-450 [facility] Work Phone: [phone] Serum or plasma calcium christa urement (mass/volume)on 03-16-2022 Calcium [Mass/Vol] 8.8 mg/dL 8.5-10.1 [facility] Work Phone: Serum or plasma creatinine m easurement (mass/volume)on 03-16-2022 Creatinine [Mass/Vol] 0.74 mg/dL 0.55-1.02 [facility] Work Phone: Comment on above: The validity of the calculated GFR & GFRAA in patients over 70 years has not been determined. Clinical correlation is essential. Serum or plasma urea nitroge n measurement (mass/volume)on 03-16-2022 Urea nitrogen [Mass/Vol] 16 mg/dL 7-18 [facility] Work Phone: Thin prep Papanicolaou smear with manual screeningon 03-16-2022 Thin prep Papanicolaou smear with manual screening 4 5-15 [facility] Work Phone: Glucose Glucometer (BldC) [M ass/Vol]on 03-15-2022 Glucose [Mass/Vol] 213 mg/dL 74-106 [facility] Work Phone: Comment on above: MANAGEMENT OF PATIEN T CARE PER NURSING PROTOCOL Laboratory - Chemistry and C hemistry - challengeon 03-02-2022 Magnesium [Mass/Vol] 2.4 mg/dL 1.6-2.6 [facility] Work Phone: Absolute lymphocyte counton 02-15-2022 Lymphocytes Auto (Unsp spec) [#/Vol] 2.84 10*3/uL 0.83-4.51 [facility] Work Phone: Basophil percentageon 2021 Basophils/100 WBC (Bld) 0.6 % 0-1 [facility] Work Phone: Bilirubin [Mass/Vol] 0.50 mg/dL 0.20-1.00 [facility] Work Phone: Comment on above: For patients on eltr ombopag therapy, use of Dimension [place] TBIL is not recommended. Eosinophils/100 WBC (Bld) 2.5 % 0-5 [facility] Work Phone: Neutrophils (Bld) [#/Vol] 5.9 10*3/uL 2.0-7.7 [facility] Work Phone: Neutrophils/100 WBC (Bld) 61.1 % 47-70 [facility] Work Phone: Protein [Mass/Vol] 7.1 g/dL 6.4-8.2 [facility] Work Phone: Blood lymphocytes/100 leukoc yteson 02-15-2022 Lymphocytes/100 WBC (Bld) 29.5 % 19-41 [facility] Work Phone: Blood monocytes/100 leukocyt eson 02-15-2022 Monocytes/100 WBC (Bld) 6.0 % 0-10 [facility] Work Phone: Laboratory - Chemistry and C hemistry - challengeon 02-15-2022 ALP [Catalytic activity/Vol] 77 U/L 45-117 [facility] Work Phone: ALT [Catalytic activity/Vol] 38 U/L 13-56 [facility] Work Phone: Globulin (S) [Mass/Vol] 3.2 g/dL 2.2-4.2 [facility] Work Phone: Laboratory - Hematology and Cell countson 02-15-2022 Immature granulocytes/100 WBC (Bld) 0.300 % 0.0-0.9 [facility] Work Phone: Comment on above: IG% - Immature Granu locytes (promyelocytes, myelocytes and metamyelocytes) > 1% indicates that a LEFT SHIFT is Present. Nucleated RBC/100 WBC (Bld) [Ratio] 0 % 0-5 [facility] Work Phone: Serum or plasma albumin christa urement (mass/volume)on 02-15-2022 Albumin [Mass/Vol] 3.9 g/dL 3.2-5.0 [facility] Work Phone: Serum or plasma albumin/glob ulin mass ratioon 02-15-2022 Albumin/Globulin [Mass ratio] 1.2 {ratio} 0.9-2.4 [facility] Work Phone: Thin prep Papanicolaou smear with manual screeningon 02-15-2022 Thin prep Papanicolaou smear with manual screening 19 U/L 15-37 [facility] Work Phone: Whole blood hemoglobin A1c/t otal hemoglobin ratio (mass fraction)on 02-15-2022 HbA1c (Bld) [Mass fraction] 7.3 % 3.8-5.6 [facility] Work Phone: Comment on above: Normal < 5.7 % Predi abetic 5.7 - 6.4 % Diabetic >or= 6.5 % Please note range changes. CNOVon 11-27-2020 CNOV Office Visit (SHERRELLS) ARMANDO JEREZ ([id number]) 1955 F Date Time Provider Department 11/27/20 1:30 PM EDUARDO BUITRAGO During your visit today, we recorded the following information about you: Pulse Blood pressure Weight Height 80/minute 116/60 84.5 kg 1.626 m Eduardo Buitrago III, MD 11/27/2020 1:53 PM Signed Subjective: This is a 65-year-old white female who I saw back at [facility] on 11/19/2020. She had had several week history of chronic recurring diarrhea all of her stool studies were negative x2 her C. difficile was negative x2 repeated a CAT scan of her abdomen and pelvis which not reveal any abnormalities. Her diarrhea subsequently stopped she was discharged home on a liquid diet. And since being at home she has improved continuously. He has no abdominal pain she has no more diarrhea. Objective:Blood pressure 116/60, pulse 80, height 162.6 cm (5' 4"), weight 84.5 kg (186 lb 3.2 oz). Abdomen soft and nontender. Assessment: Diarrhea Plan: At this point I really do not think she needs to have any of the colonoscopies. I want her to gradually increase her diet will start with soups start at simple proteins cooked vegetables and then finding will go into salads and a normal diet from there. She can follow-up with me on an as needed basis. Referring Provider: EDUARDO BUITRAGO [[id number]] Allergies As of Date: 11/27/2020 (No Known Allergies) Date Reviewed: 11/27/2020 Reviewed by: Bren Norwood RN - Fully Assessed Reason for Visit: Hospital Follow Up [177] Primary Visit Diagnosis:Diarrhea, unspecified type [R19.7] Prescriptions as of 11/27/2020 Sig: ASPIRIN 81 MG CHEWABLE TABLET Take 81 mg by mouth once isidro* FISH OIL 100 MG-160 MG-1,000 * Take by mouth. MAGNESIUM 71.5 MG (MAGNESIUM * Take by mouth. MELOXICAM 15 MG TABLET Take 15 mg by mouth once isidro* FUROSEMIDE 40 MG TABLET Take 40 mg by mouth twice elaina* DULAGLUTIDE 0.75 MG/0.5 ML MO* Inject 0.75 mg subcutaneously* MULTIVITAMIN CAPSULE Take 1 capsule by mouth once * METOPROLOL SUCCINATE ER 50 MG* Take 50 mg by mouth once isidro* PRAVASTATIN 40 MG TABLET Take 40 mg by mouth once isidro* FLECAINIDE 100 MG TABLET Take 100 mg by mouth twice da* LISINOPRIL 20 MG TABLET Take 20 mg by mouth once isidro* AMLODIPINE 10 MG TABLET Take 10 mg by mouth once isidro* LOMOTIL ORAL Take 2 tablets by mouth once * Problem List As Of Date: 11/27/2020 (None) Letter Text Encounter Status:Closed by EDUARDO BUITRAGO MD on 11/27/20 Normal [facility] Lab Report: Lipid Profileon 11-10-2017 Cholesterol 204 mg/dL High 200 [employer] Work Phone: [phone] HDL Cholesterol 43 mg/dL Invalid Interpretation Code [employer] Work Phone: [phone] LDL Cholesterol 124 mg/dL Invalid Interpretation Code 0-130 [employer] Work Phone: [phone] Triglyceride 184 mg/dL Invalid Interpretation Code [employer] Work Phone: [phone] very low density lipoproteins 37 mg/dL Invalid Interpretation Code 5-40 [employer] Work Phone: [phone] Lab Report: Liver Profileon 11-10-2017 Alanine aminotransferase (ALT) 36 U/L Invalid Interpretation Code 13-56 [employer] Phone: [phone] Albumin 3.7 g/dL Invalid Interpretation Code 3.2-5.0 [employer] Phone: [phone] Alkaline phosphatase (ALP) 105 U/L Invalid Interpretation Code 45-117 [employer] Phone: [phone] Aspartate aminotransferase (AST) 23 U/L Invalid Interpretation Code 15-37 [employer] Phone: [phone] Bilirubin (direct) 0.11 mg/dL Invalid Interpretation Code 0.00-0.30 [employer] Phone: [phone] Bilirubin (total) 0.60 mg/dL Invalid Interpretation Code 0.20-1.00 [employer] Phone: [phone] Globulin 3.0 g/dL Invalid Interpretation Code 2.2-4.2 [employer] Phone: [phone] Protein 6.7 g/dL Invalid Interpretation Code 6.4-8.2 [employer] Phone: [phone] Office Visiton 06-03-2017 Dietary management education, guidance, and counseling (procedure) yes Invalid Interpretation Code [employer] Phone: [phone] Documentation of current medications (procedure) Done Invalid Interpretation Code [employer] Phone: [phone] Fall risk assessment No Invalid Interpretation Code [employer] Phone: [phone] Replaced Document: Ning Lemons CG Observationson 06-03-2017 electrocardiogram interpretation Sinus Bradycardia WITHIN NORMAL LIMITS Invalid Interpretation Code [employer] Phone: [phone] GE use only - for [employer] import when terms are not otherwise specified 441 ms Invalid Interpretation Code [employer] Phone: [phone] P wave axis, electrocardiogram 33 deg Invalid Interpretation Code [employer] Phone: [phone] ME interval, electrocardiogram 214 ms Invalid Interpretation Code [employer] Phone: [phone] Pulse (Heart Rate) 57 /min Invalid Interpretation Code [employer] Phone: [phone] QRS axis, electrocardiogram -19 deg Invalid Interpretation Code [employer] Phone: [phone] QRS duration, electrocardiogram 108 ms Invalid Interpretation Code [employer] Work Phone: [phone] QT interval, electrocardiogram new path ms Invalid Interpretation Code [employer] Work Phone: [phone] T wave axis, electrocardiogram 30 deg Invalid Interpretation Code [employer] Work Phone: [phone] Lab Report: Lipid Profileon 04-29-2017 Cholesterol 189 mg/dL Invalid Interpretation Code 200 [employer] Work Phone: [phone] HDL Cholesterol 46 mg/dL Invalid Interpretation Code [employer] Work Phone: [phone] LDL Cholesterol 107 mg/dL Invalid Interpretation Code 0-130 [employer] Work Phone: [phone] Triglyceride 182 mg/dL Invalid Interpretation Code [employer] Phone: [phone] very low density lipoproteins 36 mg/dL Invalid Interpretation Code 5-40 [employer] Work Phone: [phone] Lab Report: Liver Profileon 04-29-2017 Alanine aminotransferase (ALT) 35 U/L Invalid Interpretation Code 12-78 [employer] Work Phone: [phone] Albumin 3.7 g/dL Invalid Interpretation Code 3.4-5.0 [employer] Phone: [phone] Alkaline phosphatase (ALP) 107 U/L Invalid Interpretation Code 45-117 [employer] Phone: [phone] Aspartate aminotransferase (AST) 16 U/L Invalid Interpretation Code 15-37 [employer] Work Phone: [phone] Bilirubin (direct) 0.16 mg/dL Invalid Interpretation Code 0.00-0.30 [employer] Phone: [phone] Bilirubin (total) 0.70 mg/dL Invalid Interpretation Code 0.20-1.00 [employer] Work Phone: [phone] Globulin 3.0 g/dL Invalid Interpretation Code 2.3-3.5 [employer] Phone: [phone] Protein 6.7 g/dL Invalid Interpretation Code 6.4-8.2 [facility] Work Phone: [phone] Lab Report: Basic Metabolic Profile (BMP)on 02-18-2017 Anion gap 6 mmol/L Invalid Interpretation Code 5-15 [facility] Work Phone: [phone] Anion gap [Moles/Vol] 6 mmol/L 5-15 [facility] Work Phone: [phone] BUN/Creatinine Ratio 29.6 RATIO High 10-[address] [facility] Work Phone: [phone] Calcium 9.0 mg/dL Invalid Interpretation Code 8.5-10.1 [facility] Work Phone: [phone] Chloride 107 mmol/L Invalid Interpretation Code 98-107 [facility] Work Phone: [phone] CO2 31.0 mmol/L Invalid Interpretation Code 21.0-32.0 [facility] Work Phone: [phone] CO2 (BldV) [Partial pressure] 31.0 mmol/L 21.0-32.0 [facility] Work Phone: [phone] Creatinine 0.58 mg/dL Invalid Interpretation Code 0.55-1.02 [facility] Work Phone: [phone] eGFR (non-black) 113 mL/min/{1.73_m2} Invalid Interpretation Code >60 [facility] Work Phone: [phone] eGFR (non-black) 137 mL/min/{1.73_m2} Invalid Interpretation Code >60 [facility] Work Phone: [phone] EST GFR - AA 137 mL/min >60 [facility] Work Phone: [phone] Glucose 86 mg/dL Invalid Interpretation Code 70-110 [facility] Work Phone: [phone] Glucose [Mass/Vol] 86 mg/dL 70-110 [facility] Work Phone: [phone] Potassium 4.1 mmol/L Invalid Interpretation Code 3.5-5.1 [facility] Work Phone: [phone] Sodium 144 mmol/L Invalid Interpretation Code 136-145 [facility] Work Phone: [phone] Urea nitrogen 17 mg/dL Invalid Interpretation Code 7-18 [facility] Work Phone: [phone] Office Visit: [facility] 11-03-19 17 Dietary management education, guidance, and counseling (procedure) yes Invalid Interpretation Code [facility] Work Phone: [phone] Documentation of current medications (procedure) Done Invalid Interpretation Code [facility] Work Phone: [phone] Lab Report: Lipid Profileon 10-28-2016 Cholesterol 208 mg/dL High 200 [facility] Work Phone: [phone] HDL Cholesterol 55 mg/dL [facility] Work Phone: [phone] LDL Cholesterol 128 mg/dL 0-130 [facility] Work Phone: [phone] Triglyceride 125 mg/dL [facility] Work Phone: [phone] very low density lipoproteins 25 mg/dL 5-40 [facility] Work Phone: [phone] Lab Report: Liver Profileon 10-28-2016 Alanine aminotransferase (ALT) 26 U/L 12-78 [facility] Work Phone: [phone] Albumin 3.7 g/dL 3.4-5.0 [facility] Work Phone: [phone] Alkaline phosphatase (ALP) 100 U/L Invalid Interpretation Code 45-117 [facility] Work Phone: [phone] ALP (Bld) [Catalytic activity/Vol] 100 U/L 45-117 [facility] Work Phone: [phone] Aspartate aminotransferase (AST) 11 U/L Low 15-37 [facility] Work Phone: [phone] Bilirubin (direct) 0.12 mg/dL 0.00-0.30 [facility] Work Phone: [phone] Bilirubin (total) 0.40 mg/dL 0.20-1.00 [facility] Work Phone: [phone] Globulin 3.1 g/dL Invalid Interpretation Code 2.3-3.5 [facility] Work Phone: [phone] Globulin (S) [Mass/Vol] 3.1 g/dL 2.3-3.5 [facility] Work Phone: Protein 6.8 g/dL 6.4-8.2 [facility] Work Phone: Office Visit: 3 Month F/U - Pulmonary HTN, OSAon 07-21-2016 Tobacco smoking status NHIS Never Invalid Interpretation Code [facility] Work Phone: Tobacco smoking status NHIS Tobacco smoking status NHIS Invalid Interpretation Code [facility] Work Phone: [phone] Tobacco smoking status NHIS Never smoker [facility] Work Phone: [phone] Tobacco use [facility] Never smoker Invalid Interpretation Code [facility] Work Phone: [phone] Replaced Document: Ning E CG Observationson 05-04-2016 EKG QRS axis -24 deg [facility] Work Phone: electrocardiogram interpretation Sinus Bradycardia WITHIN NORMAL LIMITS Invalid Interpretation Code [facility] Work Phone: [phone] GE use only - for [employer] import when terms are not otherwise specified 463 ms Invalid Interpretation Code [facility] Work Phone: Interpretation Sinus Bradycardia WITHIN NORMAL LIMITS [facility] Work Phone: P [place] 32 deg [facility] Work Phone: P wave axis, electrocardiogram 32 deg Invalid Interpretation Code [facility] Work Phone: ME Interval 190 ms [facility] Work Phone: ME interval, electrocardiogram 190 ms Invalid Interpretation Code [facility] Work Phone: Pulse (Heart Rate) 56 /min Invalid Interpretation Code [facility] Work Phone: QRS axis, electrocardiogram -24 deg Invalid Interpretation Code [facility] Work Phone: QRS Duration 106 ms [facility] Work Phone: QRS duration, electrocardiogram 106 ms Invalid Interpretation Code [facility] Work Phone: QT Interval new path ms [facility] Work Phone: QT interval, electrocardiogram new path ms Invalid Interpretation Code [facility] Work Phone: QTc Jett 463 ms [facility] Work Phone: [phone] T [place] 16 deg [facility] Work Phone: [phone] T wave axis, electrocardiogram 16 deg Invalid Interpretation Code [facility] Work Phone: [phone] Lab Report: Magnesiumon 08-27 Magnesium 2.0 mg/dL Invalid Interpretation Code 1.8-2.4 [facility] Work Phone: [phone] Office Visiton 09-17-2015 General cardiovascular disease 10Y risk [#] [place].D'Agostrafael 20 % Invalid Interpretation Code [facility] Work Phone: [phone]) Office Visit: multiproblem f ollow-up visiton 05-27-2015 HbA1c 5.7 % Invalid Interpretation Code [facility] Work Phone: [phone] Lab Report: CBC W/Diff, Auto matedon 01-07-2015 Absolute Neut 3.9 X10 3/UL 2.0-7.7 [facility] Work Phone: [phone] Absolute Neutrophil count 3.9 X10 3/UL Invalid Interpretation Code 2.0-7.7 [facility] Work Phone: [phone] Basophils/100 leukocytes 0.5 % Invalid Interpretation Code 0-1 [facility] Work Phone: [phone] Basophils/100 WBC (Bld) 0.5 % 0-1 [facility] Work Phone: [phone] Eosinophils/100 leukocytes 2.6 % Invalid Interpretation Code 0-5 [facility] Work Phone: [phone] Eosinophils/100 WBC (Bld) 2.6 % 0-5 [facility] Work Phone: [phone] Erythrocytes (RBC) 4.51 10*6/uL Invalid Interpretation Code 4.2-5.4 [facility] Work Phone: [phone] Hematocrit (Bld) [Volume fraction] 41.7 % 37-47 [facility] Work Phone: [phone] Hematocrit (HCT) 41.7 % Invalid Interpretation Code 37-47 [facility] Work Phone: [phone] Hemoglobin (HGB) 13.7 g/dL Invalid Interpretation Code 12.0-15.0 [facility] Work Phone: [phone] Lymphocytes 3.18 X10 3/UL Invalid Interpretation Code 0.83-4.51 [facility] Work Phone: [phone] Lymphocytes (Bld) [#/Vol] 3.18 X10 3/UL 0.83-4.51 [facility] Work Phone: [phone] Lymphocytes/100 leukocytes 39.6 % Invalid Interpretation Code 19-41 [facility] Work Phone: [phone] Lymphocytes/100 WBC (Bld) 39.6 % 19-41 [facility] Work Phone: [phone] MCH 30.4 pg Invalid Interpretation Code 27.0-32.0 [facility] Work Phone: [phone] MCH (RBC) [Entitic mass] 30.4 pg 27.0-32.0 [facility] Work Phone: [phone] MCHC 32.9 G/GL Invalid Interpretation Code 32-36 [facility] Work Phone: [phone] MCHC (RBC) [Mass/Vol] 32.9 G/GL 32-36 [facility] Work Phone: [phone] MCV 92.5 fL Invalid Interpretation Code 81-99 [facility] Work Phone: [phone] MCV (RBC) [Entitic vol] 92.5 fL 81-99 [facility] Work Phone: [phone] Monocytes/100 leukocytes 8.5 % Invalid Interpretation Code 0-10 [facility] Work Phone: [phone] Monocytes/100 WBC (Bld) 8.5 % 0-10 [facility] Work Phone: [phone] Neutrophils/100 leukocytes 48.6 % Invalid Interpretation Code 47-70 [facility] Work Phone: [phone] Neutrophils/100 WBC (Bld) 48.6 % 47-70 [facility] Work Phone: [phone] Platelet mean volume (Bld) [Entitic vol] 9.7 fL 6.2-12.0 [facility] Work Phone: [phone] Platelets 234 10*3/mm3 Invalid Interpretation Code 150-450 [facility] Work Phone: [phone] Platelets (Bld) [#/Vol] 234 10*3/mm3 150-450 [facility] Work Phone: [phone] PMV by Issac 9.7 fL Invalid Interpretation Code 6.2-12.0 [facility] Work Phone: [phone] RBC (Bld) [#/Vol] 4.51 10*6/uL 4.2-5.4 [facility] Work Phone: [phone] WBC (Bld) [#/Vol] 8.0 10*3/uL 4.4-11.0 [facility] Work Phone: [phone] WBC (Leukocytes) 8.0 10*3/uL Invalid Interpretation Code 4.4-11.0 [facility] Work Phone: [phone] Lab Report: Troponin-Ion Troponin I ng/mL Invalid Interpretation Code <0.06 [facility] Work Phone: [phone] Lab Report: CRPon 12-04-2014 C Reactive Protein, semiquantitative result 7.37 Critically high 0.0-3.0 [facility] Work Phone: [phone] C-REACTIVE PROT 7.37 Critically high 0.0-3.[address] [facility] Work Phone: [phone] Lab Report: Vitamin D,25 Hyd roxyon 12-04-2014 vitamin D 25-hydroxy, serum 50.3 ng/mL Invalid Interpretation Code [facility] Work Phone: [phone] Vitamin D 25-OH 50.3 ng/mL [facility] Work Phone: [phone] Office Visiton 10-03-2014 cardiac risk group C Invalid Interpretation Code [facility] Work Phone: [phone] Lab Report: B12on 08-14-2014 Cobalamin (Vitamin B12) [Mass/Vol] 569 pg/mL Normal 211-911 [facility] Work Phone: [phone] vitamin b12, serum 569 pg/mL Normal 211-911 [facility] Work Phone: [phone] Lab Report: CMPon 08-14-2014 Albumin/Globulin Ratio 1.2 {ratio} Normal 0.9-2.4 [facility] Work Phone: [phone] Lab Report: FERon 08-14-2014 Ferritin 107 ng/mL Normal 8-252 [facility] Work Phone: [phone] Lab Report: FOLon 08-14-2014 Folate 18.30 ng/mL High 3.1-17.5 [facility] Work Phone: [phone] Lab Report: MIACREon 014 Urine, creatinine 147.6 mg/dL Normal NO RANGE EST. [facility] Work Phone: [phone] Urine, microalbumin 1.34 mg/dL Normal Units converted. See lab report for original value. [facility] Work Phone: [phone] Lab Report: SEDon 08-14-2014 Erythrocyte sedimentation rate 6 mm/h Normal 0-30 [facility] Work Phone: [phone] Lab Report: T4on 08-14-2014 Thyroxine (T4) 9.6 ug/dL Normal 4.8-13.9 [facility] Work Phone: [phone] Lab Report: TSHon 08-14-2014 Thyroid stimulating hormone (TSH) 1.12 u[iU]/mL Normal 0.358-3.74 [facility] Work Phone: [phone] Lab Report: URICon 4 Urate 6.9 mg/dL High 2.6-6.0 [facility] Work Phone: [phone] Replaced Document: Analimark E CG Observationson 10-17-2012 Pulse (Heart Rate) 429 ms Invalid Interpretation Code [facility] Work Phone: [phone] Lab Reporton 04-04-2012 Cholesterol to HDL Ratio 4.2 {ratio} Invalid Interpretation Code [facility] Work Phone: [phone] Panel Information Nasal Screen MRSA/MSSA [facility] Work Phone: Vital Signs Date Time Vital Sign Value Performing Clinician Facility 05-03-2025 12:50-0400 Body height 160 cm Gasper Frankel MD Work Phone: [facility] 05-03-2025 12:50-0400 Body mass index (BMI) [Ratio] 33.66 kg/m2 Gasper Frankel MD Work Phone: [facility] 05-03-2025 12:50-0400 Body weight 86.18 kg Gasper Frankel MD Work Phone: [facility] 03-21-2025 11:14-0400 Body temperature 97.8 [degF] Dr. Awais Kearney DO Work Phone: [facility] 03-21-2025 11:14-0400 Body weight 88.[address] Awais Kearney DO Work Phone: [facility] 03-21-2025 11:14-0400 Diastolic blood pressure 67 mm[Hg] Dr. Awais Kearney DO Work Phone: [facility] 03-21-2025 11:14-0400 Heart rate 73 /min Dr. Awais Kearney DO Work Phone: [facility] 03-21-2025 11:14-0400 Respiratory rate 16 /min Dr. Awais Kearney DO Work Phone: [facility] 03-21-2025 11:14-0400 SaO2% (BldA) [Mass fraction] 96 % Dr. Awais Kearney DO Work Phone: [facility] 03-21-2025 11:14-0400 Systolic blood pressure 131 mm[Hg] Dr. Awais Kearney DO Work Phone: [facility] 02-07-2025 11:00-0400 Body temperature 97.3 [degF] Dr. Awais Kearney DO Work Phone: [facility] 02-07-2025 11:00-0400 Body weight 88.[address] Awais Kearney DO Work Phone: [facility] 02-07-2025 11:00-0400 Diastolic blood pressure 67 mm[Hg] Dr. Awais Kearney DO Work Phone: [facility] 02-07-2025 11:00-0400 Heart rate 69 /min Dr. Awais Kearney DO Work Phone: [facility] 02-07-2025 11:00-0400 Respiratory rate 16 /min Dr. Awais Kearney DO Work Phone: [facility] 02-07-2025 11:00-0400 SaO2% (BldA) [Mass fraction] 96 % Dr. Awais Kearney DO Work Phone: [facility] 02-07-2025 11:00-0400 Systolic blood pressure 137 mm[Hg] Dr. Awais Kearney DO Work Phone: [facility] 11-13-2024 07:55-0500 Body mass index (BMI) [Ratio] 34.3 kg/m2 Dr. Awais Kearney DO Work Phone: [facility] 11-13-2024 07:55-0500 Body temperature 97.4 [degF] Dr. Awais Kearney DO Work Phone: [facility] 11-13-2024 07:55-0500 Body weight 87.[address] Awais Kearney DO Work Phone: [facility] 11-13-2024 07:55-0500 Diastolic blood pressure 66 mm[Hg] Dr. Awais Kearney DO Work Phone: [facility] 11-13-2024 07:55-0500 Heart rate 66 /min Dr. Awais Kearney DO Work Phone: [facility] 11-13-2024 07:55-0500 Respiratory rate 18 /min Dr. Awais Kearney DO Work Phone: [facility] 11-13-2024 07:55-0500 SaO2% (BldA) [Mass fraction] 98 % Dr. Awais Kearney DO Work Phone: [facility] 11-13-2024 07:55-0500 Systolic blood pressure 125 mm[Hg] Dr. Awais Kearney DO Work Phone: [facility] 10-30-2024 04:05-0500 Body temperature 98.2 [degF] Dr. Awais Kearney DO Work Phone: [facility] 10-30-2024 04:05-0500 Diastolic blood pressure 60 mm[Hg] Dr. Awais Kearney DO Work Phone: [facility] 10-30-2024 04:05-0500 Heart rate 70 /min Dr. Awais Kearney DO Work Phone: [facility] 10-30-2024 04:05-0500 Respiratory rate 17 /min Dr. Awais Kearney DO Work Phone: [facility] 10-30-2024 04:05-0500 SaO2% (BldA) [Mass fraction] 96 % Dr. Awais eKarney DO Work Phone: [facility] 10-30-2024 04:05-0500 Systolic blood pressure 137 mm[Hg] Dr. Awais Kearney DO Work Phone: [facility] 10-30-2024 00:52-0500 Body height 160.[address] Awais Kearney DO Work Phone: [facility] 10-30-2024 00:52-0500 Body mass index (BMI) [Ratio] 34.7 kg/m2 Dr. Awais Kearney DO Work Phone: [facility] 10-30-2024 00:52-0500 Body weight 88.[address] Awais Kearney DO Work Phone: [facility] 10-04-2023 08:05-0500 Body height 160.[address] Awais Kearney Work Phone: [facility] 10-04-2023 08:05-0500 Body mass index (BMI) [Ratio] 35.7 kg/m2 Dr. Awais Kearney Work Phone: [facility] 10-04-2023 08:05-0500 Body temperature 97 [degF] Dr. Awais Kearney Work Phone: [facility] 10-04-2023 08:05-0500 Body weight 91.[address] Awais Kearney Work Phone: [facility] 10-04-2023 08:05-0500 Diastolic blood pressure 73 mm[Hg] Dr. Awais Kearney Work Phone: [facility] 10-04-2023 08:05-0500 Heart rate 77 /min Dr. Awais Kearney Work Phone: [facility] 10-04-2023 08:05-0500 Respiratory rate 18 /min Dr. Awais Kearney Work Phone: [facility] 10-04-2023 08:05-0500 SaO2% (BldA) [Mass fraction] 97 % Dr. Awais Kearney Work Phone: [facility] 10-04-2023 08:05-0500 Systolic blood pressure 136 mm[Hg] Dr. Awais Kearney Work Phone: [facility] 10-04-2022 05:45-0500 Body height 160.[address] Awais Kearney Work Phone: [facility] 10-04-2022 05:45-0500 Body mass index (BMI) [Ratio] 36.3 kg/m2 Dr. Awais Kearney Work Phone: [facility] 10-04-2022 05:45-0500 Body temperature 98.1 [degF] Dr. Awais Kearney Work Phone: [facility] 10-04-2022 05:45-0500 Body weight 92.[address] Awais Kearney Work Phone: [facility] 10-04-2022 05:45-0500 Diastolic blood pressure 72 mm[Hg] Dr. Awais Kearney Work Phone: [facility] 10-04-2022 05:45-0500 Heart rate 65 /min Dr. Awais Kearney Work Phone: [facility] 10-04-2022 05:45-0500 Respiratory rate 20 /min Dr. Awais Kearney Work Phone: [facility] 10-04-2022 05:45-0500 SaO2% (BldA) [Mass fraction] 97 % Dr. Awais Kearney Work Phone: [facility] 10-04-2022 05:45-0500 Systolic blood pressure 151 mm[Hg] Dr. Awais Kearney Work Phone: [facility] 06-22-2022 08:47-0400 Body height 160.[address] Awais Kearney Work Phone: [facility] Work Phone: 06-22-2022 08:47-0400 Body mass index (BMI) [Ratio] 35.4 kg/m2 Dr. Awais Kearney Work Phone: [facility] Work Phone: 06-22-2022 08:47-0400 Body weight 90.[address] Awais Kearney Work Phone: [facility] Work Phone: 06-22-2022 08:47-0400 Diastolic blood pressure 83 mm[Hg] Dr. Awais Kearney Work Phone: [facility] Work Phone: 06-22-2022 08:47-0400 Heart rate 62 /min Dr. Awais Kearney Work Phone: [facility] Work Phone: 06-22-2022 08:47-0400 Respiratory rate 18 /min Dr. Awais Kearney Work Phone: [facility] Work Phone: 06-22-2022 08:47-0400 SaO2% (BldA) [Mass fraction] 95 % Dr. Awais Kearney Work Phone: [facility] Work Phone: 06-22-2022 08:47-0400 Systolic blood pressure 151 mm[Hg] Dr. Awais Kearney Work Phone: [facility] Work Phone: 03-16-2022 13:26-0400 Body temperature 98.9 [degF] Dr. Awais Kearney Work Phone: [facility] Work Phone: 03-16-2022 13:26-0400 Diastolic blood pressure 54 mm[Hg] Dr. Awais Kearney Work Phone: [facility] Work Phone: 03-16-2022 13:26-0400 Heart rate 74 /min Dr. Awais Kearney Work Phone: [facility] Work Phone: 03-16-2022 13:26-0400 Respiratory rate 18 /min Dr. Awais Kearney Work Phone: [facility] Work Phone: 03-16-2022 13:26-0400 SaO2% (BldA) [Mass fraction] 94 % Dr. Awais Kearney Work Phone: [facility] Work Phone: 03-16-2022 13:26-0400 Systolic blood pressure 141 mm[Hg] Dr. Awais Kearney Work Phone: [facility] Work Phone: 03-15-2022 21:08-0400 Inhaled oxygen flow rate 2 L/min Dr. Awais Kearney Work Phone: [facility] Work Phone: 03-15-2022 11:34-0400 Body height 160.[address] Awais Kearney Work Phone: [facility] Work Phone: 03-15-2022 11:34-0400 Body mass index (BMI) [Ratio] 33.5 kg/m2 Dr. Awais Kearney Work Phone: [facility] Work Phone: 03-15-2022 11:34-0400 Body weight 85.[address] Awais Kearney Work Phone: [facility] Work Phone: 02-15-2022 09:58-0400 Body height 160.02 cm [facility] Work Phone: 02-15-2022 09:58-0400 Body weight 86.18 kg [facility] Work Phone: 01-14-2022 17:03-0400 Body weight 87.[address] Awais Kearney Work Phone: [facility] Work Phone: 01-12-2022 15:00-0400 Body height 160.[address] Awais Kearney Work Phone: [facility] Work Phone: 10-21-2021 09:14-0500 Body mass index (BMI) [Ratio] 34.4 kg/m2 Dr. Awais Kearney Work Phone: [facility] Work Phone: 10-21-2021 09:14-0500 Body temperature 97.2 [degF] Dr. Awais Kearney Work Phone: [facility] Work Phone: 10-21-2021 09:14-0500 Body weight 91.[address] Awais Kearney Work Phone: [facility] Work Phone: 10-21-2021 09:14-0500 Diastolic blood pressure 58 mm[Hg] Dr. Awais Kearney Work Phone: [facility] Work Phone: 10-21-2021 09:14-0500 Heart rate 60 /min Dr. Awais Kearney Work Phone: [facility] Work Phone: 10-21-2021 09:14-0500 Respiratory rate 18 /min Dr. Awais Kearney Work Phone: [facility] Work Phone: 10-21-2021 09:14-0500 SaO2% (BldA) [Mass fraction] 97 % Dr. Awais Kearney Work Phone: [facility] Work Phone: 10-21-2021 09:14-0500 Systolic blood pressure 142 mm[Hg] Dr. Awais Kearney Work Phone: [facility] Work Phone: 06-03-2017 09:40-0400 BMI (Body Mass Index) 34.5 kg/m2 Usha Hidalgo [facility] Work Phone: 06-03-2017 09:40-0400 BP Diastolic 60 mm[Hg] Usha [facility] Work Phone: 06-03-2017 09:40-0400 BP Systolic 108 mm[Hg] Usha [facility] Work Phone: 06-03-2017 09:40-0400 Height 162.56 cm Usha [facility] Work Phone: 06-03-2017 09:40-0400 Pulse (Heart Rate) 64 /min Usha Hidalgo [facility] Work Phone: 06-03-2017 09:40-0400 Respiratory Rate 18 /min Usha [facility] Work Phone: 06-03-2017 09:40-0400 Weight 91.17 kg Usha Hidalgo [facility] Work Phone: 11-03-2016 09:14-0500 BMI (Body Mass Index) 33.26 kg/m2 Fabián Vega MD [facility] Work Phone: 11-03-2016 09:14-0500 Body weight 87.91 kg Ramona Tamayo RN [facility] Work Phone: 11-03-2016 09:14-0500 BP Diastolic 60 mm[Hg] Fabián Vega MD [facility] Work Phone: 11-03-2016 09:14-0500 BP Systolic 140 mm[Hg] Fabián Vega MD [facility] Work Phone: 11-03-2016 09:14-0500 BSA (Body Surface Area) 1.93 m2 Fabián Vega MD [facility] Work Phone: 11-03-2016 09:14-0500 Pulse (Heart Rate) 60 /min [facility] Work Phone: 11-03-2016 09:14-0500 Respiratory Rate 16 /min Fabián Vega MD [facility] Work Phone: 11-03-2016 09:14-0500 Weight 87.91 kg Fabián Vega MD [facility] Work Phone: 07-21-2016 07:28-0400 Body Temperature 97.52 [degF] Fabián Vega MD [facility] Work Phone: 07-21-2016 07:28-0400 Body Temperature 97.5 [degF] Fabián Vega MD [facility] Work Phone: 07-21-2016 07:28-0400 Body weight 85.45 kg Ramona Tamayo RN [facility] Work Phone: 07-21-2016 07:28-0400 Pulse Oximetry 98 % Fabián Vega MD [facility] Work Phone: 07-21-2016 07:28-0400 Weight 85.45 kg Fabián Vega MD [facility] Work Phone: 05-04-2016 10:28-0400 Heart rate 56 /min Ramona Tamayo RN [facility] Work Phone: 04-06-2016 08:35-0400 Height 162.56 cm Fabián Vega MD [facility] Work Phone: 10-17-2012 13:18-0500 Heart rate 429 ms Ramona Tamayo RN [facility] Work Phone: Encounters Encounter Date Encounter Type Care Provider Facility Start: 08-[facility]-2025 [facility] Start: 08-01-2025 ambulatory Ciro Namita Facili ty:[facility] Start: 07-31-2025 End: 07-31-2025 ambulatory [facility] [place] [place]: 07-31-2025 End: 07-31-2025 ambulatory [facility] [place] Start: 07-30-2025 End: 07-30-2025 [facility] [place] Start: 07-23-2025 End: 07-23-2025 [facility] Start: 07-23-2025 End: 07-23-2025 ambulatory [facility] Facility:[facility] Start: 07-17-2025 End: 07-17-2025 ambulatory [facility] Facility:[facility] Start: 07-09-2025 End: 07-09-2025 ambulatory [facility] Facility:[facility] Start: 06-19-2025 ambulatory [facility] Facility: [facility] Start: 05-31-2025 End: 05-31-2025 Telephone encounter Gasper Frankel MD Work Phone: [facility] Clinical Communication Start: 05-17-2025 End: 05-17-[address] Awais Kearney DO Work Phone: -Laboratory Start: 05-17-2025 End: 05-17-[address] 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 Awais Kearney DO Work Phone: [facility] Services Work Phone: Start: 03-20-2025 Registered Recurring Ellen CondonPhysical Therapy Work Phone: Start: 02-19-2025 Non-patient / Non-visit Dr. Jose A menchaca MD -[facility] Start: 02-19-2025 End: 02-19-[address] Awais Kearney DO Work Phone: [facility] Work Phone: Start: 02-19-2025 End: 02-19-2025 Patient encounter procedure Ellen ALONSO -Cardiovascular Services Work Phone: Start: 02-19-2025 Registered Recurring Ellen ALONSO -Physical Therapy Work Phone: Start: 02-19-2025 End: 02-19-2025 ambulatory Awais Kearney Facility:[facility] Start: 02-07-2025 End: 02-07-2025 Patient encounter procedure Ellen ALONSO -[facility] Work Phone: Start: 02-07-2025 End: 02-07-[address] Awais Kearney DO Work Phone: [facility] Work Phone: Start: 01-28-2025 End: 01-28-[address] Awais Kearney DO Work Phone: [facility] Work Phone: Start: 01-28-2025 End: 01-28-[address] Awais Kearney DO -Outpatient Breast Imaging Work Phone: Start: 01-28-2025 End: 01-28-2025 ambulatory Aawis Kearney Facility:[facility] Start: 11-13-2024 End: 11-13-2024 Patient encounter procedure Leah Elkins NP-C -[facility] Work Phone: Start: 11-13-2024 End: 11-13-2024 ambulatory Awais Kearney Facility:[facility] Start: 11-13-2024 End: 11-13-2024 ambulatory Leah Elkins NP Facility:[facility] Start: 10-30-2024 End: 10-30-2024 Emergency department patient visit Horacedorothy Sotomayor -Emergency Department Work Phone: Start: 09-04-2024 End: 09-04-2024 ambulatory Awais Kearney Facility:[facility] Start: 01-11-2024 End: 01-11-[address] Awais Kearney Work Phone: [facility] Work Phone: Start: 01-11-2024 End: 01-11-[address] Awais Kearney Work Phone: [facility]-Outpatient Breast Imaging Work Phone: Start: 10-04-2023 End: 10-04-[address] Awais Kearney Work Phone: [facility] Work Phone: Start: 09-05-2023 End: 09-05-2023 ambulatory [facility] Work Phone: Start: 09-05-2023 End: 09-05-2023 Patient encounter procedure [facility]-Laboratory Work Phone: Start: 10-21-2022 End: 10-21-[address] Awais Kearney Work Phone: [facility] Work Phone: Start: 10-21-2022 End: 10-21-[address] Awais Kearney Work Phone: [facility]-Outpatient Breast Imaging Start: 10-13-2022 End: 10-13-[address] Awais Kearney Work Phone: [facility] Work Phone: Start: 10-13-2022 End: 10-13-[address] Awais Kearney Work Phone: [facility]-Laboratory Start: 10-04-2022 End: 10-04-[address] [facility] Start: 07-02-2022 Non-patient / Non-visit Dr. Lynne Kearney Work Phone: [facility] Start: 07-02-2022 End: 07-02-[address] Awais Kearney Work Phone: [facility] Work Phone: Start: 07-02-2022 End: 07-02-[address] Awais Kearney Work Phone: [facility]-Cardiovascular Services Start: 06-22-2022 End: 06-22-[address] Awais Kearney Work Phone: [facility] Start: 03-15-2022 End: 03-16-2022 Evaluation and management of inpatient Dr. Awais Kearney Work Phone: [facility]-Medical Surgical 3 Start: 03-09-2022 End: 03-09-2022 Patient encounter procedure [facility]-Pulmonary Services/Neurology Start: 03-09-2022 Non-patient / Non-visit Dr. Lynne Kearney Work Phone: [facility] Start: 02-15-2022 End: 02-23-2022 [facility] Start: 01-14-2022 End: 01-23-[address] Awais [facility]earney [facility] Start: 10-21-2021 End: 10-21-[address] Aw[facility]ear[facility] Start: 02-26-[address] Awais Kearney Work Phone: [facility] Start: 11-22-2020 End: 11-22-2020 Patient encounter procedure Eduardo Buitrago Work Phone: [facility] Start: 11-22-2020 Results Only Eduardo howe Work Phone: General Surgery Procedures Date Procedure Procedure Detail Performing Clinician Start: 01-28-2025 End: 01-28-[address] Awais Kearney DO Work Phone: Start: 10-30-[address] Awais Kearney DO Work Phone: Start: 10-30-2024 Measurement of renal function Dr. Awais Kearney DO Work Phone: Comment on above: GFR Calc Start: 01-11-2024 Screening mammography Chad Kearney Work Phone: Start: 10-21-2022 Screening mammography Chad Kearney Work Phone: Start: 07-02-2022 Cardiovascular stres s test using pharmacologic stress agent Dr. Awais Kearney Work Phone: Start: 03-15-2022 Radiologic examinati on of knee Dr. Awais Kearney Work Phone: Start: 03-15-2022 Total Knee Replaceme nt Robotic Arm Jair (Left) Dr. Awais Kearney Work Phone: Start: 11-22-2020 PT ED PATIENT INFORMATION Eduardo Buitrago Work Phone: Start: 10-31-2017 Lipid 1996 panel - S bisi or Plasma Gasper Frankel MD Work Phone: Start: 10-31-2017 End: 11-10-2017 *Hepatic Function Panel Jayden Urias Start: 10-31-2017 End: 11-10-2017 Lipid panel [AGGREGATE] Jayden Urias Start: 06-03-2017 End: 06-03-2017 Follow Up Appt 6 months Jayden Urias Start: 06-03-2017 End: 06-03-2017 MMM Christian Veras MD Start: 04-27-2017 End: 04-29-2017 *Hepatic Function Panel Jayden Urias Start: 04-27-2017 End: 04-29-2017 Lipid panel [AGGREGATE] Jayden Urias Start: 02-14-2017 End: 02-22-2017 *CHAPARRO Latif PA-C Work Phone: Start: 11-11-2016 End: 11-12-2016 *CHAPARRO Latif PA-C Work Phone: Start: 11-03-2016 End: 11-03-2016 Dietary management education, guidance, and counseling Ramona Tamayo RN Start: 11-03-2016 End: 11-03-2016 Documentation of current medications Ramona Tamayo RN Start: 11-03-2016 End: 11-03-2016 VP PRODUCTION Marci Latif PA-C Work Phone: Start: 11-03-2016 End: 11-03-2016 Follow Up Appt 6 months Marci cheema PA-C Work Phone: Start: 10-27-2016 End: 11-01-2016 *Hepatic Function Panel Jayden Urias Start: 10-27-2016 End: 11-01-2016 Lipid panel [AGGREGATE] Jayden Urias Start: 05-04-2016 End: 05-04-2016 *Hepatic Function Panel Jayden Urias Start: 05-04-2016 End: 05-04-2016 Electrocardiogram, complete Christian Ricardo i, MD Start: 05-04-2016 End: 05-04-2016 Follow Up Appt 6 months Jayden Urias Start: 05-04-2016 End: 05-04-2016 Lipid panel [AGGREGATE] Jayden Urias Start: 05-04-2016 End: 10-27-2016 MM Christian Veras MD Start: 04-26-2016 End: 05-05-2016 *Hepatic Function Panel Jayden Urias Start: 04-26-2016 End: 05-05-2016 Lipid panel [AGGREGATE] Jayden Urias Start: 04-06-2016 End: 07-19-2016 Follow Up Appt 3 months Leah nortno WEED SCIENCE RESEARCH TECHNICIAN Work Phone: Start: 01-13-2016 End: 07-19-2016 Follow Up Appt 3 months Leah norton WEED SCIENCE RESEARCH TECHNICIAN Work Phone: Start: 01-13-2016 End: 04-05-2016 Pulmonary stress test/simple Leah Elkins WEED SCIENCE RESEARCH TECHNICIAN Work Phone: Start: 01-13-2016 End: 04-05-2016 Titration with Follow up (pt not on cpap) Leah Elkins WEED SCIENCE RESEARCH TECHNICIAN Work Phone: Start: 01-13-2016 End: 04-05-2016 Tte w/doppler, complete Leah S Rach er WEED SCIENCE RESEARCH TECHNICIAN Work Phone: Start: 12-23-2015 End: 12-23-2015 *Hepatic Function Panel Jayden Urias Start: 12-23-2015 End: 12-23-2015 Lipid panel [AGGREGATE] Jayden Urias Start: 11-25-2015 End: 12-23-2015 *BMP Awais Kearney DO Work Phone: Start: 09-17-2015 End: 09-18-2015 *BMP Christian Veras MD Start: 09-17-2015 End: 09-25-2015 24 hour holter monitor Christian Veras MD Start: 09-17-2015 End: 09-17-2015 VP PRODUCTION Christian Veras MD Start: 09-17-2015 End: 12-23-2015 Electrocardiogram, complete Christian Ricardo i, MD Start: 09-17-2015 End: 09-17-2015 Follow Up Appt 6 weeks Christian Veras MD Start: 09-17-2015 End: 09-18-2015 Magnesium Christian Veras MD Start: 06-11-2015 End: 06-24-2015 *Hepatic Function Panel Jayden Urias Start: 06-11-2015 End: 06-24-2015 Lipid panel [AGGREGATE] Jayden Urias Start: 05-06-2015 End: 05-06-2015 JORGE Veras MD Start: 05-06-2015 End: 05-07-2015 Documentation of current medications Christian Veras MD Start: 05-06-2015 End: 05-06-2015 Follow Up Appt 1 year Christian Veras MD Start: 03-24-2015 End: 04-07-2015 *Hepatic Function Panel Jayden Urias Start: 03-24-2015 End: 04-07-2015 Lipid panel [AGGREGATE] Jayden Urias Start: 02-12-2015 End: 06-25-2015 *BMP Christian Veras MD Start: 02-11-2015 End: 02-11-2015 *CHAPARRO Veras MD Start: 02-11-2015 End: 02-11-2015 JORGE Veras MD Start: 02-11-2015 End: 02-12-2015 Documentation of current medications Christian Veras MD Start: 02-11-2015 End: 02-11-2015 Follow Up Appt 3 months Jayden Urias Start: 02-11-2015 End: 02-11-2015 Magnesium Christian Veras MD Start: 02-11-2015 End: 02-11-2015 Nurse, Teaching, Wound Check (no charge) Christian Veras MD Start: 02-03-2015 End: 04-05-2016 Complete portable sleep workup (portabel,CPAP as indicated) & follow up Kurtis Chowdhury Work Phone: Start: 12-25-2014 End: 12-26-2014 Documentation of current medications Kurtis Chowdhury Work Phone: Start: 12-25-2014 End: 04-05-2016 Follow Up Appt 1 year Kurtis Chowdhury Work Phone: Start: 12-25-2014 End: 04-05-2016 Pulmonary Function Test - complete Kurtis Chowdhury Work Phone: Start: 12-04-2014 End: 12-09-2014 *SEDA Awais Kearney [employer] Work Phone: Start: 12-04-2014 End: 12-05-2014 25-Hydroxyvitamin D2+25-Hydroxyvitamin D3 [Mass/volume] in Serum or Plasma Awais Kearney DO [facility] Phone: Start: 12-04-2014 End: 12-05-2014 C reactive protein (hsCRP) Awais carreon [employer] Work Phone: Start: 12-04-2014 End: 12-05-2014 Hemoglobin A1c/Hemoglobin.total in Blood Awais Kearney DO [facility] Phone: Start: 11-19-2014 Screening for malign ant neoplasm of cervix Screening, cervical cancer Ramona Tamayo RN Start: 10-31-2014 End: 12-05-2014 HbA1c Awais Kearney DO Work Phone: Start: 10-03-2014 End: 10-03-2014 Electrocardiogram, complete Christian Ricardo i, MD Start: 10-03-2014 End: 10-03-2014 Follow Up Appt 6 months Jayden Urias Start: 10-03-2014 End: 10-03-2014 MMM Christian Veras MD Start: 09-25-2014 End: 09-25-2014 *Hepatic Function Panel Jayden Urias Start: 09-25-2014 End: 09-25-2014 Lipid panel [AGGREGATE] Jayden Urias Start: 09-11-2014 End: 09-12-2014 C reactive protein (hsCRP) Awais carreon DO Work Phone: Start: 09-11-2014 End: 09-12-2014 Magnesium [Mass/volume] in Serum or Plasma Awais Kearney DO Work Phone: Start: 08-13-2014 End: 08-15-2014 *SEDA Awais Kearney DO Work Phone: Start: 08-13-2014 End: 08-14-2014 *B12FO Vitamin B12 and Folates Awais Kearney DO Work Phone: Start: 08-13-2014 End: 08-14-2014 *CBC with Differential Awais Bonilla O Work Phone: Start: 08-13-2014 End: 08-16-2014 *CELIAC Celiac Disease AB [id number] Awais Kearney DO Work Phone: Start: 08-13-2014 End: 08-14-2014 *CMP Complete Metabolic Panel Awais Kearney DO Work Phone: Start: 08-13-2014 End: 08-15-2014 *HECAB Hepatitis C Antibody Awais ace DO Work Phone: Start: 08-13-2014 End: 08-14-2014 *Microalbumin, Creatine Ratio, rand urine Awais Kearney DO Work Phone: Start: 08-13-2014 End: 08-19-2014 *RASTFOOD Rast Food Profile [id number] Awais Kearney DO Work Phone: Start: 08-13-2014 End: 08-14-2014 25-Hydroxyvitamin D2+25-Hydroxyvitamin D3 [Mass/volume] in Serum or Plasma Awais Kearney DO Work Phone: Start: 08-13-2014 End: 08-15-2014 Borrelia burgdorferi Ab [interpretation] in Serum Awais Kearney DO Work Phone: Start: 08-13-2014 End: 08-14-2014 C reactive protein (hsCRP) Awais crareon DO Work Phone: Start: 08-13-2014 End: 08-14-2014 Erythrocyte sedimentation rate Awais Kearney DO Work Phone: Start: 08-13-2014 End: 08-14-2014 Ferritin Awais Kearney DO Work Phone: Start: 08-13-2014 End: 09-12-2014 Follow up Appt 1 week Awais Kearney DO Work Phone: Start: 08-13-2014 End: 08-14-2014 HbA1c Awais Kearney DO Work Phone: Start: 08-13-2014 End: 08-14-2014 Magnesium Awais Kearney DO Work Phone: Start: 08-13-2014 End: 08-14-2014 Rheumatoid factor [Units/volume] in Serum or Plasma Awais Kearney DO Work Phone: Start: 08-13-2014 End: 08-15-2014 Thyroglobulin antibody Awais Kearney D O Work Phone: Start: 08-13-2014 End: 08-14-2014 Thyroid stimulating hormone (TSH) Awais Kearney DO Work Phone: Start: 08-13-2014 End: 08-14-2014 Thyroxine (T4) Awais Kearney DO Work Phone: Start: 08-13-2014 End: 08-14-2014 Thyroxine (T4) free Awais Kearney DO Work Phone: Start: 08-13-2014 End: 08-14-2014 Triiodothyronine (T3) Awais Kearney DO Work Phone: Start: 08-13-2014 End: 08-14-2014 Triiodothyronine (T3) free Awais carreon DO Work Phone: Start: 08-13-2014 End: 08-14-2014 Urate [Mass/volume] in Serum or Plasma Awais Kearney DO Work Phone: Start: 03-26-2014 End: 04-11-2014 *Hepatic Function Panel Jayden Urias Start: 03-26-2014 End: 04-11-2014 Lipid panel [AGGREGATE] Jayden Urias Start: 11-02-2013 End: 11-02-2013 VP PRODUCTION Marci Latif PA-C Work Phone: Start: 11-02-2013 End: 11-02-2013 Follow Up Appt 6 months Marci cheema PA-C Work Phone: Start: 11-02-2013 End: 09-25-2015 Remote 30 day ecg rev/report Marci Latif PA-C Work Phone: Start: 09-26-2013 End: 10-09-2013 *Hepatic Function Panel Jayden Urias Start: 09-26-2013 End: 10-09-2013 Lipid panel [AGGREGATE] Jayden Urias Start: 04-18-2013 End: 10-09-2013 *Hepatic Function Panel Vladimir Alcantar MD Start: 04-18-2013 End: 10-09-2013 Lipid panel [AGGREGATE] Vladimir Alcantar MD Start: 04-12-2013 End: 04-12-2013 Follow Up Appt 6 months Jayden Urias Start: 04-12-2013 End: 04-12-2013 MMM Christian Veras MD Start: 10-17-2012 End: 09-12-2014 *BMP Vladimir Alcantar MD Start: 10-17-2012 End: 10-17-2012 Follow Up Appt 6 months Vladimir Alcantar MD Start: 10-17-2012 End: 10-17-2012 Follow Up Appt Other Vladimir Alcantar MD Start: 10-17-2012 End: 09-12-2014 Lipid panel [AGGREGATE] Vladimir Alcantar MD Start: 10-17-2012 End: 09-12-2014 Magnesium [Mass/volume] in Serum or Plasma Vladimir Alcantar MD Start: 09-27-2012 End: 09-29-2012 *Hepatic Function Panel Vladimir Alcantar MD Start: 09-27-2012 End: 09-29-2012 Lipid panel [AGGREGATE] Vladimir Alcantar MD Start: 04-11-2012 End: 04-11-2012 Follow Up Appt 6 months Vladimir Alcantar MD Start: 01-27-2012 End: 01-27-2012 *Hepatic Function Panel Vladimir Alcantar MD Start: 01-27-2012 End: 01-27-2012 Lipid panel [AGGREGATE] Vladimir Alcantar MD Start: 01-27-2012 End: 01-27-2012 Magnesium Vladimir Alcantar MD Start: 01-25-2012 End: 01-25-2012 *BMP Vladimir Alcantar MD Start: 08-23-2011 End: 08-23-2011 Follow Up Appt 6 months Vladimir Alcantar MD Start: 08-23-2011 End: 01-27-2012 Magnesium Vladimir Alcantar MD Nasal Screen MRSA/MSSA Dr. Jayden Kearney Work Phone: Plan of Treatment Date Care Activity Detail Author Start: 01-28-2026 Screening for malignant neoplasm of breast Mammogram [facility] Start: 05-27-2025 COVID-19 Vaccine ( season) COVID-19 Vaccine ( season) [facility] Start: 05-27-2025 Influenza vaccination Influenza Vaccine (#1) [facility] Start: 02-07-2025 Patient referral [facility] Work Phone: Start: 10-30-2024 [facility] Start: 05-27-2024 COVID-19 Vaccine ( season) COVID-19 Vaccine () [facility] Start: 03-16-2022 Patient discharge [facility] Work Phone: Start: 03-15-2022 Anesth open/surg arthrs total knee arthroplasty ANESTH KNEE ARTHROPLASTY [facility] Work Phone: Start: 03-15-2022 Arthrp kne condyle&platu medial&lat compartments TOTAL KNEE ARTHROPLASTY [facility] Work Phone: Start: 03-15-2022 Injection aa&/strd femoral nerve NJX AA&/STRD FEMORAL NERVE [facility] Work Phone: Start: 03-15-2022 Admission procedure [facility] Work Phone: Start: 03-15-2022 Following clinical pathway protocol [facility] Work Phone: Start: 03-15-2022 Provision of overbed trapeze [facility] Work Phone: Start: 03-15-2022 Ambulation therapy management [facility] Work Phone: Start: 03-15-2022 Application of device [facility] Work Phone: Start: 03-15-2022 Application of elastic bandage [facility] Work Phone: Start: 03-15-2022 Assessment of risk of venous thromboembolism [facility] Work Phone: Start: 03-15-2022 Catheterization of vein [facility] Work Phone: Start: 03-15-2022 Exercises [facility] Work Phone: Start: 03-15-2022 Following clinical pathway protocol [facility] Work Phone: Start: 03-15-2022 Incentive spirometry [facility] Work Phone: Start: 03-15-2022 Introduction of urinary catheter [facility] Work Phone: Start: 03-15-2022 Measuring intake and output [facility] Work Phone: Start: 03-15-2022 Neurovascular assessment [facility] Work Phone: Start: 03-15-2022 Patient education [facility] Work Phone: Start: 03-15-2022 Procedure discontinued [facility] Work Phone: Start: 03-15-2022 Provision of activity privileges [facility] Work Phone: Start: 03-15-2022 Referral to occupational therapist [facility] Work Phone: Start: 03-15-2022 Referral to service [facility] Work Phone: Start: 03-15-2022 Vital signs measurements [facility] Work Phone: Start: 03-15-2022 Wound care [facility] Work Phone: Start: 03-15-2022 End: 03-15-2022 [facility] Work Phone: Start: 05-27-2020 Influenza vaccination INFLUENZA (#1) [facility] Start: 2019 ADVANCE DIRECTIVE DISCUSSION ADVANCE DIRECTIVE DISCUSSION [facility] Start: 2019 BONE DENSITY BONE DENSITY [facility] Start: 2019 PNEUMOVAX AGE 65 AND OVER WITH 5YR LOOKBACK (#1) PNEUMOVAX AGE 65 AND OVER WITH 5YR LOOKBACK (#1) [facility] Start: 10-31-2018 Lipid panel Lipid Panel [facility] Start: 12-02-2017 End: 12-02-2017 Appointment Appointment [facility] Work Phone: Start: 10-31-2017 End: 11-10-2017 *Hepatic Function Panel *Hepatic Function Panel [facility] Work Phone: Start: 10-31-2017 End: 11-10-2017 Lipid panel [AGGREGATE] *Lipid Profile CC PCP [facility] Work Phone: Start: 07-20-2017 End: 07-20-2017 Appointment Appointment [facility] Work Phone: Start: 06-03-2017 End: 06-03-2017 Appointment Appointment [facility] Work Phone: Start: 06-03-2017 End: 06-03-2017 Follow Up Appt 6 months Follow Up Appt 6 months [facility] Work Phone: Start: 06-03-2017 End: 06-03-2017 MMM MMM [facility] Work Phone: Start: 05-03-2017 End: 05-03-2017 Appointment Appointment [facility] Work Phone: Start: 05-03-2017 End: 05-03-2017 Appointment Appointment [facility] Work Phone: Start: 04-27-2017 End: 04-29-2017 *Hepatic Function Panel *Hepatic Function Panel [facility] Work Phone: Start: 04-27-2017 End: 04-29-2017 Lipid panel [AGGREGATE] *Lipid Profile CC PCP [facility] Work Phone: Start: 02-14-2017 End: 02-22-2017 *BMP *BMP [facility] Work Phone: Start: 11-11-2016 End: 11-12-2016 *BMP *BMP [facility] Work Phone: Start: 11-03-2016 End: 11-03-2016 VP PRODUCTION VP PRODUCTION [facility] Work Phone: Start: 11-03-2016 End: 11-03-2016 Follow Up Appt 6 months Follow Up Appt 6 months [facility] Work Phone: Start: 10-27-2016 End: 11-01-2016 *Hepatic Function Panel *Hepatic Function Panel [facility] Work Phone: Start: 10-27-2016 End: 11-01-2016 Lipid panel [AGGREGATE] *Lipid Profile CC PCP [facility] Work Phone: Start: 07-21-2016 End: 07-21-2016 Follow Up Appt 1 year Follow Up Appt 1 year [facility] Work Phone: Start: 06-24-2016 End: 05-05-2016 Lipid panel [AGGREGATE] *Lipid Profile CC PCP [facility] Work Phone: Start: 05-04-2016 End: 05-04-2016 *Hepatic Function Panel *Hepatic Function Panel [facility] Work Phone: Start: 05-04-2016 End: 05-04-2016 Electrocardiogram, complete EKG (In office) [facility] Work Phone: Start: 05-04-2016 End: 05-04-2016 Follow Up Appt 6 months Follow Up Appt 6 months [facility] Work Phone: Start: 05-04-2016 End: 05-04-2016 Lipid panel [AGGREGATE] *Lipid Profile CC PCP [facility] Work Phone: Start: 05-04-2016 End: 10-27-2016 MMM MMM [facility] Work Phone: Start: 04-30-2016 End: 05-04-2016 WhyWeight WhyWeight [facility], [address], [place], [address] [facility] Work Phone: Start: 04-26-2016 End: 05-05-2016 *Hepatic Function Panel *Hepatic Function Panel [facility] Work Phone: Start: 04-26-2016 End: 05-05-2016 Lipid panel [AGGREGATE] *Lipid Profile CC PCP [facility] Work Phone: Start: 04-06-2016 End: 04-06-2016 [facility] Work Phone: Start: 04-06-2016 End: 04-06-2016 Follow Up Appt 1 month Follow Up Appt 1 month [facility] Work Phone: Start: 04-06-2016 End: 07-19-2016 Follow Up Appt 3 months Follow Up Appt 3 months [facility] Work Phone: Start: 01-13-2016 End: 07-19-2016 Follow Up Appt 3 months Follow Up Appt 3 months [facility] Work Phone: Start: 01-13-2016 End: 04-05-2016 Pulmonary stress test/simple Pulmonary stress testing; simple (eg, 6-minute walk) [facility] Work Phone: Start: 01-13-2016 End: 04-05-2016 Titration with Follow up (pt not on cpap) Titration with Follow up (pt not on cpap) [facility] Work Phone: Start: 01-13-2016 End: 04-05-2016 Tte w/doppler, complete Echo Complete with Color Flow [facility] Work Phone: Start: 12-23-2015 End: 12-23-2015 *Hepatic Function Panel *Hepatic Function Panel [employer] Work Phone: Start: 12-23-2015 End: 12-23-2015 Lipid panel [AGGREGATE] *Lipid Profile CC PCP [facility] Work Phone: Start: 11-25-2015 End: 12-23-2015 *BMP *BMP [facility] Work Phone: Start: 09-17-2015 End: 09-18-2015 *BMP *BMP [facility] Work Phone: Start: 09-17-2015 End: 09-17-2015 24 hour holter monitor 24 hour holter monitor [facility] Work Phone: Start: 09-17-2015 End: 09-17-2015 VP PRODUCTION VP PRODUCTION [facility] Work Phone: Start: 09-17-2015 End: 12-23-2015 Electrocardiogram, complete EKG (In office) [facility] Work Phone: Start: 09-17-2015 End: 09-17-2015 Follow Up Appt 6 weeks Follow Up Appt 6 weeks [facility] Work Phone: Start: 09-17-2015 End: 09-18-2015 Magnesium *Magnesium [facility] Work Phone: Start: 06-11-2015 End: 06-24-2015 *Hepatic Function Panel *Hepatic Function Panel [facility] Work Phone: Start: 06-11-2015 End: 06-24-2015 Lipid panel [AGGREGATE] *Lipid Profile CC PCP [facility] Work Phone: Start: 05-27-2015 End: 05-27-2015 DEXA scan DEXA scan [facility] Work Phone: Start: 05-27-2015 End: 05-27-2015 HbA1c HGB A1C (Office) [facility] Work Phone: Start: 05-06-2015 End: 05-06-2015 [facility] Work Phone: Start: 05-06-2015 End: 05-06-2015 Follow Up Appt 1 year Follow Up Appt 1 year [facility] Work Phone: Start: 03-24-2015 End: 04-29-2015 *Hepatic Function Panel *Hepatic Function Panel [facility] Work Phone: Start: 03-24-2015 End: 04-29-2015 Lipid panel [AGGREGATE] *Lipid Profile CC PCP [facility] Work Phone: Start: 03-10-2015 End: 12-11-2014 25-Hydroxyvitamin D2+25-Hydroxyvitamin D3 [Mass/volume] in Serum or Plasma *Vitamin D (Calciferol) [facility] Work Phone: Start: 03-10-2015 End: 12-11-2014 C reactive protein (hsCRP) *CRP - C-Reative Protein [facility] Work Phone: Start: 03-10-2015 End: 12-11-2014 HbA1c *HgA1C [facility] Work Phone: Start: 03-10-2015 End: 12-11-2014 Urate *Uric Acid Blood [facility] Work Phone: Start: 02-12-2015 End: 04-29-2015 *BMP *BMP [facility] Work Phone: Start: 02-11-2015 End: 02-11-2015 *BMP *BMP [facility] Work Phone: Start: 02-11-2015 End: 02-11-2015 VP PRODUCTION VP PRODUCTION [facility] Work Phone: Start: 02-11-2015 End: 02-11-2015 Follow Up Appt 3 months Follow Up Appt 3 months [facility] Work Phone: Start: 02-11-2015 End: 02-11-2015 Magnesium *Magnesium [facility] Work Phone: Start: 02-03-2015 End: 04-05-2016 Complete portable sleep workup (portabel,CPAP as indicated) & follow up Complete portable sleep workup (portabel,CPAP as indicated) & follow up [facility] Work Phone: Start: 12-25-2014 End: 04-05-2016 Follow Up Appt 1 year Follow Up Appt 1 year [facility] Work Phone: Start: 12-25-2014 End: 04-05-2016 Pulmonary Function Test - complete Pulmonary Function Test - complete [facility] Work Phone: Start: 12-04-2014 End: 12-09-2014 *SEDA *SEDA [facility] Work Phone: Start: 12-04-2014 End: 12-05-2014 25-Hydroxyvitamin D2+25-Hydroxyvitamin D3 [Mass/volume] in Serum or Plasma *Vitamin D (Calciferol) [facility] Work Phone: Start: 12-04-2014 End: 12-05-2014 C reactive protein (hsCRP) *CRP - C-Reative Protein [facility] Work Phone: Start: 12-04-2014 End: 12-05-2014 HbA1c *HgA1C [facility] Work Phone: Start: 10-31-2014 End: 12-05-2014 X-ray exam of foot X-Ray, Foot [facility] Work Phone: Start: 10-03-2014 End: 10-03-2014 Electrocardiogram, complete EKG (In office) [employer] Work Phone: Start: 10-03-2014 End: 10-03-2014 Follow Up Appt 6 months Follow Up Appt 6 months [employer] Work Phone: Start: 10-03-2014 End: 10-03-2014 MMM MMM [facility] Work Phone: Start: 09-25-2014 End: 09-25-2014 *Hepatic Function Panel *Hepatic Function Panel [employer] Work Phone: Start: 09-25-2014 End: 09-25-2014 Lipid panel [AGGREGATE] *Lipid Profile CC PCP [facility] Work Phone: Start: 09-11-2014 End: 09-12-2014 C reactive protein (hsCRP) *CRP - C-Reative Protein [facility] Work Phone: Start: 09-11-2014 End: 09-12-2014 Magnesium *Magnesium [facility] Work Phone: Start: 08-13-2014 End: 08-15-2014 *SEDA *SEDA [facility] Work Phone: Start: 08-13-2014 End: 08-14-2014 *B12FO Vitamin B12 and Folates *B12FO Vitamin B12 and Folates [facility] Work Phone: Start: 08-13-2014 End: 08-14-2014 *CBC with Differential *CBC with Differential [facility] Work Phone: Start: 08-13-2014 End: 08-16-2014 *CELIAC Celiac Disease AB [id number] *CELIAC Celiac Disease AB [id number] [facility] Work Phone: Start: 08-13-2014 End: 08-14-2014 *CMP Complete Metabolic Panel *CMP Complete Metabolic Panel [facility] Work Phone: Start: 08-13-2014 End: 08-15-2014 *HECAB Hepatitis C Antibody *HECAB Hepatitis C Antibody [facility] Work Phone: Start: 08-13-2014 End: 08-14-2014 *Microalbumin, Creatine Ratio, rand urine *Microalbumin, Creatine Ratio, rand urine [employer] Work Phone: Start: 08-13-2014 End: 08-19-2014 *RASTFOOD Rast Food Profile [id number] *RASTFOOD Rast Food Profile [id number] [facility] Work Phone: Start: 08-13-2014 End: 08-14-2014 25-Hydroxyvitamin D2+25-Hydroxyvitamin D3 [Mass/volume] in Serum or Plasma *Vitamin D (Calciferol) [facility] Work Phone: Start: 08-13-2014 End: 08-15-2014 Borrelia burgdorferi Ab [interpretation] in Serum *LYMS Lyme Screen w/Reflx WB [id number] [facility] Work Phone: Start: 08-13-2014 End: 08-14-2014 C reactive protein (hsCRP) *CRP - C-Reative Protein [facility] Work Phone: Start: 08-13-2014 End: 08-14-2014 Erythrocyte sedimentation rate *Sedimentation Rate (ESR) [facility] Work Phone: Start: 08-13-2014 End: 08-14-2014 Ferritin *Ferritin [facility] Work Phone: Start: 08-13-2014 End: 09-12-2014 Follow up Appt 1 week Follow up Appt 1 week [employer] [facility] Work Phone: Start: 08-13-2014 End: 08-14-2014 HbA1c *HgA1C [facility] Work Phone: Start: 08-13-2014 End: 08-14-2014 Magnesium *Magnesium [facility] Work Phone: Start: 08-13-2014 End: 08-14-2014 Rheumatoid factor *RA Rheumatoid Factor - Quaint [facility] Work Phone: Start: 08-13-2014 End: 08-15-2014 Thyroglobulin antibody *ATAB - Thyroglobulin Antibody [facility] Work Phone: Start: 08-13-2014 End: 08-14-2014 Thyroid stimulating hormone (TSH) *TSH [facility] Work Phone: Start: 08-13-2014 End: 08-14-2014 Thyroxine (T4) *T4 (Total) [facility] Work Phone: Start: 08-13-2014 End: 08-14-2014 Thyroxine (T4) free *T4 free [facility] Work Phone: Start: 08-13-2014 End: 08-14-2014 Triiodothyronine (T3) *T3-Total [facility] Work Phone: Start: 08-13-2014 End: 08-14-2014 Triiodothyronine (T3) free *T3-Free [facility] Work Phone: Start: 08-13-2014 End: 08-14-2014 Urate *Uric Acid Blood [facility] Work Phone: Start: 2014 RSV Immunization for Adults (1 - Risk 60-74 years 1-dose series) RSV Immunization for Adults (1 - Risk 60-74 years 1-dose series) [facility] [employer] Start: 03-26-2014 End: 04-11-2014 *Hepatic Function Panel *Hepatic Function Panel [facility] Work Phone: Start: 03-26-2014 End: 04-11-2014 Lipid panel [AGGREGATE] *Lipid Profile CC PCP [facility] Work Phone: Start: 11-02-2013 End: 11-02-2013 VP PRODUCTION VP PRODUCTION [facility] Work Phone: Start: 11-02-2013 End: 11-02-2013 Follow Up Appt 6 months Follow Up Appt 6 months [facility] Work Phone: Start: 11-02-2013 End: 11-02-2013 Remote 30 day ecg rev/report 30 Day Holter Monitor [facility] Work Phone: Start: 09-26-2013 End: 10-09-2013 *Hepatic Function Panel *Hepatic Function Panel [facility] Work Phone: Start: 09-26-2013 End: 10-09-2013 Lipid panel [AGGREGATE] *Lipid Profile CC PCP [facility] Work Phone: Start: 04-18-2013 End: 10-09-2013 *Hepatic Function Panel *Hepatic Function Panel [facility] Work Phone: Start: 04-18-2013 End: 10-09-2013 Lipid panel [AGGREGATE] *Lipid Profile [facility] Work Phone: Start: 04-12-2013 End: 04-12-2013 Follow Up Appt 6 months Follow Up Appt 6 months [facility] Work Phone: Start: 04-12-2013 End: 04-12-2013 MMM MMM [facility] Work Phone: Start: 10-17-2012 End: 09-12-2014 *BMP *BMP [facility] Work Phone: Start: 10-17-2012 End: 10-17-2012 Follow Up Appt 6 months Follow Up Appt 6 months [facility] Work Phone: Start: 10-17-2012 End: 10-17-2012 Follow Up Appt Other Follow Up Appt Other [facility] Work Phone: Start: 10-17-2012 End: 09-12-2014 Magnesium *Magnesium [facility] Work Phone: Start: 09-27-2012 End: 09-29-2012 *Hepatic Function Panel *Hepatic Function Panel [facility] Work Phone: Start: 09-27-2012 End: 09-29-2012 Lipid panel [AGGREGATE] *Lipid Profile [facility] Work Phone: Start: 04-11-2012 End: 04-11-2012 Follow Up Appt 6 months Follow Up Appt 6 months [facility] Work Phone: Start: 02-02-2012 End: 01-25-2012 *BMP *BMP [facility] Work Phone: Start: 02-02-2012 End: 01-27-2012 *Hepatic Function Panel *Hepatic Function Panel [facility] Work Phone: Start: 02-02-2012 End: 01-27-2012 Lipid panel [AGGREGATE] *Lipid Profile [facility] Work Phone: Start: 02-02-2012 End: 01-27-2012 Magnesium *Magnesium [facility] Work Phone: Start: 08-23-2011 End: 01-27-2012 Electrocardiogram, complete EKG (In office) [facility] Work Phone: Start: 08-23-2011 End: 08-23-2011 Follow Up Appt 6 months Follow Up Appt 6 months [facility] Work Phone: Start: 2004 Screening for malignant neoplasm of colon [facility] Start: 2004 SHINGRIX VACCINE (1 of 2) SHINGRIX VACCINE (1 of 2) [facility] Start: 2004 Zoster Vaccines (1 of 2) Zoster Vaccines (1 of 2) [facility] Start: 1999 DIABETES SCREEN DIABETES SCREEN [facility] Start: 1999 LIPID SCREEN LIPID SCREEN [facility] Start: 1994 Mammography MAMMOGRAM [facility] Start: 1973 DTaP/Tdap/Td Vaccines (1 - Tdap) DTaP/Tdap/Td Vaccines (1 - Tdap) [facility] Start: 1973 Pneumococcal Vaccine: 50+ Years (1 of 2 - PCV) Pneumococcal Vaccine: 50+ Years (1 of 2 - PCV) [facility] Start: 1973 Urine microalbumin profile DTAP,TDAP,TD (1 - Tdap) [facility] Start: 1972 Diabetes: Estimated Glomerular Filtration Rate for Kidney Health Diabetes: Estimated Glomerular Filtration Rate for Kidney Health [facility] Start: 1972 Diabetes: Urine Albumin-Creatinine Ratio for Kidney Health Diabetes: Urine Albumin-Creatinine Ratio for Kidney Health [facility] Start: 1972 HEPATITIS C SCREENING HEPATITIS C SCREENING [facility] Start: 1972 Hepatitis C screening Hepatitis C Screening [facility] Start: 1966 Adult depression screening assessment DEPRESSION SCREENING [facility] Start: 1964 Diabetic foot examination Diabetes: Foot Exam [facility] Start: 1964 Glaucoma screening Diabetes: Retinopathy Screening [facility] Start: 1964 Preventive dental service Diabetes: Dental Exam [facility] Start: 1954 Hemoglobin A1c measurement Diabetes: Hemoglobin A1C [facility] Start: 1954 Medicare Annual Wellness (AWV) Medicare Annual Wellness (AWV) [facility] Start: 1954 Screening for malignant neoplasm of colon [facility] Start: 1954 Screening for osteoporosis Bone Density Scan [facility] Patient Education [facility] Work Phone: Patient referral [facility] Work Phone: PT ED PATIENT INFORMATION PT ED PATIENT INFORMATION Other 11/22/2020 [facility] Immunizations Immunization Date Immunization Notes Care Provider Casandra dotson 12-23-2020 Covid (Pfizer) Dr. Awais brewster Work Phone: [facility] 12-02-2020 Covid (Pfizer) Dr. Awais brewster Work Phone: [facility] Payers Date Payer Category Payer Self-pay [id number] 2023 Unknown [id number] 2022 Medicare MEDICARE PART A AND B [id number] 2022 Medicare supplementa l policy (as second payer) AARP [id number] 2019 Medicare [id number] 2015 Unknown [employer]M BLUE CARD PPO [id number] 2015-Present PPO [id number] 2015 Unknown [id number] Unknown [id number]. 2.462 Unknown [id number] [id number]. 2.462 Unknown [id number] 2.0.1.899341.3.579. 2.462 Unknown [id number] 2.0.1.267344.3.579. 2.462 Unknown [id number] 2.840.1.937336.3.579. 2.462 Unknown [id number] .840.1.640025.3.579. 2.462 Unknown [id number] 2.840.1.411230.3.579. 2.462 Unknown [id number] .840.1.352613.3.579. 2.462 Unknown [id number] .840.1.236987.3.579. 2.462 Unknown [id number] .840.1.583132.3.579. 2.462 Unknown [id number] .840.1.153717.3.579. 2.462 Unknown [id number] .840.1.425483.3.579. 2.462 Unknown [id number] .840.1.650211.3.579. 2.462 Unknown [id number] .840.1.540037.3.579. 2.462 Unknown [id number] 840.1.520565.3.579. 2.462 Unknown [id number] 840.1.637869.3.579. 2.462 Unknown [id number] 840.1.708514.3.579. 2.462 Unknown [id number] 840.1.325865.3.579. 2.462 Unknown [id number] .840.1.336557.3.579. 2.462 Unknown [id number] .840.1.838568.3.579. 2.462 Unknown [id number] .840.1.492182.3.579. 2.462 Unknown [id number] 840.1.300484.3.579. 2.462 Social History Date Type Detail Facility Tobacco smoking status WYIS Unknown if ever smoked [facility] Start: 1955 Sex Assigned At Not on file [facility] Exposure to SARS-CoV-2 (event) Not sure [facility] Start: 10-21-2021 End: 10-04-2022 Tobacco smoking status NHIS Unknown if ever smoked [facility] Start: 06-05-2019 None [facility] Start: 11-17-2020 Spouse/ Signif icant Other [facility] Start: 06-26-2019 Non-smoker [facility] Start: 1955 Sex Assigned At Female W [facility] Start: 10-29-2024 End: 05-03-2025 Tobacco smoking status NHIS Never smoked tobacco (finding) [facility] Start: 05-03-2025 Tobacco use and exposure Smokeless tobacco non-user [facility] Start: 05-03-2025 History of Social function [facility] [employer] Start: 05-03-2025 Tobacco use panel [facility] Start: 04-25-2025 Sex Female (finding) [facility] Medical Equipment Procedure Code Equipment Code Equipment Origin al Text Equipment Identifier Dates ([id number]) Metal-backed pat loraine prosthesis [id number] FDA Start: 03-15-2022 ([id number]) Coated knee femu r prosthesis ()[id number] [id number] FDA Start: 03-15-2022 ([id number]) Coated knee tibi a prosthesis ()[id number] [id number] FDA Start: 03-15-2022 ([id number]) Tibial insert ()[id number] [id number] FDA Start: 03-15-2022 Blood Sugar Diagnostic strip Start: 10-30-2024 Blood Sugar Diagnostic strip Start: 10-30-2024 Blood Sugar Diagnostic strip Start: 10-30-2024 Blood Sugar Diagnostic strip Start: 10-30-2024 Blood Sugar Diagnostic strip Start: 10-30-2024 Goals Date Patient Goal Desired Activity /State Functional Status Date Assessment Result Facility 03-16-2022 Functional status Chair [facility] Work Phone: Mental Status Date Assessment Result Facility 10-30-2024 Cognitive function Level Of Cons ciousness Awake;Alert;Appropriate;Follow s Commands [facility] Work Phone: 03-16-2022 Cognitive function Level Of Cons ciousness Awake;Alert;Appropriate;Follow s Commands [facility] Work Phone: 03-16-2022 Cognitive function Voice/Name [facility] Work Phone: Clinical Notes 11-27-2020 to 05-31-2025 Telephone Encounter - Kacie Jung - 05/31/2025 8:46 AM EDTTelephone Encounter - Kacie Jung - 05/31/2025 8:46 AM EDTGasper Frankel MD - 05/03/2025 1:00 PM EDT Note Date & Type Note Facility 05-31-2025 Telephone encounter Note Form atting of this note might be different from the original. Oly from [email or web address] called and requested that the record request that she had faxed over on 05/15/25 to be faxed back to her. Informed her that it had been faxed back, document in Media dated 05/21/25. Refaxed the paperwork over to her. Phone number [phone] [facility] 05-31-2025 Miscellaneous Notes Formattin g of this note might be different from the original. Oly from [email or web address] called and requested that the record request that she had faxed over on 05/15/25 to be faxed back to her. Informed her that it had been faxed back, document in Media dated 05/21/25. Refaxed the paperwork over to her. Phone number [phone] documented in this encounter [facility] 05-03-2025 History of Presen t illness Narrative Images from the original note were not included. [facility] [place] [address] [facility] [address] Dept: [phone] Dept Armando Jerez 1955 [id number] 05/03/2025 HISTORY OF PRESENT ILLNESS: Armando is a 69 y.o. female here today for evaluation of her left ankle/ achilles. She was sent to the office by [facility]- Dr. Wallace Armando states the problem has been present for 8 months Armando states the problem started Thanks2023, she felt the pop carrying the turkey. She had pain initially and then it subsided. Noticed gait changes affecting her ipsilateral knee replacement and contralateral hip. Saw her vascular doctor for follow up venous ablation appointment who ordered physical therapy. She had improvement in her knee and hip with therapy but not in the ankle itself. Then followed up with [facility] for continued gait problems who ordered MRI and showed Achilles tendon rupture Armando has tried or has been treated with the following: physical therapy x 6 weeks, Tylenol Review of Systems Surgical Risk Factors: Allergies to Metals or Latex: NO Have you been treated for a blood clot: NO Have you had a history of bleeding disorder: NO Have you had a history of Anesthetic problems: NO Do you have tendency to bruise easily: NO Do you experience prolonged or excessive bleeding from cuts or after surgery: NO General/Constitutional: General: no Cancer: NO Acute/Chronic Infections: NO HEENT/Neck: Problems with theThroat: NO Problems with the Eyes: NO Problems with the Ears: NO Problems with the Nose and Sinuses: NO Endocrine: Problems with Diabetes: NO Problems with Thyroid Disorder: NO Thorax: Problems with the Heart: NO Problems with the Lung: no Cardiovascular: Problems with Circulation: NO Problems with High Blood pressure: NO Gastrointestinal: Problems with Ulcers: NO Problems with the Liver: no Problems with Bowel Habits: NO Genitourinary: Problems with the Genitals: NO Urinary problems: NO Kidney disease or stones: NO Skin: Any general problems: NO Neurologic: Dizziness, blurred vision, headaches, problems with balance : NO Seizures or Stroke: NO Psychiatric: Emotional or Psychological disorders: NO Depression or Anxiety: no PAST MEDICAL HISTORY: Medical History[1] Allergies[2] PHYSICAL EXAM: Ht 1.6 m (5' 3") Wt 86.2 kg (190 lb) BMI 33.66 kg/m This is an age appropriate appearing female who is alert and oriented x 3. The patient appears well nourished. Psychiatric: The patient is able to verbalize normally and seems to have a good understanding of her situation. left lower extremity examination Lymphatic System: No areas of swelling are seen Vascular: Dorsalis pedis pulse: 2+ Posterior tibial pulse: 2+ Capillary refill is less than 3 seconds Skin/nails: Normal appearance, warm and dry Hair growth present on foot and toes Neurologic: Sensation intact to light touch throughout the foot and the ankle Musculoskeletal: The calf is nontender to palpation. ROM: Full ROM of the foot and ankle Muscle strength testing: Anterior tibialis: 5/5 Posterior tibialis: 5/5 Peroneus brevis: 5/5 Peroneus longus: 5/5 Gastrocsoleus: 4/5 Unable to go up on toes of Left foot Can plantarflex against resistance Achilles Tendon Evaluation: Tenderness overlying tendon: Yes, mild tenderness to calf Palpable defect: Yes Notable calf atrophy as compared contralaterally Gait and Station: Armando is able to ambulate with a normal gait Armando is able to stand unassisted and maintains balance RADIOGRAPHIC INTERPRETATION: The following outside studies that were ordered by another care provider were reviewed and my interpretation of the these studies follows and these include: MRI of Left ankle chronic rupture of the Achilles tendon is noted. The tear is approximately 4 cm proximal to the insertion site with a gap that appears to be 4 cm. No other abnormalities are seen. REVIEW OF RELATED PREVIOUS DOCUMENTATION: Documents from [facility] were reviewed. LABORATORY RESULT INTERPRETATION: No labs were reviewed/No labs available for review DIAGNOSIS: Diagnosis Plan 1. Chronic rupture of Achilles tendon General supply request: ankle toe off brace - left 2. Type 2 diabetes mellitus without complication, unspecified whether custodial insulin use (HCC) General supply request: ankle toe off brace - left MEDICAL DECISION MAKING: I had a discussion with Armando to make sure she has a good understanding of the diagnoses/issues that I think are present today and understands the plan moving forward. I discussed with Armando that she has a chronic rupture of the Achilles tendon. I explained that if we had seen her acutely after the injury we would have had the option to surgically repair the tendon which generally yields very good recovery. We discussed that since the rupture happened months ago, we cannot perform a simple repair of the tendon as I explained the tendon starts to heal itself in the stretched position which causes the weakness. Armando was given a prescription for an Gzwyj-Kxb-Jhn-Brace today. I explained that once she gets the brace she needs to increase daily wear one hour per day until she is using it multimedia editor. If the brace is uncomfortable or makes her problem worse, or if she develops another problem as a result of the brace then she needs to have it adjusted by the bailiff. If Armando has any other questions pertaining to brace she was told to call me. Patient's anatomy is not amenable with OTS/prefab devices and requires a custom device., The condition the orthosis is being used for is expected to be permanent or long standing and requires a custom device., Control of the foot and ankle in more than one plane requires the patient to have a custom device., and The patient has a compromised condition that requires a custom device to protect the integrity of the patient's skin. We discussed that even with the brace she may still limp. The brace is meant to reduce the workload of the achilles tendon and give a slight push to the foot to help while walking. I had a long discussion with Armando concerning her Left Chronic Achilles Rupture and went over the non-operative and operative options available in detail. I explained to Armando that the other non-operative treatments that would be reasonable to try in this situation would be: Ankle toe off brace. Armando wants to try the ankle toe off brace first but still wanted to discuss her surgical options. We talked about correcting her Left Chronic achilles tendon rupture with Left achilles tenolysis and possible FHL tendon transfer. I explained to Armando that this type of procedure is typically an outpatient procedure meaning she will be able to go home the day of surgery. Armando understands she will need a ride to and from the hospital and she will need someone to stay with her for a night after the surgery. If for some reason Armando needs to be admitted to the hospital following the procedure, we can admit if necessary. I explained Armando would need to be nonweightbearing and this would continue for up to 6 weeks following surgery. During this time Armando may need to use crutches, a walker, a wheelchair, a knee scooter or a combination of these to get around. I talked to Armando about the expected postoperative pain level following this type of procedure. I explained that each patient's perception of pain is different and she could experience more pain or less pain than the average patient and that is something that I cannot fully predict. I explained that she would receive a prescription for pain medication at the time of discharge from the hospital and subsequent requests will be considered based on her complaints, exam findings and length of time from surgery. The risks of surgery were discussed including but not limited to the risks of medications given for surgery, the risk of blood loss during and after surgery that can lead to the need for blood products in certain situations, infection, damage to normal structures that can lead to terminal clerk problems of pain or dysfunction, wound healing complications, the possibility of nonunion or malunion for any bone procedures if they are required and late or chronic pain. I explained to Armando that surgery can potentially make their condition worse or can lead to other unexpected problems that can have terminal clerk effects on their function or comfort. In addition potentially life threatening complications at the time of surgery and after surgery were discussed including but not limited to deep vein thrombosis, pulmonary embolism, myocardial infarction, stroke and . Armando understands that no guarantees with regard to surgical outcome can be given and none were implied. Armando was given the opportunity to ask questions and consider her options. Armando would like to think about the above mentioned procedure further and will call if she wishes to proceed. We discussed that even with a successful reconstruction, the ankle will still feel weaker than it did prior to the initial rupture. We discussed her calf atrophy may not improve even with surgery. We discussed she may still want to wear the ankle toe off brace even after surgery. Follow up if symptoms worsen or fail to improve. Electronically signed by Gasper Frankel MD [facility] Department of Orthopedic surgery 05/03/2025 3:22 PM Voice recognition was used for portions of this note and although it was reviewed prior to signing some incorrect words or phrases could be present. [1] No past medical history on file. [2] No Known Allergies documented in this encounter [facility] 02-07-2025 Evaluation note Diagnosis Onset Date Resolution Edema acute February 07, 2025 10:50am Hemosiderin pigmentation of skin acute February 07, 2025 10:50am Lipodermatosclerosis acute February 07, 2025 10:50am Unsteadiness on feet acute February 07, 2025 10:50am Chronic venous insufficiency chronic February 07, 2025 10:50am [facility] Work Phone: 1(689) 157-292405-15-2025 Evaluation note* Diagnosis Onset Date Resolution Status Admit Date Edema acute February 07, 2025 10:50am Hemosiderin pigmentation of skin acu te February 07, 2025 10:50am Lipodermatosclerosis acute February 07, 2025 10:50am Unsteadiness on feet acute February 07, 2025 10:50am Chronic venous insufficiency chronic February 07, 2025 10:50am Edema acute March 21 11:04am Hemosiderin pigmentation of skin acu te March 21, 2025 11:04am Lipodermatosclerosis acute March 21, 2025 11:04am Unsteadiness on feet acute March 21, 2025 11:04am Chronic venous insufficiency chronic March 21, 2025 11:04am [facility] Work Phone: 1(689) 909-957102-18-2025 Evaluation note* Diagnosis Onset Date Resolution Status Admit Date Obesity chronic November 13, 2024 8:46am EMMANUEL (obstructive sleep apnea) chronic November 13, 2 025 8:46am [facility] Work Phone: 1(678) 504-403802-18-2025 Evaluation note* Diagnosis Onset Date Resolution Status Admit Date Obesity chronic November 13, 2024 8:46am EMMANUEL (obstructive sleep apnea) chroni c November 13, 2024 8:46am Edema acute February 07, 2025 10:50am Hemosiderin pigmentation of skin acu te February 07, 2025 10:50am Lipodermatosclerosis acute February 07, 2025 10:50am Unsteadiness on feet acute February 07, 2025 10:50am Chronic venous insufficiency chronic February 07, 2025 10:50am [facility] Work Phone: 1([phone]) 196-768603-04-2021 NoteHNO ID: [id number] Author: Eduardo Buitrago Service: ? Author Type: Physician Type: Progress Notes Filed: 11/27/2020 1:53 PM Note Text: Subjective: This is a 65-year-old white female who I saw back at [facility] on 11/19/2020. She had had several week history of chronic recurring diarrhea all of her stool studies were negative x2 her C. difficile was negative x2 repeated a CAT scan of her abdomen and pelvis which not reveal any abnormalities. Her diarrhea subsequently stopped she was discharged home on a liquid diet. And since being at home she has improved continuously. He has no abdominal pain she has no more diarrhea. Objective:Blood pressure 116/60, pulse 80, height 162.6 cm (5' 4"), weight 84.5 kg (186 lb 3.2 oz). Abdomen soft and nontender. Assessment: Diarrhea Plan: At this point I really do not think she needs to have any of the colonoscopies. I want her to gradually increase her diet will start with soups start at simple proteins cooked vegetables and then finding will go into salads and a normal diet from there. She can follow-up with me on an as needed basis.[facility] Diagnosis Onset Date Resolution Status EMMANUEL (obstructive sleep apnea) chronic Paroxysmal atrial fibrillation chronic [facility] Work Phone: Evaluation noteNo assessment information available [facility] Work Phone: Evaluation note* Diagnosis Onset Date Resolution Status Status post total left knee replacement not using ceme nt acute [facility] Work Phone: Evaluation note* Diagnosis Onset Date Resolution Status Status post total left knee replacement not using cement acute Essential (primary) hypertension chronic Hyperlipemia chronic Paroxysmal atrial fibrillation chronic SVT (supraventricular tachycardia) chronic [facility] Work Phone: Evaluation note* Diagnosis Onset Date Resolution Status Obesity chronic EMMANUEL (obstructive sleep apnea) chronic [facility] Work Phone: Evaluation note* Diagnosis Chronic rupture of Achilles tendon- Primary Type 2 diabetes mellitus without complication, unspecified whether custodial insulin use (HCC) documented in this encounter [facility] for referral (narrative)No reason for referral information availableWMer[facility] Work Phone: Summary Purpose Family History No Family History Records Found Relationship Condition Age at Onset Recorded Date/T meir Not Specified Cardiac disease Unknown mother Coronary artery disease Unknown father Aneurysm Unknown Advance Directives No Advanced Directives Records Found Advance Directive Response Recorded Date/ Time Advance Directives No January 22 015 2:43pm Living Will No November 18 1:26am Power of Formulation Chemist No November 18, 2020 1:26am Advance Directive Response Recorded Date/ Time Advance Directives No January 22 015 2:43pm Living Will No March 01, 2022 1 1:24am Power of Formulation Chemist No March 01, 2022 11:24am Advance Directive Response Recorded Date/ Time Advance Directives No January 22 015 2:43pm Living Will No March 15, 2022 11:34am Power of Formulation Chemist No March 15 11:34am Advance Directive Response Recorded Date/ Time Advance Directives No January 22 015 1:43pm Living Will No March 15, 2022 10:34am Power of Formulation Chemist No March 15 10:34am Advance Directive Response Recorded Date/ Time Living Will No March 15, 2022 11:34am Do you have a Healthcare Power of Formulation Chemist? No March 15, 2022 11:34am Living Will No October 30 1:54am Do you have a Healthcare Power of Formulation Chemist? No October 30, 2024 1:54am Advance Directives No January 22 015 2:43pm Advance Directive Response Recorded Date/ Time Advance Directives No January 22 015 2:43pm Chief Complaint and Reason for Visit Chief Complaint 1 Y FU DIABETES MANAGEMENT Reason for Visit EMMANUEL (obstructive sle ep apnea) Paroxysmal atrial fibrillation Chief Complaint DIABETES MANAGEMENT DIABETES MANAGEMENT PRE OPERATIVE Chief Complaint DIABETES MANAGEMENT DIABETES MANAGEMENT LT TOTAL KNEE ROBOT PRE OPERATIVE LT TOTAL KNEE ROBOT Reason for Visit Status post total le ft knee replacement not using cement Chief Complaint PRE OPERATIVE LT TOTAL KNEE ROBOT 9 M FU PAROXYSMAL PAROXYSMAL Reason for Visit Status post total le ft knee replacement not using cement Essential (primary) hypertension Hyperlipemia Paroxysmal atrial fibrillation SVT (supraventricular tachycardia) Chief Complaint PAROXYSMAL PAROXYSMAL 1 Y FU SCREENING Reason for Visit EMMANUEL (obstructive sle ep apnea) Paroxysmal atrial fibrillation Chief Complaint 1 Y FU SCREENING Reason for Visit EMMANUEL (obstructive sle ep apnea) Paroxysmal atrial fibrillation Chief Complaint 1 Y FU SCREENING Reason for Visit Obesity EMMANUEL (obstructive sleep apnea) Chief Complaint E-ORDER ALSO Chief Complaint Admit Date chest pain, htn, dizzy October 30 12:51am 1 Y FU November 13, 2024 8:46am MASK LEAK November 13, 2024 9:00am SCREENING January 28, 2025 10:49a m Reason for Visit Admit Date Obesity November 13, 2024 8:46am EMMANUEL (obstructive sleep apnea) October 272024 8:46am Chief Complaint Admit Date chest pain, htn, dizzy October 30 12:51am 1 Y FU November 13, 2024 8:46am MASK LEAK November 13, 2024 9:00am SCREENING January 28, 2025 10:49a m B/L leg discoloration February 07, 2025 10: 50am Chief Complaint Admit Date chest pain, htn, dizzy October 30 12:51am 1 Y FU November 13, 2024 8:46am MASK LEAK November 13, 2024 9:00am SCREENING January 28, 2025 10:49a m B/L leg discoloration February 07, 2025 10: 50am GAIT/MOBILITY RX HERE February 19, 2025 10: 32am Venous insufficiency (chronic) (peripher al) February 19, 2025 1:49pm Reason for Visit Admit Date Obesity November 13, 2024 8:46am EMMANUEL (obstructive sleep apnea) October 272024 8:46am Edema February 07, 2025 10:50 am Hemosiderin pigmentation of skin January 10:50am Lipodermatosclerosis February 07, 2025 10:5 0am Unsteadiness on feet February 07, 2025 10:5 0am Chronic venous insufficiency February 07, 025 10:50am Chief Complaint Admit Date SCREENING January 28, 2025 10:49a m B/L leg discoloration February 07, 2025 10: 50am Venous insufficiency (chronic) (peripher al) February 19, 2025 1:49pm GAIT/MOBILITY RX HERE March 20, 2025 10 :30am 6 WK FU March 21, 2025 11:0 4am Reason for Visit Admit Date Edema February 07, 2025 10:50 am Hemosiderin pigmentation of skin January 10:50am Lipodermatosclerosis February 07, 2025 10:5 0am Unsteadiness on feet February 07, 2025 10:5 0am Chronic venous insufficiency February 07, 2 025 10:50am Chief Complaint Admit Date SCREENING January 28, 2025 10:49a m B/L leg discoloration February 07, 2025 10: 50am Venous insufficiency (chronic) (peripher al) February 19, 2025 1:49pm 6 WK FU March 21, 2025 11:0 4am GAIT/MOBILITY RX HERE March 22, 2025 9: 30am Reason for Visit Admit Date Edema February 07, 2025 10:50 am Hemosiderin pigmentation of skin January 10:50am Lipodermatosclerosis February 07, 2025 10:5 0am Unsteadiness on feet February 07, 2025 10:5 0am Chronic venous insufficiency February 07, 2 025 10:50am Edema March 21, 2025 11:0 4am Hemosiderin pigmentation of skin March 212024 11:04am Lipodermatosclerosis March 21, 2025 11: 04am Unsteadiness on feet March 21, 2025 11: 04am Chronic venous insufficiency March 21, 2025 11:04am Additional Source Comments Source Comments (unrecognize d section and content) In the event this informatio n is protected by the Federal Confidentiality of Alcohol and Drug Abuse Patient Records regulations: The Federal rules restrict any use of the information to criminally investigate or prosecute any alcohol or drug abuse patient.[facility] INFORMATION SOURCE (unrecogn ized section and content) DATE CREATED AUTHOR 10/24/2021 [facility] DATE CREATED AUTHOR AUTHOR'S ORGANIZ ATION 06/02/2025 [facility] DATE CREATED AUTHOR AUTHOR'S ORGANIZ ATION 08/07/2025 [facility] Goals (unrecognized section and content) Goals may be documented in a n alternate sectionGoals may be documented in an alternate sectionGoals may be documented in an alternate sectionGoals may be documented in an alternate sectionGoals may be documented in an alternate sectionGoals may be documented in an alternate sectionGoals may be documented in an alternate sectionGoals may be documented in an alternate sectionGoals may be documented in an alternate sectionGoals may be documented in an alternate sectionGoals may be documented in an alternate section Care Teams (unrecognized sec tion and content) Team Status: Active Member Role Status Dates Dr. Awais Kearney DO Family Provider Active Dr. Awais Kearney DO Primary Care Provider Active Team Status: Inactive Member Role Status Dates Dr. Awais Kearney DO Primary Care Provider, Referrin g Provider Active Dr. Kurtis Chowdhury MD Attending Provider Active Team Status: Active Member Role Status Dates Dr. Awais Kearney DO Primary Care Provider Active Marci Latif PA, PA Referring Provider, Other Provider Active Dr. Christian Veras MD Attending Provider Active Team Status: Inactive Member Role Status Dates Dr. Awais Kearney DO Primary Care Provider Active Marci Latif PA, PA Attending Provider, Referr ing Provider Active Team Status: Active Member Role Status Dates Dr. Awais Kearney DO Primary Care Provider, Attendin g Provider Active Team Status: Inactive Member Role Status Dates Dr. Awais Kearney DO Primary Care Provider, Attendin g Provider Active Team Status: Inactive Member Role Status Dates Dr. Awais Kearney DO Primary Care Provider, Referrin g Provider Active Leah Elkins FOOD SERVICES COORDINATOR, FOOD SERVICES COORDINATOR-C Attending Provider Active Team Status: Inactive Member Role Status Dates Dr. Awais Kearney DO Primary Care Prov ider, Attending Provider, Referring Provider Active Team Status: Inactive Member Role Status Dates Dr. Awais Kearney DO Primary Care Prov ider, Attending Provider, Referring Provider Active Dr. Christian Veras MD Other Provider Active Team Status: Active Member Role Status Dates Dr. Awais Kearney DO Primary Care Provider Active Team Status: Inactive Member Role Status Dates Dr. Awais Kearney DO Primary Care Provider Active Start: October 30, 2024 End: October 30, 2024 Dr. Horace Sotomayor , Attending Provider Active Start: October 30, 2024 End: October 30, 2024 Dr. Horace Sotomayor , Emergency Provider Active Start: October 30, 2024 End: October 30, 2024 Team Status: Inactive Member Role Status Dates Dr. Awais Kearney DO Referring Provider Active Start: November 13, 2024 End: November 13, 2024 Leah Elkins FOOD SERVICES COORDINATOR, FOOD SERVICES COORDINATOR-C Attending Provider Active Start: November 13, 2024 End: November 13, 2024 Team Status: Inactive Member Role Status Dates eLah Elkins FOOD SERVICES COORDINATOR, FOOD SERVICES COORDINATOR-C Attending Provider Active Start: November 13, 2024 End: November 13, 2024 Team Status: Inactive Member Role Status Dates Dr. Awais Kearney DO Primary Care Provider Active Start: January 28, 2025 End: January 28, 2025 Dr. Awais Kearney DO Attending Provider Active Start: January 28, 2025 End: January 28, 2025 Dr. Awais Kearney DO Referring Provider Active Start: January 28, 2025 End: January 28, 2025 Team Status: Inactive Member Role Status Dates Dr. Awais Kearney DO Primary Care Provider Active Start: February 07, 2025 End: February 07, 2025 Dr. Awais Kearney DO Referring Provider Active Start: February 07, 2025 End: February 07, 2025 CELESTE Verduzco Attending Provider Active Star t: February 07, 2025 End: February 07, 2025 Team Status: Active Member Role Status Dates Dr. Awais Kearney DO Primary Care Provider Active Start: February 19, 2025 CELESTE Verduzco Attending Provider Active Star t: February 19, 2025 CELESTE Verduzco Referring Provider Active Star t: February 19, 2025 Team Status: Inactive Member Role Status Dates Dr. Awais Kearney DO Primary Care Provider Active Start: February 19, 2025 End: February 19, 2025 CELESTE Verduzco Attending Provider Active Star t: February 19, 2025 End: February 19, 2025 CELESTE Verduzco Referring Provider Active Star t: February 19, 2025 End: February 19, 2025 Team Status: Active Member Role Status Dates Dr. Awais Kearney DO Primary Care Provider Active Start: February 19, 2025 Dr. Jose A Bangura MD Attending Provider Active S tart: February 19, 2025 Team Status: Active Member Role Status Dates Dr. Awais Kearney DO Primary Care Provider Active Start: February 19, 2025 Dr. Jose A Bangura MD Attending Provider Active S tart: February 19, 2025 CELESTE Verduzco Referring Provider Active Star t: February 19, 2025 Team Status: Active Member Role Status Dates Dr. Awais Kearney DO Primary Care Provider Active Start: March 20, 2025 CELESTE Verduzco Attending Provider Active Star t: March 20, 2025 CELESTE Verduzco Referring Provider Active Star t: March 20, 2025 Team Status: Inactive Member Role Status Dates Dr. Awais Kearney DO Primary Care Provider Active Start: March 21, 2025 End: March 21, 2025 Dr. Awais Kearney DO Referring Provider Active Start: March 21, 2025 End: March 21, 2025 CELESTE Verduzco Attending Provider Active Star t: March 21, 2025 End: March 21, 2025 Team Status: Active Member Role/Relationship Status Dates Dr. Awais Kearney DO Primary Care Provider Active Team Status: Inactive Member Role/Relationship Status Dates Dr. Awais Kearney DO Primary Care Provider Active Start: January 28, 2025 End: January 28, 2025 Dr. Awais Kearney DO Attending Provider Active Start: January 28, 2025 End: January 28, 2025 Dr. Awais Kearney DO Referring Provider Active Start: January 28, 2025 End: January 28, 2025 Team Status: Inactive Member Role/Relationship Status Dates Dr. Awais Kearney DO Primary Care Provider Active Start: February 07, 2025 End: February 07, 2025 Dr. Awais Kearney DO Referring Provider Active Start: February 07, 2025 End: February 07, 2025 CELESTE Verduzco Attending Provider Active Star t: February 07, 2025 End: February 07, 2025 Team Status: Inactive Member Role/Relationship Status Dates Dr. Awais Kearney DO Primary Care Provider Active Start: February 19, 2025 End: February 19, 2025 CELESTE Verduzco Attending Provider Active Star t: February 19, 2025 End: February 19, 2025 CELESTE Verduzco Referring Provider Active Star t: February 19, 2025 End: February 19, 2025 Team Status: Active Member Role/Relationship Status Dates Dr. Awais Kearney DO Primary Care Provider Active Start: February 19, 2025 Dr. Jose A Bangura MD Attending Provider Active S tart: February 19, 2025 CELESTE Verduzco Referring Provider Active Star t: February 19, 2025 Team Status: Inactive Member Role/Relationship Status Dates Dr. Awais Kearney DO Primary Care Provider Active Start: March 21, 2025 End: March 21, 2025 Dr. Awais Kearney DO Referring Provider Active Start: March 21, 2025 End: March 21, 2025 CELESTE Verduzco Attending Provider Active Star t: March 21, 2025 End: March 21, 2025 Team Status: Active Member Role/Relationship Status Dates Dr. Awais Kearney DO Primary Care Provider Active Start: March 22, 2025 CELESTE Verduzco Attending Provider Active Star t: March 22, 2025 CELESTE Verduzco Referring Provider Active Star t: March 22, 2025 Team Status: Inactive Member Role/Relationship Status Dates Dr. Awais Kearney DO Primary Care Provider Active Start: May 17, 2025 End: May 17, 2025 Dr. Awais Kearney DO Attending Provider Active Start: May 17, 2025 End: May 17, 2025 Dr. Awais Kearney DO Referring Provider Active Start: May 17, 2025 End: May 17, 2025 Reason for Visit (unrecogniz ed section and content) Reason Comments New Patient Left achilles FOR RECORDS PERTAINING TO PATIENTS WHO ARE OR HAVE BEEN ENROLLED IN A CHEMICAL DEPENDENCY/SUBSTANCEABUSE PROGRAM, SOME INFORMATION MAY BE OMITTED. This clinical summary was aggregated from multiple sources. Caution should be exercised in using it in the provision of clinical care. This summary normalizes information from multiple sources, and as a consequence, information in this document may materially change the coding, format and clinical context of patient data. In addition, data may be omitted in some cases. CLINICAL DECISIONS SHOULD BE BASED ON THE PRIMARY CLINICAL RECORDS. [facility] [employer] [facility]. provides no warranty or guarantee of the accuracy or completeness of information in this document.
[2025-08-08] MEDS: Lactated Ringers 1,000 ML 15 ML IV (06:35)
--- NOTE | 2025-08-08 06:54 | PCM.PRE.AN2 ---
ASA Classification* ASA Classification ASA Classification: 3 Assessment & Plan Anesthesia* Anesthesia Assessment Anesthesia Assessment: Discussed sedation and/or anesthesia options, risks, benefits, and alternatives with patient/parents/legal guardian/POA. Questions invited. The patient/parents/legal guardian/POA seems to understand and agrees to proceed with anesthesia plan. Reviewed the physical assessment, medical history, allergy history and patient home medications list prior to surgery/procedure/anesthetic and documented any changes. Performed airway and anesthesia risk assessments. Anesthesia Type Anesthesia Type: MAC History Source History Obtained from:: Patient and Chart Anesthesia Focused Assessment* Temperature: 97.3 F Pulse Rate: 55 Blood Pressure: 123/55 Respiratory Rate: 16 Pulse Ox: 99 Oxygen Delivery Method: Room Air Airway Assessment Mouth opens: >3 cm Mallampati Score: IV Teeth Condition: Loose (Patient has a loose tooth #11.) and Partial (Patient has upper partials. They will come out.) Neck Range of motion (ROM): Limited ROM (Slight Decrease) Labs Anesthesia Preop lab: CBC WBC, (4.4-11.0) 11.2 K/mm3 H 07/30/25, 14:02 RBC, (4.2-5.4) 4.43 M/mm3 07/30/25, 14:02 Hgb, (12.0-15.0) 13.9 g/dL 07/30/25, 14:02 Hct, (37-47) 41.5 % 07/30/25, 14:02 Plt Count, (150-450) 341 K/mm3 07/30/25, 14:02 CHEMISTRY Potassium, (3.3-5.1) 4.4 mmol/L 07/30/25, 14:02 Sodium, (133-145) 141 mmol/L 07/30/25, 14:02 Magnesium, (1.6-2.6) 2.3 mg/dL 10/30/24, 00:58 BUN, (4-19) 25 mg/dL H 07/30/25, 14:02 Creatinine, (0.70-1.20) 0.87 mg/dL 07/30/25, 14:02 Glucose, (70-99) 179 mg/dL H 07/30/25, 14:02 POC Glucose, (74-106) 213 mg/dL H 03/15/22, 10:49 TSH, (0.358-3.740) 3.460 uIU/mL 10/30/24, 00:58 COAG Pre-Assessment Diagnosis/Proposed Procedure Planned Operative Procedure(s): INSERTION VASCULAR PORT LEFT POSS RIGHT Anesthesia History 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 When Was Last Pacemaker Check QUESTION #4 FULL TEXT: You/Your Family Experience fever (hyperthermia) with Anesthesia Last Oral Intake Last Oral intake: Last Oral Intake NPO since 01:45 08/08/25 06:23 Meds taken in AM with sips of water? Meds patient instructed to take am of surgery Any additional information?: Yes Meds taken in AM with sips of water?: Yes PONV PONV - manufacturing maintenance manager: PONV - manufacturing maintenance manager Female Yes 08/02/25 08:16 HX of Motion Sickness Yes 08/02/25 08:16 HX of N/V After Surgery No 08/02/25 08:16 Non-Smoker Yes 08/02/25 08:16 Duration of Surgery greater No 08/02/25 08:16 than 60 minutes Number of Risk Factors 3 08/02/25 08:16 PONV Score Moderate Risk 08/02/25 08:16 Height & Weight Height & Weight: Anesthesia: Height & Weight Height 5 ft 3 in 08/08/25 06:23 Weight: 83.915 kg 08/08/25 06:23 Body Mass Index (BMI) 32.8 08/08/25 06:23 Respiratory Assessment Respiratory Assessment - manufacturing maintenance manager: Respiratory Tract Infection Hx - manufacturing maintenance manager Hx Respiratory Tract Infection No 08/02/25 08:16 STOP Sleep Apnea STOP Sleep Apnea - manufacturing maintenance manager: STOP Sleep Apnea - manufacturing maintenance manager Hx Hypertension Yes: CONTROLLED WITH MEDS 08/02/25 08:16 Hx Sleep Apnea Yes 08/02/25 08:16 CPAP Yes 08/02/25 08:16 BIPAP No 08/02/25 08:16 Do you snore loudly (louder than talking or can be heard Do you often feel tired/ fatigued/ sleepy during daytime? Has anyone observed you stop breathing during sleep? STOP Results Positive 08/02/25 08:16 QUESTION #5 FULL TEXT : Do you snore loudly (louder than talking or can be heard through closed doors)? Tobacco Use History Tobacco Use History - manufacturing maintenance manager: Tobacco Use History - manufacturing maintenance manager Tobacco Use Smoking Status Never smoker 08/02/25 08:16 Hx Tobacco Use No 08/02/25 08:16 Years Smoking Packs Smoked per Day Smoking Cessation Date was within the last 15 years Hx Smoking Cessation Date Hx Smoking Cessation Counseling Hematologic Medial History Hematologic Hx - manufacturing maintenance manager: Hematologic Medical Hx - hub lead Hx of Blood Transfusion No 08/02/25 08:16 Hx of Transfusion in last 3 No 08/02/25 08:16 Months Date of Last Transfusion (if within last 3 months) Ever experience any problems No 08/02/25 08:16 with transfusion(s)? Specify any problems Hx of Preganancy in last 3 No 08/02/25 08:16 Months Nurse Filling Out Transfusion DSCHRIBER 08/02/25 08:16 & Questions: Date: 08/02/25 08/02/25 08:16 Time: 08:18 08/02/25 08:16 Patient unable to answer at this time (ie. confused, unrespo /Reproduction History /Reproductive History - manufacturing maintenance manager: /Reproductive Hx- manufacturing maintenance manager Hx Now No 08/02/25 08:16 Gestational Age (in weeks): EDC: Hx Hx Para Hx Section SAB No 08/02/25 08:16 Does the father of the baby or his family experience fever w Father of the baby Malignant Hypertension history comment Active Medications Active Medications: Current Medications Generic Name Dose Route Start Last Admin Trade Name Freq PRN Reason Stop Dose Admin Cefazolin Sodium 2 gm/ Sodium 110 mls @ 200 mls/hr 08/08/25 07:00 Chloride IV 08/08/25 07:32 INTRAOP ONE Lactated Ringer's 1,000 mls @ 15 mls/hr 08/08/25 06:00 08/08/25 06:35 IV 15 mls/hr .Q48H CRISTEL Administration PFSH Medical History Wears contact lenses Cancer Encounter for education Regional lymph node metastasis present Breast cancer Wears glasses Post-menopausal Wears dentures Depression Anxiety High cholesterol Dietary restriction Non-smoker CPAP (continuous positive airway pressure) dependence Leg cramps History of pain when walking History of edema History of echocardiogram History of stress test Hypertension Cardiology follow-up encounter History of atrial fibrillation Preop cardiovascular exam Arthritis of left knee Lupus Diabetes Hemorrhoids Essential (primary) hypertension Varicose veins with inflammation Chronic venous insufficiency Cyst of breast, right, solitary SVT (supraventricular tachycardia) Paroxysmal atrial fibrillation Hyperlipemia Palpitations Polyarthritis Impingement syndrome of right shoulder Obesity EMMANUEL (obstructive sleep apnea) Hypomagnesemia IBS (irritable bowel syndrome) Vitamin D deficiency Gout Dermatitis Bradycardia Constipation Osteoporosis Leg edema Home Medications Medication Instructions Recorded Last Taken Type multivitamin (Daily Multi-Vitamin 1 tab PO DAILY supplement 07/09/20 08/07/25 08:00 History tablet) furosemide 40 mg tablet (Lasix) 40 mg PO BID #180 tabs 09/04/24 08/07/25 20:00 Rx lisinopril 20 mg tablet 20 mg PO BID #180 tabs 09/04/24 08/07/25 20:00 Rx metoprolol succinate 50 mg 50 mg PO DAILY #90 tabs 09/04/24 08/08/25 01:45 Rx tablet,extended release 24 hr pravastatin 40 mg tablet 40 mg PO QHS #90 tabs 09/04/24 08/07/25 20:00 Rx spironolactone 25 mg tablet 25 mg PO DAILY #90 TABLETS 09/04/24 08/07/25 08:00 Rx flecainide 100 mg tablet 100 mg PO BID #180 TABLETS 09/24/24 08/08/25 01:45 Rx glipizide 10 mg tablet, extended 10 mg PO QDAY 11/13/24 08/07/25 08:00 History release 24 hr diosmin complex no.1 630 mg tablet 1 tab PO QDAY #90 tabs 07/01/25 08/07/25 08:00 Rx (Vasculera) dulaglutide 0.75 mg/0.5 mL 4.5 mg subcut MO 07/23/25 07/29/25 History subcutaneous pen injector (Trulicity) lidocaine-prilocaine 2.5 %-2.5 % 1 applic topical ONCE PRN port 08/01/25 Unknown Rx topical cream access 30 days #30 grams ondansetron 8 mg disintegrating 8 mg PO Q8H PRN nausea and 08/01/25 Unknown Rx tablet vomiting #30 tabs prochlorperazine maleate 10 mg 10 mg PO Q6H PRN nausea and 08/01/25 Unknown Rx tablet vomiting #30 tabs aspirin 81 mg chewable tablet 81 mg PO DAILY Postop DVT 08/02/25 07/29/25 History prophylaxis Allergy/AdvReac Type Severity Reaction Status Date / Time Dressing: Non-Medicated AdvReac Rash Verified 08/08/25 06:18 (wrap) Milk Containing Products AdvReac Diarrhea Verified 08/08/25 06:18 (Dairy) (Milk Containing Products) Family History Mother CAD (coronary artery disease) Diabetes Father Aneurysm Aunt Breast cancer Other Heart disease Surgical History History of left knee replacement Hx of colonoscopy Status post endovenous radiofrequency ablation of saphenous vein vein ablation History of left heart catheterization (11/20/10) History of cardiac radiofrequency ablation (RFA) (11/20/10) History of hysterectomy History of tonsillectomy Social History Smoking Status: Never smoker alcohol intake: never substance use type: does not use caffeine: Yes Type: carbonated beverages Number of servings: 1 what type of physical activity do you participate in: none seatbelt use: always do you feel safe at home: Yes Review of Systems (Anesthesia) ROS Narrative System reviewed and no additional complaints, except as documented.
--- NOTE | 2025-08-08 07:17 | PCM.HP.BLA ---
History and Physical Date of Admission: 08/08/25 Date of Service: 07/31/25 MR#: [id number] Acct: [id number] Name: ARMANDO GONZALEZ Rep #: [id number] : 1955 Provider: Dr. Carol Medina MD Age/Sex: 70/F Location: [facility] Status: Signed Intake Vital Signs 07/23/2509:28 07/31/2510:40 07/31/2513:39 Height 5 ft 3 in 5 ft 3 in 5 ft 3 in Weight: 184 lb BMI 32.5 BP 124/69 H Blood Pressure Location Lt brachial Position Sitting Respiration 17 Pulse 68 Pulse Source Monitor Temp 97.2 F L Temp Source Temporal Pulse Oximetry (%) 98 Oxygen Delivery Method room air Intake Visit Reasons: DISCUSS PATH & PORT Chief Complaint: discuss path and port Is patient in pain?: No Allergies Dressing: Non-Medicated (wrap) Adverse Reaction (Verified 08/02/25 08:12) Rash Milk Containing Products (Dairy) (Milk Containing Products) Adverse Reaction (Verified 08/02/25 08:12) Diarrhea Medications Medication Instructions Recorded Confirmed Type multivitamin (Daily Multi-Vitamin 1 tab PO DAILY supplement 07/09/20 08/02/25 History tablet) furosemide 40 mg tablet (Lasix) 40 mg PO BID #180 tabs 09/04/24 08/02/25 Rx lisinopril 20 mg tablet 20 mg PO BID #180 tabs 09/04/24 08/02/25 Rx metoprolol succinate 50 mg 50 mg PO DAILY #90 tabs 09/04/24 08/02/25 Rx tablet,extended release 24 hr pravastatin 40 mg tablet 40 mg PO QHS #90 tabs 09/04/24 08/02/25 Rx spironolactone 25 mg tablet 25 mg PO DAILY #90 TABLETS 09/04/24 08/02/25 Rx flecainide 100 mg tablet 100 mg PO BID #180 TABLETS 09/24/24 08/02/25 Rx glipizide 10 mg tablet, extended 10 mg PO QDAY 11/13/24 08/02/25 History release 24 hr diosmin complex no.1 630 mg tablet 1 tab PO QDAY #90 tabs 07/01/25 08/02/25 Rx (Vasculera) dulaglutide 0.75 mg/0.5 mL 4.5 mg subcut MO 07/23/25 08/02/25 History subcutaneous pen injector (Trulicity) lidocaine-prilocaine 2.5 %-2.5 % 1 applic topical ONCE PRN port 08/01/25 08/02/25 Rx topical cream access 30 days #30 grams ondansetron 8 mg disintegrating 8 mg PO Q8H PRN nausea and 08/01/25 08/02/25 Rx tablet vomiting #30 tabs prochlorperazine maleate 10 mg 10 mg PO Q6H PRN nausea and 08/01/25 08/02/25 Rx tablet vomiting #30 tabs aspirin 81 mg chewable tablet 81 mg PO DAILY Postop DVT 08/02/25 08/02/25 History prophylaxis Have you fallen in the past year?: No PFSH Medical History (Updated 08/04/25 @ 17:[address] Carol Medina MD) Wears contact lenses Cancer Encounter for education Regional lymph node metastasis present Breast cancer Wears glasses Post-menopausal Wears dentures Depression Anxiety High cholesterol Dietary restriction Non-smoker CPAP (continuous positive airway pressure) dependence Leg cramps History of pain when walking History of edema History of echocardiogram History of stress test Hypertension Cardiology follow-up encounter History of atrial fibrillation Preop cardiovascular exam Arthritis of left knee Lupus Diabetes Hemorrhoids Essential (primary) hypertension Varicose veins with inflammation Chronic venous insufficiency Cyst of breast, right, solitary SVT (supraventricular tachycardia) Paroxysmal atrial fibrillation Hyperlipemia Palpitations Polyarthritis Impingement syndrome of right shoulder Obesity EMMANUEL (obstructive sleep apnea) Hypomagnesemia IBS (irritable bowel syndrome) Vitamin D deficiency Gout Dermatitis Bradycardia Constipation Osteoporosis Leg edema Surgical History (Updated 08/02/25 @ 08:24 by Nikole Sánchez) History of left knee replacement Hx of colonoscopy Status post endovenous radiofrequency ablation of saphenous vein vein ablation History of left heart catheterization (11/20/10) History of cardiac radiofrequency ablation (RFA) (11/20/10) History of hysterectomy History of tonsillectomy Family History Mother CAD (coronary artery disease) Diabetes Father Aneurysm Aunt Breast cancer Other Heart disease Social History Smoking Status: Never smoker alcohol intake: never substance use type: does not use caffeine: Yes Type: carbonated beverages Number of servings: 1 what type of physical activity do you participate in: none seatbelt use: always do you feel safe at home: Yes HPI HPI HPI: 70-year-old female recently diagnosed with 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 Patient will be starting chemotherapy in a couple weeks. Patient here to discuss port placement. ROS General General: Yes fatigue; No weight change, appetite, colon cancer, breast cancer or weakness HEENT HEENT: No difficulty swallowing, eye injury, eye surgery, swollen glands or hoarseness Endo Endocrine: Yes diabetes mellitus; No thyroid disease, thyroid cancer, Hair loss, heat intolerance or cold intolerance Skin Skin: No rash or changing moles Musc Musculoskeletal: Yes arthritis and joint pain; No back problems, rheumatoid arthritis or gout Cardio Cardiovascular: Yes high blood pressure; No murmur, pacemaker, heart disease, atrial fibrillation, heart attack, heart stent, palpitations, shortness of breath with exertion or chest pain Psych Psychiatric: No depression, anxiety or hearing voices Resp Respiratory: No shortness of breath, Yes sleep apnea, No cough, No COPD, No asthma, No emphysema and No wheezing Gastro Gastrointestinal: No abdominal pain, No nausea or vomiting, No diarrhea, No constipation, No blood in stool, No acid reflux, No hemorrhoids, No ulcers, No gallbladder problem and No black,tarry stools Orlin Hematologic: Yes blood thinners, No blood disorders, No bleeding, No anemia and No blood clots Additional Details: asa Neuro Neurologic: No system reviewed and no additional complaints, except as documented, No as per HPI, No abnormal gait, No abnormal hearing, No abnormal movements, No abnormal speech, No behavioral changes, Yes burning sensations, No confusion, No convulsions, Yes disequilibrium, No dizziness, Yes localized weakness, No frequent falls, Yes headache(s), No lack of coordination, No loss of vision, No memory loss, Yes numbness, No other visual disturbances, Yes radicular pain, No restless legs, No sensory deficit, No syncope, Yes tingling, No tremor(s), No weakness and No other Exam Const General: cooperative, healthy appearing, comfortable and no acute distress HENVT Head: normocephalic and atraumatic Neck Neck: supple Chest Other: Palpation of bilateral upper chest normal Resp Effort & Inspection: normal respiratory effort Cardio Rate: regular rate Skin General: no rashes or lesions noted Psych Mental Status: mental status grossly normal Attitude: cooperative Assessment and Plan Assessment and Plan (1) Encounter for insertion of venous access port: Status: Acute (2) Breast cancer: Status: Acute (3) Regional lymph node metastasis present: Status: Acute Plan I have discussed above with the patient- Port-a-Cath placement. Left IJ possible right Patient has been counseled as to the risks/benefits of the procedure. I have explained the risks of the surgery, including but not limited to: infection, bleeding, injury to any blood vessels/nerves, injury to lungs (such as pneumothorax or hemothorax and need for chest tube), not having any access, nonfunctioning of port due to thrombosis, infection of port, etc. the patient understands and agrees to proceed. I have answered all the patient's questions to the patient’s satisfaction and the patient has no further questions. Carol Medina M.D. Pager: [phone] [facility] [address] [place] [address], [address] [place] [address] Office: [phone] Coding Level of Care Code Off vis,est,level 3 Diagnoses Encounter for insertion of venous access port Z45.2 Breast cancer C50.919 Regional lymph node metastasis present C77.9 Clinical Quality Measures Falls Risk Screening/Assistive Devices Have you fallen in the past year?: No 08/04/25 0099 <Electronically signed by Carol Medina MD> Date Carol Medina MD
[2025-08-08] MEDS: Cefazolin 1 GM/5 ML Vial 2 GM IV (07:32)
[2025-08-08] MEDS: Lactated Ringers 500 ML IV (07:32)
[2025-08-08] MEDS: Lidocaine 1% (5 ml sdv) 5 ML Vial IV (07:33)
[2025-08-08] MEDS: fentaNYL 100 MCG/2 ML Ampul 50 MCG IV (07:42)
[2025-08-08] MEDS: Lidocaine 1% /Epi 1:100 (20ml) 20 ML Vial (07:52)
--- NOTE | 2025-08-08 08:15 | OP.PCM_ITS ---
Operative Report (Standard) Operative Information Date of Procedure: 08/08/25 Pre-Operative Diagnosis: Z45.2, right breast cancer Post-Operative Diagnosis: Same Surgery/Procedure Performed: Placement of left IJ Port-A-Cath Use of ultrasound Use of fluoroscopy presales engineer: No Type of Anesthesia: Local MAC RN Documented Start/Stop Times: Operation Date: 08/08/25 07:30 Case Time Into Pre-Op 08/08/25 05:57 Out of Pre-Op 08/08/25 07:29 Anesthesia Start 08/08/25 07:32 Into Room 08/08/25 07:32 Procedure Start 08/08/25 07:52 Procedure End 08/08/25 08:15 Anesthesia End 08/08/25 08:19 Out of Room 08/08/25 08:19 Into Recovery 08/08/25 08:22 Into Phase II Recovery 08/08/25 08:51 Out of Recovery 08/08/25 08:51 Out of Phase II 08/08/25 09:40 Procedure Start Time: 07:52 Procedure Stop Time: 08:15 Select all DRAINS/GRAFTS/IMPLANTS that apply: Implanted device Implanted device details: [employer] PowerPort ISP MRI implantable port 6 Fr ref [id number] Lot [id number] Special Medications: Ancef 2 g IV x 1 Estimated Blood Loss: <10 cc Specimen collected: No Description of surgery: After informed consent was given, the patient was brought to the operating room and placed in the supine position. Appropriate time out protocol was followed. Patient was then given IV conscious sedation for anesthesia. The patient's left upper chest and neck were then prepped with a surgical skin preparation and sterile surgical drapes were placed. After proper landmarks were ascertained, the skin at the upper left chest area was then infiltrated with 1:1 mixture of 1% lidocaine with epinephrine and 0.5% marcaine. A needle trocar was then inserted into the left internal jugular vein with ultrasound guidance-multiple vessels were viewed with u/s and the left IJ was chosen-- and there was good aspiration of venous blood. A wire was then threaded into the needle trocar and this was visualized under fluoroscopy to ensure that the wire was in the superior vena cava. Once this was done, then the needle trocar was removed. A small skin bradley was made with an 11 blade knife at the wire entrance site. The dilator with the introducer sheath attached was then placed over the wire into the left internal jugular vein via the Seldinger technique and this was visualized under fluoroscopy. The dilator and sheath were in proper position as visualized by fluoroscopy. A subcutaneous pocket was then created caudad to the catheter insertion site. A transverse skin incision was made after the skin and subcutaneous tissues were infiltrated with local anesthetic. Blunt dissection was then used to create a space large enough for placement of the subcutaneous port. The catheter was then tunneled into the subcutaneous pocket. The wire and dilator were then removed. The catheter was then threaded into the introducer sheath and was positioned with its tip at the junction of the superior vena cava and the right atrium as visualized under fluoroscopy. The excess catheter was transected. The catheter was then attached to the subcutaneous port using manufacturers guidelines. The catheter was flushed with a heparin saline mixture prior to placement. Hemostasis was carefully controlled with electrocautery. The port was sutured to the subcutaneous fascia using 2-0 Vicryl suture at two sites. The port was then placed in the subcutaneous pocket. The incision were reapproximated with interrupted subdermal 3-0 vicryl sutures. The skin was reapproximated with 3-0 nylon suture in a interrupted fashion. Steristrips were used for reinforcement of the skin closure at IJ insertion site and a sterile opsite dressings were applied. The patient tolerated the procedure well. Surgical Findings: See operative note Complications Complications: No
--- NOTE | 2025-08-08 08:17 | RAD_ITS ---
PROCEDURE: CXR FOR LINE PLACEMENT 08/08/2025 REASON FOR EXAM: PORT TECHNIQUE: Procedure Code: RADCXRLP Modality: DX Procedure: CXR FOR LINE PLACEMENT COMPARISON: June 09, 2021. FINDINGS: A left-sided port a catheter has been placed. The tip is at the junction of the superior vena cava and right atrium. The lungs are well aerated. No focal infiltrate or pneumothorax is seen. Degenerative changes of the thoracic vertebrae. RAD/CXR for Line Placement IMPRESSION: Status post placement of a left-sided port a catheter with the tip at the junct ion of the superior vena cava and right atrium. Reading Location: [place] [address]
--- NOTE | 2025-08-08 08:19 | EX.PCM.DISCH ---
Discharge Instructions Procedure Port-A-Cath Diet Discharge Diet: Light diet - advance as tolerated Activity May shower in (days): 5 (Keep port site clean and dry x5 days. Neck incision okay to get wet after 1 day. Okay to lower shower and upper sponge bath. OR okay to taper off port site with a Ziploc bag to shower) Lifting Restrictions: No lifting > 15 pounds for 3 days with the arm on the side of the port Dressing / Incision Call your doctor if your incision/area has: Continuous Slow Oozing, Sudden Increased Bleeding, Increased Pain/ Swelling, Increased Redness, Foul Smelling Discharge and Swelling at the incision site Call your doctor if you observe: Fever of 101 or Higher Change Dressing in: 2 days (2-3 days- port site; ok to remove neck opsite in 1 day) Follow Up Care Please Follow Up With: Carol Medina MD When: In 10 days for permanent suture removal–call office for appointment Test Results: Test results from this visit will be discussed in further detail at your follow-up appointment, if applicable. Discharge Plan Admission Attending Provider: Carol Medina Primary Care Provider: Awais Kearney Instructions Print Language: Kinyarwanda Discharge Orders/Prescriptions Prescriptions: New tramadol 50 mg tablet 50 mg PO Q6H PRN (Reason: pain) Qty: 5 0RF Continued multivitamin [Daily Multi-Vitamin] Tablet 1 tab PO DAILY furosemide [Lasix] 40 mg tablet 40 mg PO BID Qty: 180 3RF Rx Instructions: water pill lisinopril 20 mg tablet 20 mg PO BID Qty: 180 3RF Rx Instructions: BP metoprolol succinate 50 mg tablet extended release 24 hr 50 mg PO DAILY Qty: 90 3RF Rx Instructions: bp pravastatin 40 mg tablet 40 mg PO QHS Qty: 90 3RF Rx Instructions: cholesterol spironolactone 25 mg tablet 25 mg PO DAILY Qty: 90 3RF glipizide 10 mg tablet extended release 24hr 10 mg PO QDAY Trulicity 0.75 mg/0.5 mL pen injector 4.5 mg subcut MO flecainide 100 mg tablet 100 mg PO BID Qty: 180 3RF Vasculera 630 mg tablet 1 tab PO QDAY Qty: 90 3RF prochlorperazine maleate 10 mg tablet 10 mg PO Q6H PRN (Reason: nausea and vomiting) Qty: 30 2RF ondansetron 8 mg tablet,disintegrating 8 mg PO Q8H PRN (Reason: nausea and vomiting) Qty: 30 1RF lidocaine-prilocaine 2.5-2.5 % cream 1 applic topical ONCE PRN (Reason: port access) 30 Days Qty: 30 2RF Held aspirin 81 mg Tablet,Chewable 81 mg PO DAILY Hold Instructions: Resume on 08/09/25. Referrals / Follow Up: Awais Kearney DO [Primary Care Provider, Family Practice] Disposition Disposition (needs filled in before D/C Order can be placed): Home, Self Care
--- NOTE | 2025-08-08 08:25 | PCM.POST.ANE ---
Anesthesia: Postop Eval I Current Vital Signs Temperature: 97.2 F Pulse Rate: 68 Blood Pressure: 112/58 Respiratory Rate: 16 Pulse Ox: 96 Oxygen Delivery Method: Room Air Assessment Airway patent: Yes Spontaneous unlabored respirations: Yes Mental status: Awake and Calm nausea: No Vomiting: No Anesthesia Complication: No Fluid Hydration Crystalloid volume administer (ml): 500 Total IV fluid infused: 500 Progress Note Anesthesia document: Postop Eval 1 completed: Yes
--- NOTE | 2025-08-08 14:22 | POSTOPAN2_ITS ---
Anesthesia Postop Eval I Sum Postop Eval Completion status Anesthesia document: Postop Eval 1 completed: Yes Anesthesia Postop Eval I Summary Anesthesia Postop Eval I Summary: Anesthesia Postop Eval I: Assessment Summary Airway patent Yes 08/08/25 08:26 RESTAURANT [email or web address] Spontaneous unlabored Yes 08/08/25 08:26 RESTAURANT [email or web address].[email or web address] respirations Mental status Awake,Calm 08/08/25 08:26 RESTAURANT [email or web address] nausea No 08/08/25 08:26 RESTAURANT MGR.[email or web address] Vomiting No 08/08/25 08:26 RESTAURANT M[employer].[email or web address] Anesthesia Postop Eval I: Fluid Summary Crystalloid volume administer 500 08/08/25 08:26 RESTAURANT [email or web address] (ml) Colloids volume administered ( ml) Blood Product volume administered (ml) Total IV fluid infused 500 08/08/25 08:26 RESTAURANT MGR.DUNCAN Anesthesia Postop Eval I: Summary Notes Anesthesia Complication No 08/08/25 08:26 RESTAURANT MGR.[email or web address] Anesthesia Complication Comment: Post-operative progress note Anesthesia: Postop Eval II Evaluation Mental status: Awake and Calm Pain Level: 0 nausea: No Vomiting: No Complications Anesthesia Complication: No
--- NOTE | 2025-08-08 14:22 | PCM.POSTANE2 ---
Anesthesia Postop Eval I Sum Postop Eval Completion status Anesthesia document: Postop Eval 1 completed: Yes Anesthesia Postop Eval I Summary Anesthesia Postop Eval I Summary: Anesthesia Postop Eval I: Assessment Summary Airway patent Yes 08/08/25 08:26 [employer]OR [email or web address].[email or web address] Spontaneous unlabored Yes 08/08/25 08:26 [employer].DUNCAN respirations Mental status Awake,Calm 08/08/25 08:26 [employer].[email or web address] nausea No 08/08/25 08:26 [employer].[email or web address] Vomiting No 08/08/25 08:26 [employer].DUNCAN Anesthesia Postop Eval I: Fluid Summary Crystalloid volume administer 500 08/08/25 08:26 [email or web address].[email or web address] (ml) Colloids volume administered ( ml) Blood Product volume administered (ml) Total IV fluid infused 500 08/08/25 08:26 [employer].DUNCAN Anesthesia Postop Eval I: Summary Notes Anesthesia Complication No 08/08/25 08:26 [employer].DUNCAN Anesthesia Complication Comment: Post-operative progress note Anesthesia: Postop Eval II Evaluation Mental status: Awake and Calm Pain Level: 0 nausea: No Vomiting: No Complications Anesthesia Complication: No
== END 2025-08-08 09:40 | disposition home or self-care (01) ==
LOC: SDC 05:51 → AC 05:52
PROVIDERS: PCP Family Medicine; Referring Provider Surgery; Visit Provider Surgery
DX: Z45.2 Encounter for adjustment and management of vascular access device (principal); C77.9 Secondary and unspecified malignant neoplasm of lymph node, unspecified; C50.911 Malignant neoplasm of unspecified site of right female breast; E11.9 Type 2 diabetes mellitus without complications; E78.00 Pure hypercholesterolemia, unspecified; I10 Essential (primary) hypertension; Z79.84 Long term (current) use of oral hypoglycemic drugs; Z79.899 Other long term (current) drug therapy; Z80.3 Family history of malignant neoplasm of breast
CPT/HCPCS: 36561; 00532; 71045; 77001; 82962; J2405